=== PATIENT | female | born 1960 | race Caucasian/White ===

== ENCOUNTER 2021-01-26 10:44 | Outpatient (REF) | payer OTHER, SELFPAY ==
[2021-01-26 13:50] LABS: MANUAL DIFF FLAG NO
[2021-01-26 13:58] LABS: Basophils Percent Auto 0.3 % (0-2); Eosinophils Absolute Auto 0.1 X10*3/uL (0.0-0.4); Eosinophils Percent Auto 1.6 % (0-4); Hematocrit 24.1 % (37-47); Imm Gran Abs Auto 0.04 X10*3/uL (0.00-0.03); Imm Gran Pct Auto 0.5 % (0.0-0.4); Lymphocytes Absolute Auto 0.9 X10*3/uL (1.2-4.9); Lymphocytes Percent Auto 12.7 % (20-40); Mean Corpuscular HGB Conc 29.5 g/dl (31.0-35.0); Mean Corpuscular Hemoglobin 27.3 pg (27.0-33.0); Mean Corpuscular Volume 92.7 fL (80-98); Mean Platelet Volume 9.1 fL (9.4-12.3); Monocytes Absolute Auto 0.6 X10*3/uL (0.1-1.2); Monocytes Percent Auto 7.6 % (2-11); NRBC Pct Auto 0.3 /100WBC (0.0-0.2); Neutrophils Absolute Auto 5.7 X10*3/uL (2.0-8.3); Neutrophils Percent Auto 77.3 % (45-73); Platelet Count 383 X10*3/uL (160-400); Red Cell Distribution Width 14.9 % (11.0-16.0); White Blood Count 7.3 X10*3/uL (4.8-10.8)
[2021-01-26 13:59] LABS: Hemoglobin 7.1 g/dl (12.0-16.0)
[2021-01-26 14:19] LABS: Anion Gap 13 (12-20); Blood Urea Nitrogen 13 mg/dL (9-16); Calcium 9.2 mg/dL (8.4-10.2); Carbon Dioxide 28 mmol/L (22-29); Chloride 107 mmol/L (96-108); Estimated Glomerular Filt Rate > 60; Glucose Random 61 mg/dL (60-115); Potassium 4.8 mmol/L (3.3-5.1); Sodium 143 mmol/L (135-145)
== END 2021-01-26 10:45 | disposition home or self-care (01) ==
LOC: HO.HMGCLDS 10:44
PROVIDERS: PCP Internal Medicine; Visit Provider Physician Assistant
DX: K25.9 Gastric ulcer, unspecified as acute or chronic, without hemorrhage or perforation (principal)
CPT/HCPCS: 36415; 80048; 85025

== ENCOUNTER 2021-01-28 09:53 | Outpatient (REF) | payer OTHER, SELFPAY ==
[2021-01-28 11:29] LABS: MANUAL DIFF FLAG NO
[2021-01-28 11:43] LABS: Basophils Percent Auto 0.1 % (0-2); Eosinophils Absolute Auto 0.1 X10*3/uL (0.0-0.4); Eosinophils Percent Auto 1.8 % (0-4); Hematocrit 22.3 % (37-47); Imm Gran Abs Auto 0.04 X10*3/uL (0.00-0.03); Imm Gran Pct Auto 0.5 % (0.0-0.4); Lymphocytes Absolute Auto 0.9 X10*3/uL (1.2-4.9); Lymphocytes Percent Auto 10.8 % (20-40); Mean Corpuscular HGB Conc 29.6 g/dl (31.0-35.0); Mean Corpuscular Hemoglobin 26.8 pg (27.0-33.0); Mean Corpuscular Volume 90.7 fL (80-98); Mean Platelet Volume 9.2 fL (9.4-12.3); Monocytes Absolute Auto 0.6 X10*3/uL (0.1-1.2); Monocytes Percent Auto 7.4 % (2-11); Neutrophils Absolute Auto 6.3 X10*3/uL (2.0-8.3); Neutrophils Percent Auto 79.4 % (45-73); Platelet Count 349 X10*3/uL (160-400); Red Blood Count 2.46 X10*6/uL (4.20-5.50); White Blood Count 7.9 X10*3/uL (4.8-10.8)
[2021-01-28 12:09] LABS: Retic HGB Equivalent 19.2 pg (30.0-35.0); Reticulocyte Percent 5.9 % (0.5-1.8)
[2021-01-28 12:10] LABS: Reticulocytes Absolute 0.111 X10*6/uL (0.026-0.095)
[2021-01-28 12:15] LABS: Hemoglobin 6.6 g/dl (12.0-16.0)
[2021-01-28 12:21] LABS: Ferritin 20 ng/mL (10-250); Iron 14 mcg/dL (30-160); Percent Iron Saturation 5 % (15-50); Total Iron Binding Capacity 298 mcg/dL (228-428); Unsaturated Iron Binding 284 ug/dL
[2021-01-28 12:23] LABS: Folate 4.6 ng/mL (> or = 4.0); Vitamin B12 > 2000 pg/mL (200-900)
== END 2021-01-28 09:54 | disposition home or self-care (01) ==
LOC: HO.HMGCLDS 09:53
PROVIDERS: Physician Assistant; PCP Internal Medicine; Visit Provider Internal Medicine
DX: K92.2 Gastrointestinal hemorrhage, unspecified (principal)
CPT/HCPCS: 36415; 82607; 82728; 82746; 83540; 85025; 85045

== ENCOUNTER 2021-02-26 16:43 | Outpatient (REF) | payer OTHER, SELFPAY ==
--- NOTE | ~2021-02-26 | XR_ITS ---
EXAMINATION: XR CHEST CLINICAL INFORMATION: Shortness of breath COMPARISON: Previous chest x-rays most recent September 2019 TECHNIQUE: 2 views of the chest were obtained. FINDINGS: The cardiac silhouette is slightly enlarged but stable. Hilar and mediastinal contours are unremarkable. The lungs are clear. There is no pleural effusion or pneumothorax. There are degenerative changes of the spine and mild scoliosis. XR/XR chest 2V IMPRESSION: Slightly enlarged cardiac silhouette. Otherwise unremarkable exam.
[2021-02-26 17:07] LABS: Imm Gran Abs Auto 0.04 X10*3/uL (0.00-0.03); Imm Gran Pct Auto 0.5 % (0.0-0.4); MANUAL DIFF FLAG SCAN; Mean Corpuscular Volume 88.4 fL (80-98); SCAN SMEAR FLAG 1
[2021-02-26 17:10] LABS: Basophils Percent Auto 0.1 % (0-2); Eosinophils Absolute Auto 0.2 X10*3/uL (0.0-0.4); Eosinophils Percent Auto 2.5 % (0-4); Hematocrit 34.3 % (37-47); Hemoglobin 10.4 g/dl (12.0-16.0); Lymphocytes Absolute Auto 1.5 X10*3/uL (1.2-4.9); Lymphocytes Percent Auto 17.4 % (20-40); Mean Corpuscular HGB Conc 30.3 g/dl (31.0-35.0); Mean Corpuscular Hemoglobin 26.8 pg (27.0-33.0); Mean Platelet Volume 8.9 fL (9.4-12.3); Monocytes Absolute Auto 0.8 X10*3/uL (0.1-1.2); Monocytes Percent Auto 8.9 % (2-11); Neutrophils Percent Auto 70.6 % (45-73); Platelet Count 382 X10*3/uL (160-400); Red Blood Count 3.88 X10*6/uL (4.20-5.50); Red Cell Distribution Width 15.5 % (11.0-16.0); Retic HGB Equivalent 27.8 pg (30.0-35.0); Reticulocytes Absolute 0.117 X10*6/uL (0.026-0.095); White Blood Count 8.5 X10*3/uL (4.8-10.8)
[2021-02-26 17:36] LABS: Alanine Aminotransferase 25 U/L (0-31); Albumin Level 4.2 g/dL (3.5-5.0); Alkaline Phosphatase 135 U/L (39-117); Anion Gap 13 (12-20); Aspartate Amino Transferase 16 U/L (5-31); Bilirubin Total 0.2 mg/dL (0.0-1.0); Blood Urea Nitrogen 18 mg/dL (9-16); Calcium 10.4 mg/dL (8.4-10.2); Carbon Dioxide 32 mmol/L (22-29); Chloride 100 mmol/L (96-108); Estimated Glomerular Filt Rate > 60; Glucose Random 142 mg/dL (60-115); Iron 44 mcg/dL (30-160); Percent Iron Saturation 12 % (15-50); Potassium 5.2 mmol/L (3.3-5.1); Sodium 140 mmol/L (135-145); Total Iron Binding Capacity 370 mcg/dL (228-428); Total Protein 6.8 g/dL (6.5-8.0); Unsaturated Iron Binding 326 ug/dL
[2021-02-26 17:43] LABS: B Type Natriuretic Peptide 148 pg/mL (<100)
[2021-02-26 17:44] LABS: SLIDE REVIEW VERIFIED
[2021-02-26 17:58] LABS: Ferritin 34 ng/mL (10-250)
[2021-02-26 18:05] LABS: Folate 3.9 ng/mL (> or = 4.0); Vitamin B12 1644 pg/mL (200-900)
== END 2021-02-26 16:44 | disposition home or self-care (01) ==
LOC: HO.XRAY 16:43
PROVIDERS: PCP Internal Medicine; Visit Provider Internal Medicine
DX: R06.02 Shortness of breath (principal)
CPT/HCPCS: 36415; 71046; 80053; 82607; 82728; 82746; 83540; 83880; 85025; 85045

== ENCOUNTER → 2021-03-30 11:31 | Outpatient (BNVA) | payer OTHER, SELFPAY | PROVIDERS: PCP Internal Medicine; Visit Provider Internal Medicine Pulmonary Disease ==

== ENCOUNTER 2021-04-09 08:48 | Outpatient (REF) | payer OTHER, SELFPAY ==
--- NOTE | 2021-04-09 17:44 | PFT_ITS ---
INDICATION: COPD. SPIROMETRY: The FEV1 to FVC of 65% with an FEV1 of 1.1 L, which is 49% predicted and an FVC of 1.7 L which is 58% predicted. No significant response to bronchodilators noted. Maximum voluntary ventilation 56% predicted. LUNG VOLUMES: Total lung capacity 89% predicted with residual volume 120% predicted. The expiratory reserve volume is 27% predicted. DIFFUSION CAPACITY: DLCO 57% predicted. COMPARISONS: None available. INTERPRETATION: There is an obstructive ventilatory defect consistent with severe COPD. No significant response to bronchodilators noted. There is also moderate decrease in maximum voluntary ventilation secondary to deconditioning and also worsening dynamic inspiratory capacity. Lung volumes are low normal, although she does have some trend of air trapping due to the COPD. The patient also has significant decreased expiratory reserve volume secondary to an elevated BMI. There is a moderate diffusion impairment secondary to emphysema and other parenchymal lung conditions should also be considered. Clinical correlation warranted. MD FADY Bernard/MODL / [id number]
== END 2021-04-09 08:49 | disposition home or self-care (01) ==
LOC: HO.RESP 08:48
PROVIDERS: PCP Internal Medicine; Visit Provider Internal Medicine Pulmonary Disease
DX: J43.1 Panlobular emphysema (principal)
CPT/HCPCS: 94060; 94727; 94729

== ENCOUNTER 2021-04-12 15:02 | Outpatient (REF) | payer OTHER, SELFPAY ==
--- NOTE | ~2021-04-12 | CT_ITS ---
EXAMINATION: CT CHEST WITHOUT CONTRAST CLINICAL INFORMATION: Other nonspecific abnormal finding lung field COMPARISON: Previous chest x-rays most recent February 2021 TECHNIQUE: Multidetector volumetric CT imaging of the chest was done. Axial MIP volume rendering provided. Sagittal and coronal reformatted images were obtained. This CT examination was performed using dose optimization techniques as appropriate, variously including the following: *Automated exposure control *Adjustment of mA and/or kV according to patient size (this includes techniques or standardized protocols for targeted exams where dose is matched to indication/reason for exam; i.e. extremities or head) *Use of iterative reconstruction technique DLP: 328 mGy-cm FINDINGS: LUNGS: There is a 3 mm peripheral left lower lobe nodule axial image 386 series 7. There is a 3 mm peripheral or subpleural right lower lobe nodule near the major fissure axial image 357 series 7. There is a 3 mm calcified superior segment left lower lobe nodule axial image 220 series 7. There is a 2 mm peripheral noncalcified right upper lobe nodule axial image 157 series 7. MEDIASTINUM: The thyroid gland may have been removed. There are small mediastinal lymph nodes. No enlarged lymph nodes are seen. There is moderate to severe coronary artery calcification. The heart does not appear enlarged. There is a trace pericardial effusion or thickening. The thoracic aorta is normal in caliber. PLEURA: There is no pleural effusion. No pleural mass or thickening. AXILLA: No lymphadenopathy. UPPER ABDOMEN: The gallbladder is been removed. OSSEOUS STRUCTURES: There are degenerative changes of the spine. CT/CT chest wo con IMPRESSION: Small calcified and noncalcified pulmonary nodules. Coronary artery calcification.
== END 2021-04-12 15:03 | disposition home or self-care (01) ==
LOC: HO.CT 15:02
PROVIDERS: PCP Internal Medicine; Visit Provider Internal Medicine Pulmonary Disease
DX: R91.8 Other nonspecific abnormal finding of lung field (principal)
CPT/HCPCS: 71250

== ENCOUNTER → 2021-04-23 09:35 | Outpatient (BNVA) | payer OTHER, SELFPAY | PROVIDERS: PCP Internal Medicine; Visit Provider Internal Medicine Pulmonary Disease ==

== ENCOUNTER → 2021-06-13 19:53 | Outpatient (REF) | payer OTHER, SELFPAY | LOC: HO.SL 19:53 | PROVIDERS: Visit Provider Internal Medicine Pulmonary Disease | DX: G47.33 Obstructive sleep apnea (adult) (pediatric) (principal) | CPT/HCPCS: 95810 ==

== ENCOUNTER → 2021-07-20 09:17 | Outpatient (BNVA) | payer OTHER, SELFPAY | PROVIDERS: PCP Internal Medicine; Visit Provider Internal Medicine Pulmonary Disease ==

== ENCOUNTER 2021-08-09 07:28 | Outpatient (REF) | payer OTHER, SELFPAY ==
[2021-08-09 11:42] LABS: MANUAL DIFF FLAG NO
[2021-08-09 12:00] LABS: Basophils Percent Auto 0.1 % (0-2); Eosinophils Absolute Auto 0.2 X10*3/uL (0.0-0.4); Eosinophils Percent Auto 2.7 % (0-4); Hematocrit 36.8 % (37.0-47.0); Hemoglobin 11.5 g/dl (12.0-16.0); Imm Gran Abs Auto 0.04 X10*3/uL (0.00-0.03); Imm Gran Pct Auto 0.6 % (0.0-0.4); Immature Retic Fraction 22.8 % (3.0-15.9); Lymphocytes Absolute Auto 1.7 X10*3/uL (1.2-4.9); Lymphocytes Percent Auto 25.5 % (20-40); Mean Corpuscular HGB Conc 31.3 g/dl (31.0-35.0); Mean Corpuscular Hemoglobin 29.3 pg (27.0-33.0); Mean Corpuscular Volume 93.6 fL (80.0-98.0); Mean Platelet Volume 9.3 fL (9.4-12.3); Monocytes Absolute Auto 0.6 X10*3/uL (0.1-1.2); Monocytes Percent Auto 8.4 % (2-11); Neutrophils Absolute Auto 4.2 x10*3/uL (2.0-8.3); Neutrophils Percent Auto 62.7 % (45-73); Platelet Count 259 X10*3/uL (160-400); Red Blood Count 3.93 X10*6/uL (4.20-5.50); Red Cell Distribution Width 13.9 % (11.0-16.0); Reticulocyte Percent 2.5 % (0.5-1.8); Reticulocytes Absolute 0.098 X10*6/uL (0.026-0.095); White Blood Count 6.7 X10*3/uL (4.8-10.8)
[2021-08-09 12:05] LABS: Alanine Aminotransferase 30 U/L (0-31); Alkaline Phosphatase 93 U/L (39-117); Anion Gap 15 (12-20); Aspartate Amino Transferase 20 U/L (5-31); Bilirubin Total 0.3 mg/dL (0.0-1.0); Blood Urea Nitrogen 32 mg/dL (9-16); Calcium 9.7 mg/dL (8.4-10.2); Carbon Dioxide 33 mmol/L (22-29); Chloride 95 mmol/L (96-108); Cholesterol 219 mg/dL; Estimated Glomerular Filt Rate 48; Glucose Random 127 mg/dL (60-115); HDL Cholesterol 45 mg/dL; Iron 53 mcg/dL (30-160); LDL Cholesterol Calculated 95 mg/dl; Percent Iron Saturation 15 % (15-50); Potassium 4.4 mmol/L (3.3-5.1); Sodium 139 mmol/L (135-145); Total Iron Binding Capacity 363 mcg/dL (228-428); Total Protein 6.5 g/dL (6.5-8.0); Triglycerides 396 mg/dL; Unsaturated Iron Binding 310 ug/dL
[2021-08-09 12:27] LABS: Creatinine Urine 86.56 mg/dL; Ferritin 20 ng/mL (10-250); Free T4 (Free Thyroxine) 1.16 ng/dL (0.71-1.85); Thyroid Stimulating Hormone 0.55 uIU/mL (0.32-4.0); Vitamin D 25-OH Total 37.8 ng/mL (>30)
[2021-08-09 12:32] LABS: Creatinine Urine 88.46 mg/dL; Microalbum/Creatinine Ratio Ur 88.1 ug/mg cr
[2021-08-09 12:39] LABS: Folate 19.7 ng/mL (> or = 4.0); Vitamin B12 1815 pg/mL (200-900)
== END 2021-08-09 07:29 | disposition home or self-care (01) ==
LOC: HO.HMGCLDS 07:28
PROVIDERS: PCP Internal Medicine; Visit Provider Internal Medicine
DX: E11.65 Type 2 diabetes mellitus with hyperglycemia (principal); E78.00 Pure hypercholesterolemia, unspecified; Z79.4 Long term (current) use of insulin
CPT/HCPCS: 36415; 80053; 80061; 82043; 82306; 82607; 82728; 82746; 83540; 84439; 84443; 85025; 85045

== ENCOUNTER 2021-11-29 10:21 | Outpatient (REF) | payer OTHER, SELFPAY ==
[2021-11-29 12:09] LABS: Alanine Aminotransferase 33 U/L (0-31); Albumin Level 4.2 g/dL (3.5-5.0); Alkaline Phosphatase 92 U/L (39-117); Anion Gap 15 (12-20); Aspartate Amino Transferase 23 U/L (5-31); Bilirubin Total 0.5 mg/dL (0.0-1.0); Calcium 10.1 mg/dL (8.4-10.2); Carbon Dioxide 32 mmol/L (22-29); Chloride 93 mmol/L (96-108); Cholesterol 200 mg/dL; Estimated Glomerular Filt Rate 42; Potassium 5.1 mmol/L (3.3-5.1); Sodium 135 mmol/L (135-145)
[2021-11-29 12:10] LABS: Blood Urea Nitrogen 31 mg/dL (9-16); Glucose Random 368 mg/dL (60-115); HDL Cholesterol 56 mg/dL; LDL Cholesterol Calculated 87 mg/dl; Total Protein 6.7 g/dL (6.5-8.0); Triglycerides 286 mg/dL
== END 2021-11-29 10:22 | disposition home or self-care (01) ==
LOC: HO.HMGCLDS 10:21
PROVIDERS: PCP Internal Medicine; Visit Provider Internal Medicine
DX: I25.10 Atherosclerotic heart disease of native coronary artery without angina pectoris (principal); E78.00 Pure hypercholesterolemia, unspecified
CPT/HCPCS: 36415; 80053; 80061

== ENCOUNTER → 2021-12-14 09:14 | Outpatient (BNVA) | payer OTHER, SELFPAY | PROVIDERS: PCP Internal Medicine; Visit Provider Internal Medicine Pulmonary Disease | DX: Z13.89 Encounter for screening for other disorder (principal) ==

== ENCOUNTER 2022-03-18 08:41 | Outpatient (REF) | payer OTHER, SELFPAY ==
[2022-03-18 12:00] LABS: MANUAL DIFF FLAG NO
[2022-03-18 12:08] LABS: Basophils Percent Auto 0.3 % (0-2); Eosinophils Absolute Auto 0.1 X10*3/uL (0.0-0.4); Eosinophils Percent Auto 1.6 % (0-4); Hematocrit 31.4 % (37.0-47.0); Hemoglobin 9.6 g/dl (12.0-16.0); Imm Gran Abs Auto 0.06 X10*3/uL (0.00-0.03); Imm Gran Pct Auto 0.9 % (0.0-0.4); Immature Retic Fraction 27.4 % (3.0-15.9); Lymphocytes Absolute Auto 1.7 X10*3/uL (1.2-4.9); Lymphocytes Percent Auto 24.7 % (20-40); Mean Corpuscular HGB Conc 30.6 g/dl (31.0-35.0); Mean Corpuscular Hemoglobin 25.9 pg (27.0-33.0); Mean Corpuscular Volume 84.9 fL (80.0-98.0); Monocytes Absolute Auto 0.7 X10*3/uL (0.1-1.2); Monocytes Percent Auto 10.2 % (2-11); Neutrophils Absolute Auto 4.3 x10*3/uL (2.0-8.3); Neutrophils Percent Auto 62.3 % (45-73); Platelet Count 357 X10*3/uL (160-400); Red Cell Distribution Width 14.2 % (11.0-16.0); Retic HGB Equivalent 29.9 pg (30.0-35.0); Reticulocyte Percent 2.8 % (0.5-1.8); Reticulocytes Absolute 0.102 X10*6/uL (0.026-0.095); White Blood Count 6.8 X10*3/uL (4.8-10.8)
[2022-03-18 12:31] LABS: B Type Natriuretic Peptide 32 pg/mL (<100)
[2022-03-18 12:40] LABS: Ferritin 12 ng/mL (10-250)
[2022-03-18 12:44] LABS: Alanine Aminotransferase 33 U/L (0-31); Albumin Level 4.2 g/dL (3.5-5.0); Alkaline Phosphatase 83 U/L (39-117); Anion Gap 16 (12-20); Aspartate Amino Transferase 24 U/L (5-31); Bilirubin Total < 0.2 mg/dL (0.0-1.0); Blood Urea Nitrogen 28 mg/dL (9-16); Calcium 9.6 mg/dL (8.4-10.2); Carbon Dioxide 34 mmol/L (22-29); Chloride 89 mmol/L (96-108); Cholesterol 176 mg/dL; Estimated Glomerular Filt Rate 38; Glucose Random 178 mg/dL (60-115); HDL Cholesterol 51 mg/dL; Iron 34 mcg/dL (30-160); LDL Cholesterol Calculated 66 mg/dl; Percent Iron Saturation 9 % (15-50); Potassium 4.1 mmol/L (3.3-5.1); Sodium 135 mmol/L (135-145); Total Iron Binding Capacity 391 mcg/dL (228-428); Total Protein 6.6 g/dL (6.5-8.0); Triglycerides 295 mg/dL; Unsaturated Iron Binding 357 ug/dL
[2022-03-18 12:52] LABS: Vitamin B12 766 pg/mL (200-900)
[2022-03-18 14:44] LABS: Estimated Average Glucose 266 mg/dL; Hemoglobin A1c % 10.9 %
== END 2022-03-18 08:42 | disposition home or self-care (01) ==
LOC: HO.HMGCLDS 08:41
PROVIDERS: Visit Provider Internal Medicine
DX: E78.00 Pure hypercholesterolemia, unspecified (principal)
CPT/HCPCS: 36415; 80053; 80061; 82607; 82728; 82746; 83036; 83540; 83880; 85025; 85045

== ENCOUNTER 2022-06-30 07:57 | Outpatient (REF) | payer BC, SELFPAY ==
[2022-06-30 11:33] LABS: MANUAL DIFF FLAG NO
[2022-06-30 11:48] LABS: Basophils Percent Auto 0.2 % (0-2); Eosinophils Absolute Auto 0.1 X10*3/uL (0.0-0.4); Eosinophils Percent Auto 2.1 % (0-4); Hematocrit 32.7 % (37.0-47.0); Hemoglobin 10.6 g/dl (12.0-16.0); Imm Gran Abs Auto 0.03 X10*3/uL (0.00-0.03); Imm Gran Pct Auto 0.5 % (0.0-0.4); Lymphocytes Absolute Auto 1.3 X10*3/uL (1.2-4.9); Mean Corpuscular HGB Conc 32.4 g/dl (31.0-35.0); Mean Corpuscular Volume 89.6 fL (80.0-98.0); Mean Platelet Volume 8.9 fL (9.4-12.3); Monocytes Absolute Auto 0.6 X10*3/uL (0.1-1.2); Monocytes Percent Auto 10.2 % (2-11); Neutrophils Absolute Auto 3.6 x10*3/uL (2.0-8.3); Platelet Count 265 X10*3/uL (160-400); Red Blood Count 3.65 X10*6/uL (4.20-5.50); Red Cell Distribution Width 13.1 % (11.0-16.0); White Blood Count 5.6 X10*3/uL (4.8-10.8)
== END 2022-06-30 07:58 | disposition home or self-care (01) ==
LOC: HO.HMGCLDS 07:57
PROVIDERS: PCP Internal Medicine; Visit Provider Internal Medicine
DX: R06.02 Shortness of breath (principal)
CPT/HCPCS: 36415; 85025

== ENCOUNTER 2022-07-29 13:18 | Outpatient (REF) | payer BC, SELFPAY ==
--- NOTE | ~2022-07-29 | MM_ITS ---
EXAMINATION: BONE DENSITOMETRY CLINICAL INDICATION: Age-related osteoporosis without current pathological fracture. COMPARISON: Previous BD dated 07/07/2017 and baseline BD dated 02/08/2011. TECHNIQUE: Using a [employer] Mon[employer] DXA System (software version: 13.1) manufactured by [employer], dual-energy x-ray absorptiometry was performed of the lumbar spine and left hip. The images are of good technical quality. Summary results are attached. FINDINGS: AP SPINE L1-L4: Current: BMD 1.375 g/cm2, Z-score 1.8, T-score 1.6, normal, 1.9% decrease from previous, 4.6% increase from baseline (<5% change is not significant). Prior: BMD 1.402 g/cm2. Baseline: BMD 1.314 g/cm2. LEFT FEMUR, NECK: Current: BMD 0.940 g/cm2, Z-score -0.1, T-score -0.7, normal. Prior: BMD 1.030 g/cm2. Baseline: BMD 1.137 g/cm2. LEFT FEMUR, TOTAL: Current: BMD 0.937 g/cm2, Z-score -0.4, T-score -0.6, normal, 25.1% decrease from previous, 27.1% decrease from baseline (<5% change is not significant). Prior: BMD 1.251 g/cm2. Baseline: BMD 1.285 g/cm2. IDENTIFIED RISK FACTORS: Osteoporosis, height loss, history of fracture (adult). Early menopause, secondary osteoporosis, glucocorticoids (chronic). HISTORY OF FRACTURE: Other. MEDICATIONS: Vitamin D. MM/XR DEXA axial skeleton IMPRESSION: 1. DIAGNOSIS: Normal bone density based on the lowest T-score value of -0.7 in the femoral neck applying World Health Organization criteria. 2. 10-YEAR FRACTURE RISK PREDICTION, FRAX: According to the guidelines, FRAX calculation should only be performed on patients in the osteopenia bone density category. Therefore, FRAX was not performed on this patient. 3. Treatment Recommendations: NOF guidelines recommend consideration for treatment in postmenopausal women and men age 50 and older presenting with the following: -A hip or vertebral (clinical or morphometric) fracture. -T-score less than or equal to -2.5 at the femoral neck or spine after appropriate evaluation to exclude secondary causes. -Low bone mass at the hip or spine and a 10-year fracture probability by FRAX of greater than or equal to 3% for hip fracture or greater than or equal to 20% for major osteoporotic fracture based on the [place] adapted WHO algorithm. 4. Other Recommendations: All treatment decisions require clinical judgment and consideration of individual patient factors, including patient preferences, comorbidities, previous drug use, risk factors not captured in the FRAX model (e.g. frailty, falls, vitamin D deficiency, increased bone turnover, interval significant decline in bone density) and possible under or overestimation of fracture risk by FRAX. FUTURE SCAN RECOMMENDATION: People with diagnosed cases of osteoporosis or at high risk for fracture should have regular bone mineral density tests. For patients eligible for Medicare, routine testing is allowed once every 2 years. The testing frequency can be increased to one year for patients who have rapidly progressing disease, those who are receiving or discontinuing medical therapy to restore bone mass, or have additional risk factors.
--- NOTE | ~2022-07-29 | MM_ITS ---
EXAMINATION: MM SCREENING DIGITAL BREAST TOMOSYNTHESIS, BILATERAL CLINICAL INFORMATION: Screening. Asymptomatic. The lifetime risk of breast cancer based on the Tyrer-Cuzick Model is 7%. COMPARISON: Mammography: 05/16/2020, 07/28/2018 07/07/2017 TECHNIQUE: Digital breast tomosynthesis is performed in both the craniocaudal and mediolateral oblique views along with computer-aided detection (CAD). Synthesized 2D images are generated from the tomosynthesis. Additional left CC view is provided. FINDINGS: The breasts are almost entirely fatty (ACR BI-RADS breast composition Category a). There are no significant masses, abnormal calcifications, or other abnormalities. Background stromal markings are normal. No developing density. No architectural abnormality. The axilla are unremarkable. MM/MM tomosynthesis screening BI IMPRESSION: No mammographic evidence of malignancy. ASSESSMENT: BI-RADS 1: Negative RECOMMENDATION: Routine annual mammography screening. This patient's information was entered into a reminder system with a target due date for their next mammogram.
== END 2022-07-29 13:19 | disposition home or self-care (01) ==
LOC: HO.MAMMO 13:18
PROVIDERS: PCP Internal Medicine; Visit Provider Internal Medicine
DX: Z12.31 Encounter for screening mammogram for malignant neoplasm of breast (principal); Z13.820 Encounter for screening for osteoporosis; Z78.0 Asymptomatic menopausal state; M81.0 Age-related osteoporosis without current pathological fracture
CPT/HCPCS: 77063; 77067; 77080

== ENCOUNTER 2022-10-24 06:19 | Outpatient (REF) | payer BC, SELFPAY ==
[2022-10-24 08:20] LABS: B Type Natriuretic Peptide 80 pg/mL (<100)
[2022-10-24 11:36] LABS: MANUAL DIFF FLAG NO
[2022-10-24 11:43] LABS: Basophils Percent Auto 0.5 % (0-2); Eosinophils Absolute Auto 0.2 X10*3/uL (0.0-0.4); Eosinophils Percent Auto 2.4 % (0-4); Hematocrit 37.5 % (37.0-47.0); Hemoglobin 11.7 g/dl (12.0-16.0); Imm Gran Abs Auto 0.02 X10*3/uL (0.00-0.03); Imm Gran Pct Auto 0.3 % (0.0-0.4); Immature Retic Fraction 11.1 % (3.0-15.9); Lymphocytes Absolute Auto 1.4 X10*3/uL (1.2-4.9); Lymphocytes Percent Auto 22.1 % (20-40); Mean Corpuscular HGB Conc 31.2 g/dl (31.0-35.0); Mean Corpuscular Hemoglobin 29.3 pg (27.0-33.0); Mean Corpuscular Volume 93.8 fL (80.0-98.0); Mean Platelet Volume 9.1 fL (9.4-12.3); Monocytes Absolute Auto 0.6 X10*3/uL (0.1-1.2); Monocytes Percent Auto 10.4 % (2-11); Neutrophils Absolute Auto 3.9 x10*3/uL (2.0-8.3); Neutrophils Percent Auto 64.3 % (45-73); Platelet Count 271 X10*3/uL (160-400); Red Cell Distribution Width 12.6 % (11.0-16.0); Retic HGB Equivalent 34.2 pg (30.0-35.0); Reticulocyte Percent 2.7 % (0.5-1.8); Reticulocytes Absolute 0.107 X10*6/uL (0.026-0.095); White Blood Count 6.1 X10*3/uL (4.8-10.8)
[2022-10-24 12:29] LABS: Alanine Aminotransferase 38 U/L (0-31); Albumin Level 4.1 g/dL (3.5-5.0); Alkaline Phosphatase 62 U/L (39-117); Anion Gap 15 (12-20); Aspartate Amino Transferase 25 U/L (5-31); Bilirubin Total 0.4 mg/dL (0.0-1.0); Blood Urea Nitrogen 29 mg/dL (9-16); Calcium 10.5 mg/dL (8.4-10.2); Carbon Dioxide 35 mmol/L (22-29); Chloride 96 mmol/L (96-108); Cholesterol 141 mg/dL; Estimated Glomerular Filt Rate 46; Glucose Random 131 mg/dL (60-115); HDL Cholesterol 49 mg/dL; Iron 74 mcg/dL (30-160); LDL Cholesterol Calculated 48 mg/dl; Percent Iron Saturation 27 % (15-50); Potassium 4.2 mmol/L (3.3-5.1); Sodium 142 mmol/L (135-145); Total Iron Binding Capacity 276 mcg/dL (228-428); Triglycerides 222 mg/dL; Unsaturated Iron Binding 202 ug/dL
[2022-10-24 12:53] LABS: Ferritin 52 ng/mL (10-250); Folate 5.2 ng/mL (> or = 4.0); Free T4 (Free Thyroxine) 1.24 ng/dL (0.71-1.85); Thyroid Stimulating Hormone 0.05 uIU/mL (0.32-4.0); Vitamin B12 > 2000 pg/mL (200-900)
== END 2022-10-24 06:20 | disposition home or self-care (01) ==
LOC: HO.HMGCLDS 06:19
PROVIDERS: PCP Internal Medicine; Visit Provider Internal Medicine
DX: D64.9 Anemia, unspecified (principal); E78.00 Pure hypercholesterolemia, unspecified
CPT/HCPCS: 36415; 80053; 80061; 82607; 82728; 82746; 83540; 83880; 84439; 84443; 85025; 85045

== ENCOUNTER 2023-01-27 08:00 | Outpatient (REF) | payer BC, SELFPAY ==
[2023-01-27 12:39] LABS: Free T4 (Free Thyroxine) 1.23 ng/dL (0.71-1.85); Thyroid Stimulating Hormone 0.07 uIU/mL (0.32-4.0)
== END 2023-01-27 08:01 | disposition home or self-care (01) ==
LOC: HO.HMGCLDS 08:00
PROVIDERS: PCP Internal Medicine; Visit Provider Internal Medicine
DX: E03.9 Hypothyroidism, unspecified (principal)
CPT/HCPCS: 36415; 84439; 84443

== ENCOUNTER 2023-04-18 08:18 | Outpatient (REF) | payer BC, SELFPAY ==
[2023-04-18 13:25] LABS: Thyroid Stimulating Hormone 0.26 uIU/mL (0.32-4.0)
== END 2023-04-18 08:19 | disposition home or self-care (01) ==
LOC: HO.HMGCLDS 08:18
PROVIDERS: PCP Internal Medicine; Visit Provider Internal Medicine
DX: E03.9 Hypothyroidism, unspecified (principal)
CPT/HCPCS: 36415; 84439; 84443

== ENCOUNTER 2023-06-01 10:49 | Outpatient (AMB) | payer BC, SELFPAY ==
[2023-06-01 10:51] VITALS: BP 106/62; PULSE 67; O2SAT 97; BMI 46.5
--- NOTE | 2023-06-01 10:51 | A.OFFPC_ITS ---
Vital Signs 06/01/23 10:51 06/01/23 11:24 Height 5 ft 2 in Weight 254 lb BMI 46.5 BP 106/62 130/60 Blood Pressure Location Lt brachial Lt brachial Position Sitting Left Lateral Pulse 67 Pulse Source Pulse Oximeter Pulse Oximetry (%) 97 Oxygen Delivery Method Nasal Cannula Intake Visit Reasons: DM Allergies adalimumab [Humira] Allergy (Unknown, Verified 06/01/23 10:51) Unknown alprazolam Allergy (Unknown, Verified 06/01/23 10:51) swelling amlodipine Allergy (Unknown, Verified 06/01/23 10:51) swelling etanercept [Enbrel] Allergy (Unknown, Verified 06/01/23 10:51) Unknown fluticasone [From Wix[facility] Inhub] Allergy (Unknown, Verified 06/01/23 10:51) Unknown hydrochlorothiazide Allergy (Unknown, Verified 06/01/23 10:51) hives salmeterol [From Wixela Inhub] Allergy (Unknown, Verified 06/01/23 10:51) Unknown simvastatin Allergy (Unknown, Verified 06/01/23 10:51) Unknown codeine Adverse Reaction (Intermediate, Verified 06/01/23 10:51) Nausea and Vomiting roflumilast [From Daliresp] Adverse Reaction (Intermediate, Verified 06/01/23 10:51) Nausea Tobacco use date assessed: 10/25/22 Dental Screening Dental Screen Date: 06/01/23 Did you have a dental visit in the last 12 months?: Yes Did you have a dental problem in the last 6 months where you did not have access to dental care?: No Was dental information given to patient?: Patient has dentist HPI DM HPI Details 63-year-old morbidly obese female with d iabetes mellitus hypercholesterolemia COPD hypothyroid hypertension history of gastric ulcer coronary artery disease coming in for follow-up. Last seen in January 2023. Patient has mammogram is due in July, colonoscopy up-to-date. Review of the notes echocardiogram done May 2023 showing mild to moderate concentric left ventricular hypertrophy left ventricular systolic function is normal 55-60% mitral annular calcification increase in left atrial pressure aortic valve was not visualized severe mitral annual calcification trace mitral regurg ascending aorta 3.8 cm. Patient also had carotid ultrasound April 2023 with right ICA 16-49% left ICA patent status post endarterectomy. Patient did see cardiology February 2023 advised dobutamine stress test. Patient had cholesterol testing LDL is 31 triglyceride of 2 to HDL of 50 renal function is normal [facility] Medical History (Updated 06/01/23 @ 11:32 by Juan Escoto MD) SOB (shortness of breath) Upper GI hemorrhage Closed left ankle fracture Psoriatic arthritis History of paroxysmal supraventricular tachycardia Tobacco abuse Osteoarthritis Hypertension Diabetic nephropathy Psoriasis Diabetic neuropathy Hypothyroid Obesity COPD (chronic obstructive pulmonary disease) Hypercholesterolemia Type 2 diabetes mellitus with hyperglycemia Surgical History History of carotid angioplasty H/O cardiac radiofrequency ablation History of cataract surgery History of throat surgery History of parathyroidectomy History of thyroidectomy History of ankle surgery H/O left wrist surgery History of eye surgery History of appendectomy History of cholecystectomy History of section Family History Father Prostate cancer Mother Ovarian cancer Paternal Grandmother Breast cancer Social History Household Members: Spouse Household Members Other:: [facility] Housing: House Alcohol intake: current Alcohol intake frequency: does not drink Patient Tobacco Use Status: Former Tobacco user Tobacco use type: Cigarette Years Smoked: 48 e-Cigarette/Vaping Use: Never Used Second Hand Smoke Exposure: No service: No Current occupational status: disabled Cognitive needs: Yes (using portable oxygen) Hearing needs: No Vision needs: Yes (Glasses) Questionnaire PHQ-9 Over the last 2 weeks, how often have you been bothered by any of the following problems? 1. Little interest or pleasure in doing things: several days 2. Feeling down, depressed, or hopeless: several days 3. Trouble falling or staying asleep, or sleeping too much: several days 4. Feeling tired or having little energy: several days 5. Poor appetite or overeating: not at all 6. Feeling bad about yourself - or that you are a failure or have let yourself or your family down: not at all 7. Trouble concentrating on things, such as reading the newspaper or watching television: not at all 8. Moving or speaking so slowly that other people could have noticed. Or the opposite - being so fidgety or restless that you have been moving around a lot more than usual: not at all 9. Thoughts that you would be better off or of hurting yourself in some way: not at all Total score: 4 Depression Screening Interpretation: Positive Source: Developed by Drs. Guy Gibson, Rupali Carroll, Trey Hughes and colleagues, with an educational mil[place] from [employer]. Thrive Questionnaire Date Thrive assessed: 10/25/22 AUDIT C Alcohol Use Questionnaire (AUDIT-C) 1. How often do you have a drink containing alcohol?: Never 2. How many drinks containing alcohol do you have on a typical day when you are drinking?: 1 or 2 (0) 3. How often do you have six or more drinks on one occasion?: Never Total Score: 0 PATITO-7 AMB Questionnaire PATITO-7 Date PATITO - 7 assessed: 10/25/22 Source: Developed by Drs. Guy Gibson, Trey Johnson and colleagues, with an educational milton from [employer]. Physical exam (Primary Care) Vital Signs: Last Vital Signs Pulse 67 06/01/23 10:51 BP 106/62 06/01/23 10:51 Pulse Ox 97 06/01/23 10:51 Oxygen Delivery Method Nasal Cannula 06/01/23 10:51 BMI result Body Mass Index 46.5 Tobacco/Smoking Status: Tobacco use Status Tobacco use date assessed 10/25/22 06/01/23 10:53 Patient Tobacco Use Status Former Tobacco user 06/01/23 10:53 Tobacco use type Cigarette 06/01/23 10:53 e-Cigarette/Vaping Use Never Used 06/01/23 10:53 PHQ-9: PHQ-9 Score PHQ-9: Total score 4 06/01/23 11:08 Depression Screening Interpretation: Positive Thrive Assessment: Date of Thrive Assessment Date Thrive assessed 10/25/22 06/01/23 10:53 Const General: alert; No acute distress Eyes Conjunctivae: conjunctivae normal Resp Auscultation: clear to auscultation bilaterally Cardio Rate: regular rate Rhythm: regular rhythm GI Inspection: Yes normal to inspection Extrem General: Yes normal to inspection and No edema Results AMB Hemoglobin A1c AMB Hemoglobin A1c 6.9 % Last Edit by Rocio Valadez CMA on 06/01/23 11 :09 Results Reviewed Results Reviewed: Laboratory Last Values Hgb A1c (Clinic) 6.9 % (4.0-6.0) H 06/01/23 10:53 Assessment and Plan Assessment & Plan (1) Type 2 diabetes mellitus with hyperglycemia: Comment: [facility] 05/2023 Code(s): E11.65 - Type 2 diabetes mellitus with hyperglycemia Qualifiers: Diabetes mellitus jail insulin use: with long term care pharmacist use Qualified Code(s): E11.65 - Type 2 diabetes mellitus with hyperglycemia; Z79.4 - long term care pharmacist (current) use of insulin Plan: Decrease the amount of carbohydrate intake, pasta, bread, rice and potatoes are all sugar and that is aside from all the sweet stuff, remember that fruits are good but they are Sweet also. Hemoglobin A1c goal of less than 6.5 patient is on metformin a 1000 mg twice a day NovoLog and Basaglar (2) Hypercholesterolemia: Code(s): E78.00 - Pure hypercholesterolemia, unspecified Plan: Avoid fried foods, chicken skin, eggs, butter margarine, pastries and meat. Be it pork or beef they have a lot of cholesterol LDL goal of less than 70 blood work done March at goal with rosuvastatin 40 mg once a day (3) COPD (chronic obstructive pulmonary disease): Code(s): J44.9 - Chronic obstructive pulmonary disease, unspecified Qualifiers: COPD type: emphysema Emphysema type: panlobular Qualified Code(s): J43.1 - Panlobular emphysema Plan: Continue with inhalers (4) Obesity: Code(s): E66.9 - Obesity, unspecified Qualifiers: Obesity type: due to excess calories Obesity classification: adult class 3 (BMI >= 40) Serious obesity comorbidity presence: with serious comorbidity Body mass index: BMI 45.0-49.9 Qualified Code(s): E66.01 - Morbid (severe) obesity due to excess calories; Z68.42 - Body mass index [BMI] 45.0- 49.9, adult Plan: Diet and exercise (5) Hypothyroid: Code(s): E03.9 - Hypothyroidism, unspecified Qualifiers: Hypothyroidism type: acquired Qualified Code(s): E03.9 - Hypothyroidism, unspecified Plan: Continue with thyroid medication (6) Hypertension: Code(s): I10 - Essential (primary) hypertension Qualifiers: Hypertension type: essential hypertension Qualified Code(s): I10 - Essential (primary) hypertension Plan: Continue with blood pressure medication. Decrease salt intake and exercise patient is taking metoprolol 25 mg twice a day losartan 100 mg once a day hydralazine 25 mg twice a day (7) Gastric ulcer: Comment: January 2021, pre-pyloric gastric ulcer transferred to [facility] and embolization done Code(s): K25.9 - Gastric ulcer, unspecified as acute or chronic, without hemorrhage or perforation Qualifiers: Gastric ulcer chronicity: acute Gastric ulcer complication status: with hemorrhage Qualified Code(s): K25.0 - Acute gastric ulcer with hemorrhage Plan: Avoid the foods that causes that usually spicy foods, tomato products, juices, coffee, soda and foods that your sensitive to. After eating do not lie down, allow 3-4 hours before in lie down. And keep the head of bed above 30 degrees to avoid the acid from going up. Avoid NSAIDs on pantoprazole 40 mg twice a day (8) Carotid stenosis, left: Comment: 90% left internal carotid January 2021 status post carotid endarterectomy, 04/2023 L patent, R 49% Code(s): I65.22 - Occlusion and stenosis of left carotid artery Plan: Continued to be monitored April 2023 last ultrasound (9) CVA (cerebral vascular accident): Comment: Expressive aphasia January 2021 Code(s): I63.9 - Cerebral infarction, unspecified Qualifiers: CVA mechanism: occlusion Precerebral and cerebral artery: unspecified cerebral artery Qualified Code(s): I63.50 - Cerebral infarction due to unspecified occlusion or stenosis of unspecified cerebral artery Plan: Control the cholesterol, weight, blood pressure, diabetes continue with aspirin (10) Coronary artery disease: Code(s): I25.10 - Atherosclerotic heart disease of [place] coronary artery without angina pectoris Plan: Control the cholesterol, weight, blood pressure, diabetes Orders: Orders AMB Hemoglobin A1c Today Z13.9 - Encounter for screening, unspecified Coding Level of Care Code Est Pt Level 4 (43774) Diagnoses Type 2 diabetes mellitus with hyperglycemia, with long-term current use of insulin E11.65; Z79.4 Diabetes mellitus jail insulin use: with long term care pharmacist use Hypercholesterolemia E78.00 Panlobular emphysema J43.1 COPD type: emphysema Emphysema type: panlobular Class 3 severe obesity due to excess calories with serious comorbidity and body mass index (BMI) of 45.0 to 49.9 in adult E66.01; Z68.42 Obesity type: due to excess calories Obesity classification: adult class 3 (BMI >= 40) Serious obesity comorbidity presence: with serious comorbidity Body mass index: BMI 45.0-49.9 Acquired hypothyroidism E03.9 Hypothyroidism type: acquired Essential hypertension I10 Hypertension type: essential hypertension Acute gastric ulcer with hemorrhage K25.0 Gastric ulcer chronicity: acute Gastric ulcer complication status: with hemorrhage Carotid stenosis, left I65.22 Cerebrovascular accident (CVA) due to occlusion of cerebral artery I63.50 CVA mechanism: occlusion Precerebral and cerebral artery: unspecified cerebral artery Coronary artery disease I25.10
[2023-06-01 11:24] VITALS: BP 130/60
== END 2023-06-01 11:37 | disposition home or self-care (01) ==
PROVIDERS: PCP Internal Medicine; Visit Provider Internal Medicine
DX: E11.65 Type 2 diabetes mellitus with hyperglycemia (principal)
CPT/HCPCS: 83036; 99214

== ENCOUNTER 2023-07-03 10:12 | Outpatient (REF) | payer BC, SELFPAY ==
[2023-07-03 14:25] LABS: Free T4 (Free Thyroxine) 0.99 ng/dL (0.71-1.85); Thyroid Stimulating Hormone 0.48 uIU/mL (0.32-4.0)
== END 2023-07-03 10:13 | disposition home or self-care (01) ==
LOC: HO.HMGCLDS 10:12
PROVIDERS: PCP Internal Medicine; Visit Provider Internal Medicine
DX: E03.9 Hypothyroidism, unspecified (principal)
CPT/HCPCS: 36415; 84439; 84443

== ENCOUNTER 2023-07-25 11:00 | Outpatient (AMB) | payer BC, SELFPAY ==
--- NOTE | 2023-07-25 11:02 | A.OFFPC_ITS ---
Vital Signs 3 07/25/23 11:06 Height 5 ft 2 in Weight 251 lb 8 oz BMI 46.0 BP 150/60 H Blood Pressure Location Lt brachial Position Sitting Pulse 65 Pulse Source Pulse Oximeter Pulse Oximetry (%) 96 Oxygen Delivery Method Nasal Cannula Intake Visit Reasons: fall Intake Note: Patient is here to follow-up after a visit the emergency department at [facility] on 07/19/23 County Judge Required: No Event Designer: Present Accompanied by: Spouse Allergies adalimumab [Humira] Allergy (Unknown, Verified 07/25/23 11:05) Unknown alprazolam Allergy (Unknown, Verified 07/25/23 11:05) swelling amlodipine Allergy (Unknown, Verified 07/25/23 11:05) swelling etanercept [Enbrel] Allergy (Unknown, Verified 07/25/23 11:05) Unknown fluticasone [From Wixela Inhub] Allergy (Unknown, Verified 07/25/23 11:05) Unknown hydrochlorothiazide Allergy (Unknown, Verified 07/25/23 11:05) hives salmeterol [From Wixela Inhub] Allergy (Unknown, Verified 07/25/23 11:05) Unknown simvastatin Allergy (Unknown, Verified 07/25/23 11:05) Unknown codeine Adverse Reaction (Intermediate, Verified 07/25/23 11:05) Nausea and Vomiting roflumilast [From Daliresp] Adverse Reaction (Intermediate, Verified 07/25/23 11:05) Nausea Tobacco use date assessed: 07/25/23 Dental Screening Dental Screen Date: 07/25/23 Did you have a dental visit in the last 12 months?: Yes Did you have a dental problem in the last 6 months where you did not have access to dental care?: No Was dental information given to patient?: Patient has dentist HPI [facility] fall 2 HPI0 Details 63-year-old morbidly obese female with a history of diabetes mellitus hypercholesterolemia COPD hypothyroidism hypertension history of CVA and coronary artery disease coming in for follow-up. Last seen in May 2023. Patient's mammogram is due. Review of the notes July 18 ER visit for fall CT scan of the head and neck negative tibia fibula right x-ray no acute displaced fracture or dislocation intact sacroiliac joints and pubic symphysis minimal degenerative changes bilateral hips ossific density respirate a set of ileum mild degenerative changes bilateral sacroiliac joint and lower lumbar spine. Patient is here for follow-up. Patient sees endocrinology doctorNicasio hemoglobin A1c done May 2023 7.3 PFSH Medical History (Updated 07/25/23 @ 11:33 by Juan Escoto MD) SOB (shortness of breath) Upper GI hemorrhage Closed left ankle fracture Psoriatic arthritis History of paroxysmal supraventricular tachycardia Tobacco abuse Osteoarthritis Hypertension Diabetic nephropathy Psoriasis Diabetic neuropathy Hypothyroid Obesity COPD (chronic obstructive pulmonary disease) Hypercholesterolemia Type 2 diabetes mellitus with hyperglycemia Surgical History History of carotid angioplasty H/O cardiac radiofrequency ablation History of cataract surgery History of throat surgery History of parathyroidectomy History of thyroidectomy History of ankle surgery H/O left wrist surgery History of eye surgery History of appendectomy History of cholecystectomy History of section Family History Father Prostate cancer Mother Ovarian cancer Paternal Grandmother Breast cancer Social History Household Members: Spouse Household Members Other:: [facility] Housing: House Alcohol intake: current Alcohol intake frequency: does not drink Patient Tobacco Use Status: Former Tobacco user Tobacco use type: Cigarette Years Smoked: 48 e-Cigarette/Vaping Use: Never Used Second Hand Smoke Exposure: No service: No Current occupational status: disabled Cognitive needs: Yes (using portable oxygen) Hearing needs: No Vision needs: Yes (Glasses) Questionnaire Thrive Questionnaire Date Thrive assessed: 10/25/22 PATITO-7 AMB Questionnaire PATITO-7 Date PATITO - 7 assessed: 10/25/22 Source: Developed by Drs. Guy Gibson, Rupali Carroll, Trey Hughes and colleagues, with an educational milton from [employer]. Physical exam (Primary Care) Vital Signs: Last Vital Signs Pulse 65 07/25/23 11:06 BP 150/60 H 07/25/23 11:06 Pulse Ox 96 07/25/23 11:06 Oxygen Delivery Method Nasal Cannula 07/25/23 11:06 BMI result Body Mass Index 46.0 Tobacco/Smoking Status: Tobacco use Status Tobacco use date assessed 07/25/23 07/25/23 11:13 Patient Tobacco Use Status Former Tobacco user 07/25/23 11:13 Tobacco use type Cigarette 07/25/23 11:13 e-Cigarette/Vaping Use Never Used 07/25/23 11:13 Thrive Assessment: Date of Thrive Assessment Date Thrive assessed 10/25/22 07/25/23 11:13 Const General: alert; No acute distress Eyes Conjunctivae: conjunctivae normal Resp Auscultation: clear to auscultation bilaterally Cardio Rate: regular rate Rhythm: regular rhythm GI Inspection: Yes normal to inspection Extrem General: Yes normal to inspection and No edema Ankle/foot/toe images: 2 1. 5 inches by 5 iches swelling erythermatous mass an the Anterior R leg Assessment and Plan Assessment & Plan (1) Type 2 diabetes mellitus with hyperglycemia: Comment: [facility] 05/2023 Code(s): E11.65 - Type 2 diabetes mellitus with hyperglycemia Qualifiers: Diabetes mellitus residential insulin use: with residential use Qualified Code(s): E11.65 - Type 2 diabetes mellitus with hyperglycemia; Z79.4 - terminal carman (current) use of insulin Plan: Decrease the amount of carbohydrate intake, pasta, bread, rice and potatoes are all sugar and that is aside from all the sweet stuff, remember that fruits are good but they are Sweet also. Patient sees Endocrinology May 2023 hemoglobin A1c 7.3 (2) COPD (chronic obstructive pulmonary disease): Code(s): J44.9 - Chronic obstructive pulmonary disease, unspecified Qualifiers: COPD type: emphysema Emphysema type: panlobular Qualified Code(s): J 43.1 - Panlobular emphysema Plan: Continue with inhaler (3) Obesity: Code(s): E66.9 - Obesity, unspecified Qualifiers: Obesity type: due to excess calories Obesity classification: adult class 3 (BMI >= 40) Serious obesity comorbidity presence: with serious comorbidity Body mass index: BMI 45.0-49.9 Qualified Code(s): E66.01 - Morbid (severe) obesity due to excess calories; Z68.42 - Body mass index [BMI] 45.0- 49.9, adult Plan: Diet and exercise (4) Hypertension: Code(s): I10 - Essential (primary) hypertension Qualifiers: Hypertension type: essential hypertension Qualified Code(s): I10 - Essential (primary) hypertension Plan: Continue with blood pressure medication. Decrease salt intake and exercise (5) Fall: Code(s): W19.XXXA - Unspecified fall, initial encounter Plan: Patient was on a step ladder and fell (6) Cellulitis of right leg: Code(s): L03.115 - Cellulitis of right lower limb Plan: Antibiotic prescription sent in discussed about management and if no response may need IV antibiotics from the hospital Medications: New 2 amoxicillin-pot clavulanate 875-125 mg 1 tab PO BID 10 days 20 tabs 0RF L03.115 - Cellulitis of right lower limb Coding Level of Care Code Est Pt Level 4 (93572) Diagnoses Type 2 diabetes mellitus with hyperglycemia, with long-term current use of insulin E11.65; Z79.4 Diabetes mellitus long term care social worker insulin use: with long term care social worker use Panlobular emphysema J43.1 COPD type: emphysema Emphysema type: panlobular Class 3 severe obesity due to excess calories with serious comorbidity and body mass index (BMI) of 45.0 to 49.9 in adult E66.01; Z68.42 Obesity type: due to excess calories Obesity classification: adult class 3 (BMI >= 40) Serious obesity comorbidity presence: with serious comorbidity Body mass index: BMI 45.0-49.9 Essential hypertension I10 Hypertension type: essential hypertension Fall W19.XXXA Cellulitis of right leg L03.115
[2023-07-25 11:06] VITALS: BP 150/60; PULSE 65; O2SAT 96; BMI 46.0
== END 2023-07-25 11:49 | disposition home or self-care (01) ==
PROVIDERS: PCP Internal Medicine; Visit Provider Internal Medicine
DX: E11.65 Type 2 diabetes mellitus with hyperglycemia (principal); Z79.4 Long term (current) use of insulin; E66.01 Morbid (severe) obesity due to excess calories; Z68.42 Body mass index [BMI] 45.0-49.9, adult; J43.1 Panlobular emphysema; I10 Essential (primary) hypertension; W19.XXXA Unspecified fall, initial encounter; L03.115 Cellulitis of right lower limb
CPT/HCPCS: 99214

== ENCOUNTER 2023-07-28 11:48 | Outpatient (AMB) | payer BC, SELFPAY ==
--- NOTE | 2023-07-28 11:49 | MHC.PC.OV ---
Vital Signs 07/28/23 11:51 Height 5 ft 2 in Weight 252 lb BMI 46.1 BP 130/70 Blood Pressure Location Lt brachial Position Sitting Pulse 48 L Pulse Source Pulse Oximeter Pulse Oximetry (%) 85 L Oxygen Delivery Method Nasal Cannula Intake Visit Reasons: Celluitis Intake Note: Patient is here to follow up on celluitis. Water Project Engineer Required: No Bottling Machine Operator: Present Accompanied by: Daughter Allergies adalimumab [Humira] Allergy (Unknown, Verified 07/28/23 12:15) Unknown alprazolam Allergy (Unknown, Verified 07/28/23 12:15) swelling amlodipine Allergy (Unknown, Verified 07/28/23 12:15) swelling etanercept [Enbrel] Allergy (Unknown, Verified 07/28/23 12:15) Unknown fluticasone [From [facility]ela Inhub] Allergy (Unknown, Verified 07/28/23 12:15) Unknown hydrochlorothiazide Allergy (Unknown, Verified 07/28/23 12:15) hives salmeterol [From Wixela Inhub] Allergy (Unknown, Verified 07/28/23 12:15) Unknown simvastatin Allergy (Unknown, Verified 07/28/23 12:15) Unknown codeine Adverse Reaction (Intermediate, Verified 07/28/23 12:15) Nausea and Vomiting roflumilast [From Daliresp] Adverse Reaction (Intermediate, Verified 07/28/23 12:15) Nausea Tobacco use date assessed: 07/25/23 HPI HPI Comments History of Present Illness Details 63-year-old morbidly obese female with a history of diabetes mellitus hypercholesterolemia COPD hypothyroidism hypertension history of CVA and coronary artery disease. Patient of last seen 2 days ago patient was noted to have a 5 in x 5 in swelling erythematous mass to right ear anterior leg patient was prescribed Augmentin at that time for treatment of cellulitis. Patient made aware if no improvement antibiotic may require hospital admission for IV antibiotics. Review of the notes patient return to [facility] 07/26/23 and had and I&D of right leg hematoma, patient reports the the removed lrg amount of blood/clotts. Patient reported today for concerns for increase redness, daughter outlined area of redness surround mass for which it appears to be receeding/improving from early today. Denied fever, chills. States severe pain in leg, patient reports was given morphine in ER which she tolerated well. states codiene allergy was noted from childhood. Requesting something for pain. Dr. Escoto patients pcp in to re-evaluate leg mass with surrounding cellulitis, for which she reassured patient and daughter that redness is improving and to continue on Augmentin and doxycycline. [facility] Medical History (Updated 07/25/23 @ 11:33 by Juan Escoto MD) SOB (shortness of breath) Upper GI hemorrhage Closed left ankle fracture Psoriatic arthritis History of paroxysmal supraventricular tachycardia Tobacco abuse Osteoarthritis Hypertension Diabetic nephropathy Psoriasis Diabetic neuropathy Hypothyroid Obesity COPD (chronic obstructive pulmonary disease) Hypercholesterolemia Type 2 diabetes mellitus with hyperglycemia Surgical History History of carotid angioplasty H/O cardiac radiofrequency ablation History of cataract surgery History of throat surgery History of parathyroidectomy History of thyroidectomy History of ankle surgery H/O left wrist surgery History of eye surgery History of appendectomy History of cholecystectomy History of section Family History Father Prostate cancer Mother Ovarian cancer Paternal Grandmother Breast cancer Social History Household Members: Spouse Household Members Other:: [facility] Housing: House Alcohol intake: current Alcohol intake frequency: does not drink Patient Tobacco Use Status: Former Tobacco user Tobacco use type: Cigarette Years Smoked: 48 e-Cigarette/Vaping Use: Never Used Second Hand Smoke Exposure: No service: No Current occupational status: disabled Cognitive needs: Yes (using portable oxygen) Hearing needs: No Vision needs: Yes (Glasses) Questionnaire Thrive Questionnaire Date Thrive assessed: 10/25/22 PATITO-7 AMB Questionnaire PATITO-7 Date PATITO - 7 assessed: 10/25/22 Source: Developed by Drs. Guy Gibson, Rupali Carroll, Trey Hughes and colleagues, with an educational milton from [employer]. Review of Systems Const Denies chills, Denies fatigue, Denies fever(s) and Denies poor appetite Eyes Denies no additional complaints ENT Reports Normal hearing present Card Denies chest pain, Denies syncope, Denies rapid heart rate and Denies dyspnea Resp Denies cough and Denies dyspnea GI Denies change in stool character, Denies constipation, Denies diarrhea, Denies nausea and Denies vomiting Denies urinary frequency, Denies dysuria and Denies urinary urgency Skin/Breast Details: Right leg pain and cellulitis Neuro Reports Normal hearing present, Denies confusion and Denies syncope Psych Denies confusion Endo Denies fatigue Physical exam (Primary Care) Vital Signs: Last Vital Signs Pulse 48 L 07/28/23 11:51 BP 130/70 07/28/23 11:51 Pulse Ox 85 L 07/28/23 11:51 Oxygen Delivery Method Nasal Cannula 07/28/23 11:51 BMI result Body Mass Index 46.1 Tobacco/Smoking Status: Tobacco use Status Tobacco use date assessed 07/25/23 07/28/23 11:56 Patient Tobacco Use Status Former Tobacco user 07/28/23 11:56 Tobacco use type Cigarette 07/28/23 11:56 e-Cigarette/Vaping Use Never Used 07/28/23 11:56 Thrive Assessment: Date of Thrive Assessment Date Thrive assessed 10/25/22 07/28/23 11:56 Const General: No confusion Orientation/consciousness: No confusion HENID Head: Yes normocephalic and Yes atraumatic Eyes Conjunctivae: conjunctivae normal Chest Chest palpation & inspection: normal inspection of the chest Resp Effort & Inspection: normal respiratory effort Auscultation: clear to auscultation bilaterally, no crackles, no rhonchi and no wheezes Cardio Rate: regular rate Rhythm: regular rhythm Heart sounds: S1 normal heart sound present and S2 normal heart sound present Peripheral pulses: dorsalis pedis present GI Inspection: Yes normal to inspection General: Yes no CVA tenderness Back/Spine/Pelvis Back: no CVA tenderness Neuro General: No confusion Cranial nerves: Yes Normal hearing present Extrem General: No edema Upper/lower leg/hip images: 1. 5 [id number] erythematous leg hematoma, s/p I&D in ER,sml amount bloody drainage surrounding erythema receding. Assessment and Plan Assessment & Plan (1) Cellulitis of right leg: Code(s): L03.115 - Cellulitis of right lower limb Plan: Patient advised to continue on Augmentin and doxycycline and complete both antibiotic courses in its entirety. Patient advised to elevate legs while sitting. Patient advise if she develops any increase redness, swelling, pain, fever or chills to seek emergency medical attention for treatment with IV antibiotics. Continue with daily dressing changes as directed by emergency room. Oxycodone 5 mg q.8 hours as needed for pain quantity of 10 sent to patient's pharmacy for severe leg pain. Plan Keep scheduled follow-up with PCP or follow-up sooner if needed. Medications: New oxycodone Partial Fill upon patient request. 5 mg PO Q8H PRN 10 caps 0RF pain Coding Level of Care Code Est Pt Level 3 (62487) Diagnoses Cellulitis of right leg L03.115
[2023-07-28 11:51] VITALS: BP 130/70; PULSE 48; O2SAT 85; BMI 46.1
== END 2023-07-28 12:24 | disposition home or self-care (01) ==
PROVIDERS: PCP Internal Medicine; Visit Provider Nurse Practitioner Family
DX: L03.115 Cellulitis of right lower limb (principal)
CPT/HCPCS: 99213

== ENCOUNTER 2023-08-08 13:11 | Outpatient (AMB) | payer BC, SELFPAY ==
--- NOTE | 2023-08-08 13:51 | AM.OFFWIN_ITS ---
Intake Vital Signs 08/08/23 13:57 Height 5 ft 2 in Weight 252 lb BMI 46.1 BP 128/68 Blood Pressure Location Lt brachial Position Sitting Pulse 73 Pulse Source Pulse Oximeter Temp 98.1 F Pulse Oximetry (%) 98 Oxygen Delivery Method Room Air Intake Visit Reasons: EST/right leg open wound (lobby) Intake Note: pt is here today for rt leg open wound happened 07/19 Patient Tobacco Use Status: Former Tobacco user Allergies adalimumab [Humira] Allergy (Unknown, Verified 08/08/23 13:52) Unknown alprazolam Allergy (Unknown, Verified 08/08/23 13:52) swelling amlodipine Allergy (Unknown, Verified 08/08/23 13:52) swelling etanercept [Enbrel] Allergy (Unknown, Verified 08/08/23 13:52) Unknown fluticasone [From Wixela Inhub] Allergy (Unknown, Verified 08/08/23 13:52) Unknown hydrochlorothiazide Allergy (Unknown, Verified 08/08/23 13:52) hives salmeterol [From Wixela Inhub] Allergy (Unknown, Verified 08/08/23 13:52) Unknown simvastatin Allergy (Unknown, Verified 08/08/23 13:52) Unknown codeine Adverse Reaction (Intermediate, Verified 08/08/23 13:52) Nausea and Vomiting roflumilast [From Daliresp] Adverse Reaction (Intermediate, Verified 08/08/23 13:52) Nausea Do you need a note to return to daycare/school/sports/work: No HPI EST/right leg open wound (lobby) HPI Details 63-year-old female presents to the [facility] e for a sick visit. Patient has an open wound on the right leg. She had a fall on July. She has been on 2 rounds of antibiotics. She would like to have the wound examined. [facility] Medical History (Updated 07/25/23 @ 11:33 by Juna Escoto MD) SOB (shortness of breath) Upper GI hemorrhage Closed left ankle fracture Psoriatic arthritis History of paroxysmal supraventricular tachycardia Tobacco abuse Osteoarthritis Hypertension Diabetic nephropathy Psoriasis Diabetic neuropathy Hypothyroid Obesity COPD (chronic obstructive pulmonary disease) Hypercholesterolemia Type 2 diabetes mellitus with hyperglycemia Surgical History History of carotid angioplasty H/O cardiac radiofrequency ablation History of cataract surgery History of throat surgery History of parathyroidectomy History of thyroidectomy History of ankle surgery H/O left wrist surgery History of eye surgery History of appendectomy History of cholecystectomy History of section Family History Father Prostate cancer Mother Ovarian cancer Paternal Grandmother Breast cancer Social History Household Members: Spouse Household Members Other:: [facility] Housing: House Alcohol intake: current Alcohol intake frequency: does not drink Patient Tobacco Use Status: Former Tobacco user Tobacco use type: Cigarette Years Smoked: 48 e-Cigarette/Vaping Use: Never Used Second Hand Smoke Exposure: No service: No Current occupational status: disabled Cognitive needs: Yes (using portable oxygen) Hearing needs: No Vision needs: Yes (Glasses) Physical Exam Vital Signs: Last Vital Signs Temp 98.1 F 08/08/23 13:57 Pulse 73 08/08/23 13:57 BP 128/68 08/08/23 13:57 Pulse Ox 98 08/08/23 13:57 Oxygen Delivery Method Room Air 08/08/23 13:57 BMI result Body Mass Index 46.1 Skin Other: Right leg: Young: 3 cm open wound, area of the wound is slightly erythematous but not tender. Assessment & Plan Assessment & Plan (1) Cellulitis of right leg: Code(s): L03.115 - Cellulitis of right lower limb Plan: No further antibiotics needed. If symptoms do not improve to follow-up here. Reassurance, keep the area dry. Coding Level of Care Code Est Pt Level 3 (23753) Diagnoses Cellulitis of right leg L03.115
[2023-08-08 13:57] VITALS: BP 128/68; PULSE 73; TEMP 36.7; O2SAT 98; BMI 46.1
== END 2023-08-08 15:00 | disposition home or self-care (01) ==
PROVIDERS: PCP Internal Medicine; Visit Provider Internal Medicine
DX: L03.115 Cellulitis of right lower limb (principal)
CPT/HCPCS: 99213

== ENCOUNTER 2023-09-06 12:45 | Inpatient (IN) | payer BC, SELFPAY ==
--- NOTE | ~2023-09-06 | XR_ITS ---
EXAMINATION: XR TIBIA AND FIBULA, RIGHT CLINICAL INFORMATION: Open wound. Rule out osteomyelitis. COMPARISON: None available. TECHNIQUE: AP and lateral views of the right tibia and fibula were obtained. FINDINGS: There is anterior soft tissue wound at the level of the distal tibial diaphysis, with air in the anterior soft tissues. No erosive or destructive changes are identified in the underlying bone. No radiopaque foreign body is seen. No acute fracture or malalignment. There is anterior soft tissue swelling. XR/XR tibia fibula RT 2V IMPRESSION: Anterior soft tissue wound at the level of the distal tibial diaphysis. No radiographic evidence of acute osteomyelitis. MRI is more sensitive for osteomyelitis, can be obtained as clinically indicated.
[2023-09-06 12:51] VITALS: BP 146/64; PULSE 62; RESP 20; TEMP 36.8; O2SAT 98; BMI 47.8
--- NOTE | 2023-09-06 12:51 | ED.LOWEXIN ---
HPI - Extremity Injury (Lower) General Chief Complaint: Wound/Laceration Stated Complaint: R leg inj swelling/infected? Time Seen by Provider: 09/06/23 18:39 History of Present Illness HPI Narrative: The patient is a 63-year-old woman with multiple medical problems including type 2 diabetes, COPD, oxygen dependence, obesity, prior smoking history, psoriasis, and carotid vascular disease. The patient says that on July 18, almost 2 months ago, she was decorating her kitchen. She had gone up a step ladder and then stepped onto the kitchen counter. She fell from this site and struck the right gramajo on a piece of the ladder. She had a very large bruise across the mid gramajo at that time. Her was concerned that she had a severe injury and called an ambulance. She was taken to [facility] where she had trauma workup that was negative and she was apparently discharged on antibiotics. She thinks that she was initially on Augmentin prophylactically. She returned to [facility] 2 weeks later and had debridement of a large bruise over the right anterior gramajo. She was then discharged home on doxycycline and another antibiotic she subsequently followed up with her PCP. Apparently things were looking somewhat better and no further antibiotics were recommended. She has therefore not been on antibiotics for about a month. About 4 days ago the wound started to look worse and has started draining some. The material and has had spreading redness too much of the anterior gramajo. She has had some increasing pain and pain with walking. She has had no definite fever. Related Data Home Medications Medication Instructions Recorded Confirmed cholecalciferol (vitamin D3) 25 25 mcg PO DAILY 09/25/20 09/06/23 mcg (1,000 unit) tablet melatonin 10 mg capsule 10 mg PO BEDTIME 09/25/20 09/06/23 vitamin B complex 1 tab PO DAILY 09/25/20 09/06/23 sennosides 8.6 mg-docusate sodium 1 tab-cap PO BEDTIME 02/26/21 09/06/23 50 mg tablet (Senna-S) fluticasone fur. 200 mcg-umeclid 1 inh inhalation DAILY 01/27/23 09/06/23 62.5 mcg-vilant 25 mcg inhalat.powder (Trelegy Ellipta) insulin aspart U-100 100 unit/mL 17 unit subcut TID 07/25/23 09/06/23 (3 mL) subcutaneous pen (Novolog FlexPen U-100 Insulin aspart) acetaminophen 650 mg 1,300 mg PO TID 09/06/23 09/06/23 tablet,extended release (Tylenol Arthritis Pain) ascorbate calcium (vitamin C) 500 500 mg PO DAILY 09/06/23 09/06/23 mg tablet ferrous sulfate 325 mg (65 mg 325 mg PO DAILY 09/06/23 09/06/23 iron) tablet (FeroSul) furosemide 20 mg tablet 30 mg PO BID 09/06/23 09/06/23 levothyroxine 137 mcg capsule 137 mcg PO SUTUWETHFRSA@0600 09/06/23 09/06/23 prednisone 2.5 mg tablet 5 mg PO DAILY 09/06/23 09/06/23 Previous Rx's Medication Instructions Recorded pen needle, diabetic 31 gauge x #5 boxes 12/03/2101/24 (BD Ultra-Fine Short Pen Needle) blood-glucose meter,continuous #1 ea 04/22/22 (Dexcom G6 Showplace Manager) duloxetine 60 mg capsule,delayed 60 mg PO DAILY 30 days #90 caps 01/23/23 release miconazole nitrate 2 % topical 1 appl topical DAILY #85 grams 01/27/23 powder (Zeasorb AF) insulin glargine 100 unit/mL (3 40 unit (0.4 mL) subcut BID 90 03/07/23 mL) subcutaneous pen (agl days #72 mL KwikPen U-100 Insulin) metformin 1,000 mg tablet 1,000 mg PO BID #180 caps 03/21/23 albuterol sulfate 90 mcg/actuation 2 puff inhalation Q6H PRN 04/03/23 aerosol inhaler shortness of breath or wheezing #8.5 grams gabapentin 300 mg capsule 300 mg PO Q8H 90 days #270 caps 04/13/23 blood-glucose transmitter (Dexcom #1 ea 05/08/23 G6 Transmitter device) albuterol sulfate 2.5 mg/3 mL 2.5 mg (3 mL) inhalation Q4-6H PRN 05/25/23 (0.083 %) solution for nebulization shortness of breath or wheezing #75 mL metoprolol tartrate 25 mg tablet 25 mg PO BID 90 days #180 tabs 05/25/23 pantoprazole 40 mg tablet,delayed 40 mg PO BID 90 days #180 tabs 05/25/23 release duloxetine 30 mg capsule,delayed 30 mg PO DAILY #90 caps 06/27/23 release (Cymbalta) blood-glucose sensor (Dexcom G6 #3 ea 07/02/23 Sensor device) hydralazine 25 mg tablet 25 mg PO BID #180 caps 07/12/23 losartan 100 mg tablet 100 mg PO DAILY 90 days #90 tabs 07/23/23 rosuvastatin 40 mg tablet 40 mg PO DAILY 90 days #90 tabs 08/16/23 Allergies Allergy/AdvReac Type Severity Reaction Status Date / Time adalimumab [Humira] Allergy Unknown Unknown Verified 08/08/23 13:52 alprazolam Allergy Unknown swelling Verified 08/08/23 13:52 amlodipine Allergy Unknown swelling Verified 08/08/23 13:52 etanercept [Enbrel] Allergy Unknown Unknown Verified 08/08/23 13:52 fluticasone Allergy Unknown Unknown Verified 08/08/23 13:52 [From Wixela Inhub] hydrochlorothiazide Allergy Unknown hives Verified 08/08/23 13:52 salmeterol Allergy Unknown Unknown Verified 08/08/23 13:52 [From Wixela Inhub] simvastatin Allergy Unknown Unknown Verified 08/08/23 13:52 codeine AdvReac Intermediate Nausea and Verified 08/08/23 13:52 Vomiting roflumilast [From Daliresp] AdvReac Intermediate Nausea Verified 08/08/23 13:52 [facility] Past Medical History Medical History (Updated 09/06/23 @ 19:30 by Jean Gallego MD) SOB (shortness of breath) Upper GI hemorrhage Closed left ankle fracture Psoriatic arthritis History of paroxysmal supraventricular tachycardia Tobacco abuse Osteoarthritis Hypertension Diabetic nephropathy Psoriasis Diabetic neuropathy Hypothyroid Obesity COPD (chronic obstructive pulmonary disease) Hypercholesterolemia Type 2 diabetes mellitus with hyperglycemia Surgical History History of carotid angioplasty H/O cardiac radiofrequency ablation History of cataract surgery History of throat surgery History of parathyroidectomy History of thyroidectomy History of ankle surgery H/O left wrist surgery History of eye surgery History of appendectomy History of cholecystectomy History of section Family History Family History Father Prostate cancer Mother Ovarian cancer Paternal Grandmother Breast cancer Social History Social History Household Members: Spouse Household Members Other:: Elmer Housing: House Alcohol intake: never Patient Tobacco Use Status: Former Tobacco user Tobacco use type: Cigarette Years Smoked: 48 Smoked in Last 30 Days: No e-Cigarette/Vaping Use: Never Used Second Hand Smoke Exposure: No Use of substances other than those prescribed or required for medical reasons: No Advance Directives: No Advance Directives Information Provided: No service: No Current occupational status: disabled Cognitive needs: Yes (using portable oxygen) Hearing needs: No Vision needs: Yes (Glasses) Physical Exam Vital Signs: Vital Signs: Last Vital Signs Temp 98.3 F 09/06/23 12:51 Pulse 58 09/06/23 19:39 Resp 16 09/06/23 19:39 BP 127/47 L 09/06/23 19:39 Pulse Ox 99 09/06/23 19:39 O2 Del Method Room Air 09/06/23 19:39 O2 Flow Rate 2 09/06/23 18:45 BMI result Body Mass Index 47.8 Const: Other: The patient is an obese 63-year-old woman who is awake and alert. She is wearing oxygen via nasal cannula which is her baseline. She is awake and alert, pleasant cooperative. She has an obvious wound and cellulitis to the right gramajo. Orientation/consciousness: patient oriented x3 HEENT: Head: Yes normal to inspection Mouth: Normal oral and palatal mucosa present Eyes: General: appearance normal, both eyes and all related structures Alignment and Position: alignment normal Eyelids: Yes eyelids normal Conjunctivae: conjunctivae normal Resp: Effort & Inspection: normal respiratory effort Auscultation: clear to auscultation bilaterally Cardio: Other: No murmur Rate: regular rate Rhythm: regular rhythm GI: Other: Abdomen soft nontender Skin: Other: The patient has a large ulcerated wound in the mid gramajo area associated with cellulitis. Moves Neuro: General: patient oriented x3 Cranial nerves: Yes CN's II-XII intact bilaterally Cognition (Neuro): normal cognition Motor exam (neuro): 5/5 motor strength present throughout Extrem: Other: The right chin shows a large ulcer with associated cellulitis. Both feet have good dorsalis pedis pulses. Course Course Course Narrative: RME: 63yo F w/PMHx anemia, anxiety, CVA, STEMI, HTN, Hypothyroid, DM, on Home O2 2L (baseline) c/o right skin injury on 07/18/23 s/p climbing on counter hanging [employer] lights and slipping and falling. Reports wound has been worsening/growing since. Was seen at [facility] 2x since, initially was hematoma which was later I&D'd in their ED. Has finished 2 courses of Abx w/o relief. +Open wound to RLE with drainage and surrounding erythema. +swelling Labs, Lactic/Blood Cx & XR ordered Full HPI, ROS and PE to be performed by primary ED provider. Medical Decision Making Medical Decision Making MDM Narrative: The patient is a 63-year-old female with multiple medical problems including diabetes and vascular disease who has a wound on her right gramajo overlying the right tibia that is large and is associated with the reasonably sized cellulitis. Given her comorbidities and given the appearance of the wound I think hospitalization for IV antibiotics is reasonable. The wound itself was swabbed and sent for culture. I spoke with the hospitalist. We will start the patient on vancomycin. Lab Data 09/06/23 13:18 09/06/23 13:18 Labs: Lab Results 09/06/23 09/06/23 Range/Units 13:17 13:18 WBC 11.2 H (4.8-10.8) X10*3/uL RBC 3.90 L (4.20-5.50) X10*6/uL Hgb 11.5 L (12.0-16.0) g/dl Hct 36.3 L (37.0-47.0) % MCV 93.1 (80.0-98.0) fL MCH 29.5 (27.0-33.0) pg MCHC 31.7 (31.0-35.0) g/dl RDW 12.4 (11.0-16.0) % Plt Count 247 (160-400) X10*3/uL MPV 8.7 L (9.4-12.3) fL Immature Gran % (Auto) 0.4 (0.0-0.4) % Neut % (Auto) 86.1 H (45-73) % Lymph % (Auto) 6.4 L (20-40) % [place] % (Auto) 5.5 (2-11) % Eos % (Auto) 1.3 (0-4) % Baso % (Auto) 0.3 (0-2) % Lymph # (Auto) 0.7 L (1.2-4.9) X10*3/uL [place] # (Auto) 0.6 (0.1-1.2) X10*3/uL Eos # (Auto) 0.2 (0.0-0.4) X10*3/uL Baso # (Auto) 0.0 (0.0-0.2) X10*3/uL Abs Immat Gran (auto) 0.05 H (0.00-0.03) X10*3/uL Absolute Neuts (auto) 9.7 H (2.0-8.3) x10*3/uL Absolute Nucleated RBC 0.000 (0.0-0.012) X10*3/uL Nucleated RBC % (auto) 0.0 (0.0-0.2) /100WBC ESR 39 H (0-20) MM/HR Sodium 139 (135-145) mmol/L Potassium 4.4 (3.3-5.1) mmol/L Chloride 98 (96-108) mmol/L Carbon Dioxide 31 H (22-29) mmol/L Anion Gap 14 (12-20) BUN 31 H (9-16) mg/dL Creatinine 1.13 (0.5-1.4) mg/dL Estim Creat Clear Calc 60.0 Estimated GFR 49 Random Glucose 163 H (60-115) mg/dL Lactic Acid 1.9 (0.5-2.0) mmol/L Calcium 9.6 D (8.4-10.2) mg/dL Total Bilirubin 0.3 (0.0-1.0) mg/dL Direct Bilirubin 0.1 (0.0-0.5) mg/dL AST 29 (5-31) U/L ALT 31 (0-31) U/L Alkaline Phosphatase 83 (39-117) U/L C-Reactive Protein 1.29 H (< or = 0.50) mg/dL B-Natriuretic Peptide 70 (<100) pg/mL Total Protein 7.0 (6.5-8.0) g/dL Albumin 4.2 (3.5-5.0) g/dL Discharge Plan Discharge Clinical Impression: Cellulitis of right leg Patient Disposition: Admitted As Inpatient
[2023-09-06 13:26] LABS: MANUAL DIFF FLAG NO
[2023-09-06 13:44] LABS: C Reactive Protein 1.29 mg/dL (< or = 0.50)
[2023-09-06 13:46] LABS: Lactic Acid 1.9 mmol/L (0.5-2.0)
[2023-09-06 13:47] LABS: Alanine Aminotransferase 31 U/L (0-31); Albumin Level 4.2 g/dL (3.5-5.0); Alkaline Phosphatase 83 U/L (39-117); Anion Gap 14 (12-20); Aspartate Amino Transferase 29 U/L (5-31); Bilirubin Direct 0.1 mg/dL (0.0-0.5); Bilirubin Total 0.3 mg/dL (0.0-1.0); Blood Urea Nitrogen 31 mg/dL (9-16); Calcium 9.6 mg/dL (8.4-10.2); Carbon Dioxide 31 mmol/L (22-29); Chloride 98 mmol/L (96-108); Estimated Glomerular Filt Rate 49; Glucose Random 163 mg/dL (60-115); Potassium 4.4 mmol/L (3.3-5.1); Sodium 139 mmol/L (135-145)
[2023-09-06 13:52] LABS: B Type Natriuretic Peptide 70 pg/mL (<100)
[2023-09-06 13:56] LABS: Basophils Percent Auto 0.3 % (0-2); Eosinophils Absolute Auto 0.2 X10*3/uL (0.0-0.4); Eosinophils Percent Auto 1.3 % (0-4); Hematocrit 36.3 % (37.0-47.0); Hemoglobin 11.5 g/dl (12.0-16.0); Imm Gran Abs Auto 0.05 X10*3/uL (0.00-0.03); Imm Gran Pct Auto 0.4 % (0.0-0.4); Lymphocytes Absolute Auto 0.7 X10*3/uL (1.2-4.9); Lymphocytes Percent Auto 6.4 % (20-40); Mean Corpuscular HGB Conc 31.7 g/dl (31.0-35.0); Mean Corpuscular Hemoglobin 29.5 pg (27.0-33.0); Mean Corpuscular Volume 93.1 fL (80.0-98.0); Mean Platelet Volume 8.7 fL (9.4-12.3); Monocytes Absolute Auto 0.6 X10*3/uL (0.1-1.2); Monocytes Percent Auto 5.5 % (2-11); Neutrophils Absolute Auto 9.7 x10*3/uL (2.0-8.3); Neutrophils Percent Auto 86.1 % (45-73); Platelet Count 247 X10*3/uL (160-400); Red Cell Distribution Width 12.4 % (11.0-16.0); White Blood Count 11.2 X10*3/uL (4.8-10.8)
[2023-09-06 14:10] LABS: Erythrocyte Sedimentation Rate 39 MM/HR (0-20)
[2023-09-06 18:00] VITALS: RESP 20; O2SAT 97
--- NOTE | 2023-09-06 18:41 | PC.NURSE ---
Patient reports on jul 18 she fell of a step ladder and her leg got caught in the ladder. Had a blood blister area that has since turned into a wound at site where leg got caught in ladder. Right lower leg with circuloar wound with scant amount of drainage with redness and warmth
[2023-09-06 18:45] VITALS: BP 157/35; PULSE 58; O2SAT 98
[2023-09-06 19:39] VITALS: BP 127/47; PULSE 58; RESP 16; O2SAT 99
--- NOTE | 2023-09-06 20:11 | PHA.MEDREC ---
Pharmacy Consult ? Medication Reconciliation Pharmacy has completed the medication reconciliation. Patient confirm medications by report directions of medications. Patient report lasix is 30 mg BID. I asked if she takes Lasix 60 mg BID and she stated no 30 mg BID. Shyla Smith, PharmD
--- NOTE | 2023-09-06 20:43 | PM.IMHP ---
History of Present Illness Date of Service: 09/06/23 Attending physician on admission: Gualberto Fernandez Chief Complaint: Right leg ulcer/infection since Jul 18 but worse over the last 4 days Patient is a 63 year old obese white female with past medical history of T2DM, psoriatic arthritis, osteoporosis, CVA, CAD s/p MS, s/p right carotid endarterectomy, bleeding gastric ulcer, hypothyroidism, COPD and hyperlipidemia who comes to the emergency room for evaluation of a wound on the right gramajo that appears to be infected. She injured her right gramajo on July 18 when she fell off a ladder while decorating her kitchen and struck her right gramajo on the ladder suffering a large bruise across the mid gramajo. She was seen at [facility] ([facility]) on the day of the injury and discharged home on prophylactic Augmentin but the laceration developed into a wound and so 2 weeks later she returned to the emergency room at [facility] where the wound was debrided and she was started on different antibiotics including Doxycycline for MRSA coverage. She has been off antibiotics for about a month now and was doing well until 4 days ago when she noticed that the wound looked infected and she now had pain that was worse with walking and also redness surrounding the wound. She has not had any fevers or chills. She was started on IV Vancomycin and admission requested for continued care. Review of Systems Review of Systems: Yes all other systems are reviewed and are negative [facility] Medical History SOB (shortness of breath) Upper GI hemorrhage Closed left ankle fracture Psoriatic arthritis History of paroxysmal supraventricular tachycardia Tobacco abuse Osteoarthritis Hypertension Diabetic nephropathy Psoriasis Diabetic neuropathy Hypothyroid Obesity COPD (chronic obstructive pulmonary disease) Hypercholesterolemia Type 2 diabetes mellitus with hyperglycemia Functional capacity: independent ambulation Patient : No Family History Father Prostate cancer Mother Ovarian cancer Paternal Grandmother Breast cancer Surgical History History of carotid angioplasty H/O cardiac radiofrequency ablation History of cataract surgery History of throat surgery History of parathyroidectomy History of thyroidectomy History of ankle surgery H/O left wrist surgery History of eye surgery History of appendectomy History of cholecystectomy History of section Social History Household Members: Spouse Household Members Other:: Elmer Housing: House Alcohol intake: never Patient Tobacco Use Status: Former Tobacco user Tobacco use type: Cigarette Years Smoked: 48 Smoked in Last 30 Days: No e-Cigarette/Vaping Use: Never Used Second Hand Smoke Exposure: No Use of substances other than those prescribed or required for medical reasons: No Advance Directives: No Advance Directives Information Provided: No Patient : No service: No Current occupational status: disabled Cognitive needs: Yes (using portable oxygen) Hearing needs: No Vision needs: Yes (Glasses) Meds Allergies Allergy/AdvReac Type Severity Reaction Status Date / Time adalimumab [Humira] Allergy Unknown Unknown Verified 08/08/23 13:52 alprazolam Allergy Unknown swelling Verified 08/08/23 13:52 amlodipine Allergy Unknown swelling Verified 08/08/23 13:52 etanercept [Enbrel] Allergy Unknown Unknown Verified 08/08/23 13:52 fluticasone Allergy Unknown Unknown Verified 08/08/23 13:52 [From Wixela Inhub] hydrochlorothiazide Allergy Unknown hives Verified 08/08/23 13:52 salmeterol Allergy Unknown Unknown Verified 08/08/23 13:52 [From Wixela Inhub] simvastatin Allergy Unknown Unknown Verified 08/08/23 13:52 codeine AdvReac Intermediate Nausea and Verified 08/08/23 13:52 Vomiting roflumilast [From Daliresp] AdvReac Intermediate Nausea Verified 08/08/23 13:52 Home Medications Medication Instructions Recorded Confirmed Last Taken Type cholecalciferol (vitamin D3) 25 25 mcg PO DAILY 09/25/20 09/06/23 09/06/23 History mcg (1,000 unit) tablet melatonin 10 mg capsule 10 mg PO BEDTIME 09/25/20 09/06/23 09/05/23 History vitamin B complex 1 tab PO DAILY 09/25/20 09/06/23 09/06/23 History sennosides 8.6 mg-docusate sodium 1 tab-cap PO BEDTIME 02/26/21 09/06/23 09/05/23 History 50 mg tablet (Senna-S) fluticasone fur. 200 mcg-umeclid 1 inh inhalation DAILY 01/27/23 09/06/23 09/06/23 History 62.5 mcg-vilant 25 mcg inhalat.powder (Trelegy Ellipta) insulin aspart U-100 100 unit/mL 17 unit subcut TID 07/25/23 09/06/23 09/06/23 History (3 mL) subcutaneous pen (Novolog FlexPen U-100 Insulin aspart) acetaminophen 650 mg 1,300 mg PO TID 09/06/23 09/06/23 09/06/23 History tablet,extended release (Tylenol Arthritis Pain) ascorbate calcium (vitamin C) 500 500 mg PO DAILY 09/06/23 09/06/23 09/06/23 History mg tablet ferrous sulfate 325 mg (65 mg 325 mg PO DAILY 09/06/23 09/06/23 09/06/23 History iron) tablet (FeroSul) furosemide 20 mg tablet 30 mg PO BID 09/06/23 09/06/23 09/06/23 History levothyroxine 137 mcg capsule 137 mcg PO SUTUWETHFRSA@0600 09/06/23 09/06/23 09/06/23 History prednisone 2.5 mg tablet 5 mg PO DAILY 09/06/23 09/06/23 09/06/23 History Physical Exam Vital Signs and Narrative: Vital Signs: Last Vital Signs Temp 98.3 F 09/06/23 12:51 Pulse 58 09/06/23 19:39 Resp 16 09/06/23 19:39 BP 127/47 L 09/06/23 19:39 Pulse Ox 99 09/06/23 19:39 O2 Del Method Room Air 09/06/23 19:39 O2 Flow Rate 2 09/06/23 18:45 BMI result Body Mass Index 47.8 General: Well nourished. Awake, alert and oriented x 4. No apparent distress Eyes: No pallor or jaundice. PERRLA, EOMI HENT: Moist oral mucus membranes. No oropharyngeal lesions. Neck: Supple. No cervical adenopathy. No JVD Cardiovascular: Regular rate and rhythm. Normal heart sounds. No murmurs, rubs or gallops. No JVD. No peripheral edema. Respiratory: Normal respiratory effort with no accessory muscle use. CTAB. Gastrointestinal: Abdomen is soft, non-tender, non-distended. NABS. No hepatosplenomegaly Extremities: Right gramajo with an open wound measuring about 2 cm in diameter No edema. No calf tenderness. Good peripheral pulses Skin: Warm/Dry. No rashes. No mottling. Capillary refill is < 2 seconds Neurological: AAOx4. Intact speech & cognition. Normal gait & balance. CN II - XII grossly intact but not individually tested. No motor or sensory deficits Hematologic: No bleeding. No ecchymosis. No swollen or tender lymph nodes. Psychiatric: Cooperative. Appropriate mood and affect . Results Labs 09/06/23 13:18 09/06/23 13:18 Labs: Laboratory Results - last 24 hr 09/06/23 09/06/23 13:17 13:18 MCV 93.1 MCH 29.5 MCHC 31.7 RDW 12.4 Plt Count 247 MPV 8.7 L Immature Gran % (Auto) 0.4 Neut % (Auto) 86.1 H Lymph % (Auto) 6.4 L [place] % (Auto) 5.5 Eos % (Auto) 1.3 Baso % (Auto) 0.3 Lymph # (Auto) 0.7 L [place] # (Auto) 0.6 Eos # (Auto) 0.2 Baso # (Auto) 0.0 Abs Immat Gran (auto) 0.05 H Absolute Neuts (auto) 9.7 H Absolute Nucleated RBC 0.000 Nucleated RBC % (auto) 0.0 ESR 39 H Anion Gap 14 Estim Creat Clear Calc 60.0 Estimated GFR 49 Random Glucose 163 H Lactic Acid 1.9 Calcium 9.6 D Total Bilirubin 0.3 Direct Bilirubin 0.1 AST 29 ALT 31 Alkaline Phosphatase 83 C-Reactive Protein 1.29 H B-Natriuretic Peptide 70 Total Protein 7.0 Albumin 4.2 Imaging Radiologist's Impressions: Impressions Tibia/Fibula X-Ray 09/06/23 14:10 Anterior soft tissue wound at the level of the distal tibial diaphysis. No radiographic evidence of acute osteomyelitis. Assessment and Plan (1) Cellulitis of right leg: Status: Acute Plan 63 year old obese white female with past medical history of T2DM, psoriatic arthritis, osteoporosis, CVA, CAD s/p MS, s/p right carotid endarterectomy, bleeding gastric ulcer, hypothyroidism, COPD and hyperlipidemia here with 1. Cellulitis of the right leg/gramajo - admit for IV antibiotics - started on Vancomycin which I will continue - follow up on wound cultures 2. Type 2 diabetes mellitus - insulin requiring - resume Lantus but may have to decrease (she takes 40 units BID) - resume Metformin 3. Hypothyroidism - resume Levothyroxine 4. COPD - not in exacerbation - resume Trelegy 5. Psoriatic arthritis - resume daily Prednisone DVT: SC Lovenox CODE STATUS: Full code Admission for at least 2 midnights for management of Right leg cellulitis in a diabetic patient Total time managing care of this patient today: 70 minutes. Quality Stroke Does the patient have a stroke diagnosis?: Yes Reason for No Anti-thrombotic by Day Two: Not indicated VTE Prior VTE?: No VTE Risk Level:: Medical - moderate - high VTE Device Contraindication: Treatment Not Indicated VTE Drug Contraindication: N/A - Med Ordered
--- NOTE | 2023-09-06 21:29 | PC.NURSE ---
this rn assumed care of pt @ 1900. iv placed in R AC pt tolerated well. this rn and [facility] pharmacist secured medications pt had at bedside. awaiting vancomycin from pharmacy
[2023-09-06] MEDS: Enoxaparin Sodium 40 MG/0.4 ML SYRINGE SUBCUT (21:49)
[2023-09-06] MEDS: Docusate Sodium 100 MG CAPSULE PO (21:49)
[2023-09-06] MEDS: vancomycin/NS 2,000 MG/500 ML PLAST..BAG 250 MG IV (21:50)
--- NOTE | 2023-09-06 22:12 | MHC.EDTECH ---
Pt weight from rney scale: 115.3 kg
[2023-09-07 01:49] LABS: Glucose, Whole Blood 116 mg/dL (60-115)
[2023-09-07] MEDS: Insulin Glargine,Hum.rec.anlog 100 UNIT/ML 10 ML VIAL 10 UNIT SUBCUT (02:15)
[2023-09-07] MEDS: Gabapentin 300 MG CAPSULE PO ×4 (02:15→20:54)
[2023-09-07] MEDS: Morphine Sulfate 4 MG/ML CARTRIDGE 2 MG IVPUSH ×5 (02:22→21:01)
[2023-09-07 05:22] LABS: MANUAL DIFF FLAG NO
[2023-09-07 05:27] LABS: Basophils Percent Auto 0.1 % (0-2); Eosinophils Absolute Auto 0.2 X10*3/uL (0.0-0.4); Eosinophils Percent Auto 2.1 % (0-4); Hematocrit 33.3 % (37.0-47.0); Hemoglobin 10.7 g/dl (12.0-16.0); Imm Gran Abs Auto 0.04 X10*3/uL (0.00-0.03); Imm Gran Pct Auto 0.5 % (0.0-0.4); Lymphocytes Absolute Auto 1.1 X10*3/uL (1.2-4.9); Lymphocytes Percent Auto 13.1 % (20-40); Mean Corpuscular HGB Conc 32.1 g/dl (31.0-35.0); Mean Corpuscular Hemoglobin 29.3 pg (27.0-33.0); Mean Corpuscular Volume 91.2 fL (80.0-98.0); Mean Platelet Volume 8.5 fL (9.4-12.3); Monocytes Absolute Auto 0.5 X10*3/uL (0.1-1.2); Neutrophils Absolute Auto 6.4 x10*3/uL (2.0-8.3); Neutrophils Percent Auto 78.2 % (45-73); Platelet Count 196 X10*3/uL (160-400); Red Blood Count 3.65 X10*6/uL (4.20-5.50); Red Cell Distribution Width 12.4 % (11.0-16.0); White Blood Count 8.1 X10*3/uL (4.8-10.8)
[2023-09-07 05:40] LABS: Anion Gap 15 (12-20); Blood Urea Nitrogen 25 mg/dL (9-16); Calcium 9.6 mg/dL (8.4-10.2); Carbon Dioxide 33 mmol/L (22-29); Chloride 99 mmol/L (96-108); Creatinine Clr Calc Pharmacy 69.9; Estimated Glomerular Filt Rate 58; Glucose Random 61 mg/dL (60-115); Potassium 4.3 mmol/L (3.3-5.1); Sodium 143 mmol/L (135-145)
--- NOTE | 2023-09-07 06:45 | PC.NURSE ---
this rn contacted pharmacy regarding levothyroxine orders per pharmacy med will be consolidated to one orders and retimed oncoming nurse made aware. pharmacy states time for myao will also be retimed
--- NOTE | 2023-09-07 07:15 | PC.NURSE ---
assumed care of pt at 0700. pt sleeping on stretcher comfortably maliha. rr even/unlabored. call barajas within pt reach. plan of care ongoing. awaiting bed assignment.
[2023-09-07] MEDS: Fluticasone/Umeclidinium/Vilanterol 200/62.5/25 BLST.W.DEV 1 PUFF INHALE (07:31)
[2023-09-07 07:32] VITALS: PULSE 67; RESP 16; O2SAT 99
[2023-09-07 08:26] VITALS: BP 160/73; PULSE 70; RESP 18; TEMP 36.1; O2SAT 98
[2023-09-07 08:35] LABS: Glucose, Whole Blood 55 mg/dL (60-115)
[2023-09-07] MEDS: 0.9 % Sodium Chloride Flush 3 ML SYRINGE IVFLUSH ×3 (08:48→20:47)
[2023-09-07] MEDS: Ferrous Sulfate 324 MG TABLET.DR PO (08:52)
[2023-09-07] MEDS: Docusate Sodium 100 MG CAPSULE PO (08:53)
[2023-09-07] MEDS: Ascorbic Acid 500 MG TABLET PO (08:53)
[2023-09-07] MEDS: Levothyroxine Sodium 112 MCG TABLET PO (08:53)
[2023-09-07] MEDS: hydrALAZINE HCl 25 MG TABLET PO ×2 (08:53→20:54)
[2023-09-07] MEDS: predniSONE 5 MG TABLET PO (08:53)
[2023-09-07] MEDS: Atorvastatin Calcium 80 MG TABLET PO (08:53)
[2023-09-07] MEDS: Metoprolol Tartrate 25 MG TABLET PO ×2 (08:53→20:55)
[2023-09-07] MEDS: metFORMIN HCl 1,000 MG TABLET 1000 MG PO (08:54)
[2023-09-07] MEDS: Losartan Potassium 50 MG TABLET 100 MG PO (08:54)
[2023-09-07] MEDS: Cholecalciferol (Vitamin D3) 25 MCG TABLET PO (08:54)
[2023-09-07] MEDS: DULoxetine HCl 60 MG CAPSULE.DR PO (08:54)
[2023-09-07] MEDS: DULoxetine HCl 30 MG CAPSULE.DR PO (08:54)
[2023-09-07] MEDS: Omeprazole 20 MG CAPSULE.DR PO (08:55)
--- NOTE | 2023-09-07 09:08 | PC.NURSE ---
pt sent up to floor without t/w knowledge or report being completed. t/w was pulled into a code and when came out to do inpatient report and check in on pt, pt was not in ED8. t/w spoke with charge nurse who stated the pt was brought upstairs to her inpatient room. spoke with PORTIA Martel who is the admitting nurse and sts the pt is a&o x4, perfusing well, and is speaking in full complete sentences. will complete report now.
[2023-09-07 09:17] LABS: Glucose, Whole Blood 77 mg/dL (60-115)
--- NOTE | 2023-09-07 09:31 | MHC.CM.PN ---
Patient is from home with . Functionally independent. Home O2 2L via [employer]. PCP: Juan Escoto MD HCP: CM assisted patient in completing. Patient named agents: 1) Elmer [phone], 2) son Diego [phone] DP: Goal is home self care. to transport. CM will continue to follow.
[2023-09-07 11:00] VITALS: BMI 46.6
[2023-09-07] MEDS: Acetaminophen 325 MG TABLET 650 MG PO ×2 (11:25→20:55)
[2023-09-07 11:27] LABS: Glucose, Whole Blood 142 mg/dL (60-115)
--- NOTE | 2023-09-07 11:52 | HO.PM.IMPN ---
Subjective Subjective Date of Service: 09/07/23 Interval History: Being followed for right leg cellulitis and right leg wound Complaining of pain right lower extremity noted to have low blood sugars this morning has not eaten since last night, denies lightheadedness, dizziness ,no chest pain, no palpitations, no diaphoresis, no nausea, no vomiting, no diarrhea. No fevers, no chills. Review of Systems All other system reviewed and negative Physical Exam Vital Signs: Vital Signs: Last Vital Signs Temp 96.9 F 09/07/23 08:26 Pulse 70 09/07/23 08:26 Resp 18 09/07/23 08:26 BP 160/73 H 09/07/23 08:26 Pulse Ox 98 09/07/23 08:26 O2 Del Method Room Air 09/07/23 08:26 O2 Flow Rate 2 09/06/23 18:45 BMI result Body Mass Index 46.6 Const: Other: General awake alert x3, in no acute distress. Neck jonah JVD. CVS regular rate rhythm, Respiratory lungs clear to auscultation, no respiratory distress, no wheeze, no rhonchi. Gastrointestinal abdomen soft, non tender, bowel sounds audible, no guarding , no rigidity. Extremities no edema. Neuro nonfocal Skin no rash Psych appropriate affect Objective Data Active Medications Acetaminophen (Acetaminophen 325 Mg Tablet) 650 mg PO Q6H PRN PRN Reason: Pain, Mild (Pain Scale 1-3) Last Admin: 09/07/23 11:25 Dose: 650 mg Documented By: CLARITZA Al Hydroxide/Mg Hydroxide (Magnesium Hydrox/Alum Hydrox 30 Ml Oral.Susp) 30 ml PO Q4H PRN PRN Reason: Heartburn/Nausea Albuterol Sulfate (Albuterol Sulfate (0.083%) 2.5 Mg/3 Ml Vial.Neb) 2.5 mg INHALE Q4H PRN PRN Reason: shortness of breath or wheezing Ascorbic Acid (Ascorbic Acid 500 Mg Tablet) 500 mg PO DAILY [facility] Last Admin: 09/07/23 08:53 Dose: 500 mg Documented By: CLARITZA Atorvastatin Calcium (Atorvastatin Calcium 80 Mg Tablet) 80 mg PO DAILY [facility] Last Admin: 09/07/23 08:53 Dose: 80 mg Documented By: CLARITZA Dextrose (Dextrose 50 % 25 Gm/50 Ml Syringe) 25 gm IVPUSH Q15M PRN; Protocol PRN Reason: per Hypoglycemia Standing Ord. Docusate Sodium (Docusate Sodium 100 Mg Capsule) 100 mg PO BID [facility] Last Admin: 09/07/23 08:53 Dose: 100 mg Documented By: CLARITZA Duloxetine HCl (Duloxetine Hcl 60 Mg Capsule.) 60 mg PO DAILY [facility] Last Admin: 09/07/23 08:54 Dose: 60 mg Documented By: CLARITZA Duloxetine HCl (Duloxetine Hcl 30 Mg Capsule.) 30 mg PO DAILY [facility] Last Admin: 09/07/23 08:54 Dose: 30 mg Documented By: CLARITZA Enoxaparin Sodium (Enoxaparin Sodium 40 Mg/0.4 Ml Syringe) 40 mg SUBCUT Q24H [facility] Last Admin: 09/06/23 21:49 Dose: 40 mg Documented By: HE Ferrous Sulfate (Ferrous Sulfate 324 Mg Tablet.) 324 mg PO DAILY [facility] Last Admin: 09/07/23 08:52 Dose: 324 mg Documented By: CLARITZA Fluticasone/Umeclidinium/Vilanterol (Fluticasone/Umeclidinium/Vilanterol 200/62.5/25 Blst.W.Dev) 1 puff INHALE DAILY [facility] Last Admin: 09/07/23 07:31 Dose: 1 puff Documented By: DOLORES Gabapentin (Gabapentin 300 Mg Capsule) 300 mg PO TID [facility] Last Admin: 09/07/23 08:53 Dose: 300 mg Documented By: CLARITZA Glucose (Glucose Gel 15 Gm Gel..Gram.) 15 gm PO Q15M PRN; Protocol PRN Reason: per Hypoglycemia Standing Ord. Hydralazine HCl (Hydralazine Hcl 25 Mg Tablet) 25 mg PO BID [facility]; Protocol Last Admin: 09/07/23 08:53 Dose: 25 mg Documented By: CLARITZA Vancomycin HCl 1,250 mg/ (Sodium Chloride) 250 mls @ 166.667 mls/hr IV Q24H [facility] Insulin Glargine (Insulin Glargine,Hum.Rec.Anlog 100 Unit/Ml 10 Ml Vial) 40 unit SUBCUT BID [facility] Last Admin: 09/07/23 08:35 Dose: Not Given Documented By: CLARITZA Non-Admin Reason: No Insulin Coverage Comments: pt hypoglycemic at 55; pt given a snack and juice with plan to recheck Insulin Human Lispro (Insulin Lispro 100 Unit/Ml 3 Ml Vial) 0 unit SUBCUT QIDACHS [facility]; Protocol Last Admin: 09/07/23 08:37 Dose: Not Given Documented By: CLARITZA Non-Admin Reason: No Insulin Coverage Levothyroxine Sodium (Levothyroxine Sodium 112 Mcg Tablet) 112 mcg PO SUTUWETHFRSA@0600 [facility] Last Admin: 09/07/23 08:53 Dose: 112 mcg Documented By: CLARITZA Levothyroxine Sodium (Levothyroxine Sodium 25 Mcg Tablet) 25 mcg PO SuTuWeThFrSa [facility] Last Admin: 09/07/23 08:37 Dose: Not Given Documented By: CLARITZA Non-Admin Reason: Not In Room Losartan Potassium (Losartan Potassium 50 Mg Tablet) 100 mg PO DAILY [facility]; Protocol Last Admin: 09/07/23 08:54 Dose: 100 mg Documented By: CLARITZA Melatonin (Melatonin 3 Mg Tablet) 6 mg PO BEDTIME PRN PRN Reason: Insomnia Metformin HCl (Metformin Hcl 1,000 Mg Tablet) 1,000 mg PO BID [facility] Last Admin: 09/07/23 08:54 Dose: 1,000 mg Documented By: CLARITZA Metoprolol Tartrate (Metoprolol Tartrate 25 Mg Tablet) 25 mg PO BID [facility]; Protocol Last Admin: 09/07/23 08:53 Dose: 25 mg Documented By: CLARITZA Morphine Sulfate (Morphine Sulfate 4 Mg/Ml Cartridge) 2 mg IVPUSH Q4H PRN; Protocol PRN Reason: Pain, Severe (Pain Scale 7-10) Last Admin: 09/07/23 08:48 Dose: 2 mg Documented By: CLARITZA Omeprazole (Omeprazole 20 Mg Capsule.) 20 mg PO BID [facility] Last Admin: 09/07/23 08:55 Dose: 20 mg Documented By: CLARITZA Ondansetron HCl (Ondansetron Hcl 4 Mg/2 Ml Vial) 4 mg IVPUSH Q8H PRN PRN Reason: Nausea and Vomiting Pharmacy Consult (Consult Rx Vancomycin Dosing) 1 each MISCELLANE DAILY PRN PRN Reason: Consult order Prednisone (Prednisone 5 Mg Tablet) 5 mg PO DAILY [facility] Last Admin: 09/07/23 08:53 Dose: 5 mg Documented By: CLARITZA Senna/Docusate Sodium (Sennosides/Docusate Sodium Tablet) 1 tab PO BEDTIME [facility] Sodium Chloride (0.9 % Sodium Chloride Flush 3 Ml Syringe) 3 ml IVFLUSH QSHIFT [facility] Last Admin: 09/07/23 08:48 Dose: 3 ml Documented By: CLARITZA Vitamin D (Cholecalciferol (Vitamin D3) 25 Mcg Tablet) 25 mcg PO DAILY [facility] Last Admin: 09/07/23 08:54 Dose: 25 mcg Documented By: CLARITZA Labs 09/07/23 05:16 09/07/23 05:16 Labs: Laboratory Results - last 24 hr 09/06/23 09/06/23 09/07/23 13:17 13:18 01:45 MCV 93.1 MCH 29.5 MCHC 31.7 RDW 12.4 Plt Count 247 MPV 8.7 L Immature Gran % (Auto) 0.4 Neut % (Auto) 86.1 H Lymph % (Auto) 6.4 L De[place] % (Auto) 5.5 Eos % (Auto) 1.3 Baso % (Auto) 0.3 Lymph # (Auto) 0.7 L [place] # (Auto) 0.6 Eos # (Auto) 0.2 Baso # (Auto) 0.0 Abs Immat Gran (auto) 0.05 H Absolute Neuts (auto) 9.7 H Absolute Nucleated RBC 0.000 Nucleated RBC % (auto) 0.0 ESR 39 H Anion Gap 14 Estim Creat Clear Calc 60.0 Estimated GFR 49 POC Glucose 116 H Random Glucose 163 H Lactic Acid 1.9 Calcium 9.6 D Total Bilirubin 0.3 Direct Bilirubin 0.1 AST 29 ALT 31 Alkaline Phosphatase 83 C-Reactive Protein 1.29 H B-Natriuretic Peptide 70 Total Protein 7.0 Albumin 4.2 09/07/23 09/07/23 09/07/23 05:16 08:31 09:09 MCV 91.2 MCH 29.3 MCHC 32.1 RDW 12.4 Plt Count 196 MPV 8.5 L Immature Gran % (Auto) 0.5 H Neut % (Auto) 78.2 H Lymph % (Auto) 13.1 L De[place] % (Auto) 6.0 Eos % (Auto) 2.1 Baso % (Auto) 0.1 Lymph # (Auto) 1.1 L Deuel # (Auto) 0.5 Eos # (Auto) 0.2 Baso # (Auto) 0.0 Abs Immat Gran (auto) 0.04 H Absolute Neuts (auto) 6.4 Absolute Nucleated RBC 0.000 Nucleated RBC % (auto) 0.0 ESR Anion Gap 15 Estim Creat Clear Calc 69.9 Estimated GFR 58 POC Glucose 55 L* 77 Random Glucose 61 Lactic Acid Calcium 9.6 Total Bilirubin Direct Bilirubin AST ALT Alkaline Phosphatase C-Reactive Protein B-Natriuretic Peptide Total Protein Albumin 09/07/23 11:10 MCV MCH MCHC RDW Plt Count MPV Immature Gran % (Auto) Neut % (Auto) Lymph % (Auto) Deuel % (Auto) Eos % (Auto) Baso % (Auto) Lymph # (Auto) Deuel # (Auto) Eos # (Auto) Baso # (Auto) Abs Immat Gran (auto) Absolute Neuts (auto) Absolute Nucleated RBC Nucleated RBC % (auto) ESR Anion Gap Estim Creat Clear Calc Estimated GFR POC Glucose 142 H Random Glucose Lactic Acid Calcium Total Bilirubin Direct Bilirubin AST ALT Alkaline Phosphatase C-Reactive Protein B-Natriuretic Peptide Total Protein Albumin Microbiology Microbiology Results: Microbiology 09/06/23 19:29 Gram Stain - Final Leg Right Routine Culture - Preliminary Culture in progress. Assessment and Plan (1) Open wound, lower leg: Status: Acute (2) Cellulitis of right leg: Status: Acute (3) Psoriatic arthritis: Status: Acute Plan 63 year old obese white female with past medical history of T2DM, psoriatic arthritis, osteoporosis, CVA, CAD s/p SC, s/p right carotid endarterectomy, bleeding gastric ulcer, hypothyroidism, COPD and hyperlipidemia here with 1. Cellulitis of the right leg and nonhealing right leg wound likely due to diabetes - continue IV Vancomycin, afebrile normal WBC count follow blood cultures recently finished course of antibiotic - surgical consult for wound care 2. Type 2 diabetes mellitus - low blood sugar this morning, continue diabetic diet , on Lantus 40 units BID at home will hold morning dose of Lantus continue insulin sliding scale, and adjust dose of Lantus - hold Metformin 3. Hypothyroidism - continue Levothyroxine 4. COPD - not in exacerbation,on Trelegy 5. Psoriatic arthritis - continue daily Prednisone. 6. Hypertension continue losartan, metoprolol and hydralazine, follow blood pressure closely. 7. Mood disorder continue duloxetine DVT: SC Lovenox CODE STATUS: Full code Patient will need continued inpatient hospitalization for management of Right leg cellulitis in a diabetic patient Quality Stroke Does the patient have a stroke diagnosis?: Yes Reason for No Anti-thrombotic by Day Two: Not indicated VTE Prior VTE?: No VTE Risk Level:: Medical - moderate - high VTE Device Contraindication: Treatment Not Indicated VTE Drug Contraindication: N/A - Med Ordered
--- NOTE | 2023-09-07 12:11 | PM.CNGS ---
History of Present Illness Consult details Consult date: 09/07/23 Narrative: 63F here in the hospital for cellulitis of the right leg. She had suffered a right lower injury when she fell of a ladder last 2022. She says part of the skin was scraped at that time. She describes having scabbing on the area which appeared to have peeled off. She has noticed that there has been worsening redness and pain on the area along with the drainage. I have been asked to evaluate the wound. Review of Systems Constitutional: Constitutional: Denies chills and Denies fever(s) Cardiovascular: Cardiovascular: Denies chest pain, Reports dyspnea and Reports dyspnea on exertion Respiratory: Respiratory: Denies cough, Reports dyspnea and Reports dyspnea on exertion Gastrointestinal: Gastrointestinal: Denies hematochezia and Denies change in bowel habits Genitourinary: Genitourinary: Denies hematuria Musculoskeletal: Musculoskeletal: Denies back pain and Denies limited range of motion Neurologic: Denies focal weakness and Denies convulsions Psychiatric: Psychiatric: Denies depression and Denies mood swings PMFSH Past Medical History Medical History Open wound, lower leg SOB (shortness of breath) Upper GI hemorrhage Closed left ankle fracture Psoriatic arthritis History of paroxysmal supraventricular tachycardia Tobacco abuse Osteoarthritis Hypertension Diabetic nephropathy Psoriasis Diabetic neuropathy Hypothyroid Obesity COPD (chronic obstructive pulmonary disease) Hypercholesterolemia Type 2 diabetes mellitus with hyperglycemia Family History Family History Father Prostate cancer Mother Ovarian cancer Paternal Grandmother Breast cancer Surgical History Surgical History History of carotid angioplasty H/O cardiac radiofrequency ablation History of cataract surgery History of throat surgery History of parathyroidectomy History of thyroidectomy History of ankle surgery H/O left wrist surgery History of eye surgery History of appendectomy History of cholecystectomy History of section Social History Social History Household Members: Spouse Household Members Other:: Elmer Housing: House Do you presently have visiting nurse or other home services: No Alcohol intake: never Patient Tobacco Use Status: Former Tobacco user Tobacco use type: Cigarette Years Smoked: 48 e-Cigarette/Vaping Use: Never Used Second Hand Smoke Exposure: No Substance Use Type: Marijuana service: No Current occupational status: disabled Cognitive needs: Yes (using portable oxygen) Hearing needs: No Vision needs: Yes (Glasses) Meds Allergies Allergy/AdvReac Type Severity Reaction Status Date / Time adalimumab [Humira] Allergy Unknown Unknown Verified 09/08/23 09:41 alprazolam Allergy Unknown swelling Verified 09/08/23 09:41 amlodipine Allergy Unknown swelling Verified 09/08/23 09:41 etanercept [Enbrel] Allergy Unknown Unknown Verified 09/08/23 09:41 fluticasone Allergy Unknown Unknown Verified 09/08/23 09:41 [From [facility]] hydrochlorothiazide Allergy Unknown hives Verified 09/08/23 09:41 salmeterol Allergy Unknown Unknown Verified 09/08/23 09:41 [From [facility]] simvastatin Allergy Unknown Unknown Verified 09/08/23 09:41 codeine AdvReac Intermediate Nausea and Verified 09/08/23 09:41 Vomiting roflumilast [From Daliresp] AdvReac Intermediate Nausea Verified 09/08/23 09:41 Active Medications: Current Medications Acetaminophen (Acetaminophen 325 Mg Tablet) 650 mg PO Q6H PRN PRN Reason: Pain, Mild (Pain Scale 1-3) Last Admin: 09/07/23 11:25 Dose: 650 mg Al Hydroxide/Mg Hydroxide (Magnesium Hydrox/Alum Hydrox 30 Ml Oral.Susp) 30 ml PO Q4H PRN PRN Reason: Heartburn/Nausea Albuterol Sulfate (Albuterol Sulfate (0.083%) 2.5 Mg/3 Ml Vial.Neb) 2.5 mg INHALE Q4H PRN PRN Reason: shortness of breath or wheezing Ascorbic Acid (Ascorbic Acid 500 Mg Tablet) 500 mg PO DAILY [facility] Last Admin: 09/07/23 08:53 Dose: 500 mg Atorvastatin Calcium (Atorvastatin Calcium 80 Mg Tablet) 80 mg PO DAILY [facility] Last Admin: 09/07/23 08:53 Dose: 80 mg Dextrose (Dextrose 50 % 25 Gm/50 Ml Syringe) 25 gm IVPUSH Q15M PRN; Protocol PRN Reason: per Hypoglycemia Standing Ord. Docusate Sodium (Docusate Sodium 100 Mg Capsule) 100 mg PO BID [facility] Last Admin: 09/07/23 08:53 Dose: 100 mg Duloxetine HCl (Duloxetine Hcl 60 Mg Capsule.) 60 mg PO DAILY [facility] Last Admin: 09/07/23 08:54 Dose: 60 mg Duloxetine HCl (Duloxetine Hcl 30 Mg Capsule.) 30 mg PO DAILY [facility] Last Admin: 09/07/23 08:54 Dose: 30 mg Enoxaparin Sodium (Enoxaparin Sodium 40 Mg/0.4 Ml Syringe) 40 mg SUBCUT Q24H [facility] Last Admin: 09/06/23 21:49 Dose: 40 mg Ferrous Sulfate (Ferrous Sulfate 324 Mg Tablet.) 324 mg PO DAILY [facility] Last Admin: 09/07/23 08:52 Dose: 324 mg Fluticasone/Umeclidinium/Vilanterol (Fluticasone/Umeclidinium/Vilanterol 200/62.5/25 Blst.W.Dev) 1 puff INHALE DAILY [facility] Last Admin: 09/07/23 07:31 Dose: 1 puff Gabapentin (Gabapentin 300 Mg Capsule) 300 mg PO TID [facility] Last Admin: 09/07/23 08:53 Dose: 300 mg Glucose (Glucose Gel 15 Gm Gel..Gram.) 15 gm PO Q15M PRN; Protocol PRN Reason: per Hypoglycemia Standing Ord. Hydralazine HCl (Hydralazine Hcl 25 Mg Tablet) 25 mg PO BID [facility]; Protocol Last Admin: 09/07/23 08:53 Dose: 25 mg Vancomycin HCl 1,250 mg/ (Sodium Chloride) 250 mls @ 166.667 mls/hr IV Q24H [facility] Insulin Glargine (Insulin Glargine,Hum.Rec.Anlog 100 Unit/Ml 10 Ml Vial) 40 unit SUBCUT BID [facility] Last Admin: 09/07/23 08:35 Dose: Not Given Insulin Human Lispro (Insulin Lispro 100 Unit/Ml 3 Ml Vial) 0 unit SUBCUT QIDACHS [facility]; Protocol Last Admin: 09/07/23 08:37 Dose: Not Given Levothyroxine Sodium (Levothyroxine Sodium 112 Mcg Tablet) 112 mcg PO SUTUWETHFRSA@0600 [facility] Last Admin: 09/07/23 08:53 Dose: 112 mcg Levothyroxine Sodium (Levothyroxine Sodium 25 Mcg Tablet) 25 mcg PO SuTuWeThFrSa [facility] Last Admin: 09/07/23 08:37 Dose: Not Given Losartan Potassium (Losartan Potassium 50 Mg Tablet) 100 mg PO DAILY [facility]; Protocol Last Admin: 09/07/23 08:54 Dose: 100 mg Melatonin (Melatonin 3 Mg Tablet) 6 mg PO BEDTIME PRN PRN Reason: Insomnia Metformin HCl (Metformin Hcl 1,000 Mg Tablet) 1,000 mg PO BID [facility] Last Admin: 09/07/23 08:54 Dose: 1,000 mg Metoprolol Tartrate (Metoprolol Tartrate 25 Mg Tablet) 25 mg PO BID [facility]; Protocol Last Admin: 09/07/23 08:53 Dose: 25 mg Morphine Sulfate (Morphine Sulfate 4 Mg/Ml Cartridge) 2 mg IVPUSH Q4H PRN; Protocol PRN Reason: Pain, Severe (Pain Scale 7-10) Last Admin: 09/07/23 08:48 Dose: 2 mg Omeprazole (Omeprazole 20 Mg Capsule.Dr) 20 mg PO BID [facility] Last Admin: 09/07/23 08:55 Dose: 20 mg Ondansetron HCl (Ondansetron Hcl 4 Mg/2 Ml Vial) 4 mg IVPUSH Q8H PRN PRN Reason: Nausea and Vomiting Pharmacy Consult (Consult Rx Vancomycin Dosing) 1 each MISCELLANE DAILY PRN PRN Reason: Consult order Prednisone (Prednisone 5 Mg Tablet) 5 mg PO DAILY [facility] Last Admin: 09/07/23 08:53 Dose: 5 mg Senna/Docusate Sodium (Sennosides/Docusate Sodium Tablet) 1 tab PO BEDTIME [facility] Sodium Chloride (0.9 % Sodium Chloride Flush 3 Ml Syringe) 3 ml IVFLUSH QSHIFT [facility] Last Admin: 09/07/23 08:48 Dose: 3 ml Vitamin D (Cholecalciferol (Vitamin D3) 25 Mcg Tablet) 25 mcg PO DAILY [facility] Last Admin: 09/07/23 08:54 Dose: 25 mcg Home Medications Medication Instructions Recorded Confirmed Last Taken Type cholecalciferol (vitamin D3) 25 25 mcg PO DAILY 09/25/20 09/06/23 09/06/23 History mcg (1,000 unit) tablet melatonin 10 mg capsule 10 mg PO BEDTIME 09/25/20 09/06/23 09/05/23 History vitamin B complex 1 tab PO DAILY 09/25/20 09/06/23 09/06/23 History sennosides 8.6 mg-docusate sodium 1 tab-cap PO BEDTIME 02/26/21 09/06/23 09/05/23 History 50 mg tablet (Senna-S) fluticasone fur. 200 mcg-umeclid 1 inh inhalation DAILY 01/27/23 09/06/23 09/06/23 History 62.5 mcg-vilant 25 mcg inhalat.powder (Trelegy Ellipta) insulin aspart U-100 100 unit/mL 17 unit subcut TID 07/25/23 09/06/23 09/06/23 History (3 mL) subcutaneous pen (Novolog FlexPen U-100 Insulin aspart) acetaminophen 650 mg 1,300 mg PO TID 09/06/23 09/06/23 09/06/23 History tablet,extended release (Tylenol Arthritis Pain) ascorbate calcium (vitamin C) 500 500 mg PO DAILY 09/06/23 09/06/23 09/06/23 History mg tablet ferrous sulfate 325 mg (65 mg 325 mg PO DAILY 09/06/23 09/06/23 09/06/23 History iron) tablet (FeroSul) furosemide 20 mg tablet 30 mg PO BID 09/06/23 09/06/23 09/06/23 History levothyroxine 137 mcg capsule 137 mcg PO SUTUWETHFRSA@0600 09/06/23 09/06/23 09/06/23 History prednisone 2.5 mg tablet 5 mg PO DAILY 09/06/23 09/06/23 09/06/23 History Physical Exam Vital Signs: Vital Signs: Last Vital Signs Temp 96.9 F 09/07/23 08:26 Pulse 70 09/07/23 08:26 Resp 18 09/07/23 08:26 BP 160/73 H 09/07/23 08:26 Pulse Ox 98 09/07/23 08:26 O2 Del Method Room Air 09/07/23 08:26 O2 Flow Rate 2 09/06/23 18:45 BMI result Body Mass Index 46.6 Const: General: comfortable and no acute distress Resp: Effort & Inspection: normal respiratory effort Cardio: Rate: regular rate GI: Palpation (GI): Soft to palpation Extrem: Other: on the right lower leg anteriorly is an open wound, appearing ulcerated, with exposed subcutaneous tissue, surrounding erythema, some scanty drainage from the lateral border; widest diameter is about 2.7 cm, wound circular in shape; there is a coating of nonviable tissue on the wound; Results Labs 09/07/23 05:16 09/09/23 06:06 Labs: Abnormal lab results 09/06/23 09/06/23 09/07/23 Range/Units 13:17 13:18 01:45 WBC 11.2 H (4.8-10.8) X10*3/uL RBC 3.90 L (4.20-5.50) X10*6/uL Hgb 11.5 L (12.0-16.0) g/dl Hct 36.3 L (37.0-47.0) % MPV 8.7 L (9.4-12.3) fL Immature Gran % (Auto) (0.0-0.4) % Neut % (Auto) 86.1 H (45-73) % Lymph % (Auto) 6.4 L (20-40) % Lymph # (Auto) 0.7 L (1.2-4.9) X10*3/uL Abs Immat Gran (auto) 0.05 H (0.00-0.03) X10*3/uL Absolute Neuts (auto) 9.7 H (2.0-8.3) x10*3/uL ESR 39 H (0-20) MM/HR Carbon Dioxide 31 H (22-29) mmol/L BUN 31 H (9-16) mg/dL POC Glucose 116 H (60-115) mg/dL Random Glucose 163 H (60-115) mg/dL C-Reactive Protein 1.29 H (< or = 0.50) mg/dL 09/07/23 09/07/23 09/07/23 Range/Units 05:16 08:31 11:10 WBC (4.8-10.8) X10*3/uL RBC 3.65 L (4.20-5.50) X10*6/uL Hgb 10.7 L (12.0-16.0) g/dl Hct 33.3 L (37.0-47.0) % MPV 8.5 L (9.4-12.3) fL Immature Gran % (Auto) 0.5 H (0.0-0.4) % Neut % (Auto) 78.2 H (45-73) % Lymph % (Auto) 13.1 L (20-40) % Lymph # (Auto) 1.1 L (1.2-4.9) X10*3/uL Abs Immat Gran (auto) 0.04 H (0.00-0.03) X10*3/uL Absolute Neuts (auto) (2.0-8.3) x10*3/uL ESR (0-20) MM/HR Carbon Dioxide 33 H (22-29) mmol/L BUN 25 H (9-16) mg/dL POC Glucose 55 L* 142 H (60-115) mg/dL Random Glucose (60-115) mg/dL C-Reactive Protein (< or = 0.50) mg/dL Short CBC 09/06/23 09/07/23 Range/Units 13:18 05:16 WBC 11.2 H 8.1 (4.8-10.8) X10*3/uL Hgb 11.5 L 10.7 L (12.0-16.0) g/dl Hct 36.3 L 33.3 L (37.0-47.0) % Plt Count 247 196 (160-400) X10*3/uL BMP 09/06/23 09/07/23 13:18 05:16 Sodium 139 143 Potassium 4.4 4.3 Chloride 98 99 Carbon Dioxide 31 H 33 H BUN 31 H 25 H Creatinine 1.13 0.97 Calcium 9.6 D 9.6 Liver Function 09/06/23 Range/Units 13:18 Total Bilirubin 0.3 (0.0-1.0) mg/dL Direct Bilirubin 0.1 (0.0-0.5) mg/dL AST 29 (5-31) U/L ALT 31 (0-31) U/L Alkaline Phosphatase 83 (39-117) U/L Albumin 4.2 (3.5-5.0) g/dL All other labs normal. Assessment and Plan (1) Open wound, lower leg: Status: Acute She has an open wound on the right leg as described above. I explained to her that there appears to be a coating of nonviable tissue and it may be best to do debridement in the OR uner MAC. I explained to her the technique of this procedure. I explained the risks including but not limited to bleeding, infections, oain, persistent poor healing. She wants to proceed. We janina do the debridement in the OR tomorrow. Procedures Date of Service Date of Service: 09/14/23
--- NOTE | 2023-09-07 15:02 | HO.WOUND ---
Wound Consult: Initial 63yr old female admitted to [facility] on?09/06/23 20:33 - See progress notes and H&P for detailed history. Wound consult placed for Right Leg ulceration and cellultitis - pt and direct care team report pt is set for OR tomorrow for debridement with Dr. Zhou. Pt reported wound originated as a large hematoma sought treatment from [facility] and followup for I&D again at [facility]. Pt reports no topical recommendations were given and she was at time using a bandaid but often it would fall off quickly so she reports wound remained open to air. Discussed and Educated the patient on importance of moist wound healing and covering wound bed for multiple benefits including moist management, climate / temp control, pain and protects from microbial invasion. She reports understanding we additionally discussed the importance of blood sugar control and the impacts of poor control on wound healing -she reports understanding. Right Lower Leg / Young Etiology: ?Ulceration and Cellulitis Measurements: 2.5cm x 2cm x 0.4cm with undermining noted max depth at 11 o'clock of 3cm Wound Bed: Adherent moist yellow slough some red moist wound bed exposed Drainage / Odor: dried drainage - significant odor noted with cleansing Edges: ? epibole Celia wound: ?Red blanchable erythema, warmth noted mild swelling noted, No Induration, no Fluctuance noted Pain: Pt reports pain at times - reports nerve pain Goals of Treatment: ? Alginate for enhanced autolytic debridement and moisture management with antimicrobial properties Re-consult wound care Nurse for wound deterioration or wound changes. Recommendations: 1. Provide adequate and supplemental nutrition. 2. Maintain blood glucose levels per Providers orders. 3. Right Young - Cleanse and irrigate with NS, pat dry. Apply barrier wipe to wound edge allow to dry. Lightly pack alginate into wound bed cover with dry gauze, ABD pad and gauze wrap. Change Daily. At time of discharge patient will benefit from VNA services as given her body habitus it will be difficult to reach portion of leg with wound. Daily dressings of Alginnate can switch to every other day at time of discharge and follow up with outpt wound clinic. Wound Clinic Follow up Recommend follow up out patient Wound Clinic at [address] [place] [id number] and to call for an appointment at time of discharge. [phone].?
[2023-09-07 15:45] VITALS: BP 134/64; PULSE 65; RESP 18; TEMP 36.8; O2SAT 96
[2023-09-07 16:09] LABS: Glucose, Whole Blood 162 mg/dL (60-115)
[2023-09-07] MEDS: Insulin Lispro 100 UNIT/ML 3 ML VIAL SUBCUT ×2 (16:17→20:56)
[2023-09-07] MEDS: Morphine Sulfate Immed Release 15 MG TABLET PO (19:25)
[2023-09-07 19:26] VITALS: BP 150/67; PULSE 90; RESP 18; TEMP 19.7; O2SAT 97
[2023-09-07 20:02] LABS: Glucose, Whole Blood 186 mg/dL (60-115)
[2023-09-07] MEDS: vancomycin HCL 1,250 MG in 0.9 % Sodium Chloride 250 ML 166.67 MG IV (20:48)
[2023-09-07] MEDS: diphenhydrAMINE HCL 25 MG CAPSULE 50 MG PO (20:55)
[2023-09-07] MEDS: Melatonin 3 MG TABLET 6 MG PO (20:55)
[2023-09-08] VITALS (9 sets, daily range): BP systolic 125–168; BP diastolic 40–76; PULSE 62–80; RESP 18–20; TEMP 36–37.2; O2SAT 94–99
[2023-09-08] MEDS: Levothyroxine Sodium 112 MCG TABLET PO (05:48)
[2023-09-08] MEDS: Levothyroxine Sodium 25 MCG TABLET PO (05:48)
[2023-09-08] MEDS: Morphine Sulfate 4 MG/ML CARTRIDGE 2 MG IVPUSH ×3 (05:53→20:45)
[2023-09-08 06:56] LABS: Creatinine Clr Calc Pharmacy 68.1; Estimated Glomerular Filt Rate 57
[2023-09-08 07:28] LABS: Glucose, Whole Blood 174 mg/dL (60-115)
[2023-09-08] MEDS: 0.9 % Sodium Chloride Flush 3 ML SYRINGE IVFLUSH ×3 (08:25→20:20)
[2023-09-08] MEDS: Fluticasone/Umeclidinium/Vilanterol 200/62.5/25 BLST.W.DEV 1 PUFF INHALE (08:35)
--- NOTE | 2023-09-08 09:34 | P.CONAN_ITS ---
HPI - Anesthesia Eval Consult details Narrative: for debridement ulcer, pt has dentures in and says they aare tight PMFSH Active Problems Active Problems: All Active Problems (Updated 09/07/23 @ 12:19 by Rufino Zhou MD) Open wound, lower leg (Acute) Cellulitis of right leg (Acute) Cellulitis of right leg (Acute) Fall (Acute) Psoriatic arthritis (Acute) Tinea corporis (Acute) Upper respiratory tract infection (Acute) Age-related osteoporosis without current pathological fracture (Acute) Breast cancer screening by mammogram (Acute) Psoriasis (Acute) Cervical cancer screening (Acute) Anemia (Acute) COVID-19 virus infection (Acute) Sore throat (Acute) Coronary artery disease (Acute) Generalized anxiety disorder (Acute) Herpes zoster (Acute) Supplemental oxygen dependent (Acute) Pulmonary nodules (Acute) Dyspnea on exertion (Acute) Diabetic neuropathy (Acute) STEMI (ST elevation myocardial infarction) (Acute) CVA (cerebral vascular accident) (Acute) Carotid stenosis, left (Acute) Superficial venous thrombosis of right arm (Acute) Gastric ulcer (Acute) COPD exacerbation (Acute) Viral illness (Acute) Osteoarthritis (Acute) Hypertension (Acute) Hypothyroid (Acute) Obesity (Acute) COPD (chronic obstructive pulmonary disease) (Acute) Hypercholesterolemia (Acute) Type 2 diabetes mellitus with hyperglycemia (Acute) Past Medical History Medical History Open wound, lower leg SOB (shortness of breath) Upper GI hemorrhage Closed left ankle fracture Psoriatic arthritis History of paroxysmal supraventricular tachycardia Tobacco abuse Osteoarthritis Hypertension Diabetic nephropathy Psoriasis Diabetic neuropathy Hypothyroid Obesity COPD (chronic obstructive pulmonary disease) Hypercholesterolemia Type 2 diabetes mellitus with hyperglycemia Functional capacity: independent ambulation Family History Family History Father Prostate cancer Mother Ovarian cancer Paternal Grandmother Breast cancer Family history of problems with anesthesia: No Surgical History Surgical History History of carotid angioplasty H/O cardiac radiofrequency ablation History of cataract surgery History of throat surgery History of parathyroidectomy History of thyroidectomy History of ankle surgery H/O left wrist surgery History of eye surgery History of appendectomy History of cholecystectomy History of section History of Problems with Anesthesia: No Social History Social History Household Members: Spouse Household Members Other:: Elmer Housing: House Do you presently have visiting nurse or other home services: No Alcohol intake: never Patient Tobacco Use Status: Former Tobacco user Tobacco use type: Cigarette Years Smoked: 48 e-Cigarette/Vaping Use: Never Used Second Hand Smoke Exposure: No Substance Use Type: Marijuana service: No Current occupational status: disabled Cognitive needs: Yes (using portable oxygen) Hearing needs: No Vision needs: Yes (Glasses) Meds Allergies Allergy/AdvReac Type Severity Reaction Status Date / Time adalimumab [Humira] Allergy Unknown Unknown Verified 08/08/23 13:52 alprazolam Allergy Unknown swelling Verified 08/08/23 13:52 amlodipine Allergy Unknown swelling Verified 08/08/23 13:52 etanercept [Enbrel] Allergy Unknown Unknown Verified 08/08/23 13:52 fluticasone Allergy Unknown Unknown Verified 08/08/23 13:52 [From [facility]] hydrochlorothiazide Allergy Unknown hives Verified 08/08/23 13:52 salmeterol Allergy Unknown Unknown Verified 08/08/23 13:52 [From [facility]] simvastatin Allergy Unknown Unknown Verified 08/08/23 13:52 codeine AdvReac Intermediate Nausea and Verified 08/08/23 13:52 Vomiting roflumilast [From Daliresp] AdvReac Intermediate Nausea Verified 08/08/23 13:52 Active Medications: Current Medications Acetaminophen (Acetaminophen 325 Mg Tablet) 650 mg PO Q6H PRN PRN Reason: Pain, Mild (Pain Scale 1-3) Last Admin: 09/07/23 20:55 Dose: 650 mg Al Hydroxide/Mg Hydroxide (Magnesium Hydrox/Alum Hydrox 30 Ml Oral.Susp) 30 ml PO Q4H PRN PRN Reason: Heartburn/Nausea Albuterol Sulfate (Albuterol Sulfate (0.083%) 2.5 Mg/3 Ml Vial.Neb) 2.5 mg INHALE Q4H PRN PRN Reason: shortness of breath or wheezing Ascorbic Acid (Ascorbic Acid 500 Mg Tablet) 500 mg PO DAILY [facility] Last Admin: 09/08/23 07:58 Dose: Not Given Atorvastatin Calcium (Atorvastatin Calcium 80 Mg Tablet) 80 mg PO DAILY [facility] Last Admin: 12/29/23 07:59 Dose: Not Given Dextrose (Dextrose 50 % 25 Gm/50 Ml Syringe) 25 gm IVPUSH Q15M PRN; Protocol PRN Reason: per Hypoglycemia Standing Ord. Diphenhydramine HCl (Diphenhydramine Hcl 25 Mg Capsule) 50 mg PO BEDTIME PRN PRN Reason: Sleep Last Admin: 09/07/23 20:55 Dose: 50 mg Docusate Sodium (Docusate Sodium 100 Mg Capsule) 100 mg PO BID [facility] Last Admin: 09/08/23 07:59 Dose: Not Given Duloxetine HCl (Duloxetine Hcl 60 Mg Capsule.) 60 mg PO DAILY [facility] Last Admin: 09/08/23 07:59 Dose: Not Given Duloxetine HCl (Duloxetine Hcl 30 Mg Capsule.) 30 mg PO DAILY [facility] Last Admin: 09/08/23 07:59 Dose: Not Given Enoxaparin Sodium (Enoxaparin Sodium 40 Mg/0.4 Ml Syringe) 40 mg SUBCUT Q24H [facility] Last Admin: 09/07/23 20:32 Dose: Not Given Ferrous Sulfate (Ferrous Sulfate 324 Mg Tablet.) 324 mg PO DAILY [facility] Last Admin: 09/08/23 07:59 Dose: Not Given Fluticasone/Umeclidinium/Vilanterol (Fluticasone/Umeclidinium/Vilanterol 200/62.5/25 Blst.W.Dev) 1 puff INHALE DAILY [facility] Last Admin: 09/08/23 08:35 Dose: 1 puff Gabapentin (Gabapentin 300 Mg Capsule) 300 mg PO TID [facility] Last Admin: 09/08/23 07:59 Dose: Not Given Glucose (Glucose Gel 15 Gm Gel..Gram.) 15 gm PO Q15M PRN; Protocol PRN Reason: per Hypoglycemia Standing Ord. Hydralazine HCl (Hydralazine Hcl 25 Mg Tablet) 25 mg PO BID [facility]; Protocol Last Admin: 09/08/23 07:59 Dose: Not Given Vancomycin HCl 1,250 mg/ (Sodium Chloride) 250 mls @ 166.667 mls/hr IV Q24H [facility] Last Infusion: 09/07/23 22:20 Dose: Infused Insulin Glargine (Insulin Glargine,Hum.Rec.Anlog 100 Unit/Ml 10 Ml Vial) 25 unit SUBCUT BID [facility] Last Admin: 09/08/23 07:59 Dose: Not Given Insulin Human Lispro (Insulin Lispro 100 Unit/Ml 3 Ml Vial) 0 unit SUBCUT QIDACHS [facility]; Protocol Last Admin: 09/08/23 07:55 Dose: Not Given Levothyroxine Sodium (Levothyroxine Sodium 112 Mcg Tablet) 112 mcg PO SUTUWETHFRSA@0600 [facility] Last Admin: 09/08/23 05:48 Dose: 112 mcg Levothyroxine Sodium (Levothyroxine Sodium 25 Mcg Tablet) 25 mcg PO SuTuWeThFrSa [facility] Last Admin: 09/08/23 05:48 Dose: 25 mcg Losartan Potassium (Losartan Potassium 50 Mg Tablet) 100 mg PO DAILY [facility]; Protocol Last Admin: 09/08/23 08:00 Dose: Not Given Melatonin (Melatonin 3 Mg Tablet) 6 mg PO BEDTIME PRN PRN Reason: Insomnia Last Admin: 09/07/23 20:55 Dose: 6 mg Metoprolol Tartrate (Metoprolol Tartrate 25 Mg Tablet) 25 mg PO BID [facility]; Protocol Last Admin: 09/08/23 08:00 Dose: Not Given Morphine Sulfate (Morphine Sulfate 4 Mg/Ml Cartridge) 2 mg IVPUSH Q4H PRN; Protocol PRN Reason: Pain, Severe (Pain Scale 7-10) Last Admin: 09/08/23 05:53 Dose: 2 mg Morphine Sulfate (Morphine Sulfate Immed Release 15 Mg Tablet) 15 mg PO Q6H PRN PRN Reason: Pain, Moderate(Pain Scale 4-6) Last Admin: 09/07/23 19:25 Dose: 15 mg Omeprazole (Omeprazole 20 Mg Capsule.Dr) 20 mg PO BID [facility] Last Admin: 09/08/23 08:00 Dose: Not Given Ondansetron HCl (Ondansetron Hcl 4 Mg/2 Ml Vial) 4 mg IVPUSH Q8H PRN PRN Reason: Nausea and Vomiting Pharmacy Consult (Consult Rx Vancomycin Dosing) 1 each MISCELLANE DAILY PRN PRN Reason: Consult order Prednisone (Prednisone 5 Mg Tablet) 5 mg PO DAILY [facility] Last Admin: 09/08/23 08:00 Dose: Not Given Senna/Docusate Sodium (Sennosides/Docusate Sodium Tablet) 1 tab PO BEDTIME [facility] Last Admin: 09/07/23 20:32 Dose: Not Given Sodium Chloride (0.9 % Sodium Chloride Flush 3 Ml Syringe) 3 ml IVFLUSH QSHIFT [facility] Last Admin: 09/08/23 08:25 Dose: 3 ml Vitamin D (Cholecalciferol (Vitamin D3) 25 Mcg Tablet) 25 mcg PO DAILY [facility] Last Admin: 09/08/23 07:59 Dose: Not Given Home Medications Medication Instructions Recorded Confirmed Last Taken Type cholecalciferol (vitamin D3) 25 25 mcg PO DAILY 09/25/20 09/06/23 09/06/23 History mcg (1,000 unit) tablet melatonin 10 mg capsule 10 mg PO BEDTIME 09/25/20 09/06/23 09/05/23 History vitamin B complex 1 tab PO DAILY 09/25/20 09/06/23 09/06/23 History sennosides 8.6 mg-docusate sodium 1 tab-cap PO BEDTIME 02/26/21 09/06/23 09/05/23 History 50 mg tablet (Senna-S) fluticasone fur. 200 mcg-umeclid 1 inh inhalation DAILY 01/27/23 09/06/23 09/06/23 History 62.5 mcg-vilant 25 mcg inhalat.powder (Trelegy Ellipta) insulin aspart U-100 100 unit/mL 17 unit subcut TID 07/25/23 09/06/23 09/06/23 History (3 mL) subcutaneous pen (Novolog FlexPen U-100 Insulin aspart) acetaminophen 650 mg 1,300 mg PO TID 09/06/23 09/06/23 09/06/23 History tablet,extended release (Tylenol Arthritis Pain) ascorbate calcium (vitamin C) 500 500 mg PO DAILY 09/06/23 09/06/23 09/06/23 History mg tablet ferrous sulfate 325 mg (65 mg 325 mg PO DAILY 09/06/23 09/06/23 09/06/23 History iron) tablet (FeroSul) furosemide 20 mg tablet 30 mg PO BID 09/06/23 09/06/23 09/06/23 History levothyroxine 137 mcg capsule 137 mcg PO SUTUWETHFRSA@0600 09/06/23 09/06/23 09/06/23 History prednisone 2.5 mg tablet 5 mg PO DAILY 09/06/23 09/06/23 09/06/23 History Exam Height,Weight and Vital Signs: Height 5 ft 1 in Weight 111.9 kg Last Vital Signs Temp 97.7 F 09/08/23 07:22 Pulse 65 09/08/23 08:37 Resp 18 09/08/23 08:37 BP 125/59 L 09/08/23 07:22 Pulse Ox 98 09/08/23 07:22 O2 Del Method Nasal Cannula 09/08/23 07:22 O2 Flow Rate 2 09/08/23 07:22 Pertinent Lab Results Pertinent Lab Results: Laboratory Tests 09/06/23 09/06/23 09/07/23 13:17 13:18 01:45 WBC 11.2 H RBC 3.90 L Hgb 11.5 L Hct 36.3 L MCV 93.1 MCH 29.5 MCHC 31.7 RDW 12.4 Plt Count 247 MPV 8.7 L Immature Gran % (Auto) 0.4 Neut % (Auto) 86.1 H Lymph % (Auto) 6.4 L [place] % (Auto) 5.5 Eos % (Auto) 1.3 Baso % (Auto) 0.3 Lymph # (Auto) 0.7 L [place] # (Auto) 0.6 Eos # (Auto) 0.2 Baso # (Auto) 0.0 Abs Immat Gran (auto) 0.05 H Absolute Neuts (auto) 9.7 H Absolute Nucleated RBC 0.000 Nucleated RBC % (auto) 0.0 ESR 39 H Hold Purple Top Sodium 139 Potassium 4.4 Chloride 98 Carbon Dioxide 31 H Anion Gap 14 BUN 31 H Creatinine 1.13 Estim Creat Clear Calc 60.0 Estimated GFR 49 POC Glucose 116 H Random Glucose 163 H Lactic Acid 1.9 Calcium 9.6 D Total Bilirubin 0.3 Direct Bilirubin 0.1 AST 29 ALT 31 Alkaline Phosphatase 83 C-Reactive Protein 1.29 H B-Natriuretic Peptide 70 Total Protein 7.0 Albumin 4.2 09/07/23 09/07/23 09/07/23 05:16 08:31 09:09 WBC 8.1 RBC 3.65 L Hgb 10.7 L Hct 33.3 L MCV 91.2 MCH 29.3 MCHC 32.1 RDW 12.4 Plt Count 196 MPV 8.5 L Immature Gran % (Auto) 0.5 H Neut % (Auto) 78.2 H Lymph % (Auto) 13.1 L [place] % (Auto) 6.0 Eos % (Auto) 2.1 Baso % (Auto) 0.1 Lymph # (Auto) 1.1 L [place] # (Auto) 0.5 Eos # (Auto) 0.2 Baso # (Auto) 0.0 Abs Immat Gran (auto) 0.04 H Absolute Neuts (auto) 6.4 Absolute Nucleated RBC 0.000 Nucleated RBC % (auto) 0.0 ESR Hold Purple Top Sodium 143 Potassium 4.3 Chloride 99 Carbon Dioxide 33 H Anion Gap 15 BUN 25 H Creatinine 0.97 Estim Creat Clear Calc 69.9 Estimated GFR 58 POC Glucose 55 L* 77 Random Glucose 61 Lactic Acid Calcium 9.6 Total Bilirubin Direct Bilirubin AST ALT Alkaline Phosphatase C-Reactive Protein B-Natriuretic Peptide Total Protein Albumin 09/07/23 09/07/23 09/07/23 11:10 15:48 19:24 WBC RBC Hgb Hct MCV MCH MCHC RDW Plt Count MPV Immature Gran % (Auto) Neut % (Auto) Lymph % (Auto) [place] % (Auto) Eos % (Auto) Baso % (Auto) Lymph # (Auto) [place] # (Auto) Eos # (Auto) Baso # (Auto) Abs Immat Gran (auto) Absolute Neuts (auto) Absolute Nucleated RBC Nucleated RBC % (auto) ESR Hold Purple Top Sodium Potassium Chloride Carbon Dioxide Anion Gap BUN Creatinine Estim Creat Clear Calc Estimated GFR POC Glucose 142 H 162 H 186 H Random Glucose Lactic Acid Calcium Total Bilirubin Direct Bilirubin AST ALT Alkaline Phosphatase C-Reactive Protein B-Natriuretic Peptide Total Protein Albumin 09/08/23 09/08/23 05:39 07:24 WBC RBC Hgb Hct MCV MCH MCHC RDW Plt Count MPV Immature Gran % (Auto) Neut % (Auto) Lymph % (Auto) [place] % (Auto) Eos % (Auto) Baso % (Auto) Lymph # (Auto) [place] # (Auto) Eos # (Auto) Baso # (Auto) Abs Immat Gran (auto) Absolute Neuts (auto) Absolute Nucleated RBC Nucleated RBC % (auto) ESR Hold Purple Top SEE NOTE Sodium Potassium Chloride Carbon Dioxide Anion Gap BUN Creatinine 0.98 Estim Creat Clear Calc 68.1 Estimated GFR 57 POC Glucose 174 H Random Glucose Lactic Acid Calcium Total Bilirubin Direct Bilirubin AST ALT Alkaline Phosphatase C-Reactive Protein B-Natriuretic Peptide Total Protein Albumin Airway Mallampati Class: II TM Dist: <=3cm Neck ROM: Limited Denture: Upper (pt says tight) and Lower (pt says tight) Heart: rrr Lungs: cta Assessment and Plan Assessment Anesthesia Assessment: Anesthesia Plan Discussed and Chart Reviewed Final Anesthetic Review Family History of Problems with Anesthesia: No History of Problems with Anesthesia: No NPO: Yes ASA Class: III Final Preanesthetic Review: No Changes in Pt Med Stat, Meds/Allgs Chart Reviewed, Consent Obtained/Reviewed and Anes Risks/Benef Reviewed Patient Risk: Intermediate Procedure Risk: Low Anesthetic Plan Anesthetic Plan: GA and MAC: Disposition: Standard PACU
[2023-09-08 09:42] LABS: Glucose, Whole Blood 182 mg/dL (60-115)
--- NOTE | 2023-09-08 12:56 | P.OP_ITS ---
Operative Note Operative Note Date of Service: 09/08/23 Narrative: Preop diagnosis: Open wound, right lower leg, with nonviable tissue Postop diagnosis: The same Procedure: Excision of debridement, and wound right lower leg; fibrous debris along with the full-thickness of the skin is fat was excised Surgeon: Rufino Zhou MD Associate Professor Of Literature: LUIS A Ma The patient is a 63-year-old female with an open wound on the right lower leg after falling on last 07/18/2023. This had not healed and continues to have some drainage along with pain and she was admitted for cellulitis. I explained to her therefore that it would be best to proceed with excision debridement in view of the presence of nonviable tissue. I explained the technique of procedure as well as the risks, benefits, alternatives and she had given consent She was brought to the operating room. She was placed supine under monitored anesthesia care. A surgical time-out was done. The patient was receiving did IV antibiotics The right leg wound was prepped and draped in the usual sterile fashion. I infiltrated the area with skin 1% as a field block The open wound was about over 3 x 3 cm is, circular with note of a coating home nonviable tissue and thick fibrinous debris. Furthermore, there was note of significant undermining laterally. I therefore unroof this area laterally and excised this subcutaneous tissue and skin he using a blade 15. This created an open wound about 5 cm in widest diameter dimesion. I then used the sharp curette to a debridement of the entire surface of the open wound to remove nonviable tissue and thick coating of fibrinous debris. We debrided this through the full-thickness of the subcutaneous fat Once there was note of good viable tissue on the bed of the wound, I proceeded to apply wet to dry dressing. I applied a thick wrap around the leg. I infiltrated the area with Marcaine 0.5% for postop analgesia. The procedures went completed. The patient tolerated procedure well. There were no immediate complications i nitial final counts sponges and instruments were correct. Estimated blood loss was about 20 cc. The patient was transferred to the recovery room with stable vital signs.
--- NOTE | 2023-09-08 13:06 | P.PNIM_ITS ---
Subjective Subjective Date of Service: 09/08/23 Interval History: Complaining of right leg discomfort requesting for pain medications, is scheduled for right leg wound debridement today , had nausea not resolved denies fever, no chills, no headache, no dizziness, no other acute issues overnight. Review of Systems All other system reviewed and negative. Physical Exam 2 Vital Signs: Vital Signs: Last Vital Signs Temp 98.0 F 09/08/23 09:46 Pulse 67 09/08/23 09:46 Resp 18 09/08/23 09:46 BP 142/49 H 09/08/23 09:46 Pulse Ox 96 09/08/23 09:46 O2 Del Method Nasal Cannula 09/08/23 09:46 O2 Flow Rate 2 09/08/23 09:46 BMI result Body Mass Index 46.6 Const: Other: General awake alert x3, in no acute distress. Neck jonah JVD. CVS regular rate rhythm, Respiratory lungs clear to auscultation, no respiratory distress, no wheeze, no rhonchi. Gastrointestinal abdomen soft, non tender, bowel sounds audible, no guarding , no rigidity. Extremities no edema. Right lower extremity wound with mild surrounding erythema and drainage, redness extended above and below the wound. Neuro nonfocal Skin no rash Psych appropriate affect Objective Data Active Medications Acetaminophen (Acetaminophen 325 Mg Tablet) 650 mg PO Q6H PRN PRN Reason: Pain, Mild (Pain Scale 1-3) Last Admin: 09/07/23 20:55 Dose: 650 mg Documented By: LALA Al Hydroxide/Mg Hydroxide (Magnesium Hydrox/Alum Hydrox 30 Ml Oral.Susp) 30 ml PO Q4H PRN PRN Reason: Heartburn/Nausea Albuterol Sulfate (Albuterol Sulfate (0.083%) 2.5 Mg/3 Ml Vial.Neb) 2.5 mg INHALE Q4H PRN PRN Reason: shortness of breath or wheezing Ascorbic Acid (Ascorbic Acid 500 Mg Tablet) 500 mg PO DAILY [facility] Last Admin: 09/08/23 07:58 Dose: Not Given Documented By: CLARITZA Non-Admin Reason: NPO Atorvastatin Calcium (Atorvastatin Calcium 80 Mg Tablet) 80 mg PO DAILY [facility] Last Admin: 09/08/23 07:59 Dose: Not Given Documented By: CLARITZA Non-Admin Reason: NPO Dextrose (Dextrose 50 % 25 Gm/50 Ml Syringe) 25 gm IVPUSH Q15M PRN; Protocol PRN Reason: per Hypoglycemia Standing Ord. Diphenhydramine HCl (Diphenhydramine Hcl 25 Mg Capsule) 50 mg PO BEDTIME PRN PRN Reason: Sleep Last Admin: 09/07/23 20:55 Dose: 50 mg Documented By: LALA Docusate Sodium (Docusate Sodium 100 Mg Capsule) 100 mg PO BID [facility] Last Admin: 09/08/23 07:59 Dose: Not Given Documented By: CLARITZA Non-Admin Reason: NPO Duloxetine HCl (Duloxetine Hcl 60 Mg Capsule.) 60 mg PO DAILY [facility] Last Admin: 09/08/23 07:59 Dose: Not Given Documented By: CLARITZA Non-Admin Reason: NPO Duloxetine HCl (Duloxetine Hcl 30 Mg Capsule.) 30 mg PO DAILY [facility] Last Admin: 09/08/23 07:59 Dose: Not Given Documented By: CLARITZA Non-Admin Reason: NPO Enoxaparin Sodium (Enoxaparin Sodium 40 Mg/0.4 Ml Syringe) 40 mg SUBCUT Q24H [facility] Last Admin: 09/07/23 20:32 Dose: Not Given Documented By: LALA Non-Admin Reason: debridement tomorrow. Fentanyl (Fentanyl Citrate/Pf 100 Mcg/2 Ml Vial) 25 mcg IVPUSH Q5M PRN; Protocol PRN Reason: Pain, Moderate(Pain Scale 4-6) Ferrous Sulfate (Ferrous Sulfate 324 Mg Tablet.) 324 mg PO DAILY [facility] Last Admin: 09/08/23 07:59 Dose: Not Given Documented By: CLARITZA Non-Admin Reason: NPO Fluticasone/Umeclidinium/Vilanterol (Fluticasone/Umeclidinium/Vilanterol 200/62.5/25 Blst.W.Dev) 1 puff INHALE DAILY [facility] Last Admin: 09/08/23 08:35 Dose: 1 puff Documented By: DOLORES Gabapentin (Gabapentin 300 Mg Capsule) 300 mg PO TID [facility] Last Admin: 09/08/23 07:59 Dose: Not Given Documented By: CLARITZA Non-Admin Reason: NPO Glucose (Glucose Gel 15 Gm Gel..Gram.) 15 gm PO Q15M PRN; Protocol PRN Reason: per Hypoglycemia Standing Ord. Hydralazine HCl (Hydralazine Hcl 25 Mg Tablet) 25 mg PO BID [facility]; Protocol Last Admin: 09/08/23 07:59 Dose: Not Given Documented By: CLARITZA Non-Admin Reason: NPO Vancomycin HCl 1,250 mg/ (Sodium Chloride) 250 mls @ 166.667 mls/hr IV Q24H [facility] Last Infusion: 09/07/23 22:20 Dose: Infused Documented By: LALA Insulin Glargine (Insulin Glargine,Hum.Rec.Anlog 100 Unit/Ml 10 Ml Vial) 25 unit SUBCUT BID [facility] Last Admin: 09/08/23 07:59 Dose: Not Given Documented By: CLARITZA Non-Admin Reason: NPO Insulin Human Lispro (Insulin Lispro 100 Unit/Ml 3 Ml Vial) 0 unit SUBCUT QIDACHS [facility]; Protocol Last Admin: 09/08/23 12:31 Dose: Not Given Documented By: CLARITZA Non-Admin Reason: Off Unit: Surgery Levothyroxine Sodium (Levothyroxine Sodium 112 Mcg Tablet) 112 mcg PO SUTUWETHFRSA@0600 [facility] Last Admin: 09/08/23 05:48 Dose: 112 mcg Documented By: LALA Levothyroxine Sodium (Levothyroxine Sodium 25 Mcg Tablet) 25 mcg PO SuTuWeThFrSa [facility] Last Admin: 09/08/23 05:48 Dose: 25 mcg Documented By: LALA Losartan Potassium (Losartan Potassium 50 Mg Tablet) 100 mg PO DAILY [facility]; Protocol Last Admin: 09/08/23 08:00 Dose: Not Given Documented By: CLARITZA Non-Admin Reason: NPO Melatonin (Melatonin 3 Mg Tablet) 6 mg PO BEDTIME PRN PRN Reason: Insomnia Last Admin: 09/07/23 20:55 Dose: 6 mg Documented By: LALA Metoprolol Tartrate (Metoprolol Tartrate 25 Mg Tablet) 25 mg PO BID [facility]; Protocol Last Admin: 09/08/23 08:00 Dose: Not Given Documented By: CLARITZA Non-Admin Reason: NPO Morphine Sulfate (Morphine Sulfate 4 Mg/Ml Cartridge) 2 mg IVPUSH Q4H PRN; Protocol PRN Reason: Pain, Severe (Pain Scale 7-10) Last Admin: 09/08/23 05:53 Dose: 2 mg Documented By: LALA Morphine Sulfate (Morphine Sulfate Immed Release 15 Mg Tablet) 15 mg PO Q6H PRN PRN Reason: Pain, Moderate(Pain Scale 4-6) Last Admin: 09/07/23 19:25 Dose: 15 mg Documented By: LALA Omeprazole (Omeprazole 20 Mg Capsule.Dr) 20 mg PO BID [facility] Last Admin: 09/08/23 08:00 Dose: Not Given Documented By: CLARITZA Non-Admin Reason: NPO Ondansetron HCl (Ondansetron Hcl 4 Mg/2 Ml Vial) 4 mg IVPUSH Q8H PRN PRN Reason: Nausea and Vomiting Ondansetron HCl (Ondansetron Hcl 4 Mg/2 Ml Vial) 4 mg IVPUSH ONCE PRN PRN Reason: Nausea and Vomiting Oxycodone HCl (Oxycodone Hcl Immed Release 5 Mg Tablet) 5 mg PO ONCE PRN PRN Reason: Pain, Severe (Pain Scale 7-10) Pharmacy Consult (Consult Rx Vancomycin Dosing) 1 each MISCELLANE DAILY PRN PRN Reason: Consult order Prednisone (Prednisone 5 Mg Tablet) 5 mg PO DAILY [facility] Last Admin: 09/08/23 08:00 Dose: Not Given Documented By: CLARITZA Non-Admin Reason: NPO Senna/Docusate Sodium (Sennosides/Docusate Sodium Tablet) 1 tab PO BEDTIME [facility] Last Admin: 09/07/23 20:32 Dose: Not Given Documented By: LALA Non-Admin Reason: Patient Refused Sodium Chloride (0.9 % Sodium Chloride Flush 3 Ml Syringe) 3 ml IVFLUSH QSHIFT [facility] Last Admin: 09/08/23 08:25 Dose: 3 ml Documented By: CLARITZA Vitamin D (Cholecalciferol (Vitamin D3) 25 Mcg Tablet) 25 mcg PO DAILY [facility] Last Admin: 09/08/23 07:59 Dose: Not Given Documented By: CLARITZA Non-Admin Reason: NPO Labs 09/07/23 05:16 09/08/23 05:39 Labs: Laboratory Results - last 24 hr 09/07/23 09/07/23 09/08/23 15:48 19:24 05:39 Hold Purple Top SEE NOTE Estim Creat Clear Calc 68.1 Estimated GFR 57 POC Glucose 162 H 186 H 09/08/23 09/08/23 07:24 09:35 Hold Purple Top Estim Creat Clear Calc Estimated GFR POC Glucose 174 H 182 H Microbiology Microbiology Results: Microbiology 09/06/23 19:29 Gram Stain - Final Leg Right Routine Culture - Preliminary Staphylococcus species 09/06/23 19:58 Blood Culture - Preliminary Blood - Venous No growth after 24 hours. 09/06/23 13:18 Blood Culture - Preliminary Blood - Venous No growth after 24 hours. Assessment and Plan (1) Open wound, lower leg: Status: Acute (2) Cellulitis of right leg: Status: Acute (3) Psoriatic arthritis: Status: Acute Plan 63 year old obese white female with past medical history of T2DM, psoriatic arthritis, osteoporosis, CVA, CAD s/p [place], s/p right carotid endarterectomy, bleeding gastric ulcer, hypothyroidism, COPD and hyperlipidemia here with 1. Cellulitis of the right leg and nonhealing right leg wound likely due to diabetes - continue IV Vancomycin, afebrile normal WBC count , blood cultures x2 negative wound culture growing Staphylococcus species - scheduled for for right wound debridement in OR by General surgery Added morphine and Celebrex for pain control 2. Type 2 diabetes mellitus - blood sugars less than 200, continue diabetic diet , on Lantus 40 units BID at home , will increase dose of Lantus to 30 b.i.d.,continue insulin sliding scale, and adjust dose of Lantus - hold Metformin 3. Hypothyroidism - continue Levothyroxine 4. COPD - not in exacerbation,on Trelegy 5. Psoriatic arthritis - continue daily Prednisone. 6. Hypertension continue losartan, metoprolol and hydralazine, follow blood pressure closely. 7. Mood disorder continue duloxetine DVT: SC Lovenox CODE STATUS: Full code Patient will need continued inpatient hospitalization for management of Right leg cellulitis in a diabetic patient Quality Stroke Does the patient have a stroke diagnosis?: Yes Reason for No Anti-thrombotic by Day Two: Not indicated VTE Prior VTE?: No VTE Risk Level:: Medical - moderate - high VTE Device Contraindication: Treatment Not Indicated VTE Drug Contraindication: N/A - Med Ordered
--- NOTE | 2023-09-08 13:29 | MHC.CM.PN ---
per rounds pt in or today for debridement no ready for dc
[2023-09-08 14:06] LABS: Glucose, Whole Blood 199 mg/dL (60-115)
--- NOTE | 2023-09-08 14:53 | PM.EVENT ---
Event Note Date of Service: 09/08/23 Event Note: Underwent debridement of right lower leg wound earlier Appears comfortable seems to have good pain control Dressings dry Daily wound care with wet-to-dry dressings Will need a visiting nurse on discharge Okay to follow up with me in the office Time Spent With Patient Time: Total time managing care of this patient today ____ minutes.
[2023-09-08] MEDS: Gabapentin 300 MG CAPSULE PO ×2 (15:01→20:22)
[2023-09-08] MEDS: Celecoxib 200 MG CAPSULE PO (15:01)
[2023-09-08 16:13] LABS: Glucose, Whole Blood 255 mg/dL (60-115)
[2023-09-08] MEDS: Insulin Lispro 100 UNIT/ML 3 ML VIAL SUBCUT ×2 (17:26→20:21)
[2023-09-08] MEDS: guaiFENesin DM 200/20/10 ML 10 ML SYRUP PO (18:05)
[2023-09-08] MEDS: oxyCODONE HCl Immed Release 5 MG TABLET PO (18:07)
[2023-09-08 19:47] LABS: Glucose, Whole Blood 239 mg/dL (60-115)
[2023-09-08] MEDS: Enoxaparin Sodium 40 MG/0.4 ML SYRINGE SUBCUT (20:20)
[2023-09-08] MEDS: Insulin Glargine,Hum.rec.anlog 100 UNIT/ML 10 ML VIAL 30 UNIT SUBCUT (20:20)
[2023-09-08] MEDS: vancomycin HCL 1,250 MG in 0.9 % Sodium Chloride 250 ML 166.67 MG IV (20:20)
[2023-09-08] MEDS: hydrALAZINE HCl 25 MG TABLET PO (20:22)
[2023-09-08] MEDS: Sennosides/Docusate Sodium TABLET 1 TAB PO (20:22)
[2023-09-08] MEDS: Docusate Sodium 100 MG CAPSULE PO (20:22)
[2023-09-08] MEDS: Omeprazole 20 MG CAPSULE.DR PO (20:22)
[2023-09-08] MEDS: Metoprolol Tartrate 25 MG TABLET PO (20:22)
[2023-09-09 03:12] VITALS: BP 151/67; PULSE 55; RESP 18; TEMP 36.6; O2SAT 99
[2023-09-09] MEDS: Levothyroxine Sodium 112 MCG TABLET PO (06:31)
[2023-09-09] MEDS: guaiFENesin DM 200/20/10 ML 10 ML SYRUP PO (06:34)
[2023-09-09] MEDS: Levothyroxine Sodium 25 MCG TABLET PO (06:41)
[2023-09-09 07:09] VITALS: BP 178/74; PULSE 70; RESP 19; TEMP 36.1; O2SAT 92
[2023-09-09 07:27] LABS: Glucose, Whole Blood 216 mg/dL (60-115)
[2023-09-09 07:50] LABS: Creatinine Clr Calc Pharmacy 76.7; Estimated Glomerular Filt Rate > 60
[2023-09-09] MEDS: hydrALAZINE HCl 25 MG TABLET PO (08:14)
[2023-09-09] MEDS: Atorvastatin Calcium 80 MG TABLET PO (08:14)
[2023-09-09] MEDS: Cholecalciferol (Vitamin D3) 25 MCG TABLET PO (08:14)
[2023-09-09] MEDS: DULoxetine HCl 60 MG CAPSULE.DR PO (08:14)
[2023-09-09] MEDS: DULoxetine HCl 30 MG CAPSULE.DR PO (08:14)
[2023-09-09] MEDS: Celecoxib 200 MG CAPSULE PO (08:14)
[2023-09-09] MEDS: Omeprazole 20 MG CAPSULE.DR PO (08:14)
[2023-09-09] MEDS: Metoprolol Tartrate 25 MG TABLET PO (08:14)
[2023-09-09] MEDS: predniSONE 5 MG TABLET PO (08:14)
[2023-09-09] MEDS: Docusate Sodium 100 MG CAPSULE PO (08:14)
[2023-09-09] MEDS: Gabapentin 300 MG CAPSULE PO (08:14)
[2023-09-09] MEDS: Ferrous Sulfate 324 MG TABLET.DR PO (08:14)
[2023-09-09] MEDS: Ascorbic Acid 500 MG TABLET PO (08:14)
[2023-09-09] MEDS: Losartan Potassium 50 MG TABLET 100 MG PO (08:14)
[2023-09-09] MEDS: Insulin Glargine,Hum.rec.anlog 100 UNIT/ML 10 ML VIAL 30 UNIT SUBCUT (08:15)
[2023-09-09] MEDS: Insulin Lispro 100 UNIT/ML 3 ML VIAL SUBCUT ×2 (08:16→11:20)
[2023-09-09] MEDS: 0.9 % Sodium Chloride Flush 3 ML SYRINGE IVFLUSH (08:20)
[2023-09-09] MEDS: Morphine Sulfate 4 MG/ML CARTRIDGE 2 MG IVPUSH (08:33)
[2023-09-09] MEDS: Fluticasone/Umeclidinium/Vilanterol 200/62.5/25 BLST.W.DEV 1 PUFF INHALE (08:49)
[2023-09-09 08:51] VITALS: PULSE 67; RESP 18; O2SAT 94
[2023-09-09 09:12] LABS: MRSA Nasal PCR NEGATIVE (Negative); SA Nasal PCR POSITIVE (Negative)
[2023-09-09 09:36] VITALS: O2SAT 93
[2023-09-09 11:07] LABS: Glucose, Whole Blood 250 mg/dL (60-115)
--- NOTE | 2023-09-09 11:24 | PM.DS ---
DS: Providers Provider Date of Service: 09/09/23 Date of admission: 09/06/23 20:33 Primary care physician: Juan Escoto MD Consults: 09/07/23 08:31 Consult to General Surgery Routine Consulting Provider: Rufino Zhou Reason for consultation: rt leg wound Has provider been notified: No 09/07/23 11:22 Consult to Wound Care Routine Reason for consultation: CELLULITIS DS: Diagnosis Discharge Diagnosis (1) Open wound, lower leg: Status: Acute (2) Cellulitis of right leg: Status: Acute (3) Psoriatic arthritis: Status: Acute DS: Summary Hospital Course Hospital Course: History of presenting illness: Date of Service: 09/06/23 Attending physician on admission: Gualberto Fernandez Chief Complaint: Right leg ulcer/infection since Jul 18 but worse over the last 4 days Patient is a 63 year old obese white female with past medical history of T2DM, psoriatic arthritis, osteoporosis, CVA, CAD s/p [place], s/p right carotid endarterectomy, bleeding gastric ulcer, hypothyroidism, COPD and hyperlipidemia who comes to the emergency room for evaluation of a wound on the right young that appears to be infected. She injured her right young on July 18 when she fell off a ladder while decorating her kitchen and struck her right young on the ladder suffering a large bruise across the mid young. She was seen at [facility] ([facility]) on the day of the injury and discharged home on prophylactic Augmentin but the laceration developed into a wound and so 2 weeks later she returned to the emergency room at [facility] where the wound was debrided and she was started on different antibiotics including Doxycycline for MRSA coverage. She has been off antibiotics for about a month now and was doing well until 4 days ago when she noticed that the wound looked infected and she now had pain that was worse with walking and also redness surrounding the wound. She has not had any fevers or chills. She was started on IV Vancomycin and admission requested for continued care. Hospital course: 63 year old obese white female with past medical history of T2DM, psoriatic arthritis, osteoporosis, CVA, CAD s/p [place], s/p right carotid endarterectomy, bleeding gastric ulcer, hypothyroidism, COPD and hyperlipidemia here with 1. Admitted to medical floor with a diagnosis of Cellulitis of the right leg and nonhealing right leg wound likely due to diabetes, treated with IV vancomycin, blood cultures x2 negative, wound culture grew Staph and Enterococcus, seen by General surgery who underwent debridement of right young wound in OR surgery recommends wet to dry dressing daily since patient is afebrile with a normal WBC count she is being discharged home on doxycycline and VNA services for dressing change she is recommended to follow up with General surgery and Wound Clinic. 2. Type 2 diabetes mellitus recommend to continue diabetic diet Lantus 40 units b.i.d. 3. Hypothyroidism- continue Levothyroxine 4. COPD had no acute exacerbation continue Trelegy 5. Psoriatic arthritis- continue daily Prednisone. 6. Hypertension resume all home medications 7. Mood disorder continue duloxetine Time Attestation Discharge coordination time: Greater than 30 minutes Quality: Safe Use of Opioids Does Pt have an Active Cancer Diagnosis on the Problem List?: No Quality: Stroke Does the patient have a stroke diagnosis?: No Physical Exam Vital Signs: Vital Signs: Last Vital Signs Temp 96.9 F 09/09/23 07:09 Pulse 67 09/09/23 08:51 Resp 18 09/09/23 08:51 BP 178/74 H 09/09/23 07:09 Pulse Ox 93 09/09/23 09:36 O2 Del Method Nasal Cannula 09/09/23 09:36 O2 Flow Rate 1 09/09/23 07:09 Oxygen Flow Rate 1 09/09/23 09:36 BMI result Body Mass Index 46.6 Const: Other: General awake alert x3, in no acute distress. Neck jonah JVD. CVS regular rate rhythm, Respiratory lungs clear to auscultation, no respiratory distress, no wheeze, no rhonchi. Gastrointestinal abdomen soft, non tender, bowel sounds audible, no guarding , no rigidity. Extremities no edema,Right lower extremity wound with no drainge mild surrounding erythema. Neuro non focal Skin no rash Psych appropriate affect DS: Data Data Completed and Pending Pending studies at discharge: Pending at discharge 09/08/23 13:00 Surgical [PTH] Routine Labs on day of discharge: Laboratory Results - last 24 hr 09/08/23 09/08/23 09/08/23 13:56 16:04 19:38 Hold Purple Top Creatinine Estim Creat Clear Calc Estimated GFR POC Glucose 199 H 255 H 239 H Hold Yellow Top Nasal Screen MRSA (PCR) Nasal S. aureus Screen Nasal MRSA/S.aureus Interp 09/09/23 09/09/23 09/09/23 06:06 07:12 07:50 Hold Purple Top SEE NOTE Creatinine 0.87 Estim Creat Clear Calc 76.7 Estimated GFR > 60 POC Glucose 216 H Hold Yellow Top See Note Nasal Screen MRSA (PCR) NEGATIVE Nasal S. aureus Screen POSITIVE A Nasal MRSA/S.aureus Interp SEE NOTE 09/09/23 10:59 Hold Purple Top Creatinine Estim Creat Clear Calc Estimated GFR POC Glucose 250 H Hold Yellow Top Nasal Screen MRSA (PCR) Nasal S. aureus Screen Nasal MRSA/S.aureus Interp Preliminary micro results at discharge 09/06/23 19:29 Routine Culture - Preliminary Leg Right Staphylococcus chromogenes Enterococcus/Streptococcus sp 09/06/23 19:58 Blood Culture - Preliminary Blood - Venous No growth after 48 hours. 09/06/23 13:18 Blood Culture - Preliminary Blood - Venous No growth after 48 hours. 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 See Rx Instructions .Route Qty: 1 0RF Rx Instructions: As directed duloxetine 60 mg capsule,delayed release(DR/EC) 60 mg PO DAILY 30 Days Qty: 90 3RF insulin glargine [Basaglar KwikPen U-100 Insulin] 100 unit/mL (3 mL) insulin pen 40 unit subcut BID 90 Days Qty: 72 3RF metformin 1,000 mg tablet 1,000 mg PO BID Qty: 180 1RF albuterol sulfate 90 mcg/actuation HFA aerosol inhaler 2 puff inhalation Q6H PRN (Reason: shortness of breath or wheezing) Qty: 8.5 1RF gabapentin 300 mg capsule 300 mg PO Q8H 90 Days Qty: 270 3RF (DME) Dexcom G6 Transmitter Device See Rx Instructions .ROUTE .COMPLEX Qty: 1 3RF Dose Instruction: USE DIRECTED Rx Instructions: USE DIRECTED pantoprazole 40 mg tablet,delayed release (DR/EC) 40 mg PO BID 90 Days Qty: 180 3RF metoprolol tartrate 25 mg tablet 25 mg PO BID 90 Days Qty: 180 1RF albuterol sulfate 2.5 mg /3 mL (0.083 %) solution for nebulization 2.5 mg inhalation Q4-6H PRN (Reason: shortness of breath or wheezing) Qty: 75 3RF duloxetine [Cymbalta] 30 mg capsule,delayed release(DR/EC) 30 mg PO DAILY Qty: 90 3RF Rx Instructions: 30 mg with 60 mg =90 mg (DME) Dexcom G6 Sensor Device See Rx Instructions .ROUTE .COMPLEX Qty: 3 3RF Dose Instruction: USE DIRECTED. Rx Instructions: USE DIRECTED. hydralazine 25 mg tablet 25 mg PO BID Qty: 180 2RF losartan 100 mg tablet 100 mg PO DAILY 90 Days Qty: 90 2RF rosuvastatin 40 mg tablet 40 mg PO DAILY 90 Days Qty: 90 2RF prednisone 2.5 mg tablet 5 mg PO DAILY furosemide 20 mg tablet 30 mg PO BID ferrous sulfate [FeroSul] 325 mg (65 mg iron) tablet 325 mg PO DAILY ascorbate calcium (vitamin C) 500 mg tablet 500 mg PO DAILY levothyroxine 137 mcg capsule 137 mcg PO SUTUWETHFRSA@0600 Rx Instructions: Take 137 mcg 6 days a week orally; acetaminophen [Tylenol Arthritis Pain] 650 mg Tablet Extended Release 1,300 mg PO TID vitamin B complex Tablet 1 tab PO DAILY cholecalciferol (vitamin D3) 25 mcg (1,000 unit) tablet 25 mcg PO DAILY melatonin 10 mg capsule 10 mg PO BEDTIME sennosides-docusate sodium [Senna-S] 8.6-50 mg tablet 1 tab-cap PO BEDTIME insulin aspart U-100 [Novolog FlexPen U-100 Insulin] 100 unit/mL (3 mL) insulin pen 17 unit subcut TID Rx Instructions: or as directed (DME) pen needle, diabetic [BD Ultra-Fine Short Pen Needle] 31 gauge x 5/16 needle See Rx Instructions .Route Qty: 5 3RF Rx Instructions: As directed inject using insulin 5 x a day Trelegy Ellipta 200-62.5-25 mcg blister with device 1 inh inhalation DAILY miconazole nitrate [Zeasorb AF] 2 % powder 1 appl topical DAILY Qty: 85 3RF Discharge Orders: Discharge Order (Routine); Ordered 09/09/23 Ordered By: Boogie Peguero Diet: Diabetic diet Activity on Discharge: As tolerated Stand Alone Forms: Patient Portal Discharge page Activity Restrictions/Additional Instructions: Topical Wound Care Recommendations: 1. Provide adequate and supplemental nutrition. 2. Maintain blood glucose levels per Providers orders. 3. Right Young wound - with to dry dressing daily Wound Clinic Follow up Recommend follow up out patient Wound Clinic at [address] [place] [id number] and to call for an appointment at time of discharge. [phone].? Care Plan Goals: Continue dressing change as above continue antibiotics as ordered Health Concerns: Continue all home medications, close blood sugar monitoring. Plan of Treatment: Follow-up General surgery call for appointment in 1 week Assessment: As above
--- NOTE | 2023-09-09 11:54 | P.CDIM_ITS ---
PROVIDER RESPONSE TEXT: To clarify, the appropriate diagnosis supported by the clinical indicators: Chronic respiratory failure QUERY TEXT: PHYSICIAN'S DOCUMENTATION REQUEST Date of Query: 09/08/2023 07:20 AM EST Patient Name: Kari Galvan Admit Date: 09/07/2023 Dear Boogie Peguero, A review of the medical record indicates additional documentation may be needed. Please review below and update the documentation accordingly. Clinical Indicators: ED: Patient is O2 2L at home Usage of portable oxygen If possible, please further clarify if any respiratory issues: Chronic respiratory failure O2 dependent Other Other (explain) Clinically unable to determine (explain) Thank you, Carlotta Mcqueen, CCS, CDIS Use of terms such as suspected, likely, concern for, or probable (associated with a specific diagnosi s that is being evaluated, monitored, or treated as if it exists) are acceptable and can be coded in the inpatient se tting, when documented at the time of discharge. Please use your independent medical judgment in providing your response. THIS QUERY IS PART OF THE PERMANENT MEDICAL RECORD
--- NOTE | 2023-09-09 11:54 | P.CDIM_ITS ---
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 Please review below and update the documentation accordingly. Clinical Indicators: BMI 46.6 5ft 1in 111.9kg If possible, please provide an associated diagnosis related to the abnormal BMI, such as: Obesity Due to other cause Specify the other cause Severe or Morbid Obesity With alveolar hypoventilation Severe or Morbid Obesity Without alveolar hypoventilation Other (explain) Clinically unable to determine (explain) Thank you, Carlotta Mcqueen, CCS, CDIS Use of terms such as suspected, likely, concern for, or probable (associated with a specific diagnosi s that is being evaluated, monitored, or treated as if it exists) are acceptable and can be coded in the inpatient se tting, when documented at the time of discharge. Please use your independent medical judgment in providing your response. THIS QUERY IS PART OF THE PERMANENT MEDICAL RECORD
--- NOTE | 2023-09-09 13:31 | MHC.CM.PN ---
Addendum entered by Tess Gaston 09/11/23 11:45: CM RECEIVED A MESSAGE TODAY THAT [facility] WILL BE ABLE TO SEE PT TOMORROW CM CALLED PT VIA TELEPHONE [phone] AND INFORMED HER THE [facility]NA WOULD CALL HER PRIOR TO THE NURSES ARRIVAL Addendum entered by Tess Gaston 09/09/23 14:36: CM MET WITH PT AND TO DISCUSS DC. THEY ARE AWARE THERE HAVE BEEN NO ACCEPTING VNAS THEY BOTH REPORT THEY HAVE NURSES AND A RETIRED PA AVAILABLE AND FEEL PT WILL BE FINE WITHOUT IMMEDIATE VNA SERVICES THEY DECLINE TO WAIT WHILE CM CONTINUES TO LOOK FOR AN AGENCY PT IS AWARE THAT CM WILL CALL THEM IN THE REFERRAL IS ACCEPTED HOWEVER IF THERE ARE NO OFFERS, SHE WILL NEED TO GO THROUGH HER PCP ON MONDAY TO HAVE VNA ARRANGED. THEY ARE ALSO AWARE SHE WILL NEED TO F/U WITH THE [facility] REFERRAL HAS BEEN EXPANDED TO ALL AREA AGENCIES RN PROVIDED A BEDSIDE TEACH FOR THE WOUND CARE AND SUPPLIES WERE SENT HOME WITH HER Original Note: PT CLEARED TO DC HOME TODAY WITH HOME HEALTH SERVICES FOR WOUND CARE CM MET WITH PT WHO UNDERSTANDS THE VNA WILL NOT COME DAILY HER WILL COME IN FOR WOUND CARE TEACH SHE WILL ALSO BE SENT HOME WITH SUPPLIES REFERRALS HAVE BEEN SENT TO ALL CONTRACTED AGENCIES IN PTS AREA SO FAR NO ONE HAS ACCEPTED
--- NOTE | 2023-09-09 13:53 | PC.NURSE ---
Pt for discharge to home. At this time CM unable to find a VNA service for dressing changes . I educated the pt and the pt's on once a day wet to dry dressing changes . They both report they are comfortable doing this at home and report they have lots of family support with family that are in health care and capable to help if needed. CM has put in a referral to the wound clinic and will contact pt if she hears back from a VNA service before 09.12.2023. pt and pts accepting of discharge to home .
--- NOTE | 2023-09-09 14:06 | PC.NURSE ---
Pt sent with supplies for at home dressing changes
--- NOTE | 2023-09-09 14:37 | P.F2F_ITS ---
Service Date Service Date: 09/09/23 Encounter Date of encounter: 09/09/23 Reasons for Services Signs and symptoms assessed: Right lower extremity nonhealing wound Homebound: Leaving the home is medically contraindicated at this time without the asist of a device and/or another person due th the listed conditions above and below. Reason homebound: pain with transfers Certification: Based on the above findings, I certify that this patient is confined to the home and needs intermittent group home care, physical therapy and/or speech therapy, or continues to need occupational therapy. The patient is under my care, and I have initiated the establishment of the plan of care. The patient will be followed by a physician who will periodically review the plan of care. Time Spent With Patient Time: Total time managing care of this patient today ____ minutes.
--- NOTE | 2023-09-09 15:21 | P.CONAN_ITS ---
[facility] Active Problems Active Problems: All Active Problems (Updated 09/07/23 @ 12:19 by Rufino Zhou MD) Open wound, lower leg (Acute) Cellulitis of right leg (Acute) Cellulitis of right leg (Acute) Fall (Acute) Psoriatic arthritis (Acute) Tinea corporis (Acute) Upper respiratory tract infection (Acute) Age-related osteoporosis without current pathological fracture (Acute) Breast cancer screening by mammogram (Acute) Psoriasis (Acute) Cervical cancer screening (Acute) Anemia (Acute) COVID-19 virus infection (Acute) Sore throat (Acute) Coronary artery disease (Acute) Generalized anxiety disorder (Acute) Herpes zoster (Acute) Supplemental oxygen dependent (Acute) Pulmonary nodules (Acute) Dyspnea on exertion (Acute) Diabetic neuropathy (Acute) STEMI (ST elevation myocardial infarction) (Acute) CVA (cerebral vascular accident) (Acute) Carotid stenosis, left (Acute) Superficial venous thrombosis of right arm (Acute) Gastric ulcer (Acute) COPD exacerbation (Acute) Viral illness (Acute) Osteoarthritis (Acute) Hypertension (Acute) Hypothyroid (Acute) Obesity (Acute) COPD (chronic obstructive pulmonary disease) (Acute) Hypercholesterolemia (Acute) Type 2 diabetes mellitus with hyperglycemia (Acute) Past Medical History Medical History Open wound, lower leg SOB (shortness of breath) Upper GI hemorrhage Closed left ankle fracture Psoriatic arthritis History of paroxysmal supraventricular tachycardia Tobacco abuse Osteoarthritis Hypertension Diabetic nephropathy Psoriasis Diabetic neuropathy Hypothyroid Obesity COPD (chronic obstructive pulmonary disease) Hypercholesterolemia Type 2 diabetes mellitus with hyperglycemia Functional capacity: independent ambulation Family History Family History Father Prostate cancer Mother Ovarian cancer Paternal Grandmother Breast cancer Family history of problems with anesthesia: No Surgical History Surgical History History of carotid angioplasty H/O cardiac radiofrequency ablation History of cataract surgery History of throat surgery History of parathyroidectomy History of thyroidectomy History of ankle surgery H/O left wrist surgery History of eye surgery History of appendectomy History of cholecystectomy History of section History of Problems with Anesthesia: No Social History Social History Household Members: Spouse Household Members Other:: Elmer Housing: House Do you presently have visiting nurse or other home services: No Alcohol intake: never Patient Tobacco Use Status: Former Tobacco user Tobacco use type: Cigarette Years Smoked: 48 e-Cigarette/Vaping Use: Never Used Second Hand Smoke Exposure: No Substance Use Type: Marijuana service: No Current occupational status: disabled Cognitive needs: Yes (using portable oxygen) Hearing needs: No Vision needs: Yes (Glasses) Meds Allergies Allergy/AdvReac Type Severity Reaction Status Date / Time adalimumab [Humira] Allergy Unknown Unknown Verified 09/08/23 09:41 alprazolam Allergy Unknown swelling Verified 09/08/23 09:41 amlodipine Allergy Unknown swelling Verified 09/08/23 09:41 etanercept [Enbrel] Allergy Unknown Unknown Verified 09/08/23 09:41 fluticasone Allergy Unknown Unknown Verified 09/08/23 09:41 [From Wixela Inhub] hydrochlorothiazide Allergy Unknown hives Verified 09/08/23 09:41 salmeterol Allergy Unknown Unknown Verified 09/08/23 09:41 [From Edventoryxela Inhub] simvastatin Allergy Unknown Unknown Verified 09/08/23 09:41 codeine AdvReac Intermediate Nausea and Verified 09/08/23 09:41 Vomiting roflumilast [From Daliresp] AdvReac Intermediate Nausea Verified 09/08/23 09:41 Home Medications Medication Instructions Recorded Confirmed Last Taken Type cholecalciferol (vitamin D3) 25 25 mcg PO DAILY 09/25/20 09/06/23 09/06/23 History mcg (1,000 unit) tablet melatonin 10 mg capsule 10 mg PO BEDTIME 09/25/20 09/06/23 09/05/23 History vitamin B complex 1 tab PO DAILY 09/25/20 09/06/23 09/06/23 History sennosides 8.6 mg-docusate sodium 1 tab-cap PO BEDTIME 02/26/21 09/06/23 09/05/23 History 50 mg tablet (Senna-S) fluticasone fur. 200 mcg-umeclid 1 inh inhalation DAILY 01/27/23 09/06/23 09/06/23 History 62.5 mcg-vilant 25 mcg inhalat.powder (Trelegy Ellipta) insulin aspart U-100 100 unit/mL 17 unit subcut TID 07/25/23 09/06/23 09/06/23 History (3 mL) subcutaneous pen (Novolog FlexPen U-100 Insulin aspart) acetaminophen 650 mg 1,300 mg PO TID 09/06/23 09/06/23 09/06/23 History tablet,extended release (Tylenol Arthritis Pain) ascorbate calcium (vitamin C) 500 500 mg PO DAILY 09/06/23 09/06/23 09/06/23 History mg tablet ferrous sulfate 325 mg (65 mg 325 mg PO DAILY 09/06/23 09/06/23 09/06/23 History iron) tablet (FeroSul) furosemide 20 mg tablet 30 mg PO BID 09/06/23 09/06/23 09/06/23 History levothyroxine 137 mcg capsule 137 mcg PO SUTUWETHFRSA@0600 09/06/23 09/06/23 09/06/23 History prednisone 2.5 mg tablet 5 mg PO DAILY 09/06/23 09/06/23 09/06/23 History Exam Height,Weight and Vital Signs: Height 5 ft 1 in Weight 111.9 kg Last Vital Signs Temp 96.9 F 09/09/23 07:09 Pulse 67 09/09/23 08:51 Resp 18 09/09/23 08:51 BP 178/74 H 09/09/23 07:09 Pulse Ox 93 09/09/23 09:36 O2 Del Method Nasal Cannula 09/09/23 09:36 O2 Flow Rate 1 09/09/23 07:09 Oxygen Flow Rate 1 09/09/23 09:36 Pertinent Lab Results Pertinent Lab Results: Laboratory Tests 09/06/23 09/06/23 09/07/23 13:17 13:18 01:45 WBC 11.2 H RBC 3.90 L Hgb 11.5 L Hct 36.3 L MCV 93.1 MCH 29.5 MCHC 31.7 RDW 12.4 Plt Count 247 MPV 8.7 L Immature Gran % (Auto) 0.4 Neut % (Auto) 86.1 H Lymph % (Auto) 6.4 L [place] % (Auto) 5.5 Eos % (Auto) 1.3 Baso % (Auto) 0.3 Lymph # (Auto) 0.7 L [place] # (Auto) 0.6 Eos # (Auto) 0.2 Baso # (Auto) 0.0 Abs Immat Gran (auto) 0.05 H Absolute Neuts (auto) 9.7 H Absolute Nucleated RBC 0.000 Nucleated RBC % (auto) 0.0 ESR 39 H Hold Purple Top Sodium 139 Potassium 4.4 Chloride 98 Carbon Dioxide 31 H Anion Gap 14 BUN 31 H Creatinine 1.13 Estim Creat Clear Calc 60.0 Estimated GFR 49 POC Glucose 116 H Random Glucose 163 H Lactic Acid 1.9 Calcium 9.6 D Total Bilirubin 0.3 Direct Bilirubin 0.1 AST 29 ALT 31 Alkaline Phosphatase 83 C-Reactive Protein 1.29 H B-Natriuretic Peptide 70 Total Protein 7.0 Albumin 4.2 Hold Yellow Top Nasal Screen MRSA (PCR) Nasal S. aureus Screen Nasal MRSA/S.aureus Interp 09/07/23 09/07/23 09/07/23 05:16 08:31 09:09 WBC 8.1 RBC 3.65 L Hgb 10.7 L Hct 33.3 L MCV 91.2 MCH 29.3 MCHC 32.1 RDW 12.4 Plt Count 196 MPV 8.5 L Immature Gran % (Auto) 0.5 H Neut % (Auto) 78.2 H Lymph % (Auto) 13.1 L [place] % (Auto) 6.0 Eos % (Auto) 2.1 Baso % (Auto) 0.1 Lymph # (Auto) 1.1 L [place] # (Auto) 0.5 Eos # (Auto) 0.2 Baso # (Auto) 0.0 Abs Immat Gran (auto) 0.04 H Absolute Neuts (auto) 6.4 Absolute Nucleated RBC 0.000 Nucleated RBC % (auto) 0.0 ESR Hold Purple Top Sodium 143 Potassium 4.3 Chloride 99 Carbon Dioxide 33 H Anion Gap 15 BUN 25 H Creatinine 0.97 Estim Creat Clear Calc 69.9 Estimated GFR 58 POC Glucose 55 L* 77 Random Glucose 61 Lactic Acid Calcium 9.6 Total Bilirubin Direct Bilirubin AST ALT Alkaline Phosphatase C-Reactive Protein B-Natriuretic Peptide Total Protein Albumin Hold Yellow Top Nasal Screen MRSA (PCR) Nasal S. aureus Screen Nasal MRSA/S.aureus Interp 09/07/23 09/07/23 09/07/23 11:10 15:48 19:24 WBC RBC Hgb Hct MCV MCH MCHC RDW Plt Count MPV Immature Gran % (Auto) Neut % (Auto) Lymph % (Auto) [place] % (Auto) Eos % (Auto) Baso % (Auto) Lymph # (Auto) [place] # (Auto) Eos # (Auto) Baso # (Auto) Abs Immat Gran (auto) Absolute Neuts (auto) Absolute Nucleated RBC Nucleated RBC % (auto) ESR Hold Purple Top Sodium Potassium Chloride Carbon Dioxide Anion Gap BUN Creatinine Estim Creat Clear Calc Estimated GFR POC Glucose 142 H 162 H 186 H Random Glucose Lactic Acid Calcium Total Bilirubin Direct Bilirubin AST ALT Alkaline Phosphatase C-Reactive Protein B-Natriuretic Peptide Total Protein Albumin Hold Yellow Top Nasal Screen MRSA (PCR) Nasal S. aureus Screen Nasal MRSA/S.aureus Interp 09/08/23 09/08/23 09/08/23 05:39 07:24 09:35 WBC RBC Hgb Hct MCV MCH MCHC RDW Plt Count MPV Immature Gran % (Auto) Neut % (Auto) Lymph % (Auto) [place] % (Auto) Eos % (Auto) Baso % (Auto) Lymph # (Auto) [place] # (Auto) Eos # (Auto) Baso # (Auto) Abs Immat Gran (auto) Absolute Neuts (auto) Absolute Nucleated RBC Nucleated RBC % (auto) ESR Hold Purple Top SEE NOTE Sodium Potassium Chloride Carbon Dioxide Anion Gap BUN Creatinine 0.98 Estim Creat Clear Calc 68.1 Estimated GFR 57 POC Glucose 174 H 182 H Random Glucose Lactic Acid Calcium Total Bilirubin Direct Bilirubin AST ALT Alkaline Phosphatase C-Reactive Protein B-Natriuretic Peptide Total Protein Albumin Hold Yellow Top Nasal Screen MRSA (PCR) Nasal S. aureus Screen Nasal MRSA/S.aureus Interp 09/08/23 09/08/23 09/08/23 13:56 16:04 19:38 WBC RBC Hgb Hct MCV MCH MCHC RDW Plt Count MPV Immature Gran % (Auto) Neut % (Auto) Lymph % (Auto) [place] % (Auto) Eos % (Auto) Baso % (Auto) Lymph # (Auto) [place] # (Auto) Eos # (Auto) Baso # (Auto) Abs Immat Gran (auto) Absolute Neuts (auto) Absolute Nucleated RBC Nucleated RBC % (auto) ESR Hold Purple Top Sodium Potassium Chloride Carbon Dioxide Anion Gap BUN Creatinine Estim Creat Clear Calc Estimated GFR POC Glucose 199 H 255 H 239 H Random Glucose Lactic Acid Calcium Total Bilirubin Direct Bilirubin AST ALT Alkaline Phosphatase C-Reactive Protein B-Natriuretic Peptide Total Protein Albumin Hold Yellow Top Nasal Screen MRSA (PCR) Nasal S. aureus Screen Nasal MRSA/S.aureus Interp 09/09/23 09/09/23 09/09/23 06:06 07:12 07:50 WBC RBC Hgb Hct MCV MCH MCHC RDW Plt Count MPV Immature Gran % (Auto) Neut % (Auto) Lymph % (Auto) [place] % (Auto) Eos % (Auto) Baso % (Auto) Lymph # (Auto) [place] # (Auto) Eos # (Auto) Baso # (Auto) Abs Immat Gran (auto) Absolute Neuts (auto) Absolute Nucleated RBC Nucleated RBC % (auto) ESR Hold Purple Top SEE NOTE Sodium Potassium Chloride Carbon Dioxide Anion Gap BUN Creatinine 0.87 Estim Creat Clear Calc 76.7 Estimated GFR > 60 POC Glucose 216 H Random Glucose Lactic Acid Calcium Total Bilirubin Direct Bilirubin AST ALT Alkaline Phosphatase C-Reactive Protein B-Natriuretic Peptide Total Protein Albumin Hold Yellow Top See Note Nasal Screen MRSA (PCR) NEGATIVE Nasal S. aureus Screen POSITIVE A Nasal MRSA/S.aureus Interp SEE NOTE 09/09/23 10:59 WBC RBC Hgb Hct MCV MCH MCHC RDW Plt Count MPV Immature Gran % (Auto) Neut % (Auto) Lymph % (Auto) [place] % (Auto) Eos % (Auto) Baso % (Auto) Lymph # (Auto) [place] # (Auto) Eos # (Auto) Baso # (Auto) Abs Immat Gran (auto) Absolute Neuts (auto) Absolute Nucleated RBC Nucleated RBC % (auto) ESR Hold Purple Top Sodium Potassium Chloride Carbon Dioxide Anion Gap BUN Creatinine Estim Creat Clear Calc Estimated GFR POC Glucose 250 H Random Glucose Lactic Acid Calcium Total Bilirubin Direct Bilirubin AST ALT Alkaline Phosphatase C-Reactive Protein B-Natriuretic Peptide Total Protein Albumin Hold Yellow Top Nasal Screen MRSA (PCR) Nasal S. aureus Screen Nasal MRSA/S.aureus Interp Assessment and Plan Final Anesthetic Review Family History of Problems with Anesthesia: No History of Problems with Anesthesia: No
--- NOTE | 2023-09-09 15:24 | HO.POSTANES ---
Post Anesthesia Evaluation Post Anesthesia Evaluation Date of Service: 08/09/23 Vital Signs: Vital Signs Temp Pulse Resp BP Pulse Ox O2 Del Method O2 Flow Rate 09/09/23 09:36 93 Nasal Cannula 09/09/23 08:51 67 18 09/09/23 07:09 96.9 F 70 19 178/74 H 92 Nasal Cannula 1 Anesthesia: Monitored Mental Status: Awake Pain Control: Satisfactory Nausea/Vomiting: None Hydration: Adequate Anesthesia-Related Issues: No Anes. Related Issues
--- NOTE | 2023-09-10 12:18 | PC.NURSE ---
Pt returned to hospital on 09/10/23 to scrap picker her pill box with meds in it from home that she left yesterday without
== END 2023-09-09 14:36 | disposition home health service (06) | DRG 380 ==
LOC: HO.ED 19:30 → HO.EDOVER 20:42 → HO.S3 09-07 07:38
PROVIDERS: Physician Assistant; Surgery; Admitting Provider Internal Medicine; Emergency Provider Emergency Medicine; PCP Internal Medicine; Visit Provider Hospitalist
PROC: 0JBN0ZZ Excision of Right Lower Leg Subcutaneous Tissue and Fascia, Open Approach (ICD-10-PCS; principal; 2023-09-08 10:40)
DX: E11.622 Type 2 diabetes mellitus with other skin ulcer (principal); L97.819 Non-pressure chronic ulcer of other part of right lower leg with unspecified severity; J96.10 Chronic respiratory failure, unspecified whether with hypoxia or hypercapnia; Z99.81 Dependence on supplemental oxygen; Z68.42 Body mass index [BMI] 45.0-49.9, adult; L03.115 Cellulitis of right lower limb; L40.50 Arthropathic psoriasis, unspecified; E66.01 Morbid (severe) obesity due to excess calories; J44.9 Chronic obstructive pulmonary disease, unspecified; E03.9 Hypothyroidism, unspecified; Z87.891 Personal history of nicotine dependence; Z79.4 Long term (current) use of insulin; Z79.84 Long term (current) use of oral hypoglycemic drugs; Z79.52 Long term (current) use of systemic steroids; Z79.899 Other long term (current) drug therapy
CPT/HCPCS: 36415; 73590; 80048; 80076; 82565; 82947; 83605; 83880; 85025; 85652; 86140; 87040; 87070; 87077; 87186; 87205; 87640; 87641; 88304; 94640; 99285; J1650; J2250; J2270; J2704; J2795; J3010; J3370; J3371

== ENCOUNTER → 2023-09-06 20:33 | Outpatient (BNV) | payer BC, SELFPAY | PROVIDERS: Admitting Provider Internal Medicine; Emergency Provider Emergency Medicine; PCP Internal Medicine; Visit Provider Surgery | DX: S81.809A Unspecified open wound, unspecified lower leg, initial encounter (principal) | CPT/HCPCS: 11042; 99222; 99499 ==

== ENCOUNTER → 2023-09-06 20:33 | Outpatient (BNV) | payer BC, SELFPAY | PROVIDERS: Admitting Provider Internal Medicine; Emergency Provider Emergency Medicine; PCP Internal Medicine; Visit Provider Internal Medicine | DX: L03.115 Cellulitis of right lower limb (principal); E11.622 Type 2 diabetes mellitus with other skin ulcer; L97.819 Non-pressure chronic ulcer of other part of right lower leg with unspecified severity; L40.50 Arthropathic psoriasis, unspecified | CPT/HCPCS: 99223; 99233; 99239; G0180 ==

== ENCOUNTER 2023-09-15 10:53 | Outpatient (AMB) | payer BC, SELFPAY ==
--- NOTE | 2023-09-15 10:54 | MHC.PC.OV ---
Intake Visit Reasons: DM/covid positive, [phone] Allergies adalimumab [Humira] Allergy (Unknown, Verified 09/08/23 09:41) Unknown alprazolam Allergy (Unknown, Verified 09/08/23 09:41) swelling amlodipine Allergy (Unknown, Verified 09/08/23 09:41) swelling etanercept [Enbrel] Allergy (Unknown, Verified 09/08/23 09:41) Unknown fluticasone [From Wixela Inhub] Allergy (Unknown, Verified 09/08/23 09:41) Unknown hydrochlorothiazide Allergy (Unknown, Verified 09/08/23 09:41) hives salmeterol [From Wixela Inhub] Allergy (Unknown, Verified 09/08/23 09:41) Unknown simvastatin Allergy (Unknown, Verified 09/08/23 09:41) Unknown codeine Adverse Reaction (Intermediate, Verified 09/08/23 09:41) Nausea and Vomiting roflumilast [From Daliresp] Adverse Reaction (Intermediate, Verified 09/08/23 09:41) Nausea Tobacco use date assessed: 09/15/23 HPI DM/covid positive, [phone] HPI Details 63-year-old obese female with diabetes mellitus COPD hypercholesterolemia hypothyroid hypertension history of CVA CAD coming in for follow-up through Telehealth for an acute problem. Patient was last seen in July 2023. Recently 09/08/2023 in the hospital had excisional of debridement and wound right lower leg along with full-thickness of the skin size this is the right lower leg cellulitis. leg is better, still on doxycycline 2x a day . civid positiveJAnuary 2023- does not feel bad, no fevers, mild sob tested due to family has - advised since doing [facility] Medical History (Updated 09/15/23 @ 11:40 by Juan Escoto MD) Cellulitis of right leg Open wound, lower leg SOB (shortness of breath) Upper GI hemorrhage Closed left ankle fracture Psoriatic arthritis History of paroxysmal supraventricular tachycardia Tobacco abuse Osteoarthritis Hypertension Diabetic nephropathy Psoriasis Diabetic neuropathy Hypothyroid Obesity COPD (chronic obstructive pulmonary disease) Hypercholesterolemia Type 2 diabetes mellitus with hyperglycemia Surgical History History of carotid angioplasty H/O cardiac radiofrequency ablation History of cataract surgery History of throat surgery History of parathyroidectomy History of thyroidectomy History of ankle surgery H/O left wrist surgery History of eye surgery History of appendectomy History of cholecystectomy History of section Family History Father Prostate cancer Mother Ovarian cancer Paternal Grandmother Breast cancer Social History Household Members: Spouse Household Members Other:: Elmer Housing: House Do you presently have visiting nurse or other home services: No Alcohol intake: never Patient Tobacco Use Status: Former Tobacco user Tobacco use type: Cigarette Years Smoked: 48 e-Cigarette/Vaping Use: Never Used Second Hand Smoke Exposure: No Substance Use Type: Marijuana service: No Current occupational status: disabled Cognitive needs: Yes (using portable oxygen) Hearing needs: No Vision needs: Yes (Glasses) Questionnaire Thrive Questionnaire Date Thrive assessed: 09/07/23 AUDIT C Alcohol Use Questionnaire (AUDIT-C) 1. How often do you have a drink containing alcohol?: Never 2. How many drinks containing alcohol do you have on a typical day when you are drinking?: 1 or 2 3. How often do you have six or more drinks on one occasion?: Never Total Score: 0 PATITO-7 AMB Questionnaire PATITO-7 Date PATITO - 7 assessed: 10/25/22 Source: Developed by Drs. Guy Gibson, Rupali Carroll, Trey Hughes and colleagues, with an educational milton from [employer]. Physical exam (Primary Care) Tobacco/Smoking Status: Tobacco use Status Tobacco use date assessed 09/15/23 09/15/23 10:57 Patient Tobacco Use Status Former Tobacco user 09/15/23 10:57 Tobacco use type Cigarette 09/15/23 10:57 e-Cigarette/Vaping Use Never Used 09/15/23 10:57 Thrive Assessment: Date of Thrive Assessment Date Thrive assessed 09/07/23 09/15/23 10:57 Telehealth Telehealth Location of provider rendering services: practice address Location of patient: address on file Patient Identification confirmed using: Name, : Yes Telehealth method: voice only ([phone] // house phone ) Patient verbally consented to treatment: Yes Patient verbally consented to billing insurance company: Yes Patient informed of any privacy concerns related to visit: Yes Minutes spent on Phone/Video with Pt.: 25 Assessment and Plan Assessment & Plan (1) COVID-19 virus infection: Comment: 03/03/2022 09/12/2023 Code(s): U07.1 - COVID-19 Plan: Keep well hydrated (2) Cellulitis of right leg: Code(s): L03.115 - Cellulitis of right lower limb Plan: Status post debridement August 2023 (3) Coronary artery disease: Code(s): I25.10 - Atherosclerotic heart disease of [place] coronary artery without angina pectoris Plan: Control the cholesterol, weight, blood pressure, diabetes Orders: Orders Comprehensive Met. Panel 3 Months E11.65 - Type 2 diabetes mellitus with hyperglycemia, Z79.4 - extermination inspector (current) use of insulin Free T4 (Free Thyroxine) 3 Months E11.65 - Type 2 diabetes mellitus with hyperglycemia, Z79.4 - [facility]PC (current) use of insulin Thyroid Stimulating Hormone 3 Months E11.65 - Type 2 diabetes mellitus with hyperglycemia, Z79.4 - [facility] (current) use of insulin Reticulocyte Count 3 Months E11.65 - Type 2 diabetes mellitus with hyperglycemia, Z79.4 - extermination inspector (current) use of insulin Lipid Panel 3 Months E11.65 - Type 2 diabetes mellitus with hyperglycemia, E78.00 - Pure hypercholesterolemia, unspecified, Z79.4 - [facility]PC (current) use of insulin Complete Blood Count Auto Diff 3 Months E11.65 - Type 2 diabetes mellitus with hyperglycemia, Z79.4 - [facility]PC (current) use of insulin Ferritin 3 Months E11.65 - Type 2 diabetes mellitus with hyperglycemia, Z79.4 - extermination inspector (current) use of insulin Vitamin B12 and Folate 3 Months E11.65 - Type 2 diabetes mellitus with hyperglycemia, Z79.4 - extermination inspector (current) use of insulin Microalbumin, Random (w Creat) 3 Months E11.65 - Type 2 diabetes mellitus with hyperglycemia, Z79.4 - [facility]PC (current) use of insulin Creatinine Urine 3 Months E11.65 - Type 2 diabetes mellitus with hyperglycemia, Z79.4 - extermination inspector (current) use of insulin IRON PROFILE 3 Months E11.65 - Type 2 diabetes mellitus with hyperglycemia, Z79.4 - FPC (current) use of insulin Coding Level of Care Code Tele Est Pt Level 4 (33011) Diagnoses COVID-19 virus infection U07.1 Cellulitis of right leg L03.115 Coronary artery disease I25.10
== END 2023-09-15 11:46 | disposition home or self-care (01) ==
PROVIDERS: PCP Internal Medicine; Visit Provider Internal Medicine
DX: U07.1 COVID-19 (principal); L03.115 Cellulitis of right lower limb; I25.10 Atherosclerotic heart disease of native coronary artery without angina pectoris; E11.9 Type 2 diabetes mellitus without complications
CPT/HCPCS: 99443

== ENCOUNTER 2023-09-26 12:45 | Outpatient (RCR) | payer BC, SELFPAY | END 2023-12-18 12:15 | disposition home or self-care (01) | LOC: HO.WCC 12:45 | PROVIDERS: PCP Internal Medicine; Visit Provider Physician Assistant | DX: E11.622 Type 2 diabetes mellitus with other skin ulcer (principal); I87.331 Chronic venous hypertension (idiopathic) with ulcer and inflammation of right lower extremity; L97.812 Non-pressure chronic ulcer of other part of right lower leg with fat layer exposed; E11.40 Type 2 diabetes mellitus with diabetic neuropathy, unspecified; I89.0 Lymphedema, not elsewhere classified; I25.2 Old myocardial infarction; J44.9 Chronic obstructive pulmonary disease, unspecified; Z99.81 Dependence on supplemental oxygen; Z87.891 Personal history of nicotine dependence | CPT/HCPCS: 11042; 15271; 15275; 99212; Q4187 ==

== ENCOUNTER 2023-10-25 13:49 | Outpatient (AMB) | payer BC, SELFPAY ==
--- NOTE | 2023-10-25 13:53 | MHC.PC.OV ---
Vital Signs 10/25/23 13:55 Height 5 ft 1 in Weight 251 lb 0.4 oz BMI 47.4 BP 136/68 Blood Pressure Location Lt brachial Position Sitting Pulse 65 Pulse Source Pulse Oximeter Pulse Oximetry (%) 99 Oxygen Delivery Method Nasal Cannula Intake Visit Reasons: 4 week f/u left leg cellulitis Electronic Equipment Repairer Required: No Allergies adalimumab [Humira] Allergy (Unknown, Verified 10/25/23 13:57) Unknown alprazolam Allergy (Unknown, Verified 10/25/23 13:57) swelling amlodipine Allergy (Unknown, Verified 10/25/23 13:57) swelling etanercept [Enbrel] Allergy (Unknown, Verified 10/25/23 13:57) Unknown fluticasone [From [employer]ela Inhub] Allergy (Unknown, Verified 10/25/23 13:57) Unknown hydrochlorothiazide Allergy (Unknown, Verified 10/25/23 13:57) hives salmeterol [From [employer] Inhub] Allergy (Unknown, Verified 10/25/23 13:57) Unknown simvastatin Allergy (Unknown, Verified 10/25/23 13:57) Unknown codeine Adverse Reaction (Intermediate, Verified 10/25/23 13:57) Nausea and Vomiting roflumilast [From Daliresp] Adverse Reaction (Intermediate, Verified 10/25/23 13:57) Nausea Medication List - Last Reconciled 10/25/23 by Juan Escoto MD acetaminophen ER (Tylenol Arthritis Pain) 1,300 mg PO TID albuterol sulfate 2.5 mg (3 mL) inhalation Q4-6H PRN albuterol sulfate 90 mcg/actuation 2 puffs inhalation Q6H PRN ascorbate calcium (vitamin C) 500 mg PO DAILY blood-glucose meter,continuous ([employer] G6 Estimator Project Manager) As directed blood-glucose sensor (Waygo G6 Sensor device) USE DIRECTED. blood-glucose transmitter (Waygo G6 Transmitter device) USE DIRECTED celecoxib 200 mg PO DAILY cholecalciferol (vitamin D3) 25 mcg PO DAILY duloxetine 120 mg (2 x 60 mg) PO DAILY 30 days ferrous sulfate (FeroSul) 325 mg PO DAILY ndcaysometu-dbujnqugb-jkdyjxyw 200-62.5-25 mcg (Trelegy Ellipta) 1 inh inhalation DAILY furosemide 30 mg PO BID gabapentin 300 mg PO Q8H 90 days hydralazine 25 mg PO BID insulin aspart U-100 (Novolog FlexPen U-100 Insulin aspart) 17 units subcut TID insulin glargine (Basaglar KwikPen U-100 Insulin) 40 units (0.4 mL) subcut BID 90 days levothyroxine 137 mcg PO SUTUWETHFRSA@0600 losartan 100 mg PO DAILY 90 days melatonin 10 mg PO BEDTIME metformin 1,000 mg PO BID metoprolol tartrate 25 mg PO BID 90 days miconazole nitrate 2% (Zeasorb AF) 1 appl topical DAILY pantoprazole 40 mg PO BID 90 days pen needle, diabetic (BD Ultra-Fine Short Pen Needle) As directed inject using insulin 5 x a day pen needle, diabetic (1st Tier Unifine Pentips) As directed inject 4 x a day prednisone 5 mg PO DAILY rosuvastatin 40 mg PO DAILY 90 days sennosides-docusate sodium 8.6-50 mg (Senna-S) 1 tab-cap PO BEDTIME tramadol 50 mg PO DAILY vitamin B complex 1 tab PO DAILY Tobacco use date assessed: 10/25/23 HPI 4 week f/u left leg cellulitis HPI Details 63-year-old obese female with diabetes mellitus COPD hypertension hypercholesterolemia hypothyroidism history of CVA, CAD generalized anxiety disorder coming in for follow-up. Last seen in September having right leg swelling treated as infection. Patient is here for follow-up patient's mammogram is due, colonoscopy is due. Patient fell off a ladder in July 18 sustaining a right gramajo ulcer. [facility] September 2023 hemoglobin A1c 6.7. [facility] Medical History (Updated 10/25/23 @ 14:06 by Juan Escoto MD) Cellulitis of right leg Open wound, lower leg SOB (shortness of breath) Upper GI hemorrhage Closed left ankle fracture Psoriatic arthritis History of paroxysmal supraventricular tachycardia Tobacco abuse Osteoarthritis Hypertension Diabetic nephropathy Psoriasis Diabetic neuropathy Hypothyroid Obesity COPD (chronic obstructive pulmonary disease) Hypercholesterolemia Type 2 diabetes mellitus with hyperglycemia Surgical History History of carotid angioplasty H/O cardiac radiofrequency ablation History of cataract surgery History of throat surgery History of parathyroidectomy History of thyroidectomy History of ankle surgery H/O left wrist surgery History of eye surgery History of appendectomy History of cholecystectomy History of section Family History Father Prostate cancer Mother Ovarian cancer Paternal Grandmother Breast cancer Social History Household Members: Spouse Household Members Other:: Elmer Housing: House Do you presently have visiting nurse or other home services: No Alcohol intake: never Patient Tobacco Use Status: Former Tobacco user Tobacco use type: Cigarette Years Smoked: 48 e-Cigarette/Vaping Use: Never Used Second Hand Smoke Exposure: No Substance Use Type: Marijuana service: No Current occupational status: disabled Cognitive needs: Yes (using portable oxygen) Hearing needs: No Vision needs: Yes (Glasses) Questionnaire Thrive Questionnaire Date Thrive assessed: 09/07/23 AUDIT C Alcohol Use Questionnaire (AUDIT-C) 1. How often do you have a drink containing alcohol?: Never 2. How many drinks containing alcohol do you have on a typical day when you are drinking?: 1 or 2 3. How often do you have six or more drinks on one occasion?: Never Total Score: 0 PATITO-7 AMB Questionnaire PATITO-7 Date PATITO - 7 assessed: 10/25/22 Source: Developed by Drs. Guy Gibson, Rupali Carroll, Trey Hughes and colleagues, with an educational milton from [employer]. Physical exam (Primary Care) Vital Signs: Last Vital Signs Pulse 65 10/25/23 13:55 BP 136/68 10/25/23 13:55 Pulse Ox 99 10/25/23 13:55 Oxygen Delivery Method Nasal Cannula 10/25/23 13:55 BMI result Body Mass Index 47.4 Tobacco/Smoking Status: Tobacco use Status Tobacco use date assessed 10/25/23 10/25/23 14:02 Patient Tobacco Use Status Former Tobacco user 10/25/23 14:00 Tobacco use type Cigarette 10/25/23 14:00 e-Cigarette/Vaping Use Never Used 10/25/23 14:00 Thrive Assessment: Date of Thrive Assessment Date Thrive assessed 09/07/23 10/25/23 14:00 Const General: alert; No acute distress Eyes Conjunctivae: conjunctivae normal Resp Auscultation: clear to auscultation bilaterally Cardio Rate: regular rate Rhythm: regular rhythm GI Inspection: Yes normal to inspection Extrem Other: R leg on a bandage General: Yes edema Results AMB Hemoglobin A1c AMB Hemoglobin A1c 6.8 % Last Edit by JEFF Martin on 10/25/23 14:11 Assessment and Plan Assessment & Plan (1) Type 2 diabetes mellitus with hyperglycemia: Comment: General acute hospital 05/2023 Code(s): E11.65 - Type 2 diabetes mellitus with hyperglycemia Qualifiers: Diabetes mellitus intermediate designer insulin use: with intermediate designer use Qualified Code(s): E11.65 - Type 2 diabetes mellitus with hyperglycemia; Z79.4 - intermediate card tender (current) use of insulin Plan: Decrease the amount of carbohydrate intake, pasta, bread, rice and potatoes are all sugar and that is aside from all the sweet stuff, remember that fruits are good but they are Sweet also. Hemoglobin A1c goal of less than 6.5. Patient has NovoLog and Basaglar metformin a 1000 mg twice a day (2) Hypercholesterolemia: Comment: January 2023 Code(s): E78.00 - Pure hypercholesterolemia, unspecified Plan: Avoid fried foods, chicken skin, eggs, butter margarine, pastries and meat. Be it pork or beef they have a lot of cholesterol LDL goal of less than 70 and triglyceride of less than 150. On rosuvastatin 40 mg once a day with blood work last done January 2023 (3) COPD (chronic obstructive pulmonary disease): Code(s): J44.9 - Chronic obstructive pulmonary disease, unspecified Qualifiers: COPD type: emphysema Emphysema type: panlobular Qualified Code(s): J43.1 - Panlobular emphysema Plan: Continue with the inhalers albuterol on controller Trelegy (4) Obesity: Code(s): E66.9 - Obesity, unspecified Qualifiers: Body mass index: BMI 45.0-49.9 Obesity classification: adult class 3 (BMI >= 40) Obesity type: due to excess calories Serious obesity comorbidity presence: with serious comorbidity Qualified Code(s): E66.01 - Morbid (severe) obesity due to excess calories; Z68.42 - Body mass index [BMI] 45.0-49.9, adult Plan: Diet and exercise (5) Hypothyroid: Code(s): E03.9 - Hypothyroidism, unspecified Qualifiers: Hypothyroidism type: acquired Qualified Code(s): E03.9 - Hypothyroidism, unspecified Plan: Continue with thyroid medication (6) Hypertension: Code(s): I10 - Essential (primary) hypertension Qualifiers: Hypertension type: essential hypertension Qualified Code(s): I10 - Essential (primary) hypertension Plan: Continue with blood pressure medication. Decrease salt intake and exercise on metoprolol 25 mg twice a day losartan 100 mg once a day hydralazine 25 mg twice a day (7) CVA (cerebral vascular accident): Comment: Expressive aphasia January 2021 Code(s): I63.9 - Cerebral infarction, unspecified Qualifiers: CVA mechanism: occlusion Precerebral and cerebral artery: unspecified cerebral artery Qualified Code(s): I63.50 - Cerebral infarction due to unspecified occlusion or stenosis of unspecified cerebral artery Plan: Control the cholesterol, weight, blood pressure, diabetes (8) Open wound, lower leg: Comment: Right leg from ladder fall 07/18/2023 Code(s): S81.809A - Unspecified open wound, unspecified lower leg, initial encounter Plan: Patient is being taking care of by wound care (9) Coronary artery disease: Comment: January 2021 Code(s): I25.10 - Atherosclerotic heart disease of [place] coronary artery without angina pectoris Plan: Control the cholesterol, weight, blood pressure, diabetes Orders: Orders AMB Hemoglobin A1c Today E11.65 - Type 2 diabetes mellitus with hyperglycemia Complete Blood Count Auto Diff 3 Months E11.65 - Type 2 diabetes mellitus with hyperglycemia, Z79.4 - alf (current) use of insulin Free T4 (Free Thyroxine) 3 Months E11.65 - Type 2 diabetes mellitus with hyperglycemia, Z79.4 - intermediate card tender (current) use of insulin Lipid Panel 3 Months E11.65 - Type 2 diabetes mellitus with hyperglycemia, E78.00 - Pure hypercholesterolemia, unspecified, Z79.4 - intermediate card tender (current) use of insulin Vitamin B12 and Folate 3 Months E11.65 - Type 2 diabetes mellitus with hyperglycemia, Z79.4 - alf (current) use of insulin Vitamin D 25-OH Total 3 Months E11.65 - Type 2 diabetes mellitus with hyperglycemia, Z79.4 - intermediate card tender (current) use of insulin Microalbumin, Random (w Creat) 3 Months E11.65 - Type 2 diabetes mellitus with hyperglycemia, Z79.4 - alf (current) use of insulin Creatinine Urine 3 Months E11.65 - Type 2 diabetes mellitus with hyperglycemia, Z79.4 - alf (current) use of insulin Comprehensive Met. Panel 3 Months E11.65 - Type 2 diabetes mellitus with hyperglycemia, Z79.4 - intermediate card tender (current) use of insulin Hemoglobin A1c 3 Months E11.65 - Type 2 diabetes mellitus with hyperglycemia, Z79.4 - intermediate card tender (current) use of insulin Thyroid Stimulating Hormone 3 Months E11.65 - Type 2 diabetes mellitus with hyperglycemia, Z79.4 - intermediate card tender (current) use of insulin Medications: New tramadol 50 mg PO DAILY 30 tabs 0RF M19.90 - Unspecified osteoarthritis, unspecified site pen needle, diabetic (1st Tier Unifine Pentips) As directed inject 4 x a day 360 ea 3RF E11.65 - Type 2 diabetes mellitus with hyperglycemia, Z79.4 - alf (current) use of insulin Changed From duloxetine 60 mg PO DAILY 30 days 90 caps 3RF F41.1 - Generalized anxiety disorder To duloxetine 120 mg (2 x 60 mg) PO DAILY 60 caps 3RF 30 days F41.1 - Generalized anxiety disorder Refilled albuterol sulfate 90 mcg/actuation 2 puffs inhalation Q6H PRN 8.5 grams 1RF shortness of breath or wheezing J43.1 - Panlobular emphysema miconazole nitrate 2% (Zeasorb AF) 1 appl topical DAILY 85 grams 3RF B35.4 - Tinea corporis Discontinued celecoxib Discontinued Reason: Duplicate 200 mg PO DAILY 6 caps 0RF duloxetine (Cymbalta) 30 mg with 60 mg =90 mg Discontinued Reason: Doctor's Order 30 mg PO DAILY 90 caps 3RF Coding Level of Care Code Est Pt Level 4 (52823) Diagnoses Type 2 diabetes mellitus with hyperglycemia, with long-term current use of insulin E11.65; Z79.4 Diabetes mellitus intermediate designer insulin use: with intermediate use Hypercholesterolemia E78.00 Panlobular emphysema J43.1 COPD type: emphysema Emphysema type: panlobular Class 3 severe obesity due to excess calories with serious comorbidity and body mass index (BMI) of 45.0 to 49.9 in adult E66.01; Z68.42 Body mass index: BMI 45.0-49.9 Obesity classification: adult class 3 (BMI >= 40) Obesity type: due to excess calories Serious obesity comorbidity presence: with serious comorbidity Acquired hypothyroidism E03.9 Hypothyroidism type: acquired Essential hypertension I10 Hypertension type: essential hypertension Cerebrovascular accident (CVA) due to occlusion of cerebral artery I63.50 CVA mechanism: occlusion Precerebral and cerebral artery: unspecified cerebral artery Open wound, lower leg S81.809A Coronary artery disease I25.10
[2023-10-25 13:55] VITALS: BP 136/68; PULSE 65; O2SAT 99; BMI 47.4
== END 2023-10-25 14:25 | disposition home or self-care (01) ==
PROVIDERS: PCP Internal Medicine; Visit Provider Internal Medicine
DX: E11.65 Type 2 diabetes mellitus with hyperglycemia (principal); E66.01 Morbid (severe) obesity due to excess calories; Z68.42 Body mass index [BMI] 45.0-49.9, adult; Z79.4 Long term (current) use of insulin; J43.1 Panlobular emphysema; E78.00 Pure hypercholesterolemia, unspecified; E03.9 Hypothyroidism, unspecified; I10 Essential (primary) hypertension; I63.50 Cerebral infarction due to unspecified occlusion or stenosis of unspecified cerebral artery; S81.809A Unspecified open wound, unspecified lower leg, initial encounter; I25.10 Atherosclerotic heart disease of native coronary artery without angina pectoris
CPT/HCPCS: 83036; 99214

== ENCOUNTER 2023-12-14 11:44 | Outpatient (AMB) | payer BC, SELFPAY ==
[2023-12-14 11:44] VITALS: BP 146/62; PULSE 66; O2SAT 99; BMI 47.0
--- NOTE | 2023-12-14 11:44 | A.OFFPC_ITS ---
Vital Signs 12/14/23 11:44 Height 5 ft 1 in Weight 249 lb 0.2 oz BMI 47.0 BP 146/62 H Blood Pressure Location Lt brachial Position Sitting Pulse 66 Pulse Source Pulse Oximeter Pulse Oximetry (%) 99 Oxygen Delivery Method Nasal Cannula Intake Visit Reasons: dm Rigger Helper Required: No Allergies adalimumab [Humira] Allergy (Unknown, Verified 12/14/23 11:45) Unknown alprazolam Allergy (Unknown, Verified 12/14/23 11:45) swelling amlodipine Allergy (Unknown, Verified 12/14/23 11:45) swelling etanercept [Enbrel] Allergy (Unknown, Verified 12/14/23 11:45) Unknown fluticasone [From Wixela Inhub] Allergy (Unknown, Verified 12/14/23 11:45) Unknown hydrochlorothiazide Allergy (Unknown, Verified 12/14/23 11:45) hives salmeterol [From Wixela Inhub] Allergy (Unknown, Verified 12/14/23 11:45) Unknown simvastatin Allergy (Unknown, Verified 12/14/23 11:45) Unknown codeine Adverse Reaction (Intermediate, Verified 12/14/23 11:45) Nausea and Vomiting roflumilast [From Daliresp] Adverse Reaction (Intermediate, Verified 12/14/23 11:45) Nausea Tobacco use date assessed: 12/14/23 Dental Screening Dental Screen Date: 07/25/23 HPI dm HPI Details 63-year-old morbidly obese female with d iabetes mellitus hypercholesterolemia COPD hypothyroid hypertension history of CVA and coronary artery disease last seen in October 2023. Patient is here for follow-up mammogram is due bone density is up-to-date colonoscopy is. Patient has been follow-up with wound care having right gramajo ulcer has Unna boot [facility] Medical History (Updated 12/14/23 @ 12:04 by Juan Escoto MD) Cellulitis of right leg Open wound, lower leg SOB (shortness of breath) Upper GI hemorrhage Closed left ankle fracture Psoriatic arthritis History of paroxysmal supraventricular tachycardia Tobacco abuse Osteoarthritis Hypertension Diabetic nephropathy Psoriasis Diabetic neuropathy Hypothyroid Obesity COPD (chronic obstructive pulmonary disease) Hypercholesterolemia Type 2 diabetes mellitus with hyperglycemia Surgical History History of carotid angioplasty H/O cardiac radiofrequency ablation History of cataract surgery History of throat surgery History of parathyroidectomy History of thyroidectomy History of ankle surgery H/O left wrist surgery History of eye surgery History of appendectomy History of cholecystectomy History of section Family History Father Prostate cancer Mother Ovarian cancer Paternal Grandmother Breast cancer Social History Household Members: Spouse Household Members Other:: Elmer Housing: House Do you presently have visiting nurse or other home services: No Alcohol intake: never Patient Tobacco Use Status: Former Tobacco user Tobacco use type: Cigarette Years Smoked: 48 e-Cigarette/Vaping Use: Never Used Second Hand Smoke Exposure: No Substance Use Type: Marijuana service: No Current occupational status: disabled Cognitive needs: Yes (using portable oxygen) Hearing needs: No Vision needs: Yes (Glasses) Questionnaire PHQ-9 Over the last 2 weeks, how often have you been bothered by any of the following problems? 1. Little interest or pleasure in doing things: several days 2. Feeling down, depressed, or hopeless: several days 3. Trouble falling or staying asleep, or sleeping too much: several days 4. Feeling tired or having little energy: several days 5. Poor appetite or overeating: not at all 6. Feeling bad about yourself - or that you are a failure or have let yourself or your family down: not at all 7. Trouble concentrating on things, such as reading the newspaper or watching t elevision: not at all 8. Moving or speaking so slowly that other people could have noticed. Or the opposite - being so fidgety or restless that you have been moving around a lot more than usual: not at all 9. Thoughts that you would be better off or of hurting yourself in some way: not at all Total score: 4 Depression Screening Interpretation: Positive Depression Screening Follow-up: Existing condition and In treatment Depression Screening Done: Yes 25424 - PHQ-9 Billing: Yes Source: Developed by Drs. Guy Gibson, Rupali Carroll, Trey Hughes and colleagues, with an educational milton from [employer]. Thrive Questionnaire Date Thrive assessed: 09/07/23 AUDIT C Alcohol Use Questionnaire (AUDIT-C) 1. How often do you have a drink containing alcohol?: Never 2. How many drinks containing alcohol do you have on a typical day when you are drinking?: 1 or 2 3. How often do you have six or more drinks on one occasion?: Never Total Score: 0 PATITO-7 AMB Questionnaire PATITO-7 Date PATITO - 7 assessed: 12/14/23 Feeling nervous, anxious, or on edge: 0 = Not at all Not being able to stop or control worryin = Not at all Worrying too much about different things: 0 = Not at all Trouble relaxin = Not at all Being so restless that it is hard to sit still: 0 = Not at all Becoming easily annoyed or irritable: 0 = Not at all Feeling afraid as if something awful might happen: 0 = Not at all Total PATITO-7 score (0-4 normal; 5-9 mild; 10-14 moderate; 15-21 severe): 0 Source: Developed by Drs. Guy Gibson, Rupali Carroll, Trey Hughes and colleagues, with an educational milton from [employer]. PATITO-7 Assessment Billing PATITO-7 Assessment Tool: PATITO-7 Assessment 67507 Physical exam (Primary Care) Vital Signs: Last Vital Signs Pulse 66 12/14/23 11:44 BP 146/62 H 12/14/23 11:44 Pulse Ox 99 12/14/23 11:44 Oxygen Delivery Method Nasal Cannula 12/14/23 11:44 BMI result Body Mass Index 47.0 Tobacco/Smoking Status: Tobacco use Status Tobacco use date assessed 12/14/23 12/14/23 11:53 Patient Tobacco Use Status Former Tobacco user 12/14/23 11:53 Tobacco use type Cigarette 12/14/23 11:53 e-Cigarette/Vaping Use Never Used 12/14/23 11:53 PHQ-9: PHQ-9 Score PHQ-9: Total score 4 12/14/23 11:53 Depression Screening Interpretation: Positive Depression Screening Follow-up: Existing condition and In treatment Thrive Assessment: Date of Thrive Assessment Date Thrive assessed 09/07/23 12/14/23 11:53 Assessment and Plan Assessment & Plan (1) Type 2 diabetes mellitus with hyperglycemia: Comment: [facility] 05/2023 Code(s): E11.65 - Type 2 diabetes mellitus with hyperglycemia Qualifiers: Diabetes mellitus penitentiary insulin use: with keno terminal operator use Qualified Code(s): E11.65 - Type 2 diabetes mellitus with hyperglycemia; Z79.4 - [facility] (current) use of insulin Plan: Decrease the amount of carbohydrate intake, pasta, bread, rice and potatoes are all sugar and that is aside from all the sweet stuff, remember that fruits are good but they are Sweet also. October 2023 hemoglobin A1c of 6.8 on NovoLog and Basaglar metformin (2) Hypercholesterolemia: Comment: January 2023 Code(s): E78.00 - Pure hypercholesterolemia, unspecified Plan: Avoid fried foods, chicken skin, eggs, butter margarine, pastries and meat. Be it pork or beef they have a lot of cholesterol LDL goal of less than 70 and triglyceride of less than 150. Last blood work was October 2022 presently on rosuvastatin 40 mg once a day reminded about blood work (3) COPD (chronic obstructive pulmonary disease): Code(s): J44.9 - Chronic obstructive pulmonary disease, unspecified Qualifiers: COPD type: emphysema Emphysema type: panlobular Qualified Code(s): J43.1 - Panlobular emphysema Plan: Continue with the inhaler albuterol and Trelegy (4) Obesity: Code(s): E66.9 - Obesity, unspecified Qualifiers: Body mass index: BMI 45.0-49.9 Obesity classification: adult class 3 (BMI >= 40) Obesity type: due to excess calories Serious obesity comorbidity presence: with serious comorbidity Qualified Code(s): E66.01 - Morbid (severe) obesity due to excess calories; Z68.42 - Body mass index [BMI] 45.0-49.9, adult Plan: Diet and exercise (5) Hypothyroid: Code(s): E03.9 - Hypothyroidism, unspecified Qualifiers: Hypothyroidism type: acquired Qualified Code(s): E03.9 - Hypothyroidism, unspecified Plan: Continue with thyroid medication Continue with blood pressure medication. Decrease salt intake and exercise patient takes hydralazine 25 mg twice a day losartan 100 mg once a day metoprolol 25 mg twice a day (6) Hypertension: Code(s): I10 - Essential (primary) hypertension Qualifiers: Hypertension type: essential hypertension Qualified Code(s): I10 - Essential (primary) hypertension (7) Gastric ulcer: Comment: January 2021, pre-pyloric gastric ulcer transferred to [place] and embolization done Code(s): K25.9 - Gastric ulcer, unspecified as acute or chronic, without hemorrhage or perforation Qualifiers: Gastric ulcer chronicity: acute Gastric ulcer complication status: with hemorrhage Qualified Code(s): K25.0 - Acute gastric ulcer with hemorrhage Plan: On pantoprazole 40 mg twice a day (8) CVA (cerebral vascular accident): Comment: Expressive aphasia January 2021 Code(s): I63.9 - Cerebral infarction, unspecified Qualifiers: CVA mechanism: occlusion Precerebral and cerebral artery: unspecified c erebral artery Qualified Code(s): I63.50 - Cerebral infarction due to unspecified occlusion or stenosis of unspecified cerebral artery Plan: Control the cholesterol, weight, blood pressure, diabetes (9) Coronary artery disease: Comment: January 2021 Code(s): I25.10 - Atherosclerotic heart disease of [place] coronary artery without angina pectoris Plan: Control the cholesterol, weight, blood pressure, diabetes (10) Generalized anxiety disorder: Code(s): F41.1 - Generalized anxiety disorder Plan: Continue with present medication (11) Open wound, lower leg: Comment: Right leg from ladder fall 07/18/2023 Code(s): S81.809A - Unspecified open wound, unspecified lower leg, initial encounter Plan: Continue to follow-up with wound care (12) Vaginal candidiasis: Code(s): B37.31 - Acute candidiasis of vulva and vagina Medications: New aspirin (Adult Low Dose Aspirin) 81 mg PO DAILY 30 tabs 0RF fluconazole 2 tabs first day then 1 tab QD orally; 7 days 8 tabs 0RF B37.31 - Acute candidiasis of vulva and vagina Refilled pen needle, diabetic (BD Ultra-Fine Short Pen Needle) As directed inject using insulin 5 x a day 450 ea 3RF E11.65 - Type 2 diabetes mellitus with hyperglycemia, Z79.4 - [facility] (current) use of insulin Discontinued pen needle, diabetic (1st Tier Unifine Pentips) Discontinued Reason: Duplicate As directed inject 4 x a day 360 ea 3RF E11.65 - Type 2 diabetes mellitus with hyperglycemia, Z79.4 - [facility]FP (current) use of insulin Coding Level of Care Code Est Pt Level 4 (96720) Diagnoses Type 2 diabetes mellitus with hyperglycemia, with long-term current use of insulin E11.65; Z79.4 Diabetes mellitus keno terminal operator insulin use: with penitentiary use Hypercholesterolemia E78.00 Panlobular emphysema J43.1 COPD type: emphysema Emphysema type: panlobular Class 3 severe obesity due to excess calories with serious comorbidity and body mass index (BMI) of 45.0 to 49.9 in adult E66.01; Z68.42 Body mass index: BMI 45.0-49.9 Obesity classification: adult class 3 (BMI >= 40) Obesity type: due to excess calories Serious obesity comorbidity presence: with serious comorbidity Acquired hypothyroidism E03.9 Hypothyroidism type: acquired Essential hypertension I10 Hypertension type: essential hypertension Acute gastric ulcer with hemorrhage K25.0 Gastric ulcer chronicity: acute Gastric ulcer complication status: with hemorrhage Cerebrovascular accident (CVA) due to occlusion of cerebral artery I63.50 CVA mechanism: occlusion Precerebral and cerebral artery: unspecified cerebral artery Coronary artery disease I25.10 Generalized anxiety disorder F41.1 Open wound, lower leg S81.809A Vaginal candidiasis B37.31 Additional Codes PATITO-7 Assessment Billing - PATITO-7 Assessment Tool: PATITO-7 Assessment 29493 ([id number])
== END 2023-12-14 12:16 | disposition home or self-care (01) ==
PROVIDERS: PCP Internal Medicine; Visit Provider Internal Medicine
DX: E11.65 Type 2 diabetes mellitus with hyperglycemia (principal); Z79.4 Long term (current) use of insulin; E78.00 Pure hypercholesterolemia, unspecified; J43.1 Panlobular emphysema; E03.9 Hypothyroidism, unspecified; I25.10 Atherosclerotic heart disease of native coronary artery without angina pectoris; F41.1 Generalized anxiety disorder; S81.809A Unspecified open wound, unspecified lower leg, initial encounter; B37.31 Acute candidiasis of vulva and vagina
CPT/HCPCS: 99214

== ENCOUNTER 2024-03-11 13:34 | Outpatient (AMB) | payer BC, SELFPAY ==
[2024-03-11 13:38] VITALS: BP 150/60; PULSE 70; TEMP 36.7; O2SAT 96
--- NOTE | 2024-03-11 13:38 | MHC.OFFWIV ---
Intake Vital Signs 03/11/24 13:38 Height 5 ft 1 in BP 150/60 H Blood Pressure Location Rt brachial Position Sitting Pulse 70 Pulse Source Pulse Oximeter Temp 98.0 F Temp Source Oral Pulse Oximetry (%) 96 Oxygen Delivery Method Room Air Intake Visit Reasons: EP RT FT pinky toe swelling/red Intake Note: pt is here for right pinky toe, swollen and red. unaware of what caused the pain Patient Tobacco Use Status: Former Tobacco user Allergies adalimumab [Humira] Allergy (Unknown, Verified 03/11/24 13:38) Unknown alprazolam Allergy (Unknown, Verified 03/11/24 13:38) swelling amlodipine Allergy (Unknown, Verified 03/11/24 13:38) swelling etanercept [Enbrel] Allergy (Unknown, Verified 03/11/24 13:38) Unknown fluticasone [From Wixela Inhub] Allergy (Unknown, Verified 03/11/24 13:38) Unknown hydrochlorothiazide Allergy (Unknown, Verified 03/11/24 13:38) hives salmeterol [From Wixela Inhub] Allergy (Unknown, Verified 03/11/24 13:38) Unknown simvastatin Allergy (Unknown, Verified 03/11/24 13:38) Unknown codeine Adverse Reaction (Intermediate, Verified 03/11/24 13:38) Nausea and Vomiting roflumilast [From Daliresp] Adverse Reaction (Intermediate, Verified 03/11/24 13:38) Nausea Do you need a note to return to daycare/school/sports/work: No HPI EP RT FT pinky toe swelling/red HPI Details Patient presents with pain and swelling right 5th toe x2 days. She denies trauma, has not noted any open wound. She does note increased swelling of the lower extremity. She does have some swelling at baseline due to a previous wound that required surgical debridement. Denies history of gout. [facility] Medical History (Updated 12/14/23 @ 12:04 by Juan Escoto MD) Cellulitis of right leg Open wound, lower leg SOB (shortness of breath) Upper GI hemorrhage Closed left ankle fracture Psoriatic arthritis History of paroxysmal supraventricular tachycardia Tobacco abuse Osteoarthritis Hypertension Diabetic nephropathy Psoriasis Diabetic neuropathy Hypothyroid Obesity COPD (chronic obstructive pulmonary disease) Hypercholesterolemia Type 2 diabetes mellitus with hyperglycemia Surgical History History of carotid angioplasty H/O cardiac radiofrequency ablation History of cataract surgery History of throat surgery History of parathyroidectomy History of thyroidectomy History of ankle surgery H/O left wrist surgery History of eye surgery History of appendectomy History of cholecystectomy History of section Family History Father Prostate cancer Mother Ovarian cancer Paternal Grandmother Breast cancer Social History Household Members: Spouse Household Members Other:: Elmer Housing: House Do you presently have visiting nurse or other home services: No Alcohol intake: never Patient Tobacco Use Status: Former Tobacco user Tobacco use type: Cigarette Years Smoked: 48 e-Cigarette/Vaping Use: Never Used Second Hand Smoke Exposure: No Substance Use Type: Marijuana service: No Current occupational status: disabled Cognitive needs: Yes (using portable oxygen) Hearing needs: No Vision needs: Yes (Glasses) Review of Systems Const Reports as per HPI and Reports no additional complaints Card Reports as per HPI and Reports no additional complaints Resp Reports as per HPI and Reports no additional complaints Musc Reports no additional complaints and Reports as per HPI Skin/Breast Denies lesions Neuro Reports no additional complaints and Reports as per HPI Physical Exam Vital Signs: Last Vital Signs Temp 98.0 F 03/11/24 13:38 Pulse 70 03/11/24 13:38 BP 150/60 H 03/11/24 13:38 Pulse Ox 96 03/11/24 13:38 Oxygen Delivery Method Room Air 03/11/24 13:38 Const General: cooperative, comfortable and no acute distress Orientation/consciousness: patient oriented x3 Resp Effort & Inspection: normal respiratory effort Auscultation: clear to auscultation bilaterally Cardio Rate: regular rate Rhythm: regular rhythm Heart sounds: S1 normal heart sound present and S2 normal heart sound present Neuro General: patient oriented x3 Extrem Right lower extremity: full ROM, normal capillary refill, edema and foot Details: normal capillary refill and warmth (Rubor of 5th digit no wound or skin opening noted, ttp) Left lower extremity: normal to inspection and normal capillary refill Assessment & Plan Assessment & Plan (1) Cellulitis of toe, right: Code(s): L03.031 - Cellulitis of right toe Plan: Patient will start on course of doxycycline. Bactrim is not advised due to losartan interaction and patient states she gets severe diarrhea from Keflex. She is instructed to elevate and monitor toe closely if symptoms worsen in any way she should consider trip to ER given history of poor wound healing. Medications: New doxycycline hyclate 100 mg PO BID 10 days 20 caps 0RF Coding Level of Care Code Est Pt Level 4 (59185) Diagnoses Cellulitis of toe, right L03.031
== END 2024-03-11 14:37 | disposition home or self-care (01) ==
PROVIDERS: PCP Internal Medicine; Visit Provider Physician Assistant
DX: L03.031 Cellulitis of right toe (principal)
CPT/HCPCS: 99214

== ENCOUNTER 2024-04-08 13:56 | Outpatient (AMB) | payer BC, SELFPAY ==
--- NOTE | 2024-04-08 14:23 | MHC.PC.OV ---
Vital Signs 04/08/24 14:28 Height 5 ft 1 in Weight 250 lb 8 oz BMI 47.3 BP 118/50 L Blood Pressure Location Lt brachial Position Sitting Pulse 65 Pulse Source Pulse Oximeter Pulse Oximetry (%) 96 Oxygen Delivery Method Nasal Cannula Oxygen Flow Rate 2 Intake Visit Reasons: SwellingrightFoot Intake Note: Dr. Escoto's pt here for right foot swelling. Editing Internship Required: No Accompanied by: Self / Same As Patient Allergies adalimumab [Humira] Allergy (Unknown, Verified 04/08/24 14:30) Unknown alprazolam Allergy (Unknown, Verified 04/08/24 14:30) swelling amlodipine Allergy (Unknown, Verified 04/08/24 14:30) swelling etanercept [Enbrel] Allergy (Unknown, Verified 04/08/24 14:30) Unknown fluticasone [From Wixela Inhub] Allergy (Unknown, Verified 04/08/24 14:30) Unknown hydrochlorothiazide Allergy (Unknown, Verified 04/08/24 14:30) hives salmeterol [From Wixela Inhub] Allergy (Unknown, Verified 04/08/24 14:30) Unknown simvastatin Allergy (Unknown, Verified 04/08/24 14:30) Unknown codeine Adverse Reaction (Intermediate, Verified 04/08/24 14:30) Nausea and Vomiting roflumilast [From Daliresp] Adverse Reaction (Intermediate, Verified 04/08/24 14:30) Nausea Medication List - Last Reconciled 04/08/24 by Aniceto Arshad PA-C acetaminophen ER (Tylenol Arthritis Pain) 1,300 mg PO TID albuterol sulfate 2.5 mg (3 mL) inhalation Q4-6H PRN albuterol sulfate 90 mcg/actuation 2 puffs inhalation Q6H PRN ascorbate calcium (vitamin C) 500 mg PO DAILY aspirin (Adult Low Dose Aspirin) 81 mg PO DAILY blood-glucose meter,continuous (Solfo G6 3D Specialist) As directed blood-glucose sensor (Solfo G6 Sensor device) USE DIRECTED. blood-glucose transmitter (Solfo G6 Transmitter device) USE DIRECTED cholecalciferol (vitamin D3) 25 mcg PO DAILY doxycycline hyclate 100 mg PO BID 10 days duloxetine 120 mg (2 x 60 mg) PO DAILY 30 days ferrous sulfate (FeroSul) 325 mg PO DAILY omsbsfpafuc-byckctjbp-vksiwciv 200-62.5-25 mcg (Trelegy Ellipta) 1 inh inhalation DAILY furosemide 30 mg PO BID gabapentin 300 mg PO Q8H 90 days hydralazine 25 mg PO BID insulin aspart U-100 (Novolog FlexPen U-100 Insulin aspart) 17 units subcut TID insulin glargine (Basaglar KwikPen U-100 Insulin) 40 units (0.4 mL) subcut BID 90 days levothyroxine 137 mcg PO SUTUWETHFRSA@0600 losartan 100 mg PO DAILY 90 days melatonin 10 mg PO BEDTIME metformin 1,000 mg PO BID metoprolol tartrate 25 mg PO BID 90 days miconazole nitrate 2% (Zeasorb AF) 1 appl topical DAILY pantoprazole 40 mg PO BID 90 days pen needle, diabetic (BD Ultra-Fine Short Pen Needle) As directed inject using insulin 5 x a day rosuvastatin 40 mg PO DAILY 90 days sennosides-docusate sodium 8.6-50 mg (Senna-S) 1 tab-cap PO BEDTIME tramadol 50 mg PO DAILY vitamin B complex 1 tab PO DAILY Tobacco use date assessed: 12/14/23 Fall risk assessment: No Falls in past year Last assessed Fall Risk: 04/08/24 Dental Screening Dental Screen Date: 04/08/24 Did you have a dental visit in the last 12 months?: Yes Was dental information given to patient?: Patient has dentist HPI SwellingrightFoot HPI Details Patient is 64-year-old female here today for a problem visit. Patient is a 64-year-old female with a past medical history significant for type 2 diabetes, CVA, GERD, COPD, hypothyroidism obesity and hyperlipidemia. She reports having right foot swelling over the last 2 3 weeks. She reports being seen by urgent care noted some erythema on her right pinky toe was started on doxycycline which Reduced her pain and some swelling. She c to have notable right foot swelling though no pain in her foot calf or thigh. . She does report having higher blood sugars as of recent and followed up with her tack maker about this though no recommendations. She feels that she may still have a infection due to still having swelling in her right foot and elevations in her blood sugars FOR[facility]LY [facility] Medical History (Updated 04/08/24 @ 14:37 by Aniceto Arshad PA-C) Cellulitis of right leg Open wound, lower leg SOB (shortness of breath) Upper GI hemorrhage Closed left ankle fracture Psoriatic arthritis History of paroxysmal supraventricular tachycardia Tobacco abuse Osteoarthritis Hypertension Diabetic nephropathy Psoriasis Diabetic neuropathy Hypothyroid Obesity COPD (chronic obstructive pulmonary disease) Hypercholesterolemia Type 2 diabetes mellitus with hyperglycemia Surgical History History of carotid angioplasty H/O cardiac radiofrequency ablation History of cataract surgery History of throat surgery History of parathyroidectomy History of thyroidectomy History of ankle surgery H/O left wrist surgery History of eye surgery History of appendectomy History of cholecystectomy History of section Family History Father Prostate cancer Mother Ovarian cancer Paternal Grandmother Breast cancer Social History Household Members: Spouse Household Members Other:: [place] Housing: House Do you presently have visiting nurse or other home services: No Alcohol intake: never Patient Tobacco Use Status: Former Tobacco user Tobacco use type: Cigarette Years Smoked: 48 e-Cigarette/Vaping Use: Never Used Second Hand Smoke Exposure: No Substance Use Type: Marijuana service: No Current occupational status: disabled Cognitive needs: Yes (using portable oxygen) Hearing needs: No Vision needs: Yes (Glasses) Questionnaire Thrive Questionnaire Date Thrive assessed: 09/07/23 PATITO-7 AMB Questionnaire PATITO-7 Date PATITO - 7 assessed: 12/14/23 Source: Developed by Drs. Guy Gibson, Rupali Carroll, Trey Hughes and colleagues, with an educational milton from [employer]. Review of Systems Const Denies headache(s) Eyes Denies loss of vision ENT Denies vertigo, Denies dizziness, Denies headache(s) and Denies sore throat Card Denies chest pain, Denies leg edema and Denies lightheadedness Resp Denies cough, Denies hemoptysis and Denies wheezing GI Denies abdominal pain, Denies melena, Denies constipation, Denies diarrhea and Denies vomiting Denies urinary frequency, Denies dysuria and Denies urinary urgency Musc Denies arthralgias, Denies joint swelling, Denies numbness and Denies tingling Neuro Denies Abnormal speech present, Denies behavioral changes, Denies vertigo, Denies dizziness, Denies headache(s), Denies loss of vision, Denies memory loss, Denies numbness and Denies tingling Psych Denies anxiety, Denies behavioral changes, Denies depression, Denies memory loss and Denies panic attacks Joseluis/Lymph Denies easy bleeding and Denies easy bruising Aller/Immun Denies wheezing Physical exam (Primary Care) Vital Signs: Last Vital Signs Pulse 65 04/08/24 14:28 BP 118/50 L 04/08/24 14:28 Pulse Ox 96 04/08/24 14:28 Oxygen Delivery Method Nasal Cannula 04/08/24 14:28 Oxygen Flow Rate 2 04/08/24 14:28 BMI result Body Mass Index 47.3 Tobacco/Smoking Status: Tobacco use Status Tobacco use date assessed 12/14/23 04/08/24 14:23 Patient Tobacco Use Status Former Tobacco user 04/08/24 14:23 Tobacco use type Cigarette 04/08/24 14:23 e-Cigarette/Vaping Use Never Used 04/08/24 14:23 Thrive Assessment: Date of Thrive Assessment Date Thrive assessed 09/07/23 04/08/24 14:23 Const General: healthy appearing, no acute distress, alert and awake Nutritional Appearance: well nourished Orientation/consciousness: oriented to person, oriented to place and oriented to time HENMT Ears: TM's normal bilaterally General nose exam: Normal nasal mucous membranes and turbinates present Eyes Conjunctivae: conjunctivae normal Sclerae: sclerae normal Pupils: Equal, round and reactive pupils present Neck Neck: Yes no lymphadenopathy and Yes no JVD Thyroid: Thyroid normal Carotids: no bruits Resp Effort & Inspection: normal respiratory effort and not tachypneic Auscultation: no crackles, no rales, no rhonchi and no wheezes Cardio Rate: regular rate Rhythm: regular rhythm Heart sounds: no murmurs and normal S1 and S2 GI Palpation (GI): Soft to palpation, nontender, no hepatomegaly and no splenomegaly Auscultation: normal bowel sounds Skin General skin exam: no rashes or lesions noted and dry skin Neuro General: oriented to person, oriented to place and oriented to time Cranial nerves: Yes Equal, round and reactive pupils present Speech: No Abnormal speech present Gait exam (Neuro): Normal gait present Motor exam (neuro): no tremor noted Extrem Other: NOTABLE PEDAL EDEMA OVER RIGHT FOOT. Right upper extremity: full ROM Left upper extremity: full ROM Right lower extremity: full ROM and edema Left lower extremity: full ROM; no edema Psych Mental Status: mental status grossly normal Speech and movement: Normal speech and movement present Affect: normal affect Attitude: cooperative Thought process: Normal thought process present Assessment and Plan Assessment & Plan (1) Swelling of right foot: Code(s): M79.89 - Other specified soft tissue disorders Plan: Has swollen right foot. Did take doxycycline for possible cellulitis and did notice some benefit in reduction in her pain. Red foot does still seem swollen. Still does report having higher blood sugars. Concerned about infection at this time. Will supply patient with Augmentin for the next week. Will send for basic labs Orders: Orders Complete Blood Count no Diff 04/08/24 M - Other specified soft tissue disorders Basic Metabolic Panel 04/08/24 M79. - Other specified soft tissue disorders XR foot RT 2V 04/08/24 M. - Other specified soft tissue disorders Medications: New amoxicillin-pot clavulanate 875-125 mg 1 tab PO BID 14 tabs 0RF 7 days M79. - Other specified soft tissue disorders Coding Level of Care Code Est Pt Level 3 (90947) Diagnoses Swelling of right foot M
[2024-04-08 14:28] VITALS: BP 118/50; PULSE 65; O2SAT 96; BMI 47.3
== END 2024-04-08 14:48 | disposition home or self-care (01) ==
PROVIDERS: PCP Internal Medicine; Visit Provider Physician Assistant
DX: M79.89 Other specified soft tissue disorders (principal)
CPT/HCPCS: 99213

== ENCOUNTER 2024-04-09 08:06 | Outpatient (REF) | payer BC, SELFPAY ==
--- NOTE | ~2024-04-09 | XR_ITS ---
EXAMINATION: XR FOOT, RIGHT CLINICAL INFORMATION: M79.89 - Other specified soft tissue disorders COMPARISON: 02/10/2020 TECHNIQUE: AP, lateral, and oblique views of the right foot. FINDINGS: There is a transverse fracture through the fifth toe proximal phalanx at the junction of the base and shaft. No significant displacement. Soft tissues are swollen. No additional fractures are identified. No evidence of osteomyelitis. Minimal osteoarthritis in the midfoot and forefoot. Moderate osteoarthritis is present in the talocrural joint. XR/XR foot RT min 3V IMPRESSION: Nondisplaced transverse fracture of the fifth toe proximal phalanx.
[2024-04-09 10:16] LABS: MANUAL DIFF FLAG NO
[2024-04-09 10:25] LABS: Basophils Percent Auto 0.2 % (0-2); Eosinophils Absolute Auto 0.1 X10*3/uL (0.0-0.4); Eosinophils Percent Auto 2.2 % (0-4); Hematocrit 36.2 % (37.0-47.0); Hemoglobin 11.5 g/dl (12.0-16.0); Imm Gran Abs Auto 0.02 X10*3/uL (0.00-0.03); Imm Gran Pct Auto 0.4 % (0.0-0.4); Lymphocytes Percent Auto 22.1 % (20-40); Mean Corpuscular HGB Conc 31.8 g/dl (31.0-35.0); Mean Corpuscular Hemoglobin 29.3 pg (27.0-33.0); Mean Corpuscular Volume 92.1 fL (80.0-98.0); Mean Platelet Volume 9.1 fL (9.4-12.3); Monocytes Absolute Auto 0.5 X10*3/uL (0.1-1.2); Monocytes Percent Auto 11.7 % (2-11); Neutrophils Absolute Auto 2.9 x10*3/uL (2.0-8.3); Neutrophils Percent Auto 63.4 % (45-73); Platelet Count 200 X10*3/uL (160-400); Red Blood Count 3.93 X10*6/uL (4.20-5.50); Red Cell Distribution Width 13.2 % (11.0-16.0); White Blood Count 4.5 X10*3/uL (4.8-10.8)
[2024-04-09 10:37] LABS: Estimated Average Glucose 166 mg/dL; Hemoglobin A1c % 7.4 % (<6.0)
[2024-04-09 10:42] LABS: Alanine Aminotransferase 31 U/L (0-31); Alkaline Phosphatase 67 U/L (39-117); Anion Gap 14 (12-20); Aspartate Amino Transferase 26 U/L (5-31); Bilirubin Total 0.2 mg/dL (0.0-1.0); Blood Urea Nitrogen 27 mg/dL (9-16); Calcium 10.2 mg/dL (8.4-10.2); Carbon Dioxide 33 mmol/L (22-29); Chloride 99 mmol/L (96-108); Cholesterol 120 mg/dL (<200); Estimated Glomerular Filt Rate 34; Glucose Random 114 mg/dL (60-115); HDL Cholesterol 52 mg/dL (>40); LDL Cholesterol Calculated 36 mg/dL (<100); Potassium 3.8 mmol/L (3.3-5.1); Sodium 142 mmol/L (135-145); Total Protein 6.6 g/dL (6.5-8.0); Triglycerides 164 mg/dL (<150)
[2024-04-09 10:55] LABS: Free T4 (Free Thyroxine) 0.93 ng/dL (0.71-1.85); Vitamin D 25-OH Total 61.4 ng/mL (>30)
[2024-04-09 11:01] LABS: Thyroid Stimulating Hormone 0.59 uIU/mL (0.32-4.0)
[2024-04-09 11:02] LABS: Microalbum/Creatinine Ratio Ur 168.5 ug/mg cr (<30)
[2024-04-09 11:14] LABS: Folate 13.3 ng/mL (> or = 4.0); Vitamin B12 > 2000 pg/mL (200-900)
== END 2024-04-09 08:07 | disposition home or self-care (01) ==
LOC: HO.HMGCX 08:06
PROVIDERS: PCP Internal Medicine; Referring Provider Physician Assistant; Visit Provider Internal Medicine
DX: R60.0 Localized edema (principal); E78.00 Pure hypercholesterolemia, unspecified; E11.65 Type 2 diabetes mellitus with hyperglycemia; Z79.4 Long term (current) use of insulin
CPT/HCPCS: 36415; 73630; 80053; 80061; 82043; 82306; 82570; 82607; 82746; 83036; 84439; 84443; 85025; 85027

== ENCOUNTER 2024-04-26 15:44 | Outpatient (AMB) | payer BC, SELFPAY ==
[2024-04-26 15:51] VITALS: BP 124/70; PULSE 70; O2SAT 97; BMI 47.2
--- NOTE | 2024-04-26 15:51 | MHC.PC.OV ---
Vital Signs 04/26/24 15:51 Height 5 ft 1 in Weight 250 lb BMI 47.2 BP 124/70 Blood Pressure Location Lt brachial Position Sitting Pulse 70 Pulse Source Pulse Oximeter Pulse Oximetry (%) 97 Oxygen Delivery Method Nasal Cannula Oxygen Flow Rate 2 Intake Visit Reasons: DM [employer] Aff[employer]er Required: No Allergies adalimumab [Humira] Allergy (Unknown, Verified 04/26/24 15:53) Unknown alprazolam Allergy (Unknown, Verified 04/26/24 15:53) swelling amlodipine Allergy (Unknown, Verified 04/26/24 15:53) swelling etanercept [Enbrel] Allergy (Unknown, Verified 04/26/24 15:53) Unknown fluticasone [From Wixela Inhub] Allergy (Unknown, Verified 04/26/24 15:53) Unknown hydrochlorothiazide Allergy (Unknown, Verified 04/26/24 15:53) hives salmeterol [From Wixela Inhub] Allergy (Unknown, Verified 04/26/24 15:53) Unknown simvastatin Allergy (Unknown, Verified 04/26/24 15:53) Unknown codeine Adverse Reaction (Intermediate, Verified 04/26/24 15:53) Nausea and Vomiting roflumilast [From Daliresp] Adverse Reaction (Intermediate, Verified 04/26/24 15:53) Nausea Tobacco use date assessed: 12/14/23 Fall risk assessment: No Falls in past year Last assessed Fall Risk: 04/26/24 Dental Screening Dental Screen Date: 04/08/24 HPI DM HPI Details 64-year-old morbidly obese female with diabetes mellitus hypercholesterolemia COPD hypothyroid hypertension history of CVA coronary artery disease generalized anxiety disorder coming in for follow-up. Last seen in December patient is due for mammogram up-to-date with bone density due for colonoscopy.. Review of the notes had a right foot x-ray showing nondisplaced transverse fracture of the 5th toe of the phalanx proximal. Patient also has met with Gastroenterology 01/29/2024 diagnosis of the gastric ulcer has been advised to get a CT scan of the abdomen pelvis. Patient also has followed up with Cardiology Holter done. No problem sinus rhythm atrial fibrillation with an echocardiogram showing normal ejection fraction no aortic stenosis ascending aortic root 37 mm minimally dilated trace mitral and tricuspid insufficiency January 2024 [facility] Medical History (Updated 04/26/24 @ 16:53 by Juan Escoto MD) Cellulitis of right leg Open wound, lower leg SOB (shortness of breath) Upper GI hemorrhage Closed left ankle fracture Psoriatic arthritis History of paroxysmal supraventricular tachycardia Tobacco abuse Osteoarthritis Hypertension Diabetic nephropathy Psoriasis Diabetic neuropathy Hypothyroid Obesity COPD (chronic obstructive pulmonary disease) Hypercholesterolemia Type 2 diabetes mellitus with hyperglycemia Surgical History History of carotid angioplasty H/O cardiac radiofrequency ablation History of cataract surgery History of throat surgery History of parathyroidectomy History of thyroidectomy History of ankle surgery H/O left wrist surgery History of eye surgery History of appendectomy History of cholecystectomy History of section Family History Father Prostate cancer Mother Ovarian cancer Paternal Grandmother Breast cancer Social History Household Members: Spouse Household Members Other:: [facility] Housing: House Do you presently have visiting nurse or other home services: No Alcohol intake: never Patient Tobacco Use Status: Former Tobacco user Tobacco use type: Cigarette Years Smoked: 48 e-Cigarette/Vaping Use: Never Used Second Hand Smoke Exposure: No Substance Use Type: Marijuana service: No Current occupational status: disabled Cognitive needs: Yes (using portable oxygen) Hearing needs: No Vision needs: Yes (Glasses) Questionnaire Thrive Questionnaire Date Thrive assessed: 09/07/23 AUDIT C Alcohol Use Questionnaire (AUDIT-C) 1. How often do you have a drink containing alcohol?: Never 2. How many drinks containing alcohol do you have on a typical day when you are drinking?: 1 or 2 3. How often do you have six or more drinks on one occasion?: Never Total Score: 0 PATITO-7 AMB Questionnaire PATITO-7 Date PATITO - 7 assessed: 12/14/23 Source: Developed by Drs. Guy Gibson, Rupali Carroll, Trey Hughes and colleagues, with an educational milton from [employer]. Physical exam (Primary Care) Vital Signs: Last Vital Signs Pulse 70 04/26/24 15:51 BP 124/70 04/26/24 15:51 Pulse Ox 97 04/26/24 15:51 Oxygen Delivery Method Nasal Cannula 04/26/24 15:51 Oxygen Flow Rate 2 04/26/24 15:51 BMI result Body Mass Index 47.2 Tobacco/Smoking Status: Tobacco use Status Tobacco use date assessed 12/14/23 04/26/24 15:52 Patient Tobacco Use Status Former Tobacco user 04/26/24 15:52 Tobacco use type Cigarette 04/26/24 15:52 e-Cigarette/Vaping Use Never Used 04/26/24 15:52 Thrive Assessment: Date of Thrive Assessment Date Thrive assessed 09/07/23 04/26/24 15:52 Const General: alert; No acute distress Eyes Conjunctivae: conjunctivae normal Resp Auscultation: clear to auscultation bilaterally Cardio Rate: regular rate Rhythm: regular rhythm GI Inspection: Yes normal to inspection Extrem General: Yes normal to inspection and No edema Assessment and Plan Assessment & Plan (1) Toe fracture: Comment: r foot fracture 03/2024Nondisplaced transverse fracture of the fifth toe proximal phalanx. Code(s): S92.919A - Unspecified fracture of unspecified toe(s), initial encounter for closed fracture Plan: elizabeth tape. (2) Type 2 diabetes mellitus with hyperglycemia: Comment: [facility] 05/2023 Code(s): E11.65 - Type 2 diabetes mellitus with hyperglycemia Qualifiers: Diabetes mellitus machine long goods helper insulin use: with machine long goods helper use Qualified Code(s): E11.65 - Type 2 diabetes mellitus with hyperglycemia; Z79.4 - emt intermediate (current) use of insulin Plan: Decrease the amount of carbohydrate intake, pasta, bread, rice and potatoes are all sugar and that is aside from all the sweet stuff, remember that fruits are good but they are Sweet also. Hemoglobin A1c goal of less than 7.0 patient is taking NovoLog and Basaglar and metformin (3) Hypercholesterolemia: Comment: January 2023 Code(s): E78.00 - Pure hypercholesterolemia, unspecified Plan: Avoid fried foods, chicken skin, eggs, butter margarine, pastries and meat. Be it pork or beef they have a lot of cholesterol LDL goal of less than 70 and triglyceride of less than 150. Patient is on rosuvastatin 40 mg once a day (4) COPD (chronic obstructive pulmonary disease): Code(s): J44.9 - Chronic obstructive pulmonary disease, unspecified Qualifiers: COPD type: emphysema Emphysema type: panlobular Qualified Code(s): J43.1 - Panlobular emphysema Plan: Continue with the inhalers (5) Hypothyroid: Code(s): E03.9 - Hypothyroidism, unspecified Qualifiers: Hypothyroidism type: acquired Qualified Code(s): E03.9 - Hypothyroidism, unspecified Plan: Continue with thyroid medication (6) Hypertension: Code(s): I10 - Essential (primary) hypertension Qualifiers: Hypertension type: essential hypertension Qualified Code(s): I10 - Essential (primary) hypertension Plan: Continue with blood pressure medication. Decrease salt intake and exercise metoprolol 25 mg twice a day losartan 100 mg once a day hydralazine 25 mg twice a day (7) Gastric ulcer: Comment: January 2021, pre-pyloric gastric ulcer transferred to [facility] and embolization done Code(s): K25.9 - Gastric ulcer, unspecified as acute or chronic, without hemorrhage or perforation Qualifiers: Gastric ulcer chronicity: acute Gastric ulcer complication status: with hemorrhage Qualified Code(s): K25.0 - Acute gastric ulcer with hemorrhage Plan: Avoid the foods that causes that usually spicy foods, tomato products, juices, coffee, soda and foods that your sensitive to. After eating do not lie down, allow 3-4 hours before in lie down. And keep the head of bed above 30 degrees to avoid the acid from going up. (8) Coronary artery disease: Comment: January 2021 Code(s): I25.10 - Atherosclerotic heart disease of [place] coronary artery without angina pectoris Plan: Control the cholesterol, weight, blood pressure, diabetes continue with aspirin 81 mg once a day (9) Atrial fibrillation: Code(s): I48.91 - Unspecified atrial fibrillation Plan: not on any anticoagulation due to hx of Gastric ulcer. but patient declined anticoagulation. advised watchmans device but was late. (10) CKD (chronic kidney disease): Code(s): N18.9 - Chronic kidney disease, unspecified Plan: keep well hydrated Medications: New semaglutide (Ozempic) Dr. [place] 0.5 mg (0.736 mL) subcut QWEEK 3 mL 0RF E11.65 - Type 2 diabetes mellitus with hyperglycemia, Z79.4 - emt intermediate (current) use of insulin Coding Level of Care Code Est Pt Level 4 (41328) Diagnoses Toe fracture S92.919A Type 2 diabetes mellitus with hyperglycemia, with long-term current use of insulin E11.65; Z79.4 Diabetes mellitus half-way insulin use: with half-way use Hypercholesterolemia E78.00 Panlobular emphysema J43.1 COPD type: emphysema Emphysema type: panlobular Acquired hypothyroidism E03.9 Hypothyroidism type: acquired Essential hypertension I10 Hypertension type: essential hypertension Acute gastric ulcer with hemorrhage K25.0 Gastric ulcer chronicity: acute Gastric ulcer complication status: with hemorrhage Coronary artery disease I25.10 Atrial fibrillation I48.91 CKD (chronic kidney disease) N18.9
== END 2024-04-26 17:02 | disposition home or self-care (01) ==
PROVIDERS: PCP Internal Medicine; Visit Provider Internal Medicine
DX: I12.9 Hypertensive chronic kidney disease with stage 1 through stage 4 chronic kidney disease, or unspecified chronic kidney disease (principal); N18.9 Chronic kidney disease, unspecified; E11.65 Type 2 diabetes mellitus with hyperglycemia; Z79.4 Long term (current) use of insulin; J43.1 Panlobular emphysema; I48.91 Unspecified atrial fibrillation; S92.919A Unspecified fracture of unspecified toe(s), initial encounter for closed fracture; E78.00 Pure hypercholesterolemia, unspecified; E03.9 Hypothyroidism, unspecified; K25.0 Acute gastric ulcer with hemorrhage; I25.10 Atherosclerotic heart disease of native coronary artery without angina pectoris
CPT/HCPCS: 99214

== ENCOUNTER 2024-07-30 07:55 | Outpatient (AMB) | payer BC, SELFPAY ==
[2024-07-30 07:58] VITALS: BP 120/54; BMI 45.3
--- NOTE | 2024-07-30 07:58 | MHC.PC.OV ---
Vital Signs 07/30/24 07:58 07/30/24 08:23 Height 5 ft 1 in Weight 240 lb BMI 45.3 BP 120/54 L Blood Pressure Location Lt brachial Position Sitting Pulse 61 Pulse Source Pulse Oximeter Pulse Oximeter Pulse Oximetry (%) 98 Oxygen Delivery Method Room Air Room Air Intake Visit Reasons: DM Allergies adalimumab [Humira] Allergy (Unknown, Verified 04/26/24 15:53) Unknown alprazolam Allergy (Unknown, Verified 04/26/24 15:53) swelling amlodipine Allergy (Unknown, Verified 04/26/24 15:53) swelling etanercept [Enbrel] Allergy (Unknown, Verified 04/26/24 15:53) Unknown fluticasone [From [employer] Inhub] Allergy (Unknown, Verified 04/26/24 15:53) Unknown hydrochlorothiazide Allergy (Unknown, Verified 04/26/24 15:53) hives salmeterol [From [employer] Inhub] Allergy (Unknown, Verified 04/26/24 15:53) Unknown simvastatin Allergy (Unknown, Verified 04/26/24 15:53) Unknown codeine Adverse Reaction (Intermediate, Verified 04/26/24 15:53) Nausea and Vomiting roflumilast [From Daliresp] Adverse Reaction (Intermediate, Verified 04/26/24 15:53) Nausea Medication List - Last Reconciled 07/30/24 by Tess Chang PA-C acetaminophen ER (Tylenol Arthritis Pain) 1,300 mg PO TID albuterol sulfate 2.5 mg (3 mL) inhalation Q4-6H PRN albuterol sulfate 90 mcg/actuation 2 puffs inhalation Q6H PRN ascorbate calcium (vitamin C) 500 mg PO DAILY aspirin (Adult Low Dose Aspirin) 81 mg PO DAILY blood-glucose meter,continuous ([employer] G6 Electronic Sensing Equipment Assembler) As directed blood-glucose sensor ([employer] G6 Sensor device) USE DIRECTED. blood-glucose transmitter ([employer] G6 Transmitter device) USE DIRECTED cholecalciferol (vitamin D3) 25 mcg PO DAILY duloxetine 120 mg (2 x 60 mg) PO DAILY 30 days ferrous sulfate (FeroSul) 325 mg PO DAILY dyicjshvkbi-vbsfoesbd-mjahzlne 200-62.5-25 mcg (Trelegy Ellipta) 1 inh inhalation DAILY furosemide 30 mg PO BID gabapentin 300 mg PO Q8H 90 days hydralazine 25 mg PO BID insulin aspart U-100 (Novolog FlexPen U-100 Insulin aspart) 17 units subcut TID insulin glargine (Basaglar KwikPen U-100 Insulin) 40 units (0.4 mL) subcut BID 90 days levothyroxine 137 mcg PO SUTUWETHFRSA@0600 losartan 100 mg PO DAILY 90 days magnesium aspart,citrate,oxide 400 mg PO .QD melatonin 10 mg PO BEDTIME metformin 1,000 mg PO BID metoprolol tartrate 25 mg PO BID 90 days miconazole nitrate 2% (Zeasorb AF) 1 appl topical DAILY pantoprazole 40 mg PO BID 90 days pen needle, diabetic (BD Ultra-Fine Short Pen Needle) As directed inject using insulin 5 x a day rosuvastatin 40 mg PO DAILY 90 days semaglutide (Ozempic) 0.5 mg (0.736 mL) subcut QWEEK sennosides-docusate sodium 8.6-50 mg (Senna-S) 1 tab-cap PO BEDTIME tramadol 50 mg PO DAILY vitamin B complex 1 tab PO DAILY Tobacco use date assessed: 12/14/23 Fall risk assessment: No Falls in past year Last assessed Fall Risk: 07/30/24 Dental Screening Dental Screen Date: 04/08/24 HPI DM HPI Details 64-year-old morbidly obese female with diabetes mellitus hypercholesterolemia COPD hypothyroid hypertension history of CVA coronary artery disease generalized anxiety disorder coming in for follow-up last seen by Dr. Escoto April 2024. Patient has been following with [facility] endocrinology decrease long-acting insulin and increase short-acting insulin at last visit and has follow up today. She often has lows primarily overnight that improve with a snack. No longer using supplemental oxygen and has been off of oxygen for the last 2 months and doing well. She does not routinely follow with pulmonology and was previously seen by [facility]. She was seen by horticulture instructor who advised a 1 month monitor for atrial fibrillation. She also mentioned she has been having right-sided ear pain that has been bothersome for the last couple of months and improves with Benadryl. [facility] Medical History (Updated 07/30/24 @ 08:38 by Tess Chang PA-C) Cellulitis of right leg Open wound, lower leg SOB (shortness of breath) Upper GI hemorrhage Closed left ankle fracture Psoriatic arthritis History of paroxysmal supraventricular tachycardia Tobacco abuse Osteoarthritis Hypertension Diabetic nephropathy Psoriasis Diabetic neuropathy Hypothyroid Obesity COPD (chronic obstructive pulmonary disease) Hypercholesterolemia Type 2 diabetes mellitus with hyperglycemia Surgical History History of carotid angioplasty H/O cardiac radiofrequency ablation History of cataract surgery History of throat surgery History of parathyroidectomy History of thyroidectomy History of ankle surgery H/O left wrist surgery History of eye surgery History of appendectomy History of cholecystectomy History of section Family History Father Prostate cancer Mother Ovarian cancer Paternal Grandmother Breast cancer Social History Household Members: Spouse Household Members Other:: Elmer Housing: House Do you presently have visiting nurse or other home services: No Alcohol intake: never Patient Tobacco Use Status: Former Tobacco user Tobacco use type: Cigarette Years Smoked: 48 e-Cigarette/Vaping Use: Never Used Second Hand Smoke Exposure: No Substance Use Type: Marijuana service: No Current occupational status: disabled Cognitive needs: Yes (using portable oxygen) Hearing needs: No Vision needs: Yes (Glasses) Questionnaire Thrive Questionnaire Date Thrive assessed: 07/30/24 I am a: Patient What is your living situation today?: I have a steady place to live Within the past 12 months, did the food you bought not last and you didn't have the money to get more?: Never true Within the past 12 months, did you worry whether your food would run out before you got money to buy more?: Never true Do you have trouble paying for medicines?: No Do you have trouble getting transportation to medical appointments?: No Do you have trouble paying your heating and electricity bill?: No Do you have trouble taking care of your child, family member or friend?: No Do you have trouble with day-to-day activities such as bathing, preparing meals, shopping, managing finances, etc.?: No Are you currently unemployed and looking for a job?: No Are you interested in more education?: No Please select the resources that you would like help with: None Currently or been in a relationship where the following occur: No concerns reported THRIVE Score: 0 AUDIT C Alcohol Use Questionnaire (AUDIT-C) 1. How often do you have a drink containing alcohol?: Never 2. How many drinks containing alcohol do you have on a typical day when you are drinking?: 1 or 2 3. How often do you have six or more drinks on one occasion?: Never Total Score: 0 PATITO-7 AMB Questionnaire PATITO-7 Date PATITO - 7 assessed: 12/14/23 Source: Developed by Drs. Guy Gibson, Rupali Carroll, Trey Hughes and colleagues, with an educational milton from [employer]. Review of Systems Const Denies body aches, Denies chills, Denies fever(s), Denies headache(s) and Denies poor appetite Eyes Reports no additional complaints ENT Denies dysphagia, Denies dizziness, Denies headache(s) and Denies odynophagia Card Denies chest pain, Denies syncope, Denies edema, Denies irregular heart rhythm, Denies lightheadedness and Denies dyspnea Resp Denies cough and Denies dyspnea GI Denies abdominal pain, Denies constipation, Denies dysphagia, Denies diarrhea, Denies nausea, Denies odynophagia and Denies vomiting Reports no additional complaints Musc Reports no additional complaints and Denies abnormal gait Skin/Breast Reports system reviewed and no additional complaints, except as documented Neuro Denies abnormal gait, Denies dizziness, Denies syncope and Denies headache(s) Psych Reports no additional complaints Physical exam (Primary Care) Vital Signs: Last Vital Signs BP 120/54 L 07/30/24 07:58 Oxygen Delivery Method Room Air 07/30/24 07:58 BMI result Body Mass Index 45.3 Tobacco/Smoking Status: Tobacco use Status Tobacco use date assessed 12/14/23 07/30/24 07:58 Patient Tobacco Use Status Former Tobacco user 07/30/24 07:58 Tobacco use type Cigarette 07/30/24 07:58 e-Cigarette/Vaping Use Never Used 07/30/24 07:58 Thrive Assessment: Date of Thrive Assessment Date Thrive assessed 07/30/24 07/30/24 08:09 Currently or been in a relationship where the following occur: No concerns reported Const General: cooperative, healthy appearing, comfortable and no acute distress Orientation/consciousness: patient oriented x3 HENMT Head: Yes normocephalic Ears: hearing grossly normal bilaterally, TM's normal bilaterally and EAC's normal General nose exam: Normal external nose present Eyes General: appearance normal, both eyes and all related structures Conjunctivae: conjunctivae normal Neck Neck: Yes full ROM and Yes no lymphadenopathy Resp Effort & Inspection: normal respiratory effort Auscultation: clear to auscultation bilaterally, no crackles, no rales, no rhonchi and no wheezes Cardio Rate: regular rate Rhythm: regular rhythm Skin General skin exam: no rashes or lesions noted Neuro General: patient oriented x3 Gait exam (Neuro): Normal gait present Extrem General: Yes normal to inspection, Yes full ROM and No edema Psych Affect: normal affect Attitude: cooperative Insight: Good insight present (Psych) Judgement: Good judgement present (Psych) Results AMB Hemoglobin A1c AMB Hemoglobin A1c 5.7 % Last Edit by JEFF Martin on 07/30/24 08:13 Coding Level of Care Code Est Pt Level 4 (35387) Diagnoses CKD (chronic kidney disease) N18.9 Atrial fibrillation I48.91 Panlobular emphysema J43.1 COPD type: emphysema Emphysema type: panlobular Hypercholesterolemia E78.00 Type 2 diabetes mellitus with hyperglycemia, with long-term current use of insulin E11.65; Z79.4 Diabetes mellitus long distance operator insulin use: with residential use Essential hypertension I10 Hypertension type: essential hypertension Coronary artery disease I25.10 Right ear pain H92.01 Assessment & Plan Assessment & Plan (1) CKD (chronic kidney disease): Code(s): N18.9 - Chronic kidney disease, unspecified Category: Medical Plan: Continue to avoid kidney irritants and stay well hydrated. Continue to monitor BMP. (2) Atrial fibrillation: Code(s): I48.91 - Unspecified atrial fibrillation Category: Medical Plan: Patient has been seeing [facility] and is scheduled to have month long manager monitoring for possible AFib. Heart rate normal and not currently on medication or anticoagulation. (3) COPD (chronic obstructive pulmonary disease): Code(s): J44.9 - Chronic obstructive pulmonary disease, unspecified Category: Medical Qualifiers: COPD type: emphysema Emphysema type: panlobular Qualified Code(s): J43.1 - Panlobular emphysema Plan: Not currently on oxygen therapy and has been doing well satting at 98% today. Continue on inhalers. (4) Hypercholesterolemia: Comment: January 2023 Code(s): E78.00 - Pure hypercholesterolemia, unspecified Category: Medical Plan: Avoid foods that are high in cholesterol such as red meat, fried foods, eggs and baked goods. Triglyceride goal of less than 150 and LDL goal of less than 70. Continue on rosuvastatin 40 (5) Type 2 diabetes mellitus with hyperglycemia: Comment: [facility] 05/2023 Code(s): E11.65 - Type 2 diabetes mellitus with hyperglycemia Category: Medical Qualifiers: Diabetes mellitus long distance operator insulin use: with long distance operator use Qualified Code(s): E11.65 - Type 2 diabetes mellitus with hyperglycemia; Z79.4 - terminal manager (current) use of insulin Plan: Decrease the amount of carbohydrates such as pasta, bread, rice, and potatoes and limit the amount of sweets. Although fruits are generally healthy they should be eaten in moderation as they are still high in sugar. Hemoglobin A1c goal of less than 7%. A1c 5.7% on exam today patient states she does have frequent lows typically overnight. Advised to follow up with endocrinology and inform them of the low values. (6) Hypertension: Code(s): I10 - Essential (primary) hypertension Category: Medical Qualifiers: Hypertension type: essential hypertension Qualified Code(s): I10 - Essential (primary) hypertension Plan: Continue on current blood pressure medication. Avoid salt intake and encourage healthy diet and regular exercise. (7) Coronary artery disease: Comment: January 2021 Code(s): I25.10 - Atherosclerotic heart disease of [place] coronary artery without angina pectoris Category: Medical Plan: Advised good control of blood sugar, cholesterol and blood pressure. Healthy diet and regular exercise is encouraged. (8) Right ear pain: Code(s): H92.01 - Otalgia, right ear Category: Medical Plan: On exam bilateral ears are normal and TMs are intact with well aerated middle ear spaces. Advised patient to use [id number] Rosi or Zyrtec and Flonase. Plan This note was constructed using voice recognition software. While every effort has been made to ensure accuracy and wrapper caser, still areas may have been included sometimes these areas may affect the content or meeting of the given symptoms. Total time spent caring for the patient today was 30 minutes. This includes time spent before the visit reviewing the chart, time spent during the visit, and time spent after the visit and documentation. Orders: Orders Comprehensive Met. Panel 3 Months E11.65 - Type 2 diabetes mellitus with hyperglycemia, Z79.4 - snf (current) use of insulin Lipid Panel 3 Months E11.65 - Type 2 diabetes mellitus with hyperglycemia, E78.00 - Pure hypercholesterolemia, unspecified, Z79.4 - terminal manager (current) use of insulin AMB Hemoglobin A1c Today E11.65 - Type 2 diabetes mellitus with hyperglycemia, Z79.4 - terminal manager (current) use of insulin
[2024-07-30 08:23] VITALS: PULSE 61; O2SAT 98
== END 2024-07-30 08:35 | disposition home or self-care (01) ==
PROVIDERS: PCP Internal Medicine
DX: I12.9 Hypertensive chronic kidney disease with stage 1 through stage 4 chronic kidney disease, or unspecified chronic kidney disease (principal); N18.9 Chronic kidney disease, unspecified; I48.91 Unspecified atrial fibrillation; J43.1 Panlobular emphysema; E11.65 Type 2 diabetes mellitus with hyperglycemia; Z79.4 Long term (current) use of insulin; E78.00 Pure hypercholesterolemia, unspecified; I25.10 Atherosclerotic heart disease of native coronary artery without angina pectoris; H92.01 Otalgia, right ear

== ENCOUNTER → 2024-07-30 07:55 | Outpatient (BNVA) | payer BC, SELFPAY | PROVIDERS: PCP Internal Medicine | DX: I12.9 Hypertensive chronic kidney disease with stage 1 through stage 4 chronic kidney disease, or unspecified chronic kidney disease (principal); N18.9 Chronic kidney disease, unspecified; I48.91 Unspecified atrial fibrillation; J43.1 Panlobular emphysema; E78.00 Pure hypercholesterolemia, unspecified; E11.65 Type 2 diabetes mellitus with hyperglycemia; I25.10 Atherosclerotic heart disease of native coronary artery without angina pectoris; H92.01 Otalgia, right ear; Z79.4 Long term (current) use of insulin | CPT/HCPCS: 83036 ==

== ENCOUNTER 2024-11-14 08:46 | Outpatient (AMB) | payer BC, SELFPAY ==
--- NOTE | 2024-11-14 09:03 | A.OFFPC_ITS ---
Vital Signs 11/14/24 09:05 Height 5 ft 1 in Weight 104.099 kg BMI 43.4 BP 128/60 Blood Pressure Location Lt brachial Position Sitting Pulse 66 Pulse Source Pulse Oximeter Temp 97.1 F Temp Source Temporal Artery Scan Pulse Oximetry (%) 94 Oxygen Delivery Method Room Air Intake Visit Reasons: f/u DM Intake Note: Patient is here to follow up on DM. Filters Assembler Required: No Package Winder: Not Required per policy Accompanied by: Self / Same As Patient Allergies adalimumab [Humira] Allergy (Unknown, Verified 11/14/24 09:05) Unknown alprazolam Allergy (Unknown, Verified 11/14/24 09:05) swelling amlodipine Allergy (Unknown, Verified 11/14/24 09:05) swelling etanercept [Enbrel] Allergy (Unknown, Verified 11/14/24 09:05) Unknown fluticasone [From [facility] Inhub] Allergy (Unknown, Verified 11/14/24 09:05) Unknown hydrochlorothiazide Allergy (Unknown, Verified 11/14/24 09:05) hives salmeterol [From [facility]ela Inhub] Allergy (Unknown, Verified 11/14/24 09:05) Unknown simvastatin Allergy (Unknown, Verified 11/14/24 09:05) Unknown codeine Adverse Reaction (Intermediate, Verified 11/14/24 09:05) Nausea and Vomiting roflumilast [From Daliresp] Adverse Reaction (Intermediate, Verified 11/14/24 09:05) Nausea Tobacco use date assessed: 11/14/24 Fall risk assessment: No Falls in past year Last assessed Fall Risk: 11/14/24 Dental Screening Dental Screen Date: 11/14/24 Did you have a dental visit in the last 12 months?: Yes Did you have a dental problem in the last 6 months where you did not have access to dental care?: No Was dental information given to patient?: Patient has dentist HPI f/u DM HPI Details Patient states does not have atrial fibrillation but states had test [facility] Medical History (Updated 11/14/24 @ 09:26 by Juan Escoto MD) Cellulitis of right leg Open wound, lower leg SOB (shortness of breath) Upper GI hemorrhage Closed left ankle fracture Psoriatic arthritis History of paroxysmal supraventricular tachycardia Tobacco abuse Osteoarthritis Hypertension Diabetic nephropathy Psoriasis Diabetic neuropathy Hypothyroid Obesity COPD (chronic obstructive pulmonary disease) Hypercholesterolemia Type 2 diabetes mellitus with hyperglycemia Surgical History History of carotid angioplasty H/O cardiac radiofrequency ablation History of cataract surgery History of throat surgery History of parathyroidectomy History of thyroidectomy History of ankle surgery H/O left wrist surgery History of eye surgery History of appendectomy History of cholecystectomy History of section Family History Father Prostate cancer Mother Ovarian cancer Paternal Grandmother Breast cancer Social History Household Members: Spouse Household Members Other:: Elmer Housing: House Do you presently have visiting nurse or other home services: No Alcohol intake: never Patient Tobacco Use Status: Former Tobacco user Tobacco use type: Cigarette Years Smoked: 48 e-Cigarette/Vaping Use: Never Used Second Hand Smoke Exposure: Yes Substance Use Type: Marijuana service: No Current occupational status: disabled Cognitive needs: Yes (using portable oxygen) Hearing needs: No Vision needs: Yes (Glasses) Questionnaire PHQ-9 Over the last 2 weeks, how often have you been bothered by any of the following problems? 1. Little interest or pleasure in doing things: not at all 2. Feeling down, depressed, or hopeless: not at all 3. Trouble falling or staying asleep, or sleeping too much: not at all 4. Feeling tired or having little energy: not at all 5. Poor appetite or overeating: not at all 6. Feeling bad about yourself - or that you are a failure or have let yourself or your family down: not at all 7. Trouble concentrating on things, such as reading the newspaper or watching television: not at all 8. Moving or speaking so slowly that other people could have noticed. Or the opposite - being so fidgety or restless that you have been moving around a lot more than usual: not at all 9. Thoughts that you would be better off or of hurting yourself in some way: not at all Total score: 0 Depression Screening Interpretation: Negative Depression Screening Done: Yes Source: Developed by Drs. Guy Gibson, Rupali Carroll, Trey Hughes and colleagues, with an educational milton from [employer] Thrive Questionnaire Date Thrive assessed: 11/14/24 I am a: Patient What is your living situation today?: I have a steady place to live Within the past 12 months, did the food you bought not last and you didn't have the money to get more?: Never true Within the past 12 months, did you worry whether your food would run out before you got money to buy more?: Never true Do you have trouble paying for medicines?: No Do you have trouble getting transportation to medical appointments?: No Do you have trouble paying your heating and electricity bill?: No Do you have trouble taking care of your child, family member or friend?: No Do you have trouble with day-to-day activities such as bathing, preparing meals, shopping, managing finances, etc.?: No Are you currently unemployed and looking for a job?: No Are you interested in more education?: No Please select the resources that you would like help with: None Currently or been in a relationship where the following occur: No concerns reported THRIVE Score: 0 AUDIT C Alcohol Use Questionnaire (AUDIT-C) 1. How often do you have a drink containing alcohol?: Never 3. How often do you have six or more drinks on one occasion?: Never Total Score: 0 PATITO-7 AMB Questionnaire PATITO-7 Date PATITO - 7 assessed: 11/14/24 Feeling nervous, anxious, or on edge: 0 = Not at all Not being able to stop or control worryin = Not at all Worrying too much about different things: 0 = Not at all Trouble relaxin = Not at all Being so restless that it is hard to sit still: 0 = Not at all Becoming easily annoyed or irritable: 0 = Not at all Feeling afraid as if something awful might happen: 0 = Not at all Total PATITO-7 score (0-4 normal; 5-9 mild; 10-14 moderate; 15-21 severe): 0 Source: Developed by Drs. Guy Gibson, Rupali Carroll, Trey Hughes and colleagues, with an educational milton from [employer] Physical exam (Primary Care) Vital Signs: Last Vital Signs Temp 97.1 F 11/14/24 09:05 Pulse 66 11/14/24 09:05 BP 128/60 11/14/24 09:05 Pulse Ox 94 11/14/24 09:05 Oxygen Delivery Method Room Air 11/14/24 09:05 BMI result Body Mass Index 43.4 Tobacco/Smoking Status: Tobacco use Status Tobacco use date assessed 11/14/24 11/14/24 09:10 Patient Tobacco Use Status Former Tobacco user 11/14/24 09:10 Tobacco use type Cigarette 11/14/24 09:10 e-Cigarette/Vaping Use Never Used 11/14/24 09:10 PHQ-9: PHQ-9 Score PHQ-9: Total score 0 11/14/24 09:10 Depression Screening Interpretation: Negative Thrive Assessment: Date of Thrive Assessment Date Thrive assessed 11/14/24 11/14/24 09:10 Currently or been in a relationship where the following occur: No concerns reported Const General: alert; No acute distress Eyes Conjunctivae: conjunctivae normal Resp Auscultation: clear to auscultation bilaterally Cardio Rate: regular rate Rhythm: regular rhythm GI Inspection: Yes normal to inspection Extrem General: Yes normal to inspection and No edema Office Procedures Flu Questionnaire Does the patient have a severe egg allergy?: No Does the patient have severe life threatening allergies?: No Does the patient have a fever or illness today?: No Has the patient ever had Guillain-[place] Syndrome?: No Has the patient ever had any past reaction to a flu shot?: No Results AMB Hemoglobin A1c AMB Hemoglobin A1c 5.9 % Last Edit by JEFF Love on 11/14/24 09:18 Immunizations Fluarix Triv 6220-5607 (PF) 45 mcg (15 mcg x 3)/0.5 mL IM syringe Performing Provider: Juan Escoto MD [facility] Administered by: Rocio Valadez CMA on 11/14/24 09:42 Dose Route Admin Location Dispensed Lot Number Expiration Date [facility] It Director 0.5 mL IM Left Deltoid 0.5 mL [id number] 03/10/25 [id number] [employer] VIS Given Date VIS Provided VIS Publication Date 11/14/24 Single Vaccine 21 Eligibility Eligibility Date Funding Source Not [facility] Eligible 11/14/24 Private Results Reviewed Results Reviewed: Laboratory Last Values Hgb A1c (Clinic) 5.9 % (4.0-6.0) 11/14/24 09:03 Coding Level of Care Code Est Pt Level 4 (81866) Complex EM visit Add On G2211 Diagnoses Type 2 diabetes mellitus with hyperglycemia, with long-term current use of insulin E11.65; Z79.4 Diabetes mellitus adjunct faculty for medical terminology insulin use: with adjunct faculty for medical terminology use Hypercholesterolemia E78.00 Panlobular emphysema J43.1 COPD type: emphysema Emphysema type: panlobular Acquired hypothyroidism E03.9 Hypothyroidism type: acquired Essential hypertension I10 Hypertension type: essential hypertension Coronary artery disease I25.10 Breast cancer screening by mammogram Z12.31 Atrial fibrillation I48.91 CKD (chronic kidney disease) N18.9 Generalized anxiety disorder F41.1 Colon cancer screening Z12.11 Assessment & Plan Assessment & Plan (1) Type 2 diabetes mellitus with hyperglycemia: Comment: [facility] 05/2023 Code(s): E11.65 - Type 2 diabetes mellitus with hyperglycemia Category: Medical Qualifiers: Diabetes mellitus [facility] insulin use: with [facility] use Qualified Code(s): E11.65 - Type 2 diabetes mellitus with hyperglycemia; Z79.4 - intermediate (current) use of insulin Plan: Decrease the amount of carbohydrate intake, pasta, bread, rice and potatoes are all sugar and that is aside from all the sweet stuff, remember that fruits are good but they are Sweet also. Hemoglobin A1c goal of less than 6.5. Patient on insulin NovoLog as well as on Basaglar metformin a 1000 mg twice a day Ozempic 0.5 mg once a week (2) Hypercholesterolemia: Comment: January 2023 Code(s): E78.00 - Pure hypercholesterolemia, unspecified Category: Medical Plan: Avoid fried foods, chicken skin, eggs, butter margarine, pastries and meat. Be it pork or beef they have a lot of cholesterol LDL goal of less than 70 on rosuvastatin 40 mg once a day (3) COPD (chronic obstructive pulmonary disease): Code(s): J44.9 - Chronic obstructive pulmonary disease, unspecified Category: Medical Qualifiers: COPD type: emphysema Emphysema type: panlobular Qualified Code(s): J43.1 - Panlobular emphysema Plan: Continue with the inhaler on albuterol as well as Trelegy reminded about rinsing mouth after using. (4) Hypothyroid: Code(s): E03.9 - Hypothyroidism, unspecified Category: Medical Qualifiers: Hypothyroidism type: acquired Qualified Code(s): E03.9 - Hypothyroidism, unspecified Plan: Continue with thyroid medication September 2024 last blood work (5) Hypertension: Code(s): I10 - Essential (primary) hypertension Category: Medical Qualifiers: Hypertension type: essential hypertension Qualified Code(s): I10 - Essential (primary) hypertension Plan: Continue with blood pressure medication. Decrease salt intake and exercise patient takes metoprolol tartrate 25 mg twice a day losartan 100 mg once a day hydralazine 25 mg twice a day (6) Coronary artery disease: Comment: January 2021 Code(s): I25.10 - Atherosclerotic heart disease of [place] coronary artery without angina pectoris Category: Medical Plan: Control the cholesterol, weight, blood pressure, diabetes on aspirin 81 mg once a day (7) Breast cancer screening by mammogram: Code(s): Z12.31 - Encounter for screening mammogram for malignant neoplasm of breast Category: Medical Plan: Patient is reminded about mammogram (8) Atrial fibrillation: Code(s): I48.91 - Unspecified atrial fibrillation Category: Medical Plan: Had a long discussion with the patient regarding atrial fibrillation. Discussed that patient had a test and there were episodes of atrial fibrillation and discussed that with a history of stroke technically the patient has to be on an anticoagulant but with a history of GI bleeding concerns on anticoagulation. Patient was advised by Cardiology regarding watchman's device. Discussed about need for anticoagulation and not to breast this off. Patient will be talking with Cardiology. (9) CKD (chronic kidney disease): Code(s): N18.9 - Chronic kidney disease, unspecified Category: Medical Plan: Keep well hydrated avoid NSAIDs control blood pressure and diabetes. (10) Generalized anxiety disorder: Code(s): F41.1 - Generalized anxiety disorder Category: Medical Plan: Continue with present medication (11) Colon cancer screening: Code(s): Z12.11 - Encounter for screening for malignant neoplasm of colon Category: Medical Plan: Cologuard testing requested Plan History of Present Illness The patient is a 64-year-old female presenting with a follow-up appointment for chronic conditions management including diabetes mellitus, atrial fibrillation, and chronic obstructive pulmonary disease. She has complex cardiovascular comor bidities, including a history of cerebrovascular accident managed with a carotid endarterectomy and ST-elevation myocardial infarction. Her atrial fibrillation has been intermittently detected, posing risk considerations for anticoagulation therapy. Chronic obstructive pulmonary disease is maintained on a regimented inhaler treatment, effectively stabilizing her respiratory condition. Her lipid profile is managed aimed at optimal cardiovascular protection, and her diabetes is maintained with a satisfactory recent A1c value, though she notes occasional hypoglycemic events potentially due to insulin therapy. Her hypothyroidism is stable with current treatment. Despite adherence to her medication regimen, the patient acknowledges certain challenges with health maintenance due to personal factors, notably delaying routine screenings. Her morbid obesity complicates physical activity, further hampered by wrist pain. The discussion revolves around navigating these obstacles to prioritize her overall health management effectively. Health Maintenance Social History - Reports difficulty with physical activity due to wrist pain affecting daily exercise routine. - Mentions hesitation about routine screening follow-ups due to a prior difficult experience. - Engages in walking as a form of exercise, indicative of efforts to manage morbid obesity. - Self-reported adherence to prescribed medication regimen. 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 - Dermatologic: Reports presence of psoriasis. - Respiratory: No new symptoms other than noted COPD management. Physical Exam Results - Labs: Recent blood work on September 16, 2024, showed normal electrolytes, Creatinine of 1.6, BUN of 29, Blood sugar of 113, Glomerular filtration rate (GFR) of 36, Liver function within normal limits, ProBNP was 337, Cholesterol LDL of 36, Triglyceride of 197, HDL of 45. - Past Hepatitis screenings in [facility] were both negative for Hepatitis C and B. - Hemoglobin A1c was 5.9 from recent testing. Plan Management of chronic conditions such as diabetes, hyperlipidemia, COPD, and atrial fibrillation continues under current therapeutic regimens while addressing health maintenance gaps. Discussed the implications and necessity of returning to routine screenings, specifically mammogram and colonoscopy. Her atherosclerotic risk due to undulating atrial fibrillation episodes merits revisiting anticoagulation therapy strategy pending further transcription consultation. Hypertension will be treated with a consistent combination regimen. Addressing patient hesitations about procedures with empathy, the utility of compliance is underscored in confirming health status and managing risks effectively. Patient was informed and verbally consented to the use of an ambient scribe for clinic note documentation during this visit. Discussion Notes I reviewed with the patient the importance of maintaining chronic conditions under control to reduce complication risks. We discussed the significance of regular hemoglobin A1c testing and lipid monitoring to maintain cardiovascular risk parameters optimally. The atrial fibrillation was addressed, advising on the significance of consistent monitoring and potential anticoagulation therapy, with consideration of the Watchman device if risks outweigh traditional therapy. Reinforced previous recommendations for overdue screening tests and the preventative nature of early detection while empathizing with previous unpleasant experiences. Explained all medication management decisions, including the risk-benefit profile of current medications and inhaler techniques for COPD. A flu vaccination was initiated as discussed. Follow-up with cardiology was recommended for atrial fibrillation management, in light of intermittent episodes. Patient Instructions - Continue current medication regimen as prescribed. - Ensure regular follow-up appointments for routine diabetes and cholesterol monitoring. - Adhere to recommended inhaler technique and rinse mouth afterward. - Schedule overdue mammogram, bone density, and colonoscopy screening tests. - Seek cardiology consultation regarding atrial fibrillation management and possible anticoagulation. - Engage in non-strenuous exercise like walking; manage wrist pain conservatively. - Receive flu vaccination and consider COVID-19 vaccination discussed but not administered today. - Return for any new or worsening symptoms, particularly related to heart or lung health. Orders: Orders AMB Hemoglobin A1c Today E11.65 - Type 2 diabetes mellitus with hyperglycemia, Z79.4 - long term care pharmacist (current) use of insulin MM tomosynthesis screening BI Today Z12.31 - Encounter for screening mammogram for malignant neoplasm of breast Influenza [id number] Immunization Today Z23 - Encounter for immunization Referrals Cologuard Test Z12.11 - Encounter for screening for malignant neoplasm of colon Medications: New Fluarix Triv [id number] (PF) (flu vacc [id number] 6mos up(PF)) 0.5 mL IM ONCE 0.5 mL 0RF NS Z23 - Encounter for immunization
[2024-11-14 09:05] VITALS: BP 128/60; PULSE 66; TEMP 36.2; O2SAT 94; BMI 43.4
--- OUTSIDE RECORDS SUMMARY | 2024-11-14 09:25 | XMS_ITS | Clinical Summary ---
Author Organization [facility] Address [address] [place] [address] Care Team Providers Care Economics Lecturer Name Role Phone Unavailable Primary Care Provider Unavailabl e Allergies Active Allergy Reactions Criticality Noted Date Comments Codeine 01/09/2021 Medications Medication Sig Dispensed Refills Start Date End Date Status metFORMIN (GLUCOPHAGE) tablet 500 mg Take 1,000 mg by mouth 2 (two) times a day with meals. 0 Active atorvastatin (LIPITOR) tablet 40 mg Take 40 mg by mouth daily. 0 Active losartan (COZAAR) tablet 50 mg Take 100 mg by mouth daily. 0 Active budesonide-formoter ol (SYMBICORT) 160-4.5 MCG/ACT inhaler Inhale 2 inhalations into the lungs 2 (two) times a day. 0 Active levothyroxine (SYNTHROID) tablet 150 mcg Take 175 mcg by mouth every morning on an empty stomach. 0 Active hydrALAZINE (APRESOLINE) 25 MG tablet Take 25 mg by mouth 2 (two) times a day. 0 Active gabapentin (NEURONTIN) 300 MG capsule Take 300 mg by mouth 3 (three) times a day. 0 Active albuterol (PROVENTIL) (2.5 MG/3ML) 0.083% nebulizer solution Take 2.5 mg by nebulization every 6 (six) hours as needed for wheezing. 0 Active insulin glargine (LANTUS) injection 100 units/mL Inject 25 Units under the skin 2 (two) times a day. 10 mL 0 01/18/2021 Active Insulin Pen Needle (Pen Oxbow) 33G X 4 MM MISC 1 each by Does not apply route 2 (two) times a day. 100 each 0 01/18/2021 Active Active Problems Problem Noted Date Diagnosed Date Acute blood loss anemia 01/28/2021 Melena 01/11/2021 Gastric ulcer with hemorrhage 01/11/2021 GI bleed 01/09/2021 Social History Tobacco Use Types Packs/Day Years Used Date Smoking Tobacco: Never Assessed Sex and Gender Information Value Date Recorded Sex Assigned at Female 01/10/2021 12:32 AM EDT Gender Identity Not on file Sexual Orientation Not on file Job Start Date Occupation Industry Not on file Not on file Not on file Last Filed Vital Signs Vital Sign Reading Time Taken Comments Blood Pressure 115/62 01/18/2021 11:45 AM EDT Pulse 86 01/18/2021 11:45 AM EDT Temperature 37.1 ??C (98.7 ??F) 01/18/2021 11:45 AM E DT Respiratory Rate 16 01/18/2021 11:45 AM EDT Oxygen Saturation 99% 01/18/2021 11:45 AM EDT Inhaled Oxygen Concentration - - Weight 122.3 kg (269 lb 10 oz) 01/14/2021 12:00 AM EDT Height 162.6 cm (5' 4 ) 01/09/2021 10:00 PM EDT Body Mass Index 46.28 01/09/2021 10:00 PM EDT Plan of Treatment Health Maintenance Due Date Last Done Comments Hepatitis C Screening 1960 COVID-19 Vaccine (#1) 1960 Depression Screening 1972 BMI Counseling 1978 Preventative Health Evaluation 1978 DTap / Tdap / Td (1 - Tdap) 1979 Cervical Cancer Screening (P ap Smear) 1981 Colon Cancer Screening (Colonoscopy) 2005 Breast Cancer Screening (Mammogram) 2010 Shingrix-Zoster Vaccine (1 of 2) 2010 Influenza Vaccine (#1) 2024 Pneumococcal Vaccine (1 of 1 - PCV) 2025 RSV Adult > 60+ Yrs or Pregn ant (1 - 1-dose 75+ series) 2035 Hepatitis B Vaccines Aged Out No long er eligible based on patient's age to complete this topic Pneumococcal Vaccine Aged Out No long er eligible based on patient's age to complete this topic RSV Ped < 20 months Aged Out No longe r eligible based on patient's age to complete this topic Medical Devices Explanted Type Area Financial Reporting Manager Device Identifier Shelf Expiration Date Model / Serial / Lot Catheter Gold Probe 3.7mm 210cm 10fr 25ga Bipol Standard - [id number] - [id number] Explanted:Qty: 1 on 01/14/2021 at [facility] [employer]SE [id number] 01/30/2021 [id number] / / [id number] Description:Not an implant Advance Directives For more information, please contact: [phone] Latest Code Status on File Code Status Date Activated Date Inactivated Comments Full Code 01/09/2021 9:56 PM 01/18/2021 8:21 PM This c ode status was ascertained in the following way: per documentation from prior hospital .
--- OUTSIDE RECORDS SUMMARY | 2024-11-14 09:25 | XMS_ITS | Clinical Summary ---
Author Organization [facility] ity Address [address] [place] [address] Care Team Providers Care Lighting Specialist Name Role Phone Juan Escoto MD Primary Care Provider [phone] Allergies Active Allergy Reactions Criticality Noted Date Comments Adalimumab 2021 Codeine 01/09/2021 Makes Patient loopy Etanercept 2021 Medications pantoprazole (PROTONIX) 40 mg EC tablet Take 1 tablet (40 mg total) by mouth 2 (two) times a day. 2 Active insulin lispro (HumaLOG) 100 unit/mL injection Inject 10 Units under the skin. Active levothyroxine (TIROSINT) 175 mcg capsule Take 1 capsule (175 mcg total) by mouth 1 (one) time each day. Active furosemide (LASIX) 40 mg tablet Take 1 tablet (40 mg total) by mouth. Active Lactobac no.41/Bifidobac t no.7 (PROBIOTIC-10 ORAL) Take by mouth. Activ e losartan (COZAAR) 50 mg tablet Take 0.5 mg by mouth. Active rosuvastatin (CRESTOR) 40 mg tablet Take 1 mg by mouth. Active DULoxetine (CYMBALTA) [address] capsule Take 1 capsule (60 mg total) by mouth. Active predniSONE (DELTASONE) 10 mg tablet Take 1 tablet (10 mg total) by mouth 1 (one) time each day in the morning. Active tiotropium (Spiriva Respimat) 2.5 mcg/actuation inhalation spray Inhale. Active aspirin 81 mg EC tablet Take 1 tablet (81 mg total) by mouth 1 (one) time each day. Active metoprolol tartrate (LOPRESSOR) 25 mg tablet Take 1 tablet (25 mg total) by mouth. Active SENNOSIDES ORAL Take 1 tablet by mouth 1 (one) time each day. Active albuterol sulfate (ProAir RespiClick) 90 mcg/actuation aerosol powdr breath activated Inhale 2 puffs. Acti ve acetaminophen (TYLENOL 8 HOUR) 650 mg 8 hr tablet Take 2 tablets (1,300 mg total) by mouth 1 (one) time each day. Active cholecalciferol (VITAMIN D-3) 25 mcg (1,000 unit) tablet Take 1 tablet (1,000 Units total) by mouth 1 (one) time each day. Active gabapentin (NEURONTIN) 300 mg capsule Take 1 capsule (300 mg total) by mouth. Active melatonin 10 mg tablet Take 1 tablet (10 mg total) by mouth at bedtime as needed. Active VITAMIN A ORAL Take 1 tablet by mouth 1 (one) time each day. Active vitamin B complex (B COMPLEX ORAL) Take 1 tablet by mouth 1 (one) time each day. Active hydrALAZINE (APRESOLINE) 25 mg tablet Take 1 tablet (25 mg total) by mouth 2 (two) times a day. Active albuterol 2.5 mg /3 mL (0.083 %) nebulizer solution 3 mL (2.5 mg total). Active budesonide-form oteroL (SYMBICORT) 160-4.5 mcg/actuation inhaler Inhale. Active insulin glargine (LANTUS) 100 unit/mL injection Inject 40 Units under the skin. 1 Active pen needle, diabetic (MICRODOT INSULIN PEN NEEDLE MISC) 1 each by Not Applicable route. 1 Active Active Problems Problem Noted Date Diagnosed Date Shortness of breath 11/17/2023 Obesity 11/17/2023 Mixed hyperlipidemia 09/01/2021 Overview (11/17/2023): Last Assessment & Plan: Patient's PCP has recently switched her from atorvastatin to rosuvastatin. Goal LDL ideally <70 given her diabetes and underlying vascular disease. NSTEMI (non-ST elevated myocardial infarction) 0 06/02/2021 Overview (11/17/2023): Demand mediated in the setting of anemia and critical illness with a large perforated gastric ulcer Last Assessment & Plan: The patient has had shortness of breath and dizziness corresponding with hypoxemia that improves with nebulizer use. She does have significant underlying lung disease and this may be pulmonary in etiology, but for completeness, will obtain a BMP and a BNP. If her BNP is elevated, can trial increased dose of her furosemide to see if that improves her shortness of breath and episodes of hypoxemia. If her BNP is not elevated, she has plans to follow-up with her pulmonary provider in the next week or 2. We do not adjust her diuretic, we can consider increasing her hydralazine to see if better blood pressure control improves her breathlessness. She did have 1 episode of chest discomfort that did not sound typical for angina and her EKG is unremarkable. For now, continue ongoing medical therapy with aspirin, beta- herlinda, statin, ARB. Her PCP is attempting to get SGLT2 inhibitor approved for her with which we agree. Further recommendations based on clinical course. Elevated troponin 02/25/2021 Symptomatic carotid artery stenosis 02/25/2021 Left carotid stenosis 02/25/2021 COPD (chronic obstructive pulmonary disease) 11/2020 DM type 2 with diabetic peripheral neuropathy Psoriatic arthritis 02/11/2021 Osteoarthritis 02/11/2021 Hypothyroidism 02/11/2021 HTN (hypertension) 02/11/2021 Overview (11/17/2023): Last Assessment & Plan: Patient's blood pressure somewhat robust in office. For now, continue her diuretic, beta-herlinda, ARB and hydralazine at current doses. Further recommendations based on clinical course. Acute blood loss anemia 01/28/2021 Melena 01/11/2021 Gastric ulcer with hemorrhage 01/09/2021 Thrombosis of arm, left 01/09/2021 GI bleed 01/09/2021 History of non-ST elevation myocardial infarctio n (NSTEMI) 01/09/2021 Overview (11/17/2023): due to hemorrhagic shock Surgical History Surgery Date Site/Laterality Comments SECTION PROCEDURE: HISTORICAL DELIVERY; COMMENT: x 2 CAROTID ENDARTERECTOMY 01/2021 Left PROCEDURE: HISTORICAL CAROTID ENDART OTHER SURGICAL HISTORY PROCEDURE: HISTORICAL SUBTOTAL THYROIDECTOMY ESOPHAGOGASTRODUODENOSCOPY PROCEDURE: RI EGD TRANSORAL BIOPSY SINGLE/MULTIPLE; COMMENT: X2 at [facility] ESOPHAGOGASTRODUODENOSCOPY 04/02/2021 PROCEDURE: RI ESOPHAGOGASTRODUODENOSCOPY TRANSORAL DIAGNOSTIC; COMMENT: complete resolution of previous gastric ulcer Medical History Medical History Date Comments H/O carotid stenosis DX:H/O yepez tid stenosis Thrombosis of arm, left 01/2021 DX:Throm bosis of arm, left COPD (chronic obstructive pu lmonary disease) ([facility]) DX:COPD (chronic obstructive pulmonary disease) ([facility]) HTN (hypertension) DX:HTN (hyper tension) Hypothyroidism DX:Hypothyroidis m Gastric ulcer with hemorrhage 01/09/2021 DX :Gastric ulcer with hemorrhage Psoriatic arthritis ([facility]) DX :Psoriatic arthritis ([facility]) History of non-ST elevation myocardial infarction (NSTEMI) 01/2021 DX:History of non-ST el evation myocardial infarction (NSTEMI); COMMENT: due to hemorrhagic shock 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 ([facility]) DX:DM type 2 with diabetic p eripheral neuropathy ([facility]) Redness and swelling of upper arm DX:Redness and swelling of upper arm Expressive aphasia DX:Expressive aphasia Acute blood loss anemia DX:Acute blood loss anemia NSTEMI (non-ST elevated myoc ardial infarction) ([facility]) DX:NSTEMI (non-ST elevated m yocardial infarction) ([facility]) Esophageal reflux DX:Esophageal reflux Cervical spondylosis without myelopathy DX:Cervical spondylosis with out myelopathy Shortness of breath DX:Shortness of breath Obesity DX:Obesity Mixed hyperlipidemia 09/01/2021 DX:Mixed hy perlipidemia Abdominal pain DX:Abdominal sanaz n History of gastric ulcer DX:Hist ory of gastric ulcer Family History Medical History Relation Name Comments Heart attack Other uncle Relation Name Status Comments Other uncle Social History Tobacco Use Types Packs/Day Years Used Date Smoking Tobacco: Former Cigarettes Q uit: 01/09/2021 Smokeless Tobacco: Never Alcohol Use Standard Drinks/Week Comments Not Currently 0 (1 standard drink = 0.6 oz pur e alcohol) Comments Unknown Sex and Gender Information Value Date Recorded Sex Assigned at Not on file Legal Sex Female 4:15 PM EST Gender Identity Not on file Sexual Orientation Not on file Obstetrics History Last Filed Vital Signs Vital Sign Reading Time Taken Comments Blood Pressure 102/40 01/30/2024 9:51 AM EDT Pulse 63 01/30/2024 9:51 AM EDT Temperature - - Respiratory Rate - - Oxygen Saturation 98% 12/06/2021 1:55 PM EDT 2 L of 02 Inhaled Oxygen Concentration - - Weight 114 kg (251 lb 1.6 oz) 01/30/2024 9:51 AM EDT Height 157.5 cm (5' 2 ) 01/30/2024 9:51 AM EDT Body Mass Index 45.93 01/30/2024 9:51 AM EDT Plan of Treatment Health Maintenance Due Date Last Done Comments Breast Cancer Screening 1960 Diabetes: Annual Foot Exam 1970 Diabetes: Annual Retina Eye Exam 1970 DTaP,Tdap,and Td Vaccines (1 - Tdap) 1979 Pneumococcal Vaccine: 50+ Years (1 of 2 - PCV) 1979 Pneumococcal Vaccine: Pediatrics (0 to 5 Years) and At-Risk Patients (6 to 64 Years) (1 of 2 - PCV) 1979 Cervical Cancer Screening: Pap Smear 1981 Zoster Vaccines (1 of 2) 2010 RSV Immunization Patients 60+ Years Old (1 - Risk 60-74 years 1-dose series) 2020 Cholesterol Screening (Lipid Panel) 08/20/2022 Colorectal Cancer Screening: Colonoscopy 08/20/2022 Depression Screening 08/20/2022 HIV Screening 08/20/2022 Hepatitis C Screening 08/20/2022 Social Influencers of Health Screening 08/20/2022 Diabetes: Annual Urine Albumin-Creatinine Ratio (uACR) 08/27/2022 Diabetes: Blood Sugar Control Test (HGBA1C) 08/27/2022 01/09/2021 COVID-19 Vaccine ( season) 2024 Influenza Vaccine (#1) 2024 Diabetes: Annual GFR (Glomerular Filtration Rate) 01/29/2025 01/30/2024, 01/18/2021, 01/17/2021, Additional history exists Hypertension/CHF/CAD Annual BMP Blood Test 01/29/2025 01/30/2024, 01/18/2021, 01/17/2021, Additional history exists HIB Vaccines Aged Out No longer eligi ble based on patient's age to complete this topic HPV Vaccines Aged Out No longer eligi ble based on patient's age to complete this topic Hepatitis A Vaccines Aged Out No long er eligible based on patient's age to complete this topic Hepatitis B Vaccines Aged Out No long er eligible based on patient's age to complete this topic IPV Vaccines Aged Out No longer eligi ble based on patient's age to complete this topic MMR Vaccines Aged Out No longer eligi ble based on patient's age to complete this topic Meningococcal ACWY Vaccine Aged Out N o longer eligible based on patient's age to complete this topic Meningococcal B Vacine Aged Out No lo nger eligible based on patient's age to complete this topic RSV Immunization Patients Under 20 months Aged Out No longer eligible based on patient's age to complete this topic Varicella Vaccines Aged Out No longer eligible based on patient's age to complete this topic Advance Directives Documents on File Type Date Recorded Patient Assembler Bonding Expl anation Health Care Decision (hx) 02/08/2021 AD ANDRES DIRECTIVE Health Care Decision (hx) 02/08/2021 AD ANDRES DIRECTIVE Health Care Decision (hx) 02/08/2021 AD ANDRES DIRECTIVE Health Care Decision (hx) 02/08/2021 AD ANDRES DIRECTIVE Health Care Decision (hx) 02/08/2021 AD ANDRES DIRECTIVE Health Care Decision (hx) 02/08/2021 AD ANDRES DIRECTIVE Health Care Decision (hx) 02/08/2021 AD ANDRES DIRECTIVE Health Care Decision (hx) 02/08/2021 AD ANDRES DIRECTIVE Health Care Decision (hx) 02/08/2021 AD ANDRES DIRECTIVE Health Care Decision (hx) 01/30/2021 AD ANDRES DIRECTIVE Health Care Decision (hx) 01/30/2021 AD ANDRES DIRECTIVE Health Care Decision (hx) 01/30/2021 AD ANDRES DIRECTIVE Health Care Decision (hx) 01/30/2021 AD ANDRES DIRECTIVE Health Care Decision (hx) 01/30/2021 AD ANDRES DIRECTIVE Health Care Decision (hx) 01/30/2021 AD ANDRES DIRECTIVE Health Care Decision (hx) 01/30/2021 AD ANDRES DIRECTIVE Health Care Decision (hx) 01/30/2021 AD ANDRES DIRECTIVE Health Care Decision (hx) 01/30/2021 AD ANDRES DIRECTIVE Health Care Decision (hx) 09/29/2016 AD ANDRES DIRECTIVE Health Care Decision (hx) 09/29/2016 AD ANDRES DIRECTIVE Health Care Decision (hx) 09/29/2016 AD ANDRES DIRECTIVE Health Care Decision (hx) 09/29/2016 AD ANDRES DIRECTIVE Health Care Decision (hx) 09/29/2016 AD ANDRES DIRECTIVE Health Care Decision (hx) 09/29/2016 AD ANDRES DIRECTIVE Health Care Decision (hx) 09/29/2016 AD ANDRES DIRECTIVE Health Care Decision (hx) 09/29/2016 AD ANDRES DIRECTIVE Health Care Decision (hx) 09/29/2016 AD ANDRES DIRECTIVE Health Care Decision (hx) 09/29/2016 AD ANDRES DIRECTIVE Care Teams Lighting Specialist Relationship Specialty Start Date End Date Juan Escoto MD [address] [place] [address] [address] [facility] [place] [address] PCP - General Internal Medicine 01/12/21
--- OUTSIDE RECORDS SUMMARY | 2024-11-14 09:25 | XMS_ITS | Encounter Summary ---
Author Organization [facility] Address [address] [place] [address] Care Team Providers Care Rrts Name Role Phone Unavailable Primary Care Provider Unavailabl e Encounter Details Date Type Department Care Team Description 01/09/2021 Hospital Encounter Ander Curry MD Social History Tobacco Use Types Packs/Day Years Used Date Smoking Tobacco: Never Assessed Sex and Gender Information Value Date Recorded Sex Assigned at Female 01/10/2021 12:32 AM EDT Gender Identity Not on file Sexual Orientation Not on file Job Start Date Occupation Industry Not on file Not on file Not on file COVID-19 Exposure Response Date Recorded In the last month, have you been in contact with someone who was confirmed or suspected to have Coronavirus / COVID-19? No / Unsure 01/13/2021 11:35 AM EDT documented as of this encounter Plan of Treatment Not on file documented as of this encounter Visit Diagnoses Not on filedocumented in this encounter
--- OUTSIDE RECORDS SUMMARY | 2024-11-14 09:25 | XMS_ITS | Clinical Summary ---
Author Organization [facility] Address [address] [facility] [address] [facility] [address] [place] [address] Phone Care Team Providers Care Fermenting Cellars Receiver Name Role Phone Juan Escoto MD Primary Care Provider [phone] Allergies Active Allergy Reactions Criticality Noted Date Comments Codeine 01/09/2021 Other Rash Low 01/08/2014 Tegaderm. Biologics medications Medications losartan (COZAAR) 100 MG tablet Take 100 mg by mouth 1 (one) time each day Active levothyroxine (SYNTHROID, LEVOTHROID) 175 MCG tablet Take 175 mcg by mouth 1 (one) time each day Active albuterol HFA (PROVENTIL HFA;VENTOLIN HFA) 108 (90 Base) MCG/ACT inhaler Inhale 2 puffs every 6 (six) hours if needed for wheezing Active cholecalciferol (VITAMIN D-3) 25 MCG (1000 UT) capsule Take 1,000 Units by mouth 1 (one) time each day Active DULoxetine (CYMBALTA) [address] capsule Take 90 mg by mouth 1 (one) time each day Do not crush or chew. Active furosemide (LASIX) 40 MG tablet Take 40 mg by mouth in the morning and 40 mg in the evening. Active gabapentin (NEURONTIN) 300 MG capsule Take 300 mg by mouth in the morning and 300 mg in the evening and 300 mg before bedtime. Active hydrALAZINE 25 MG tablet Take 25 mg by mouth in the morning and 25 mg in the evening. Active insulin glargine (LANTUS) 100 UNIT/ML injection Inject under the skin every night Active insulin lispro (HumaLOG) 100 UNIT/ML injection Inject under the skin 3 (three) times a day before meals Active Melatonin 10 MG tablet Take 10 mg by mouth every night Active metoprolol tartrate 25 MG tablet Take 25 mg by mouth in the morning and 25 mg in the evening. Active pantoprazole (PROTONIX) 40 MG EC tablet Take 40 mg by mouth in the morning and 40 mg in the evening. Do not crush, chew, or split. . Active predniSONE (DELTASONE) 10 MG tablet Take 10 mg by mouth 1 (one) time each day Active rosuvastatin (CRESTOR) 40 MG tablet Take 40 mg by mouth 1 (one) time each day Active Tiotropium Galt Monohydrate 2.5 MCG/ACT aerosol solution Inhale 5 mcg at bed time Active metFORMIN (GLUMETZA) 1000 MG 24 hr tablet Take 1,000 mg by mouth 1 (one) time each day with dinner Do not crush, chew, or split. Active Ascorbic Acid (vitamin C) 500 MG tablet Take 500 mg by mouth 1 (one) time each day Active ferrous sulfate 325 (65 Fe) MG tablet Take 325 mg by mouth in the morning and 325 mg in the evening. Active Active Problems Problem Noted Date Diagnosed Date Acute nontraumatic kidney injury 03/28/2022 Hypertensive chronic kidney disease 03/28/2022 Stage 3b chronic kidney disease 03/28/2022 Type 2 diabetes mellitus wit h diabetic chronic kidney disease 03/28/2022 Acute posthemorrhagic anemia 01/28/2021 Resolved Problems Problem Noted Date Diagnosed Date Resolved Date Gastric ulcer with hemorrhage 01/11/2021 03/28/2022 Melena 01/11/2021 03/28/2022 Gastrointestinal hemorrhage 01/09/2021 03/28/2022 Abnormal voice 01/08/2014 03/28/2022 Overview (03/28/2022): Voice Disturbance Chronic obstructive pulmonary disease 01/08/2014 03/28/2022 Overview (03/28/2022): Chronic Obstructive Pulmonary Disease Diabetes mellitus 01/08/2014 03/28/2022 Overview (03/28/2022): Diabetes Mellitus Disease type AND/OR category unknown 01/08/2014 03/28/2022 Overview (03/28/2022): 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 01/08/201403/28 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 Female stress incontinence 01/08/2014 0 03/28/2022 Overview (03/28/2022): Female Stress Incontinence Osteoarthritis 01/08/2014 03/28/2022 Overview (03/28/2022): Osteoarthritis Postoperative hypothyroidism 01/08/2014 03/28/2022 Overview (03/28/2022): Postsurgical Hypothyroidism Psoriasis 01/08/2014 03/28/2022 Overview (03/28/2022): Psoriasis Social History Tobacco Use Types Packs/Day Years Used Date Smoking Tobacco: Former Smokeless Tobacco: Never Alcohol Use Standard Drinks/Week Comments Never 0 (1 standard drink = 0.6 oz pur e alcohol) Comments Unknown Sex and Gender Information Value Date Recorded Sex Assigned at Not on file Legal Sex Female 8:50 AM EDT Gender Identity Not on file Sexual Orientation Not on file Last Filed Vital Signs Vital Sign Reading Time Taken Comments Blood Pressure 140/60 03/28/2022 3:13 PM EDT Pulse 65 03/28/2022 3:13 PM EDT Temperature - - Respiratory Rate - - Oxygen Saturation - - Inhaled Oxygen Concentration - - Weight 126 kg (278 lb 9.6 oz) 03/28/2022 3:13 PM EDT Height - - Body Mass Index - - Plan of Treatment Health Maintenance Due Date Last Done Comments Breast Cancer Screening 1960 Pneumococcal Vaccine: Pediat rics (0 to 5 Years) and At-Risk Patients (6 to 64 Years) (1 of 2 - PCV) 1966 Colorectal Cancer Screening: Annual FOBT 2009 Colorectal Cancer Screening: Colonoscopy 2009 Colorectal Cancer Screening: Sigmoidoscopy 2009 Diabetes: Hemoglobin A1C 03/28/2022 01/09/2021 Diabetes: Ophthalmology Exam 03/28/2022 Diabetes: Pedal Pulse Checked 03/28/2022 Diabetes: Sensory Foot Exam 03/28/2022 Diabetes: Visual Foot Exam 03/28/2022 Influenza Vaccine (#1) 2024 Hepatitis B Vaccine Aged Out No longe r eligible based on patient's age to complete this topic Care Teams Fermenting Cellars Receiver Relationship Specialty Start Date End Date Juan Escoto MD [facility] [place] [address] [place], [place] PCP - General Internal Medicine 01/26/22
== END 2024-11-14 09:54 | disposition home or self-care (01) ==
PROVIDERS: PCP Internal Medicine; Visit Provider Internal Medicine
DX: I12.9 Hypertensive chronic kidney disease with stage 1 through stage 4 chronic kidney disease, or unspecified chronic kidney disease (principal); E11.65 Type 2 diabetes mellitus with hyperglycemia; Z79.4 Long term (current) use of insulin; J43.1 Panlobular emphysema; I48.91 Unspecified atrial fibrillation; E78.00 Pure hypercholesterolemia, unspecified; E03.9 Hypothyroidism, unspecified; I25.10 Atherosclerotic heart disease of native coronary artery without angina pectoris; Z12.31 Encounter for screening mammogram for malignant neoplasm of breast; N18.9 Chronic kidney disease, unspecified; F41.1 Generalized anxiety disorder; Z23 Encounter for immunization

== ENCOUNTER → 2024-11-14 08:46 | Outpatient (BNVA) | payer BC, SELFPAY | PROVIDERS: PCP Internal Medicine; Visit Provider Internal Medicine | DX: E11.65 Type 2 diabetes mellitus with hyperglycemia (principal); Z23 Encounter for immunization; E78.00 Pure hypercholesterolemia, unspecified; J43.1 Panlobular emphysema; E03.9 Hypothyroidism, unspecified; I25.10 Atherosclerotic heart disease of native coronary artery without angina pectoris; I12.9 Hypertensive chronic kidney disease with stage 1 through stage 4 chronic kidney disease, or unspecified chronic kidney disease; N18.9 Chronic kidney disease, unspecified; I48.91 Unspecified atrial fibrillation; F41.1 Generalized anxiety disorder; Z86.73 Personal history of transient ischemic attack (TIA), and cerebral infarction without residual deficits; Z79.4 Long term (current) use of insulin; Z79.899 Other long term (current) drug therapy | CPT/HCPCS: 83036; 90471; 90656; 96127 ==

== ENCOUNTER 2024-12-19 11:48 | Outpatient (AMB) | payer BC, SELFPAY ==
--- NOTE | 2024-12-19 11:49 | MHC.PC.OV ---
Intake Visit Reasons: Cold Symptoms Customer Support Agent Required: No Geophysics Professor: Not Required per policy Accompanied by: Self / Same As Patient Allergies adalimumab [Humira] Allergy (Unknown, Verified 12/19/24 11:50) Unknown alprazolam Allergy (Unknown, Verified 12/19/24 11:50) swelling amlodipine Allergy (Unknown, Verified 12/19/24 11:50) swelling etanercept [Enbrel] Allergy (Unknown, Verified 12/19/24 11:50) Unknown fluticasone [From Wixela Inhub] Allergy (Unknown, Verified 12/19/24 11:50) Unknown hydrochlorothiazide Allergy (Unknown, Verified 12/19/24 11:50) hives salmeterol [From Wixela Inhub] Allergy (Unknown, Verified 12/19/24 11:50) Unknown simvastatin Allergy (Unknown, Verified 12/19/24 11:50) Unknown codeine Adverse Reaction (Intermediate, Verified 12/19/24 11:50) Nausea and Vomiting roflumilast [From Daliresp] Adverse Reaction (Intermediate, Verified 12/19/24 11:50) Nausea Tobacco use date assessed: 11/14/24 Dental Screening Dental Screen Date: 11/14/24 HPI Cold Symptoms HPI Details coughing productive phlegm for 1 for 1 month, no fevers, feeling sob and tight, , on albuterol and has nebulaizer. [facility] Medical History (Updated 11/14/24 @ 09:26 by Juan Escoto MD) Cellulitis of right leg Open wound, lower leg SOB (shortness of breath) Upper GI hemorrhage Closed left ankle fracture Psoriatic arthritis History of paroxysmal supraventricular tachycardia Tobacco abuse Osteoarthritis Hypertension Diabetic nephropathy Psoriasis Diabetic neuropathy Hypothyroid Obesity COPD (chronic obstructive pulmonary disease) Hypercholesterolemia Type 2 diabetes mellitus with hyperglycemia Surgical History History of carotid angioplasty H/O cardiac radiofrequency ablation History of cataract surgery History of throat surgery History of parathyroidectomy History of thyroidectomy History of ankle surgery H/O left wrist surgery History of eye surgery History of appendectomy History of cholecystectomy History of section Family History Father Prostate cancer Mother Ovarian cancer Paternal Grandmother Breast cancer Social History Household Members: Spouse Household Members Other:: Elmer Housing: House Do you presently have visiting nurse or other home services: No Alcohol intake: never Patient Tobacco Use Status: Former Tobacco user Tobacco use type: Cigarette Years Smoked: 48 e-Cigarette/Vaping Use: Never Used Second Hand Smoke Exposure: Yes Substance Use Type: Marijuana service: No Current occupational status: disabled Cognitive needs: Yes (using portable oxygen) Hearing needs: No Vision needs: Yes (Glasses) Questionnaire Thrive Questionnaire Date Thrive assessed: 11/14/24 PATITO-7 AMB Questionnaire PATITO-7 Date PATITO - 7 assessed: 11/14/24 Source: Developed by Drs. Guy Gibson, Rupali Carroll, Trey Hughes and colleagues, with an educational milton from [employer]. Physical exam (Primary Care) Tobacco/Smoking Status: Tobacco use Status Tobacco use date assessed 11/14/24 12/19/24 11:52 Patient Tobacco Use Status Former Tobacco user 12/19/24 11:52 Tobacco use type Cigarette 12/19/24 11:52 e-Cigarette/Vaping Use Never Used 12/19/24 11:52 Thrive Assessment: Date of Thrive Assessment Date Thrive assessed 11/14/24 12/19/24 11:52 Telehealth Telehealth Telehealth Platform: Telephone Location of provider rendering services: practice address Location of patient: address on file Patient Identification confirmed using: Name, : Yes Telehealth method: voice only Patient verbally consented to treatment: Yes Patient verbally consented to billing insurance company: Yes Patient informed of any privacy concerns related to visit: Yes Minutes spent on Phone/Video with Pt.: 15 Coding Level of Care Code Tele Est Pt Level 3 (79560) Diagnoses COPD exacerbation J44.1 Panlobular emphysema J43.1 COPD type: emphysema Emphysema type: panlobular Assessment & Plan Assessment & Plan (1) COPD exacerbation: Code(s): J44.1 - Chronic obstructive pulmonary disease with (acute) exacerbation Category: Medical Plan: continue with the inhaler and (2) COPD (chronic obstructive pulmonary disease): Code(s): J44.9 - Chronic obstructive pulmonary disease, unspecified Category: Medical Qualifiers: COPD type: emphysema Emphysema type: panlobular Qualified Code(s): J43.1 - Panlobular emphysema Plan: For the sore throat can take Cepacol lozenges, discussed about Delsym to help with dry cough so she can rest and advised to increase oral fluids. Patient also can take Tylenol for chills and fever. Plan History of Present Illness The patient is a 64-year-old female presenting with exacerbation of respiratory symptoms. She describes a recurrence of shortness of breath, necessitating the reintroduction of albuterol nebulizer treatment after a prolonged interval without use. Over the past month, the patient has reverted to nighttime oxygen usage, which she had discontinued after several months. While the patient's household has exhibited symptoms consistent with an upper respiratory infection, including runny noses and coughing, the patient herself denies any fever. Historically, her condition has not responded to amoxicillin treatments; instead, azithromycin (Zithromax) has been effective. It has been suggested that the patient undergo a chest X-ray to further investigate her symptoms. Additionally, she reports that Mucinex helps with mucus expectoration, and Delsym has been recommended for nighttime cough relief. The patient, who has been largely asymptomatic for a period, has voiced concerns due to the reemergence of her symptoms and is amenable to the proposed management plan. Review of Systems - General: Reports morbid obesity. - Endocrine: Reports uncontrolled diabetes mellitus. Reports hypothyroidism. - Respiratory: Reports chronic obstructive pulmonary disease (COPD). - Cardiovascular: Reports hypertension. Reports coronary artery disease. - Gastrointestinal: Reports history of gastric ulcer. - Neurological: Reports history of cerebrovascular accident (CVA). - Metabolic: Reports hypercholesterolemia. Plan During the telehealth visit, I focused on optimizing the management of the patient's chronic conditions. Emphasis was placed on the critical nature of maintaining consistent blood glucose levels for diabetes management, supported by appropriate medication adherence. The management of COPD involves a combination of prescribed medication and lifestyle adjustments to minimize respiratory symptoms. Monitoring her lipid profile and hypertension is crucial, given her history of hypercholesterolemia and CVA, to mitigate cardiovascular risks. Additionally, her currently stable hypothyroidism requires routine monitoring to ensure continued stability. Management of her gastric ulcer focuses on preventing exacerbations through potential lifestyle and dietary modifications. Continued follow-up visits via telehealth or in-person will be vital to adjust her treatment plans based on ongoing assessments. Patient was informed and verbally consented to the use of an ambient scribe for clinic note documentation during this visit. Discussion Notes During the telehealth conversation, I reviewed the importance of achieving consistent control over her diabetes mellitus through diligent monitoring and adherence to her treatment regimen. I discussed the role of both pharmacologic and lifestyle interventions in managing her COPD and highlighted the necessity of regular lipid profile checks to manage her hypercholesterolemia. I emphasized the importance of medication adherence for her hypothyroidism and hypertension, considering her history of cardiovascular risk factors, including a previous CVA and coronary artery disease. The potential for complications related to her gastric ulcer was flagged, and I advised on dietary modifications to prevent exacerbations. Follow-up discussions will focus on ongoing monitoring and adjustments to her treatment plan as needed, emphasizing the importance of routine assessments and flexible adjustment based on new health data. Patient Instructions - Continue monitoring blood glucose levels daily and adhere to diabetes medications as prescribed. - Follow COPD management plan closely, incorporating both lifestyle changes and prescribed medications. - Monitor blood pressure regularly and take antihypertensive medications as instructed. - Maintain a heart-healthy diet and engage in physical activity as able, considering weight and respiratory limits. - Take cholesterol-lowering medication consistently and attend regular follow-up appointments. - Implement dietary changes to manage gastric ulcer symptoms effectively. - Schedule and attend regular follow-up appointments for ongoing management of all conditions. - Contact the healthcare provider if experiencing any significant change in health status or if clarification of management plans is needed. Orders: Orders XR chest 2V Today J44.1 - Chronic obstructive pulmonary disease with (acute) exacerbation Medications: New prednisone 4 tabs QD x 2 days then 3 tabs QD x 2 days then 2 tabs Qd x 2 days then 1 tab QD x 2 days PO daily; 20 tabs 0RF J44.1 - Chronic obstructive pulmonary disease with (acute) exacerbation, J45.909 - Unspecified asthma, uncomplicated azithromycin (Zithromax) For 250 mg dose pack: take 500 mg today (day 1), then 250 mg for 4 days (days 2-5) PO 6 tabs 0RF J44.1 - Chronic obstructive pulmonary disease with (acute) exacerbation
--- OUTSIDE RECORDS SUMMARY | 2024-12-19 14:24 | XMS_ITS | Clinical Summary ---
Author Organization [facility] Address [address] [facility] [address] [facility] [address] [place] [address] Phone Care Team Providers Care Bender Machine Name Role Phone Juan Escoto MD Primary Care Provider [phone] Allergies Active Allergy Reactions Criticality Noted Date [...] 1 (one) time each day Active Tiotropium [place] Monohydrate 2.5 MCG/ACT aerosol solution Inhale 5 [...] Comments Breast Cancer Screening 1960 Pneumococcal Vaccine: Peds ( 0 to 5 Years) and At-Risk Patients (6 to 49 Years) (1 of 2 - PCV) 1966 Colorectal Cancer Screening: Annual FOBT 2009 Colorectal Cancer Screening: Colonoscopy 2009 Colorectal Cancer Screening: Sigmoidoscopy 2009 Diabetes: Hemoglobin A1C 03/28/2022 01/09/2021 Diabetes: Ophthalmology Exam 03/28/2022 Diabetes: Pedal Pulse Checked 03/28/2022 Diabetes: Sensory Foot Exam 03/28/2022 Diabetes: Visual Foot Exam 03/28/2022 Influenza Vaccine (Season Ended) 2025 Hepatitis B Vaccine Aged Out No longe r eligible based on patient's age to complete this topic Care Teams Bender Machine Relationship Specialty Start Date End Date Juan Escoto MD [facility] [place] [address] [place], [place] PCP - General Internal Medicine 01/26/22
--- OUTSIDE RECORDS SUMMARY | 2024-12-19 14:24 | XMS_ITS | Clinical Summary ---
Author Organization [facility] ity Address [address] [place] [address] Care Team Providers Care Population Geneticist Name Role Phone Juan Escoto MD Primary Care Provider [phone] Allergies Active Allergy Reactions Criticality Noted Date Comments Adalimumab 2021 Codeine 01/09/2021 Makes Patient loopy Etanercept 2021 Medications pantoprazole (PROTONIX) 40 mg EC tablet Take 1 tablet (40 mg total) by mouth 2 (two) times a day. Active insulin lispro (HumaLOG) 100 unit/mL injection [...] and underlying vascular disease. NSTEMI (non-ST elevated myoc ardial infarction) ([facility] V24, [facility] V28) 06/02/2021 Overview (11/17/2023): Demand mediated in the [...] Left carotid stenosis 02/25/2021 COPD (chronic obstructive pu lmonary disease) ([facility] V24, [facility] V28) 02/11/2021 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 ([facility] V24, [facility] V28) 02/11/2021 Psoriatic arthritis ([facility] V24, [facility] V28) 0 02/11/2021 Osteoarthritis 02/11/2021 Hypothyroidism 02/11/2021 HTN (hypertension) [...] HISTORY PROCEDURE: HISTORICAL SUBTOTAL THYROIDECTOMY ESOPHAGOGASTRODUODENOSCOPY PROCEDURE: DC EGD TRANSORAL BIOPSY SINGLE/MULTIPLE; COMMENT: X2 at [facility] ESOPHAGOGASTRODUODENOSCOPY 04/02/2021 PROCEDURE: DC ESOPHAGOGASTRODUODENOSCOPY TRANSORAL DIAGNOSTIC; COMMENT: complete resolution of previous gastric ulcer Medical History Medical History Date Comments H/O carotid stenosis DX:H/O yepez tid stenosis Thrombosis of arm, left 01/2021 DX:Throm bosis of arm, left COPD (chronic obstructive pu lmonary disease) ([facility] V24, [facility] V28) DX:COPD (chronic o bstructive pulmonary disease) ([facility]) HTN (hypertension) DX:HTN (hyper tension) Hypothyroidism DX:Hypothyroidis m Gastric ulcer with hemorrhage 01/09/2021 DX :Gastric ulcer with hemorrhage Psoriatic arthritis ([facility] V24, [facility] V28) DX:Psoriatic arthritis ([facility]) History of non-ST elevation myocardial infarction (NSTEMI) 01/2021 DX:History of non-ST el evation myocardial infarction (NSTEMI); COMMENT: due to hemorrhagic shock 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 ([facility] V24, [facility] V28) DX:DM type 2 wit h diabetic peripheral neuropathy ([facility]) Redness and swelling of upper arm DX:Redness and swelling of upper arm Expressive aphasia DX:Expressive aphasia Acute blood loss anemia DX:Acute blood loss anemia NSTEMI (non-ST elevated myoc ardial infarction) ([facility] V24, [facility] V28) DX:NSTEMI (non-ST elevated m yocardial infarction) ([facility]) Esophageal reflux DX:Esophageal reflux Cervical spondylosis without [...] Vaccines (1 of 2) 2010 RSV Immunization Adult Patients (1 - Risk 60-74 years 1-dose series) 2020 Cholesterol Screening (Lipid Panel) 08/20/2022 Colorectal Cancer Screening: Colonoscopy 08/20/2022 Depression Screening 08/20/2022 HIV Screening 08/20/2022 Hepatitis C Screening 08/20/2022 Social Influencers of Health Screening 08/20/2022 Diabetes: Annual Urine Albumin-Creatinine Ratio (uACR) 08/27/2022 Diabetes: Blood Sugar Control Test (HGBA1C) 08/27/2022 01/09/2021 COVID-19 Vaccine ( season) 2024 Diabetes: Annual GFR (Glomerular Filtration Rate) 01/29/2025 01/30/2024, 01/18/2021, 01/17/2021, Additional history exists Hypertension/CHF/CAD Annual BMP Blood Test 01/29/2025 01/30/2024, 01/18/2021, 01/17/2021, Additional history exists Influenza Vaccine (Season Ended) 2025 HIB Vaccines Aged Out No longer eligi [...] age to complete this topic Meningococcal B Vaccine Aged Out No l onger eligible based on patient's age to complete this topic RSV Immunization Patients Under 20 months Aged Out No longer eligible based on patient's age to complete this topic Varicella Vaccines Aged Out No longer eligible based on patient's age to complete this topic Advance Directives Documents on File Type Date Recorded Patient Director Of Corporate Responsibility Expl anation Health Care Decision (hx) 02/08/2021 [...] (hx) 09/29/2016 AD ANDRES DIRECTIVE Care Teams Population Geneticist Relationship Specialty Start Date End Date Juan Escoto MD [address] [place] [address] [address] [facility] [place] [address] PCP - General Internal Medicine 01/12/21
--- OUTSIDE RECORDS SUMMARY | 2024-12-19 14:24 | XMS_ITS | Clinical Summary ---
Author Organization [facility] Address [address] [place] [address] Care Team Providers Care Stonecutter Name Role Phone Unavailable Primary Care Provider [...] 0 01/18/2021 Active Insulin Pen Needle (Pen [place]) 33G X 4 MM MISC 1 each [...] this topic Medical Devices Explanted Type Area Mobile Phlebotomist Device Identifier Shelf Expiration Date Model / Serial / Lot Catheter Gold Probe 3.7mm 210cm 10fr 25ga Bipol Standard - [id number] - [id number] Explanted:Qty: 1 on 01/14/2021 at [facility] and [facility] [email or web address] JOSE [id number] 01/30/2021 [id number] / / [id number] Description:Not an implant Advance Directives For more information, please contact: [phone] Latest Code Status on File Code Status Date Activated Date Inactivated Comments Full Code 01/09/2021 9:56 PM 01/18/2021 8:21 PM This c ode status was ascertained in the following way: per documentation from prior hospital .
--- OUTSIDE RECORDS SUMMARY | 2024-12-19 14:24 | XMS_ITS | Encounter Summary ---
Author Organization [facility] Address [address] [place] [address] Care Team Providers Care Class A Regional Truck Driver Name Role Phone Unavailable Primary Care Provider [...]
== END 2024-12-19 17:42 | disposition home or self-care (01) ==
LOC: HO.HMCH 11:48
PROVIDERS: PCP Internal Medicine; Visit Provider Internal Medicine
DX: J44.1 Chronic obstructive pulmonary disease with (acute) exacerbation (principal); J43.1 Panlobular emphysema

== ENCOUNTER → 2024-12-19 11:48 | Outpatient (BNVA) | payer BC, SELFPAY | PROVIDERS: PCP Internal Medicine; Visit Provider Internal Medicine ==

== ENCOUNTER 2024-12-23 10:55 | Outpatient (REF) | payer BC, SELFPAY ==
--- NOTE | ~2024-12-23 | XR_ITS ---
EXAMINATION: XR CHEST 2 VIEWS HISTORY: J44.1 - Chronic obstructive pulmonary disease with (acute) exacerbation COMPARISON: Comparison is made with the prior examination dated 02/26/2021. FINDINGS: PA and lateral views of the chest are submitted. The lungs are expanded and clear. There is no pleural effusion, pneumothorax, or pulmonary vascular congestion. The heart remains mildly enlarged. There is degenerative disc disease of the spine. XR/XR chest 2V IMPRESSION: Mild cardiomegaly. No acute cardiopulmonary abnormality. Electronically signed by: Guy Ramirez MD 12/23/2024 03:27 PM EDT
--- OUTSIDE RECORDS SUMMARY | 2024-12-23 12:50 | XMS_ITS | Clinical Summary ---
Author Organization [facility] Address [address] [facility] [address] [facility] [address] [place] [address] Phone Care Team Providers Care Supervisor Metal Furniture Fabrication Name Role Phone Juan Escoto MD Primary Care Provider [phone] Allergies Active Allergy Reactions Criticality Noted Date [...] 1 (one) time each day Active Tiotropium [place] Monohydrate 2.5 MCG/ACT aerosol solution Inhale 5 [...] Comments Breast Cancer Screening 1960 Pneumococcal Vaccine: 50+ Ye ars (1 of 2 - PCV) 1979 Colorectal Cancer Screening: Annual FOBT 2009 Colorectal [...] age to complete this topic Care Teams Supervisor Metal Furniture Fabrication Relationship Specialty Start Date End Date Juan Escoto MD [facility] [place] [address] [place], [place] PCP - General Internal Medicine 01/26/22
--- OUTSIDE RECORDS SUMMARY | 2024-12-23 12:50 | XMS_ITS | Clinical Summary ---
Author Organization [facility] Address [address] [place] [address] Care Team Providers Care Paint Striping Machine Operator Name Role Phone Unavailable Primary Care Provider [...] 0 01/18/2021 Active Insulin Pen Needle (Pen [place]) 33G X 4 MM MISC 1 each [...] this topic Medical Devices Explanted Type Area Wardrobe Image Consultant Device Identifier Shelf Expiration Date Model / Serial / Lot Catheter Gold Probe 3.7mm 210cm 10fr 25ga Bipol Standard - [id number] - [id number] Explanted:Qty: 1 on 01/14/2021 at [facility] [employer] [facility] [employer] JOSE [id number] 01/30/2021 [id number] / / [id number] Description:Not an implant Advance Directives For more information, please contact: [phone] Latest Code Status on File Code Status Date Activated Date Inactivated Comments Full Code 01/09/2021 9:56 PM 01/18/2021 8:21 PM This c ode status was ascertained in the following way: per documentation from prior hospital .
--- OUTSIDE RECORDS SUMMARY | 2024-12-23 12:50 | XMS_ITS | Encounter Summary ---
Author Organization [facility] Address [address] [place] [address] Care Team Providers Care Tape Rules Printing Machine Operator Name Role Phone Unavailable Primary [...]
--- OUTSIDE RECORDS SUMMARY | 2024-12-23 12:50 | XMS_ITS | Clinical Summary ---
Author Organization [facility] ity Address [address] [place] [address] Care Team Providers Care Bulk Mail Technician Name Role Phone Juan Escoto MD Primary Care Provider [phone] Allergies Active Allergy Reactions Criticality Noted Date [...] disease. NSTEMI (non-ST elevated myoc ardial infarction) ([facility] V24, [facility] V28) 06/02/2021 Overview (11/17/2023): Demand mediated in [...] 02/25/2021 COPD (chronic obstructive pu lmonary disease) ([facility] V24, [facility] V28) 02/11/2021 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 ([facility] V24, [facility] V28) 02/11/2021 Psoriatic arthritis ([facility] V24, [facility] V28) 0 02/11/2021 Osteoarthritis 02/11/2021 Hypothyroidism 02/11/2021 [...] HISTORY PROCEDURE: HISTORICAL SUBTOTAL THYROIDECTOMY ESOPHAGOGASTRODUODENOSCOPY PROCEDURE: [place] EGD TRANSORAL BIOPSY SINGLE/MULTIPLE; COMMENT: X2 at [facility] ESOPHAGOGASTRODUODENOSCOPY 04/02/2021 PROCEDURE: [place] ESOPHAGOGASTRODUODENOSCOPY TRANSORAL DIAGNOSTIC; COMMENT: complete resolution of previous gastric ulcer Medical History Medical History Date Comments H/O carotid stenosis DX:H/O yepez tid stenosis Thrombosis of arm, left 01/2021 DX:Throm bosis of arm, left COPD (chronic obstructive pu lmonary disease) ([facility] V24, [facility] V28) DX:COPD (chronic o bstructive pulmonary disease) ([facility]) HTN (hypertension) DX:HTN (hyper tension) Hypothyroidism DX:Hypothyroidis m Gastric ulcer with hemorrhage 01/09/2021 DX :Gastric ulcer with hemorrhage Psoriatic arthritis ([facility] V24, [facility] V28) DX:Psoriatic arthritis ([facility]) History of non-ST elevation myocardial infarction (NSTEMI) 01/2021 DX:History of non-ST el evation myocardial infarction (NSTEMI); COMMENT: due to hemorrhagic shock 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 ([facility] V24, [facility] V28) DX:DM type 2 wit h diabetic peripheral neuropathy ([facility]) Redness and swelling of upper arm DX:Redness and swelling of upper arm Expressive aphasia DX:Expressive aphasia Acute blood loss anemia DX:Acute blood loss anemia NSTEMI (non-ST elevated myoc ardial infarction) ([facility] V24, [facility] V28) DX:NSTEMI (non-ST elevated m yocardial infarction) ([facility]) Esophageal reflux DX:Esophageal reflux Cervical spondylosis without [...] Documents on File Type Date Recorded Patient Hourly Manager Expl anation Health Care Decision (hx) 02/08/2021 [...] (hx) 09/29/2016 AD ANDRES DIRECTIVE Care Teams Bulk Mail Technician Relationship Specialty Start Date End Date Juan Escoto MD [address] [place] [address] [address] [facility] [place] [address] PCP - General Internal Medicine 01/12/21
== END 2024-12-23 10:56 | disposition home or self-care (01) ==
LOC: HO.HMGCX 10:55
PROVIDERS: PCP Internal Medicine; Visit Provider Internal Medicine
DX: J44.1 Chronic obstructive pulmonary disease with (acute) exacerbation (principal)
CPT/HCPCS: 71046

== ENCOUNTER → 2024-12-23 10:58 | Outpatient (BNV) | payer BC, SELFPAY | PROVIDERS: PCP Internal Medicine; Visit Provider Radiology Diagnostic Radiology | DX: J44.1 Chronic obstructive pulmonary disease with (acute) exacerbation (principal); I51.7 Cardiomegaly | CPT/HCPCS: 71046 ==

== ENCOUNTER → 2025-01-16 10:45 | Outpatient (BNV) | payer BC, SELFPAY | PROVIDERS: PCP Internal Medicine; Visit Provider Internal Medicine | DX: Z12.31 Encounter for screening mammogram for malignant neoplasm of breast (principal) | CPT/HCPCS: 77063; 77067 ==

== ENCOUNTER 2025-01-16 10:51 | Outpatient (REF) | payer BC, SELFPAY ==
--- OUTSIDE RECORDS SUMMARY | 2025-01-16 12:21 | XMS_ITS | Clinical Summary ---
Author Organization [facility] Address [address] [place] [address] Care Team Providers Care Cash Applications Associate Name Role Phone Unavailable Primary Care Provider [...] 0 01/18/2021 Active Insulin Pen Needle (Pen [place]) 33G X 4 MM MISC 1 each [...] this topic Medical Devices Explanted Type Area Pipe Fitter Supervisor Maintenance Device Identifier Shelf Expiration Date Model / Serial / Lot Catheter Gold Probe 3.7mm 210cm 10fr 25ga Bipol Standard - [id number] - [id number] Explanted:Qty: 1 on 01/14/2021 at [facility] JOSE [id number] 01/30/2021 [id number] / / [id number] Description:Not an implant Advance Directives For more information, please contact: [phone] Latest Code Status on File Code Status Date Activated Date Inactivated Comments Full Code 01/09/2021 9:56 PM 01/18/2021 8:21 PM This c ode status was ascertained in the following way: per documentation from prior hospital .
--- OUTSIDE RECORDS SUMMARY | 2025-01-16 12:21 | XMS_ITS | Clinical Summary ---
Author Organization [facility] Address [address] [facility] [address] [place] [address] Phone Care Team Providers Care Department Clinician Name Role Phone Juan Escoto MD Primary Care Provider [phone] Allergies Active Allergy Reactions Criticality Noted Date [...] 1 (one) time each day Active Tiotropium [place] Monohydrate 2.5 MCG/ACT aerosol solution Inhale 5 [...] age to complete this topic Care Teams Department Clinician Relationship Specialty Start Date End Date Juan Escoto MD [facility] [address] [place], [place] PCP - General Internal Medicine 01/26/22
--- OUTSIDE RECORDS SUMMARY | 2025-01-16 12:21 | XMS_ITS | Encounter Summary ---
Author Organization [facility] Address [address] [place] [address] Care Team Providers Care Radiosonde Operator Name Role Phone Unavailable Primary Care [...]
--- OUTSIDE RECORDS SUMMARY | 2025-01-16 12:21 | XMS_ITS | Clinical Summary ---
Author Organization [facility] Address [address] [place] [address] Care Team Providers Care Blocking Machine Operator Name Role Phone Juan Escoto MD Primary Care Provider [phone] Allergies Active Allergy Reactions Criticality Noted Date [...] disease. 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 ([facility] V24, [facility] V28) 02/11/2021 Psoriatic arthritis ([facility] V24, [facility] V28) 0 02/11/2021 Osteoarthritis 02/11/2021 [...] HISTORY PROCEDURE: HISTORICAL SUBTOTAL THYROIDECTOMY ESOPHAGOGASTRODUODENOSCOPY PROCEDURE: NM EGD TRANSORAL BIOPSY SINGLE/MULTIPLE; COMMENT: X2 at [facility] ESOPHAGOGASTRODUODENOSCOPY 04/02/2021 PROCEDURE: NM ESOPHAGOGASTRODUODENOSCOPY TRANSORAL DIAGNOSTIC; COMMENT: complete resolution of previous gastric ulcer Medical History Medical History Date Comments H/O carotid stenosis DX:H/O yepez tid stenosis Thrombosis of arm, left 01/2021 DX:Throm bosis of arm, left COPD (chronic obstructive pu lmonary disease) ([facility] V24, [facility] V28) DX:COPD (chronic o bstructive pulmonary disease) ([facility]) HTN (hypertension) DX:HTN (hyper tension) Hypothyroidism DX:Hypothyroidis m Gastric ulcer with hemorrhage 01/09/2021 DX :Gastric ulcer with hemorrhage Psoriatic arthritis ([facility] V24, [facility] V28) DX:Psoriatic arthritis ([facility]) History of non-ST elevation myocardial infarction (NSTEMI) 01/2021 DX:History of non-ST el evation myocardial infarction (NSTEMI); COMMENT: due to hemorrhagic shock 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 ([facility] V24, [facility] V28) DX:DM type 2 wit h diabetic peripheral neuropathy ([facility]) Redness and swelling of upper arm DX:Redness and swelling of upper arm Expressive aphasia DX:Expressive aphasia Acute blood loss anemia DX:Acute blood loss anemia NSTEMI (non-ST elevated myoc ardial infarction) ([facility] V24, [facility] V28) DX:NSTEMI (non-ST elevated m yocardial infarction) ([facility]) Esophageal reflux DX:Esophageal reflux Cervical [...] Documents on File Type Date Recorded Patient Duty Manager Expl anation Health Care Decision (hx) [...] (hx) 09/29/2016 AD ANDRES DIRECTIVE Care Teams Blocking Machine Operator Relationship Specialty Start Date End Date Juan Escoto MD [address] [place] [address] [address] [employer] [place] [address] PCP - General Internal Medicine 01/12/21
== END 2025-01-16 10:52 | disposition home or self-care (01) ==
LOC: HO.MAMMO 10:51
PROVIDERS: PCP Internal Medicine; Visit Provider Internal Medicine
DX: Z12.31 Encounter for screening mammogram for malignant neoplasm of breast (principal)
CPT/HCPCS: 77063; 77067

== ENCOUNTER 2025-05-09 11:26 | Outpatient (AMB) | payer BC, SELFPAY ==
--- OUTSIDE RECORDS SUMMARY | 2025-04-29 14:00 | XMS_ITS | Encounter Summary ---
Author Organization [facility] Address [address] [place] [address] Phone Care Team Providers Care Media Marketing Director Name Role Phone Juan Escoto MD Primary Care Provider [phone] Reason for Visit * Reason Comments Type 2 Diabetes Encounter Details Date Type Department Care Team (Late st Contact Info) Description 04/29/2025 2:00 PM EDT Nutrition [facility] [address] [place] [address] Sunitha Almazan, ZHNANA [address] [facility] 1st [place] [address] [email or web address] Type 2 diabetes mellitus with diabetic polyneuropathy, with long-term current use of insulin (Primary Dx) Social History Tobacco Use Types Packs/Day Years Used Date Smoking Tobacco: Former Cigarettes Q uit: 01/10/2020 Passive Smoke Exposure: Never Smokeless Tobacco: Never Alcohol Use Standard Drinks/Week Comments Not Currently 0 (1 standard drink = 0.6 oz pur e alcohol) Education Answer Date Recorded Are you interested in more education? Not on vivian e 01/06/2023 Are you concerned about learning? Not on file 01/06/2023 No 01/06/2023 No 01/06/2023 Digital Access Answer Date Recorded No 02/01/2023 No 02/01/2023 Reliable internet access at home? Not on file 02/01/2023 Device with a working camera? Not on file Intimate Partner Violence Answer Date R ecorded Are you denied basic needs s uch as food, clothing, or medical care? No 07/18/2023 In the past 12 months have y ou been in a relationship with a person who hurts, threatens, or tries to control you? No 07/18/2023 Are you denied basic needs s uch as food, clothing, or medical care? No 07/18/2023 In the past 12 months have y ou been in a relationship with a person who hurts, threatens, or tries to control you? No 07/18/2023 Comments No Sex and Gender Information Value Date Recorded Sex Assigned at Female 02/12/2023 1:52 PM EDT Legal Sex Female 9:49 PM EDT Gender Identity Female 02/12/2023 1:52 PM EDT Sexual Orientation Straight 02/12/2023 1: 52 PM EDT documented as of this encounter Patient Instructions * Patient Instructions* Sunitha Almazan LDN - 04/29/2025 2:00 PM EDT Recommendations/Plan: Diabetes Medications: Reduce your Toujeo Max to 68 units Monitoring blood sugar: Continue to use Dexcom Nutrition: Try to eat at least three meals a day to ensure you are eating enough You could do the egg and toast in the morning In the middle of the day you could do leftovers, or sandwich on whole wheat bread with the carrot sticks you like Try drinking water during the day Healthy sleep, coping, and stress management habits: Continue to work on sleep Recommend Appointment with: Lease Out Worker/ANIMAL SHELTER CLERK Please bring your blood sugar meter and any written food or blood sugar logs to every appointment. Follow up: With Sunitha in 6 months [Diabetes Education: EXT-C visit] Calling sooner as needed documented in this encounter Progress Notes * Sunitha Almazan LDN - 04/29/2025 2:00 PM EDT Images from the original note were not included. Diabetes Education Program Status: In-progress of completing, started on 1/10/23 Referring provider: Dr. [place] Has previously met with a software educator: yes New patient form completed and scanned into EMR: yes Kari seen in office today for review of diabetes self-management and glucose control. Last seen by this blurb writer 10/22/24. Today Kari is having more low blood sugars. Discussed with Bre who recommended a decrease in insulin. Kari reports a poor appetite with Ozempic. Sometimes only eating once per day. Reviewed ways to eat more consistently throughout the day. Social Hx: Lives with , daughter and grandchildren live upstairs from them Health History/Diabetes Pathophysiology Problem list/health history reviewed: yes Type of diabetes: Diabetes mellitus Type 2 Patient aware of diagnosis and able to state type of diabetes: yes Diagnosed approximately: age 34 Identifies type of diabetes, basic pathophysiology of their diabetes, and components of treatment plan.[Diabetes Pathophysiology and Treatment] Comprehends brady points, Reinforcement given Instruction/education/reinforcement topics today included: components of treatment plan Taking Medications Safely and Effectively Diabetes Medications: Reviewed with Kari today Diabetes medications managed by: Dr. [place] Missing medication doses: Yes. But less often, keeps written log Medication type, amount, frequency/timing: Toujeo Max 76 units Ozempic 1 mg on Monday Humsabas fisher ever only takes for higher carb meals 10 - 15 units Metformin 1000 mg twice a day Insulin Assessment: using insulin pens, using abdomen, not using new needle each time Able to state diabetes related medication(s) and dose(s). Able to report method of action and potential common side effects. Able to evaluate effectiveness of their medication(s). Using safely without missing doses. [Taking Medications] Needs reinforcement, Reinforcement given Able to report correct procedures for: dosing and injecting insulin (or taking via patch or pump), care/storage of insulin, injection sites/rotation, insulin timing, disposal of sharps. [Taking Medications] Needs reinforcement, Reinforcement given Instruction/education/reinforcement topics today included: medication timing, medication method(s) of action, strategies to remember doses or keep track of medications Prevent, Detect, and Treat; Acute and Chronic Complications Complications related to patient's diabetes: Yes Neuropathy Patient reports recent illness or injury: No Hypoglycemia Is patient considered at risk for hypoglycemia: yes Does patient... feel they are having issues with hypoglycemia lately: yes know the symptoms of low blood sugar reactions: yes confirm glucose with BG meter or CGM when feels low: yes have episodes when hypoglycemic unaware/asymptomatic: no carry something to treat low blood sugar: yes have glucagon if at risk for severe low blood sugar: no Hyperglycemia Does patient... feel they are having issue with frequent hyperglycemia: no know what to do if blood sugar is running high: partially, reviewed today Preventative Care (Patient Reported) At least yearly visit with primary care: yes At least yearly eye exam: yes. Date of last: reports it was recently Getting routine dental care: yes Getting recommended vaccines in conjunction with PCP or local pharmacy: yes Foot care Patient having any issues with self-foot care and nail clipping: Yes. Arthritis, neuropathy Doing daily foot checks: yes Seeing a machinist set up: no Patient able to report sick day plan and/or aware of potential impact of illness on blood sugars: partially, reviewed today Identifies acute and chronic risks of diabetes. Identifies ways to prevent, detect, and treat acuteand chronic complications. Able to list potential symptoms of hyper/hypoglycemia (as relevant). Able to describe actions for lowering high blood sugar levels and how to treat low blood sugar (as relevant). Able to identify sick day and/or back up plan. Understands importance of pre- planning (as relevant) [Acute Complications, Chronic Complications] Comprehends brady points, Reinforcement given Instruction/education/reinforcement topics today included: relationship between blood sugar levels and long-term complications, risks of hyperglycemia, risks of hypoglycemia Incorporating Healthy Eating Food Recall: Food allergies/intolerance/restrictions for health reasons: no Some days only eats one meal a day Not a big eater Likes egg on toast Does not like whole grains Likes green and yellow beans Does not like nuts, yogurt, cottage cheese B: coffee early in the morning L: today had orzo in chicken broth with granddaughter D: last night had two slices of leftover pizza, other times hamburger with corn, usually makes a protien and a non starchy vegetable with a starch Sn: watermelon Beverages: cran grape, gingerale at supper time, not drinking water often but has been told to increase Alcohol: no Who does most of the cooking?: shared How many times per week does the patient have take-out/go to a restaurant?: Able to describe impact of amount, type, and timing of food on glucose levels. Able to identify personal influences, obstacles, and solutions to incorporating balanced meal plan into lifestyle. [Healthy Eating] Needs reinforcement, Reinforcement given Instruction/education/reinforcement topics today included: meal planning Incorporating Being Active Has COPD, is no longer on oxygen Limitations: Yes. COPD Experiencing hypoglycemia with exercise: no Able to state impact of physical activity on blood glucose levels. Verbalizes need for exercise andprecautions to take. Able to incorporate being active into lifestyle. [Being Active] Not applicable Instruction/education/reinforcement topics today included: none needed Monitoring Glucose Interpreting Health Data for Self-Management Decision Making and Problem Solving LABS: A1c at initial/[facility] visit: 7 A1c at final/[facility] visit: to be determined, program in progress; A1c improvement during program: N/A Lab Results Component Value Date CMUL9RTJI 7.6 (*) 04/02/2024 CQFI7KXRV 7.0 (*) 09/02/2022 GHBA1C 6.8 (H) 01/02/2024 GHBA1C 6.7 (H) 10/02/2023 GHBA1C 7.3 (H) 06/06/2023 Lab Results Component Value Date GLU 113 (H) 09/16/2024 GLU 130 (H) 06/04/2024 GLU 144 (H) 03/05/2024 Lab Results Component Value Date CHOL 120 09/16/2024 HDL 45 09/16/2024 LDL 36 (L) 09/16/2024 TRIG 197 (H) 09/16/2024 CHOLHDL 2.7 (L) 09/16/2024 EGFR Date Value Ref Range Status 09/16/2024 36 (L) >59 mL/min/1.73m2 Final Comment: Estimated glomerular filtration rate calculated using the CKD-EPI refit equation. Lab Results Component Value Date MALBCRE 78.1 (H) 01/19/2023 GRMALB 2.5 (H) 01/19/2023 BP Readings from Last 3 Encounters: 03/12/25 120/70 11/11/24 106/56 11/08/24 (P) 122/70 Weights 03/12/25 1140 100.7 kg (222 lb) Office Visit on 03/12/2025 11/11/24 1446 107 kg (236 lb) Office Visit on 11/11/2024 11/08/24 1435 107 kg (236 lb) Office Visit on 11/08/2024 09/16/24 0955 106.6 kg (235 lb) Office Visit on 09/16/2024 07/30/24 1120 110.4 kg (243 lb 6.4 oz) Office Visit on 07/30/2024 06/04/24 1111 111.1 kg (245 lb) Nutrition on 06/04/2024 06/04/24 1015 110.7 kg (244 lb) Office Visit on 06/04/2024 04/02/24 1311 114.3 kg (252 lb) Office Visit on 04/02/2024 02/14/24 1101 114.3 kg (252 lb) Office Visit on 02/14/2024 01/30/24 1327 112.5 kg (248 lb) Office Visit on 01/30/2024 Estimated body mass index is 40.34 kg/m?? as calculated from the following: Height as of 03/12/25: 158 cm (5' 2.21 ). Weight as of 03/12/25: 100.7 kg (222 lb). CGM: Dexcom G6 CGM site reviewed: no CGM site change done: no Alarms: reviewed, low alert is on if at risk for hypoglycemia: yes Using fastener sewing machine operator/reader: no Using clarisse(s) on phone: yes Blood Glucose Meter/CGM Download: see scanned documents Downloads reviewed with patient and scanned into EMR Downloads show she is having a lot of low blood sugars overnight for a prolonged period of time. Has been treating with coffee. Reviewed how to treat low blood sugars with a quick carb. Discussed with Bre who suggested reducing insulin to 68 units. Demonstrates ability to monitor blood glucose and knows how to use results (via glucometer, CGM, and/or labs as relevant). Identifies recommended blood glucose/A1c targets and personal targets. [Monitoring Glucose] Comprehends brady points, Reinforcement given Instruction/education/reinforcement topics today included: glucose targets, A1c target Lifestyle for Healthy Coping, Recognizing Diabetes Distress and Support Options Reports feeling stressed: yes Reports stress surrounding diabetes diagnosis or management: Yes. Trying to remember to take insulin Patient able to identify support network and/or stress management techniques they find helpful: yes Sleep: does not sleep well, is now taking tramadol and is helping with sleep DSMES Support Plan (accessible community or personal resource utilized between visits): using CGM consistently and making adjustments based on patterns Able to recognize diabetes related distress and support options. Able to identify coping and stressmanagement skills and adapt to lifestyle. [Lifestyle and Healthy Coping, Diabetes Distress, SupportOptions] Comprehends brady points, Reinforcement given Instruction/education/reinforcement topics today included: impact of stress on blood sugar and diabetes self care, impact of sleep on blood sugars Functional Health Literacy and Numeracy Able to demonstrate functional health literacy and numeracy regarding diabetes [e.g., able to understand and interpret glucose targets, A1C target, carb awareness, carb counting, carb choices etc. asrelevant. [Health Literacy and Numeracy] Comprehends brady points, Reinforcement given Problem Solving and Behavioral Changes Patient Selected Behavioral Goal(s) and SMART action plan(s) Can state diabetes self-management treatment goals and strategies to reach goals. At least 1 patient-selected behavior goal with SMART action plan created/evaluated in flowsheets. Comprehends brady points, Reinforcement given yes Patient selected Behavioral Objectives/Goals are identified separately in the Documentation Flowsheets Activity using the flowsheet Diabetes Education Behavioral Objectives in order to be easily accessible in one aggregated location and comparable across time. Education plan based on patient's individual concerns and needs. Education plan reviewed with patient and patient agreeable to plan. Will continue to monitor/reassess together at each visit. Potential barriers: None known Instruction method: Individual Education Plan: Individual Follow-Up Written Materials Provided: N/A Patient Demonstrated: good understanding through teach back Recommendations/Plan: Diabetes Medications: Reduce your Toujeo Max to 68 units Monitoring blood sugar: Continue to use Dexcom Nutrition: Try to eat at least three meals a day to ensure you are eating enough You could do the egg and toast in the morning In the middle of the day you could do leftovers, or sandwich on whole wheat bread with the carrot sticks you like Try drinking water during the day Healthy sleep, coping, and stress management habits: Continue to work on sleep Recommend Appointment with: Lease Out Worker/ANIMAL SHELTER CLERK Please bring your blood sugar meter and any written food or blood sugar logs to every appointment. Follow up: With Sunitha in 6 months [Diabetes Education: EXT-C visit] Calling sooner as needed Time spent with Patient: 60 minutes. See scanned document. Visit Type: EXT-IP * Jory Valderrama MD - 04/29/2025 2:00 PM EDT Subject Line: Provider Attestation I have reviewed the notes, assessments, and/or procedures performed by Sunitha Norah, I concur with her/his documentation of Kari Galavn. documented in this encounter Plan of Treatment Upcoming Encounters Date Type Department Care Team (Late st Contact Info) Description 05/20/2025 9:30 AM EDT Office Visit [facility] [address] [place] [address] [address] Floor, [address] [place] [address] Hermila Kaufman DNP [address] [place] [id number] 06/13/2025 9:20 AM EDT Office Visit [facility] [address] [place] [address] [place] [address] Yashira Cordova PA-C [address] [place] [phone] 07/02/2025 9:40 AM EDT Office Visit [facility] [address] [place] [address] [place] [address] Renetta Monique MD, MPH [address] [place] [address], [address] [place] [address] 09/17/2025 10:40 AM EST Office Visit [facility] [address] [place] [address] [place] [address] Yashira Cordova PA-C [address] [place] [phone] 11/05/2025 11:00 AM EST Nutrition [facility] [address] [place] [address] Sunitha Almazan LDN [address] [place] [phone] 12/17/2025 10:20 AM EDT Office Visit [facility] [address] [place] [address] Marifer Garay MD [address] [place] [phone] documented as of this encounter Visit Diagnoses Diagnosis Type 2 diabetes mellitus with diabetic polyneuropathy, with long-term current use of insulin- Primary documented in this encounter Care Teams Media Marketing Director Relationship Specialty Start Date End Date Juan Escoto MD [address] [place] [address] [address] [place] [phone] PCP - General Internal Medicine 06/16/22 documented as of this encounter Additional Source Comments The information contained in this document represents components of the legal health record. It is not the complete legal health record.[facility]
[2025-05-09 11:31] VITALS: BP 116/42; PULSE 63; O2SAT 95; BMI 41.0
--- NOTE | 2025-05-09 11:31 | A.OFFPC_ITS ---
Vital Signs 05/09/25 11:31 Height 5 ft 1 in Weight 217 lb 4 oz BMI 41.0 BP 116/42 L Blood Pressure Location Lt brachial Position Sitting Pulse 63 Pulse Oximetry (%) 95 Oxygen Delivery Method Room Air Intake Visit Reasons: Atrial fibrillation Log Chipper Required: No Accompanied by: Self / Same As Patient Allergies adalimumab (Humira) Allergy (Unknown, Verified 05/09/25 12:00) Unknown alprazolam Allergy (Unknown, Verified 05/09/25 12:00) swelling amlodipine Allergy (Unknown, Verified 05/09/25 12:00) swelling etanercept (Enbrel) Allergy (Unknown, Verified 05/09/25 12:00) Unknown fluticasone (From Wixela Inhub) Allergy (Unknown, Verified 05/09/25 12:00) Unknown hydrochlorothiazide Allergy (Unknown, Verified 05/09/25 12:00) hives salmeterol (From Wixela Inhub) Allergy (Unknown, Verified 05/09/25 12:00) Unknown simvastatin Allergy (Unknown, Verified 05/09/25 12:00) Unknown codeine Adverse Reaction (Intermediate, Verified 05/09/25 12:00) Nausea and Vomiting roflumilast (From Daliresp) Adverse Reaction (Intermediate, Verified 05/09/25 12:00) Nausea Medication List - Last Reconciled 05/09/25 by Tess Chang PA-C acetaminophen ER (Tylenol Arthritis Pain) 1,300 mg PO TID albuterol sulfate 2.5 mg (3 mL) inhalation Q4-6H PRN albuterol sulfate 90 mcg/actuation 2 puffs inhalation Q6H PRN ascorbate calcium (vitamin C) 500 mg PO DAILY aspirin (Adult Low Dose Aspirin) 81 mg PO DAILY blood-glucose,boiler welder,cont (Ovonyx G6 Rerecording Mixer) As directed blood-glucose sensor (Ovonyx G6 Sensor device) USE DIRECTED. blood-glucose transmitter (Ovonyx G6 Transmitter device) USE DIRECTED cephalexin 500 mg PO QID 5 days cholecalciferol (vitamin D3) 25 mcg PO DAILY duloxetine 120 mg (2 x 60 mg) PO DAILY 30 days lbmdvlrcmqy-blersqhlf-pniirufw 200-62.5-25 mcg (Trelegy Ellipta) 1 inh inhalation DAILY furosemide 60 mg PO BID gabapentin 300 mg PO Q8H 90 days hydralazine 25 mg PO BID insulin aspart U-100 (Novolog FlexPen U-100 Insulin aspart) 17 units subcut TID levothyroxine 125 mcg PO DAILY losartan 100 mg PO DAILY 90 days magnesium aspart,citrate,oxide 400 mg PO .QD melatonin 10 mg PO BEDTIME metformin 500 mg PO BID metformin 500 mg PO BID 90 days metoprolol tartrate 25 mg PO BID 90 days miconazole nitrate 2% (Zeasorb AF) 1 appl topical DAILY pantoprazole 40 mg PO BID 90 days pen needle, diabetic (BD Ultra-Fine Short Pen Needle) As directed inject using insulin 5 x a day rosuvastatin 40 mg PO DAILY 90 days semaglutide (Ozempic) 1 mg subcut QWEEK sennosides-docusate sodium 8.6-50 mg (Senna-S) 1 tab-cap PO BEDTIME tramadol 50 mg PO DAILY triamcinolone acetonide 0.5% 1 appl topical BID vitamin B complex 1 tab PO Q OTHER DAY Tobacco use date assessed: 05/09/25 Fall risk assessment: No Falls in past year Last assessed Fall Risk: 05/09/25 Dental Screening Dental Screen Date: 05/09/25 Did you have a dental visit in the last 12 months?: Yes Did you have a dental problem in the last 6 months where you did not have access to dental care?: No Was dental information given to patient?: Patient has dentist HPI Atrial fibrillation HPI Details 65 year old morbidly obese female with d iabetes mellitus hypercholesterolemia COPD hypothyroid hypertension history of CVA coronary artery disease generalized anxiety disorder coming in for follow-up last seen by Dr. Escoto 12/2024 coming in for follow up. Presenting with the management of multiple chronic conditions, including a rthritis, type 2 diabetes mellitus, and atrial fibrillation. The patient is under the care of Dr. Gilma Monique, an arthritis specialist, and has been prescribed Cosentyx, which she feels is not effective. Her follow-up appointment was delayed from March to June, causing dissatisfaction. The patient was previously on metformin 1000 mg twice daily, but due to low blood sugar levels, the dosage was reduced to 500 mg twice daily. Her recent A1c was in the 5s, indicating good glycemic control. The patient had a small occurrence of atrial fibrillation detected during a month-long heart monitoring. She is currently not on blood thinners, only taking aspirin, and has declined the Watchman procedure despite recommendations. And is also declining blood thinners. Psoriasis and Eczema: The patient reports a history of psoriasis with pustules and eczema, for which she has used topical steroids in the past. She experiences cracking and throbbing in her hands, which she associates with stress. [facility] Medical History Cellulitis of right leg Open wound, lower leg SOB (shortness of breath) Upper GI hemorrhage Closed left ankle fracture Psoriatic arthritis History of paroxysmal supraventricular tachycardia Tobacco abuse Osteoarthritis Hypertension Diabetic nephropathy Psoriasis Diabetic neuropathy Hypothyroid Obesity COPD (chronic obstructive pulmonary disease) Hypercholesterolemia Type 2 diabetes mellitus with hyperglycemia Surgical History History of carotid angioplasty H/O cardiac radiofrequency ablation History of cataract surgery History of throat surgery History of parathyroidectomy History of thyroidectomy History of ankle surgery H/O left wrist surgery History of eye surgery History of appendectomy History of cholecystectomy History of section Family History Father Prostate cancer Mother Ovarian cancer Paternal Grandmother Breast cancer Social History Household Members: Spouse Household Members Other:: El[place] Housing: House Do you presently have visiting nurse or other home services: No Alcohol intake: never Patient Tobacco Use Status: Former Tobacco user Tobacco use type: Cigarette Years Smoked: 48 e-Cigarette/Vaping Use: Never Used Second Hand Smoke Exposure: Yes Substance Use Type: Marijuana service: No Current occupational status: disabled Cognitive needs: Yes (using portable oxygen) Hearing needs: No Vision needs: Yes (Glasses) Questionnaire PHQ-9 Over the last 2 weeks, how often have you been bothered by any of the following problems? 1. Little interest or pleasure in doing things: not at all 2. Feeling down, depressed, or hopeless: not at all 3. Trouble falling or staying asleep, or sleeping too much: not at all 4. Feeling tired or having little energy: not at all 5. Poor appetite or overeating: not at all 6. Feeling bad about yourself - or that you are a failure or have let yourself or your family down: not at all 7. Trouble concentrating on things, such as reading the newspaper or watching television: not at all 8. Moving or speaking so slowly that other people could have noticed. Or the opposite - being so fidgety or restless that you have been moving around a lot more than usual: not at all 9. Thoughts that you would be better off or of hurting yourself in some way: not at all Total score: 0 Depression Screening Interpretation: Negative Depression Screening Done: Yes Source: Developed by Drs. Guy Gibson, Rupali Carroll, Trey Hughes and colleagues, with an educational milton from [employer]. Thrive Questionnaire Date Thrive assessed: 02/14/25 I am a: Patient What is your living situation today?: I have a steady place to live Within the past 12 months, did the food you bought not last and you didn't have the money to get more?: Never true Within the past 12 months, did you worry whether your food would run out before you got money to buy more?: Never true Do you have trouble paying for medicines?: No Do you have trouble getting transportation to medical appointments?: No Do you have trouble paying your heating and electricity bill?: No Do you have trouble taking care of your child, family member or friend?: No Do you have trouble with day-to-day activities such as bathing, preparing meals, shopping, managing finances, etc.?: I choose not to answer this question Are you currently unemployed and looking for a job?: No Are you interested in more education?: No Please select the resources that you would like help with: None Currently or been in a relationship where the following occur: No concerns reported THRIVE Score: 0 AUDIT C Alcohol Use Questionnaire (AUDIT-C) 1. How often do you have a drink containing alcohol?: Never 3. How often do you have six or more drinks on one occasion?: Never Total Score: 0 PATITO-7 AMB Questionnaire PATITO-7 Date PATITO - 7 assessed: 05/09/25 Feeling nervous, anxious, or on edge: 2 = More than half the days Not being able to stop or control worryin = Not at all Worrying too much about different things: 0 = Not at all Trouble relaxin = Several days Being so restless that it is hard to sit still: 0 = Not at all Becoming easily annoyed or irritable: 1 = Several days Feeling afraid as if something awful might happen: 3 = Nearly every day Total PATITO-7 score (0-4 normal; 5-9 mild; 10-14 moderate; 15-21 severe): 7 Source: Developed by Drs. Guy Gibson, Rupali Carroll, Trey Hughes and colleagues, with an educational milton from [employer]. PATITO-7 Assessment Billing PATITO-7 Assessment Tool: PATITO-7 Assessment 81227 Review of Systems Const Denies body aches, Denies chills, Denies fever(s), Denies headache(s) and Denies poor appetite Eyes Reports no additional complaints ENT Denies dizziness and Denies headache(s) Card Denies chest pain, Denies syncope, Denies edema, Denies irregular heart rhythm, Denies lightheadedness and Denies dyspnea Resp Denies cough and Denies dyspnea GI Denies abdominal pain, Denies constipation, Denies diarrhea, Denies nausea and Denies vomiting Reports no additional complaints Musc Reports no additional complaints and Denies abnormal gait Skin/Breast Reports system reviewed and no additional complaints, except as documented Neuro Denies abnormal gait, Denies dizziness, Denies syncope and Denies headache(s) Psych Reports no additional complaints Physical exam (Primary Care) Vital Signs: Last Vital Signs Pulse 63 05/09/25 11:31 BP 116/42 L 05/09/25 11:31 Pulse Ox 95 05/09/25 11:31 Oxygen Delivery Method Room Air 05/09/25 11:31 BMI result Body Mass Index 41.0 Tobacco/Smoking Status: Tobacco use Status Tobacco use date assessed 05/09/25 05/09/25 11:56 Patient Tobacco Use Status Former Tobacco user 05/09/25 11:32 Tobacco use type Cigarette 05/09/25 11:32 e-Cigarette/Vaping Use Never Used 05/09/25 11:32 PHQ-9: PHQ-9 Score PHQ-9: Total score 0 05/09/25 11:56 Depression Screening Interpretation: Negative Thrive Assessment: Date of Thrive Assessment Date Thrive assessed 02/14/25 05/09/25 11:32 Currently or been in a relationship where the following occur: No concerns reported Const General: cooperative, healthy appearing, comfortable and no acute distress Orientation/consciousness: patient oriented x3 HENMT Head: Yes normocephalic Ears: hearing grossly normal bilaterally General nose exam: Normal external nose present Eyes General: appearance normal, both eyes and all related structures Conjunctivae: conjunctivae normal Neck Neck: Yes full ROM and Yes no lymphadenopathy Resp Effort & Inspection: normal respiratory effort Auscultation: clear to auscultation bilaterally, no crackles, no rales, no rhonchi and no wheezes Cardio Rate: regular rate Rhythm: regular rhythm Skin Other: Dry skin dermatitis of bilateral palms of the hands with areas of open skin and cracking Neuro General: patient oriented x3 Gait exam (Neuro): Normal gait present Extrem General: Yes normal to inspection, Yes full ROM and No edema Psych Affect: normal affect Attitude: cooperative Insight: Good insight present (Psych) Judgement: Good judgement present (Psych) Results AMB Hemoglobin A1c AMB Hemoglobin A1c 5.9 % Last Edit by Libby Posadas CMA on 05/09/25 11:44 Results Reviewed Results Reviewed: Laboratory Last Values Hgb A1c (Clinic) 5.9 % (4.0-6.0) 05/09/25 11:42 Coding Level of Care Code Est Pt Level 4 (90991) Diagnoses Essential hypertension I10 Hypertension type: essential hypertension Coronary artery disease I25.10 Atrial fibrillation I48.91 Hypercholesterolemia E78.00 Type 2 diabetes mellitus with hyperglycemia, with long-term current use of insulin E11.65; Z79.4 Diabetes mellitus custodial insulin use: with terminal press operator use Panlobular emphysema J43.1 COPD type: emphysema Emphysema type: panlobular Dermatitis L30.9 Additional Codes PATITO-7 Assessment Billing - PATITO-7 Assessment Tool: PATITO-7 Assessment 55219 ([id number]) Assessment & Plan Assessment & Plan (1) Hypertension: Code(s): I10 - Essential (primary) hypertension Category: Medical Qualifiers: Hypertension type: essential hypertension Qualified Code(s): I10 - Essential (primary) hypertension Plan: Continue on current blood pressure medication. Avoid salt intake and encourage healthy diet and regular exercise. (2) Coronary artery disease: Comment: January 2021 Code(s): I25.10 - Atherosclerotic heart disease of [place] coronary artery without angina pectoris Category: Medical Plan: Continue with management of cholesterol, blood pressure and blood sugars. Continue on ASA daily and continue to follow with cardiology. (3) Atrial fibrillation: Code(s): I48.91 - Unspecified atrial fibrillation Category: Medical Plan: Continue to follow with cardiology and not currently on anticoagulation. On rate control with metoprolol and continue to follow with cardiology. (4) Hypercholesterolemia: Comment: January 2023 Code(s): E78.00 - Pure hypercholesterolemia, unspecified Category: Medical Plan: Avoid foods that are high in cholesterol such as red meat, fried foods, eggs and baked goods. Triglyceride goal of less than 150 and LDL goal of less than 70. Continue on Rosuvastatin 40 (5) Type 2 diabetes mellitus with hyperglycemia: Comment: [facility] 05/2023 Code(s): E11.65 - Type 2 diabetes mellitus with hyperglycemia Category: Medical Qualifiers: Diabetes mellitus custodial insulin use: with custodial use Qualified Code(s): E11.65 - Type 2 diabetes mellitus with hyperglycemia; Z79.4 - terminal press operator (current) use of insulin Plan: Decrease the amount of carbohydrates such as pasta, bread, rice, and potatoes and limit the amount of sweets. Although fruits are generally healthy they should be eaten in moderation as they are still high in sugar. Hemoglobin A1c goal of less than 7% and A1c at goal today. Continue on current medication and continue to follow with endocrinology. (6) COPD (chronic obstructive pulmonary disease): Code(s): J44.9 - Chronic obstructive pulmonary disease, unspecified Category: Medical Qualifiers: COPD type: emphysema Emphysema type: panlobular Qualified Code(s): J43.1 - Panlobular emphysema Plan: She is no longer on supplemental oxygen and does not feel shortness of breath and continues to use the Trelegy. She is declining pulmonology referral and feels good at this time. Rarely uses rescue inhaler. (7) Dermatitis: Code(s): L30.9 - Dermatitis, unspecified Category: Medical Plan: Patient having dry skin dermatitis of bilateral hands with cracking in the areas of open skin. There is likely some degree of psoriasis is also affecting her hands. Plan to use steroid cream in the morning and Aquaphor/Eucerin at bedtime to work as a barrier cream. Patient is concerned because there are areas of open skin and she is having a throbbing pain. I did discuss I do not think the area looks infected however with the weekend coming patient is concerned she may not be able to have antibiotics if it becomes red or painful. I reviewed with the patient what cellulitis looks like and I plan to send prescription to pharmacy to be used only if needed if patient should develop skin infection. Patient agrees and she will follow up if she has to start the medication. Plan During the visit, we discussed the management of the patient's arthritis, diabetes, and atrial fibrillation. The patient expressed dissatisfaction with the current arthritis treatment and the delay in her follow-up appointment. We reviewed her diabetes management, noting her well-controlled A1c levels, and adjusted her metformin dosage accordingly. We also discussed her atrial fibrillation, the decision to decline the Watchman procedure, and the plan to consult a new cutting machine operator helper. Additionally, we addressed her skin conditions, prescribing topical steroids and emollients for her psoriasis and eczema. Finally, we adjusted her levothyroxine dosage based on recent thyroid function tests. This note was constructed using voice recognition software. While every effort has been made to ensure accuracy and plant utilities engineer, still areas may have been included sometimes these areas may affect the content or meeting of the given symptoms. Total time spent caring for the patient today was 20 minutes. This includes time spent before the visit reviewing the chart, time spent during the visit, and time spent after the visit and documentation. Patient was informed and verbally consented to the use of an ambient scribe for clinic note documentation during this visit. Orders: Orders Lipid Panel Today E78.00 - Pure hypercholesterolemia, unspecified Vitamin B12 and Folate Today Z13.21 - Encounter for screening for nutritional disorder AMB Hemoglobin A1c Today Z13.9 - Encounter for screening, unspecified Vitamin D 25-OH Total Today Z13.21 - Encounter for screening for nutritional disorder Medications: New metformin 500 mg PO BID 180 tabs 0RF 90 days cephalexin 500 mg PO QID 20 caps 0RF 5 days Refilled pantoprazole 40 mg PO BID 180 tabs 3RF 90 days K25.0 - Acute gastric ulcer with hemorrhage triamcinolone acetonide 0.5% 1 appl topical BID 15 grams 0RF L30.9 - Dermatitis, unspecified
--- OUTSIDE RECORDS SUMMARY | 2025-05-09 12:27 | XMS_ITS | Encounter Summary ---
Author Organization [facility] Address [address] [place] [id number] Phone Care Team Providers Care Health And Wellness Sales Consultant Name Role Phone Juan Escoto MD Primary Care Provider [phone] Encounter Details Date Type Department Care Team (Late st Contact Info) Description 06/16/2022 Procedure Pass [facility] [address] [place] [address] Social History Tobacco Use Types Packs/Day Years Used Date Smoking Tobacco: Former Cigarettes Q uit: 01/10/2020 Smokeless Tobacco: Never Comments Unknown Sex and Gender Information Value Date Recorded Sex Assigned at Female 02/12/2023 1:52 PM EDT Legal Sex Female 9:49 PM EDT Gender Identity Female 02/12/2023 1:52 PM EDT Sexual Orientation Straight 02/12/2023 1: 52 PM EDT documented as of this encounter Plan of Treatment Upcoming Encounters Date Type Department Care Team (Late st Contact Info) Description 05/20/2025 9:30 AM EDT Office Visit [facility] [address] [place] [address] [address]rd Floor, [address] [place] [address] Hermila Kaufman, JOHNNIE 22 [facility], [address] [address] 06/13/2025 9:20 AM EDT Office Visit [facility] [address] [place] [address] [place] [address] Yashira Cordova PA-C [address] [place] [address] 07/02/2025 9:40 AM EDT Office Visit [facility] [address] [place] [address] Renetta Monique MD, MPH [address] [place] [address], [address] [place] [address] 09/17/2025 10:40 AM EST Office Visit [facility] [address] [place] [address] Yashira Cordova PA-C [address] [place] [address] 11/05/2025 11:00 AM EST Nutrition [facility] [address] [place] [address] Sunitha Almazan LDN [address] [place] [address] 12/17/2025 10:20 AM EDT Office Visit [facility] [address] [place] [address] Marifer Garay MD [address] [place] [address] documented as of this encounter Visit Diagnoses Not on filedocumented in this encounter Care Teams Health And Wellness Sales Consultant Relationship Specialty Start Date End Date Juan Escoto MD [address] [place] [address] Drive [address] [place] [phone] PCP - General Internal Medicine 06/16/22 documented as of this encounter Additional Source Comments The information contained in this document represents components of the legal health record. It is not the complete legal health record.[facility]
--- OUTSIDE RECORDS SUMMARY | 2025-05-09 12:27 | XMS_ITS | Encounter Summary ---
Author Organization [facility] Address [address] [place] [address] Phone Care Team Providers Care Coffin Maker Name Role Phone Juan Escoto MD Primary Care Provider [phone] Encounter Details Date Type Department Care Team (Late st Contact Info) Description 07/18/2023 Procedure Pass [facility], Ct Scan - [address] [address] Social History Tobacco Use Types Packs/Day Years [...] PM EDT documented as of this encounter Functional Status * Calculated C-SSRS Risk Score (Lifetime/Recent) Answer Date of Assessment Author No Risk Indicated 07/18/2023 5:14 PM Rocio Davison RN * [place] Suicide Severity Rating Scale (Screener/Recent Self-Report) Question Answer Date of Assessment Author 1. Wish to be (Past 1 Month) No 07/18/2023 5:14 PM Rocio Davison RN 2. Non-Specific Active Suici jessica Thoughts (Past 1 Month) No 07/18/2023 5:14 PM Reji Davison RN 6. Suicidal Behavior (Lifetime) No 5:14 PM Rocio Davison RN documented as of this encounter Plan of Treatment Upcoming Encounters Date Type Department Care Team (Late st Contact Info) Description 05/20/2025 9:30 AM EDT Office Visit [facility] [address] [place] [address] [address]rd Floor, [address] [place] [address] Hermila Kaufman, JOHNNIE [address] [place] [address], [address] [address] 06/13/2025 9:20 AM EDT Office Visit [facility] [address] [place] [address] [place] [address] Yashira Cordova PA-C [address] [place] [address] 07/02/2025 9:40 AM EDT Office Visit [facility] [address] [place] [address] [place] [address] Renetta Monique MD, MPH 22 [facility], [address] [place] [address] 09/17/2025 10:40 AM EST Office Visit [facility] [address] [place] [address] Yashira Cordova PA-C [address] [place] [address] 11/05/2025 11:00 AM EST Nutrition [facility] [address] [place] [address] Sunitha Almazan LDN [address] [place] [address] 12/17/2025 10:20 AM EDT Office Visit [facility] [address] [place] [address] Marifer Garay MD [address] [place] [address] documented as of this encounter Visit Diagnoses Not on filedocumented in this encounter Care Teams Coffin Maker Relationship Specialty Start Date End Date Juan Escoto MD [address] [place] [address] Drive [address] [place] [phone] PCP - General Internal Medicine 06/16/22 documented as of this encounter Additional Source Comments The information contained in this document represents components of the legal health record. It is not the complete legal health record.[facility]
--- OUTSIDE RECORDS SUMMARY | 2025-05-09 12:27 | XMS_ITS | Encounter Summary ---
Author Organization [facility] Address [address] [place] [phone] Phone Care Team Providers Care Weed Thinner Name Role Phone Juan Escoto MD Primary Care Provider [phone] Encounter Details Date Type Department Care Team (Late st Contact Info) Description 07/18/2023 Procedure [facility], Ct Scan - [address] [address] Social History Tobacco Use Types Packs/Day Years [...] 07/18/2023 5:14 PM Rocio Davison RN * Moody Suicide Severity Rating Scale (Screener/Recent Self-Report) Question [...] Description 05/20/2025 9:30 AM EDT Office Visit [facility] [address] [place] [address] [address]rd Floor, [address] [place] [id number] Hermila Kaufman, JOHNNIE [address] [place] [address], [address] [address] 06/13/2025 9:20 AM EDT Office Visit [facility] [address] [place] [address] [place] [address] Yashira Cordova PA-C [address] [place] [address] 07/02/2025 9:40 AM EDT Office Visit [facility] [address] [place] [address] [place] [address] Renetta Monique MD, MPH [address] [facility], [address] [place] [address] 09/17/2025 10:40 AM EST Office Visit [facility] [address] [place] [address] Yashira Cordova PA-C [address] [place] [address] 11/05/2025 11:00 AM EST Nutrition [facility] [address] [place] [address] Sunitha Almazan LDN [address] [place] [address] 12/17/2025 10:20 AM EDT Office Visit [facility] [address] [place] [address] Mariefr Garay MD [address] [place] [phone] documented as of this encounter Visit Diagnoses Not on filedocumented in this encounter Care Teams Weed Thinner Relationship Specialty Start Date End Date Juan Escoto MD [address] [place] [address] Drive [address] [place] [id number] PCP - General Internal Medicine 06/16/22 documented as of this encounter Additional Source Comments The information contained in this document represents components of the legal health record. It is not the complete legal health record.[facility]
--- OUTSIDE RECORDS SUMMARY | 2025-05-09 12:27 | XMS_ITS | Clinical Summary ---
Author Organization [facility] Address [address] [place] [phone] Phone Care Team Providers Care Poultry Boner Name Role Phone Juan Escoto MD Primary Care Provider [phone] Allergies Active Allergy Reactions Criticality Noted Date Comments Alprazolam Swelling 05/23/2023 Amlodipine Swelling 05/23/2023 Codeine 01/09/2021 Roflumilast Nausea and/or Vomiting 05/23/2023 Etanercept 05/23/2023 Adalimumab 05/23/2023 Hydrochlorothiazide Hives 05/23/2023 Leflunomide Myalgia 04/02/2024 Other Rash Low 01/08/2014 Tegaderm. Tegaderm. Biologics medications Simvastatin 05/23/2023 Fluticasone Propion-Salmeterol 05/23/2023 Medications losartan (COZAAR) 100 MG tablet Take 100 mg by mouth daily. 05/13/20 22 Active pantoprazole (PROTONIX) 40 MG tablet Take 40 mg by mouth 2 (two) times a day. 05/24/20 22 Active hydrALAZINE (APRESOLINE) 25 MG tablet Take 25 mg by mouth 2 (two) times a day. Active gabapentin (NEURONTIN) 300 MG capsule Take 300 mg by mouth 3 (three) times a day. Active metoprolol tartrate (LOPRESSOR) 25 MG tablet Take 25 mg by mouth 2 (two) times a day. 06/03/20 22 Active melatonin 10 mg Tab Take 10 mg by mouth daily. Active rosuvastatin (CRESTOR) 40 MG tablet Take 40 mg by mouth daily. 06/03/20 22 Active albuterol 90 mcg/actuation inhaler Inhale 2 puffs into the lungs every 6 (six) hours as needed. Active ascorbic acid, vitamin C, (VITAMIN C) 500 mg Chew Take 500 mg by mouth daily. Active cholecalciferol, vitamin D3, 25 mcg (1,000 unit) capsule Take 1,000 Units by mouth daily. Active DULoxetine (CYMBALTA) 60 MG capsule Take 120 mg by mouth daily. Active ferrous sulfate 325 mg (65 mg assin[place] and gros ventre tribes iron) tablet Take 325 mg by mouth 2 (two) times a week. Active diphenhydrAMINE (BENADRYL) 50 MG tablet Take 50 mg by mouth every 6 (six) hours as needed for itching. Active acetaminophen (TYLENOL) 650 MG CR tablet Take 650 mg by mouth every 8 (eight) hours as needed. 2 tablets every 8 hrs Active metFORMIN (GLUCOPHAGE) 1000 MG tablet 1,000 mg 2 (two) times a day with meals. 06/24/20 22 Active multivit-mineral- iron-lutein Tab Take by mouth. Active L.acid/L.casei/B. bif/B.sophia/FOS (PROBIOTIC BLEND ORAL) Take by mouth. Activ e aspirin 81 MG EC tablet Take 81 mg by mouth daily. Active traMADoL (ULTRAM) 50 mg tablet 25 mg nightly at bedtime. 12/15/19 24 Active BD INSULIN PEN NEEDLE UF SHORT 31 gauge x 01/24 Ndle 1 each. 03/11/20 24 Active blood-glucose meter,continuous (DEXCOM G7 MARINE PIPEFITTER HELPER) MiscIndications:T ype 2 diabetes mellitus with diabetic polyneuropathy, with long-term current use of insulin by Miscellaneous route as needed. 1 each 04/02/20 24 Active NOVOLOG FLEXPEN U-100 INSULIN 100 unit/mL (3 mL) flexpen 10-20 units 1-3 times daily 04/02/20 24 Active blood-glucose sensor (DEXCOM G7 SENSOR) Ju by Miscellaneous route. Active furosemide (LASIX) 20 MG tabletIndications :Chronic diastolic (congestive) heart failure Take 3 tablets (60 mg total) by mouth 2 (two) times a day. 30 mg BID 540 tablet 3 06/26/20 24 Active TRELEGY ELLIPTA 100-62.5-25 mcg inhalation powderIndications :Simple chronic bronchitis,Shortn ess of breath,Former smoker INHALE ONE PUFF INTO LUNGS DAILY 60 each 11 11/04/19 25 Active semaglutide (OZEMPIC) 1 mg/dose (4 mg/3 mL) subcutaneous injection penIndications:Ty pe 2 diabetes mellitus with diabetic polyneuropathy, with long-term current use of insulin INJECT 1MG UNDER THE SKIN EVERY 7 DAYS DIRECTED 3 mL 3 12/21/19 25 Active COSENTYX 150 mg/mL subcutaneous injection syringeIndication s:Psoriatic arthritis INJECT 1 SYRINGE UNDER THE SKIN EVERY 4 WEEKS 1 mL 3 03/11/20 25 Active DEXCOM G7 SENSOR DeviIndications:T ype 2 diabetes mellitus with diabetic polyneuropathy, with long-term current use of insulin APPLY ONE SENSOR EVERY 10 DAYS 3 each 03/17/20 25 Active levothyroxine (SYNTHROID, LEVOTHROID) 125 MCG tabletIndications :Postoperative hypothyroidism 1 tablet, orally, six days/week, skip 1 day/week, or as directed 78 tablet 1 05/05/20 25 Active insulin glargine U-300 (TOUJEO MAX U-300 SOLOSTAR) 300 unit/mL (3 mL) subcutaneous injection penIndications:Ty pe 2 diabetes mellitus with peripheral neuropathy Inject 78 Units under the skin daily. 90 mL 1 05/08/20 25 Active levothyroxine (SYNTHROID, LEVOTHROID) 137 MCG tablet Take 137 mcg by mouth as directed. TAKE ONE TAB BY MOUTH SIX DAYS A WEEK AND SKIP THE SEVENTH DAY 05/01/20 22 025 Discontin ued(Dose adjustmen t) insulin glargine U-300 (TOUJEO MAX U-300 SOLOSTAR) 300 unit/mL (3 mL) subcutaneous injection penIndications:Ty pe 2 diabetes mellitus with peripheral neuropathy Inject 78 Units under the skin daily. 90 mL 1 03/12/20 25 025 Discontin ued(Reord er) Active Problems Problem Noted Date Diagnosed Date High risk medication use 11/11/2024 Overview (11/11/2024): Patient reports h/o false pos PPD / TB testing Assessment & Plan (11/11/2024 3:49 PM EST): Baseline labs and CXR prior to possible biologic agent; written information on secukinumab and risankizumab provided for patient review today. Hyperalgesia 11/11/2024 Assessment & Plan (11/11/2024 3:50 PM EST): Proximal left tibia, possible l-spine origin but plain film ordered to r/o localized bony pathology rat exterminator current use of insulin 07/31/2024 Assessment & Plan (07/31/2024 9:09 AM EST): Will lower toujeo dosing to help prevent over night hypoglycemia Long-term (current) use of i njectable non-insulin antidiabetic drugs 07/31/2024 Assessment & Plan (07/31/2024 9:09 AM EST): Will maintain ozempic dosing rat exterminator current use of oral hypoglycemic drug 07/31/2024 Assessment & Plan (07/31/2024 9:09 AM EST): Will maintain metformin dosing Right rotator cuff tendinitis 01/30/2024 Assessment & Plan (11/11/2024 3:48 PM EST): Symptomatic benefit following 01/2024 steroid injection waned after backstroke with her grandson; baseline plain film ordered. Will repeat injection on next f/u pending x-ray findings and clinical course. Assessment & Plan (01/30/2024 4:48 PM EDT): Steroid injection today as detailed in procedure note Psoriatic arthritis 10/19/2023 Overview (11/11/2024): Co-morbid OA and peripheral neuropathy Onset of pustular psoriasis in her 30s Failed methotrexate Etanercept trial resulted in worsening of psoriasis Adalimumab trial effective for joint pain but resulted in severe generalized psoriasis Leflunomide trial spring / summer 2023 - not tolerated due to LE myalgias and mild LFT elevation Plain films 10/2023 FINDINGS/IMPRESSION: Right hand: Possible erosions in the third MCP joints. Moderate degenerative changes of the first CMC joint. Nonspecific foci of soft tissue calcification about the second PIP joint and third MCP joint. No acute fracture. Left hand: No discrete erosions. Nonspecific foci of the articular calcification about the first IP joint and third DIP joint. No acute fracture. Assessment & Plan (11/11/2024 3:47 PM EST): Active disease with respect to both skin and joints; risk of further evolution of secondary OA. Reviewed general tx options with patient today, both biologic and non-biologic. After discussion, she is amenable to trial of non-TNF biologic e.g. secukinumab or risankizumab. Assessment & Plan (01/30/2024 4:50 PM EDT): Patient understandably prefers to avoid further biologics. She is amenable to trial of leflunomide. She will request recent labs for my review prior to leflunomide start. We discussed that there are relatively few non-biologic tx options; these include leflunomide, hydroxychloroquine, apremilast, and sulfasalazine. High burden of co-morbid non-inflammatory joint pain in context of polyarticular OA and peripheral neuropathy. Assessment & Plan (10/19/2023 11:11 AM EST): No current clear pattern of inflammatory joint pain or joint amenable to diagnostic arthrocentesis today. Will obtain plain films of hands and feet bl. D/w patient and her daughter that biologics other than anti-TNF agents could be considered, but are riskier in context of co-morbid medical conditions, specifically CAD hx, insulin-dependent DM, and O2-dependent COPD. Would avoid tofacitinib given entire clinical picture. Would favor IV over SC to permit wt-based dosing. Discussed leflunomide as a potential option; ideally would have complete healing of RLE wound prior to leflunomide start. Written information on psoriatic arthritis and leflunomide provided for patient review today. Psoriasis 10/19/2023 Polyarthralgia 10/19/2023 Assessment & Plan (10/19/2023 11:12 AM EST): Ddx includes neuropathic pain and polyarticular OA; note no acutely swollen joint and no pattern s/o inflammatory arthritis. Coronary artery calcification seen on CAT scan 0 02/13/2023 Assessment & Plan (02/13/2023 1:42 PM EDT): Patient had the CT scan which showed severe coronary artery calcification. Patient has symptoms of shortness of breath which could be mostly due to COPD and chronic diastolic heart failure but we will do a dobutamine stress test make sure there is no angina equivalent and benefits of dobutamine stress echo including arrhythmias were explained to patient and she agreed Class 3 severe obesity due t o excess calories with serious comorbidity and body mass index (BMI) of 45.0 to 49.9 in adult 11/10/2022 Assessment & Plan (11/10/2022 3:08 PM EST): Risk factor for endometrial cancer Former smoker 10/20/2022 Assessment & Plan (10/20/2022 11:27 AM EST): Recommend lung cancer screening CT. Patient is agreeable to this. Postmenopausal bleeding 10/18/2022 Assessment & Plan (10/18/2022 1:58 PM EST): We reviewed episode of vaginal bleeding X 1-2 days two months ago, possible reasons and rationale for further evaluation as precaution given risk factors for endometrial cancer. Will schedule u/s followed by MD visit/EMB if indicated. Kari agrees, strongly prefers female provider and getting as much information as possible with next visit. Type 2 diabetes mellitus wit h hyperglycemia, with long-term current use of insulin 09/02/2022 Dyspnea 06/16/2022 Assessment & Plan (01/19/2023 3:22 PM EDT): Patient does have some evidence of pulmonary hypertension on the CT. Last echocardiogram was reported as no pulmonary hypertension. However I do not see any mention of a tricuspid regurgitation jet. I wonder if that was presumptive statement all whether or not they were really able to calculate the RVSP. I do not know whether or not will be helpful to have a right heart cath to accurately measure her pulmonary pressures. She probably has a component of diastolic heart failure. Will defer to her tracer powder blender Dr. Horner who she will be seeing on the . If she does have a right heart cath I wonder if she would be a good candidate for CardioMEMS device. Assessment & Plan (06/16/2022 11:42 AM EDT): She has history of dyspnea for a long time lately she said her dyspnea has been getting a bit worse its not think that she needs to go to the emergency room. She suddenly feels it at rest or on exertion is using her oxygen and her inhalers. Has no additional edema in her feet she has no PND she is already on a diuretic will order a NT pro BNP and echocardiogram for LV function assessment make sure she is not in decompensated heart failure Chronic diastolic (congestive) heart failure 02/2022 Assessment & Plan (06/16/2022 11:44 AM EDT): She was being followed by outside tracer powder blender every 3 months for echocardiography in 2020 revealed normal systolic function shortness of breath will get a NT pro BNP and repeat the echocardiogram. Benign essential hypertension 06/16/2022 Assessment & Plan (03/12/2025 5:04 PM EDT): Appears well controlled. Assessment & Plan (06/16/2022 11:45 AM EDT): Her blood pressure is well controlled 130/70 she will continue her present regimen with losartan and metoprolol and furosemide she is also on hydralazine she is not complaining of any side effects. Hyperlipidemia LDL goal <70 06/16/2022 Assessment & Plan (04/02/2024 1:16 PM EDT): Controlled. LDL 31 mg/dL continue rosuvastatin 40 mg daily. Assessment & Plan (01/02/2024 1:39 PM EDT): Controlled. LDL 31 mg/dL. Continue rosuvastatin 40 mg. Assessment & Plan (10/02/2023 3:13 PM EST): Controlled. LDL 31 mg/dL continue rosuvastatin 40 mg Assessment & Plan (06/19/2023 3:03 PM EDT): Controlled. LDL 31 mg/dL continue rosuvastatin 40 mg no changes required. Assessment & Plan (03/08/2023 4:17 PM EDT): Controlled. LDL 31 mg/dL I will continue rosuvastatin 40 mg. Assessment & Plan (09/02/2022 12:21 PM EST): On 11/30/2021 LDL was 87 mg/dL she needs to be less than 70 mg/dL. She is currently on rosuvastatin 40 mg. She states that she had other lipid panels done in June but I do not have those results. In the meantime she should continue rosuvastatin 40 mg I requested a repeat lipid panel. She may need ezetimibe if her LDL is not less than 70 mg/dL. Assessment & Plan (06/16/2022 11:46 AM EDT): History of hyperlipidemia being treated with rosuvastatin. She will have follow- up with PCP with lipid profile and LFTs. COPD (chronic obstructive pulmonary disease) 02/2022 Assessment & Plan (01/19/2023 3:20 PM EDT): Continue with prednisone 5 mg daily. Continue with the Trelegy. Patient had a severe reaction to Daliresp. Will not resume. Assessment & Plan (10/20/2022 11:26 AM EST): Recommend continue O2. Recommend dropping the prednisone down to 7.5 mg daily. Would change Spiriva to Trelegy inhaler. I will also add Daliresp to her regimen as she has 3-4 exacerbations requiring azithromycin a year. We will try to obtain previous pulmonary function test. We will hold off on any further pulmonary rehab for now. Did recommend consistency with exercise. Assessment & Plan (06/16/2022 11:47 AM EDT): She has advanced COPD and she is on prednisone 10 mg daily with multiple inhalers. Is also on oxygen. Being followed by commercial solar sales consultant. History of bleeding peptic ulcer 06/16/2022 Assessment & Plan (06/16/2022 11:48 AM EDT): Reviewed her hospital record which showed Bleeding peptic ulcer I put it and it made my diagnosis just to remind myself that we will be very careful with giving anticoagulation in case if she ever needs it. Type 2 diabetes mellitus with peripheral neuropa thy Assessment & Plan (03/12/2025 5:05 PM EDT): Control appears quite good. Some lows fasting, advised to lower dose of basal insulin. Will do labs. To call if hasn't heard from us within 1-2 weeks. Continue to work on eating healthy & keeping active. To call or send in BG with problems with glycemic control. Up to date with [facility]o. Foot & nail care good. Assessment & Plan (11/11/2024 8:24 AM EST): Control continues to improve based upon the patient's Dexcom G7 download. No frequent or severe hypoglycemia. She has an occasional low, she is not sure of the cause. She will correct and then is fine. Discussed increasing the ozempic to 1 mg a week to help with the post prandial spikes. Will increase her ozempic to 1 mg, she will lower her glargine to 80 units when she starts the higher dose of ozempic. She will keep an eye on her novolog dosing but understands will need less when using the higher dose of ozempic. Continue to work on eating healthy and being active. To call or message with any issues managing her glucose levels. Up to date with [facility] Labs to be done next week with PCP Assessment & Plan (07/31/2024 9:08 AM EST): Control is reasonable based upon the patient's dexcom G7 download. She is still having a low of over night lows even since the lowering of her insulins. She will correct with milk or cereal and this is fine. Reviewed how to treat and prevent hypoglycemia. Will lower her insulin further to help prevent the lows. Continue to work on eating healthy and trying to be active. To call or message with any issues managing her glucose levels. Up to date with [facility]. Labs were done with PCP Assessment & Plan (04/02/2024 1:31 PM EDT): Uncontrolled. Glucose levels average 188 mg/dL I have increased the Toujeo from 80 to 100 units. Continue Humalog the same 20 units with meals. I have added Ozempic 0.25 mg for the first 4 weeks and then increase to 0.5 mg thereafter if tolerating. She has no contraindications such as pancreatitis or medullary thyroid carcinoma. I did explain that could be associated with nausea but it does get better. It can also be associated with constipation diarrhea or vomiting. If she vomits she is probably not can to be able to tolerate this medication. She should repeat hemoglobin A1c and other lab work fasting prior to the follow-up visit. Assessment & Plan (01/02/2024 1:37 PM EDT): Fair control. GMI 7.2% but only 65% in range. She is having postprandial hyperglycemia I advised her to increase lispro to 20 units with each cup of coffee which is like a meal. Also 20 units for lunch and 20 units for dinner. Continue Toujeo 80. Return for follow-up in 3 months repeat hemoglobin A1c prior to the visit. Assessment & Plan (10/02/2023 3:12 PM EST): Uncontrolled. I think one of the issues is that she forgets to take the insulin sometimes and when she remembers that she may take it late after the fact which can result in hypoglycemia postprandially if we are talking about NovoLog to fast acting insulin. As for the basal insulin if she forgets to take the evening dose then it can upset everything the following day. I checked the EMR and apparently Toujeo which is a long-acting insulin is preferred so she can take 80 units of Toujeo in the morning and this will help with glycemic control and the forgetfulness she will have to bother doing an evening dose. But she will have to still administer NovoLog before the meal not after the fact. I will give her a follow-up appointment in 3 months. Assessment & Plan (06/19/2023 3:02 PM EDT): Fair control. Hemoglobin A1c has gone up to 7.3%. She is spiking a little better after breakfast and lunch and occasionally at dinner. I asked her to increase the NovoLog to 17 units with each meal just continue the Basaglar the same and repeat hemoglobin A1c prior to the follow-up visit in 3 months. Assessment & Plan (03/08/2023 4:17 PM EDT): Uncontrolled. Her hemoglobin A1c is 6.9% but is falsely low due to anemia. Her CGM shows that she is only 66% in range and she needs to be at 70% in range for good glycemic control. The average glucose is 158 mg/dL and usually if she does not do poorly is set up in the middle of the night because she tends to snack with ice cream and usually has 2 cups of ice cream which is 72 g this is the equivalent of 1 meal and if she has that she needs to administer 15 units of insulin. Further other snacks like to 20 g of ezequiel crackers she probably should administer 10 units of NovoLog. She has Fritos an undisclosed amount and I will say to administer 10 units for this as well. Patient return for follow-up in 3 months because she is technically not controlled. Assessment & Plan (09/02/2022 12:17 PM EST): Uncontrolled. Unfortunately it was difficult to determine what her glycemic levels are because we cannot download the Dexcom CGM. She does not have all the passwords to her phones. And I cannot tell what target ranges she has selected. I do not know how much of her glucose levels are in target range. During the visit her glucose level was low down to 52 mg/dL she was treated with 16 g of glucose tablets and her glucose levels increased to 62 mg/dL. So she was getting an additional 4-hour glucose tablets or 16 g of glucose so that she can make it home safely. At this point I am not going to make any changes to her regimen. But it does appear that she is having hypoglycemia. She states that this does not normally occur because she is mostly home and so if she sees a trend down on glucose levels she will just eat. At this point I really need to get the CGM information in order to be able to help her. Some not making any changes.The patient has current severe hypoglycemia. There is significant concern hypoglycemic seizures which can be potentially fatal. I reemphasized to the patient that the use of insulin is high risk therapy that requires intensive monitoring for toxic effects (hypoglycemia, metabolic decompensation) due to the narrow therapeutic index of the medication and other factors (such as age, acute renal insufficiency, variable appetite and use of steroids) therefore close monitoring of blood sugar with regular review is paramount in the safe use of this medication. She will return for follow-up in 3 months Muscle weakness Assessment & Plan (03/12/2025 5:06 PM EDT): ? Related to weight loss/GLP1 vs other. Advised increase protein intake, keep physically active, ideally w/ some strength training. Advised to address w/ PCP/rheumatology as well. Will check labs. Postoperative hypothyroidism Assessment & Plan (03/12/2025 5:07 PM EDT): Given weight loss, will check TFTs & adjust rx as appropriate. Encounters Date Type Department Care Team Description 05/08/2025 Refill [facility] [address] [place] [address] [place] [address] Pebbles Montilla MA 05/05/2025 Orders Only [facility] [address] [place] [id number] Marifer Garay MD Postoperative hypothyroidism (Primary Dx) 04/29/2025 2:00 PM EDT Nutrition [facility] [address] [place] [address] [place] [address] Sunitha Almazan LDN Type 2 diabetes mellitus with diabetic polyneuropathy, with long-term current use of insulin (Primary Dx) 04/29/2025 1:47 PM EDT - 04/29/2025 11:59 PM EDT Hospital Encounter [facility] [address] [place] [id number] Marifer Garay MD Discharge Disposition: Home or Self Care 03/17/2025 Refill [facility] [address] [place] [address] [place] [id number] Raffi [place], Medication Refill 03/12/2025 11:40 AM EDT Office Visit [facility] [address] [place] [address] Marifer Garay MD Type 2 diabetes mellitus with peripheral neuropathy (Primary Dx); Postoperative hypothyroidism; Long-term (current) use of injectable non-insulin antidiabetic drugs; long-term current use of oral hypoglycemic drug; rat exterminator current use of insulin; Benign essential hypertension; Muscle weakness 03/10/2025 Refill [facility] [address] [place] [address] Renetta Monique MD, MPH Medication Refill 03/10/[address] [address] Katy Gutierrez 03/03/2025 Telephone [facility] [address] [place] [address] Renetta Monique MD, MPH Medication Refill from Last 3 Months Immunizations Immunization Administration Dates Next Due Influenza Quadrivalent Prese rvative Free IM 07/07/2022,06/16/2021,06/19/2020,06/18,06/14/2018 Influenza Quadrivalent w/ Pr eservative IM 06/22/2017,05/27/2016 Pneumococcal polysaccharide PPSV23 12/21/2015 Tdap 06/17/2016 Zoster recombinant 09/19/2022,06/24/2022 Family History Medical History Relation Comments Cancer Father Hyperlipidemia Father Cancer Mother Hypertension Mother Pacemaker Mother Relation Status Comments Father prostate cancer, skin cancer Mother cancer age 40s - ? uterine or ovarian; pt will clarify Social History Tobacco Use Types Packs/Day Years Used Date Smoking Tobacco: Former Cigarettes Q uit: 01/10/2020 Passive Smoke Exposure: Never Smokeless Tobacco: Never Tobacco Cessation:Counseling Given: Not Answered Alcohol Use Standard Drinks/Week Comments Not Currently [...] Orientation Straight 02/12/2023 1: 52 PM EDT Last Filed Vital Signs Vital Sign Reading Time Taken Comments Blood Pressure 120/70 03/12/2025 11:40 AM EDT Pulse 67 03/12/2025 11:40 AM EDT Temperature 36.4 C (97.6 F) 01/02/2024 1:20 PM EDT Respiratory Rate 18 07/26/2023 8:29 PM EST Oxygen Saturation 95% 03/12/2025 11:40 AM EDT Inhaled Oxygen Concentration - - Weight 100.7 kg (222 lb) 03/12/2025 11:40 AM EDT Height 158 cm (5' 2.21 ) 03/12/2025 11:40 AM EDT Body Mass Index 40.34 03/12/2025 11:40 AM EDT Plan of Treatment Upcoming Encounters Date Type Department Care Team (Late st Contact Info) Description 05/20/2025 9:30 AM EDT Office Visit [facility] [address] [place] [address] 3rd Floor, [address] [place] [address] Hermila Kaufman, [facility] 22 [facility], [address] [place] [address] 06/13/2025 9:20 AM EDT Office Visit [facility] [address] [place] [address] Yashira Cordova PA-C [address] [place] [address] 07/02/2025 9:40 AM EDT Office Visit [facility] [address] [place] [address] Renetta Monique MD, MPH [address] [place] [address], [address] [place] [address] 09/17/2025 10:40 AM EST Office Visit [facility] [address] [place] [address] Yashira Cordova PA-C [address] [place] [address] 11/05/2025 11:00 AM EST Nutrition [facility] [address] [place] [address] Sunitha Almazan LDN [address] [place] [address] 12/17/2025 10:20 AM EDT Office Visit [facility] [address] [place] [address] Marifer Garay MD [address] [place] [address] Health Maintenance Due Date Last Done Comments DEPRESSION SCREENING 1972 SMOKING Hx and SMOKELESS TOBACCO SCREENING 1973 HIV ONE-TIME SCREENING (18-65 YEARS) 1978 MAMMOGRAM 2000 COLOGUARD 2005 COLONOSCOPY 2005 COLORECTAL CANCER SCREENING 2005 FIT TEST 2005 FOBT 2005 SIGMOIDOSCOPY 2005 VIRTUAL COLONOSCOPY 2005 PNEUMOCOCCAL VACCINES (50+ years) (2 of 2 - PCV) 12/20/2016 12/21/2015 DIABETIC EYE EXAM 09/02/2022 COVID-19 VACCINE ( season) 2024 06/17/2023, 06/15/2022, 08/02/2021, Additional history exists OSTEOPOROSIS SCREENING INITIAL (ONE-TIME) 2025 INFLUENZA VACCINE (#1) 2025 , 06/17/2023, 07/07/2022, Additional history exists BLOOD PRESSURE 09/12/2025 03/12/2025 HEMOGLOBIN A1C 10/30/2025 04/29/2025, 07/2 11/2023, 01/02/2024, Additional history exists CREATININE LEVEL 04/29/2026 04/29/2025, 02/2025, 06/04/2024, Additional history exists POTASSIUM LEVEL 04/29/2026 04/29/2025, 01/0 02/2025, 06/04/2024, Additional history exists TSH LEVEL 04/29/2026 04/29/2025 Adult Td,Tdap Booster 06/17/2026 06/17/2016 ZOSTER VACCINES Completed 09/19/2022, 06/24/2022 RSV VACCINE Completed 07/08/2023 HEPATITIS C SCREENING Completed 11/11/2024 HEPATITIS A VACCINES Aged Out No long er eligible based on patient's age to complete this topic HIB VACCINES Aged Out No longer eligi ble based on patient's age to complete this topic MENINGOCOCCAL VACCINES (ACWY) Aged Out No longer eligible based on patient's age to complete this topic MENINGOCOCCAL VACCINES (B) Aged Out N o longer eligible based on patient's age to complete this topic Medical Devices Not on file Procedures Procedure Name Priority Date/Time Associated Diagnosis Comments MICROALBUMIN/CREATININE RATIO, RANDOM URINE Routine 04/29/2025 2:01 PM EDT Type 2 diabetes mellitus with peripheral neuropathy FREE T3 Routine 04/29/2025 1:53 PM EDT FREE T4 Routine 04/29/2025 1:53 PM EDT ASPARTATE AMINOTRANSFERASE (AST) Routine 04/29/2025 1:53 PM EDT Type 2 diabetes mellitus with peripheral neuropathy HEMOGLOBIN A1C Routine 04/29/2025 1:53 PM EDT Type 2 diabetes mellitus with peripheral neuropathy TSH WITH REFLEX Routine 04/29/2025 1:53 PM EDT Type 2 diabetes mellitus with peripheral neuropathy Postoperative hypothyroidism ALANINE AMINOTRANSFERASE (ALT) Routine 04/29/2025 1:53 PM EDT Type 2 diabetes mellitus with peripheral neuropathy BASIC METABOLIC PANEL Routine 04/29/2025 1:53 PM EDT Type 2 diabetes mellitus with peripheral neuropathy VITAMIN B12 Routine 04/29/2025 1:53 PM EDT Type 2 diabetes mellitus with peripheral neuropathy HEPATITIS C ANTIBODY, QUALITATIVE Routine 11/11/2024 3:38 PM EST High risk medication use from Last 3 Months or Most Recently Relevant to Health Maintenance Results * Microalbumin/creatinine ratio, random urine (04/29/2025 2:01 PM EDT) URINE MICROALBUMIN 1.3 0 - 2.3 mg/dL [facility] URINE CREATININE 112 mg/dL [facility] MICROALB/CRE RATIO 11.6 0 - 20 mg/g Cre [facility] Urine (Urine) 04/29/2025 2:0 1 PM EDT 04/29/2025 2:02 PM EDT us Marifer Garay MD URINE ORDERABLES Final Result [facility] [address] [place] [address] * (ABNORMAL) TSH with reflex (04/29/2025 1:53 PM EDT) TSH 0.14(L) 0.27 - 4.20 uIU/mL [facility] Blood 04/29/2025 1:53 PM EDT 04/29/2025 1:58 PM EDT Marifer aGray MD LAB BLOOD ORDERABLES F inal Result [address] [address] * Free T3 (04/29/2025 1:53 PM EDT) FREE T3 2.8 2.0 - 4.4 pg/mL [facility] 04/29/2025 1:53 PM EDT 04/29/2025 1:58 PM EDT Marifer Garay MD LAB BLOOD ORDERABLES F inal Result Performing Organization Address [facility]/ZIP Co de Phone Number [address] [address] * Alanine aminotransferase (ALT) (04/29/2025 1:53 PM EDT) ALT 26 0 - 40 U/L [facility] Blood 04/29/2025 1:53 PM EDT 04/29/2025 1:58 PM EDT Marifer Garay MD LAB BLOOD ORDERABLES F inal Result Performing Organization Address City/[facility]/ZIP Co de Phone Number [address] [address] * Aspartate aminotransferase (AST) (04/29/2025 1:53 PM EDT) AST 34 0 - 37 U/L [facility] Blood 04/29/2025 1:53 PM EDT 04/29/2025 1:58 PM EDT Result Lázaro Garay MD LAB BLOOD ORDERABLES F inal Result Performing Organization Address [facility] Co de Phone Number [address] [address] * Free T4 (04/29/2025 1:53 PM EDT) FREE T4 1.3 0.9 - 1.7 ng/dL [facility] 04/29/2025 1:53 PM EDT 04/29/2025 1:58 PM EDT us Marifer Garay MD LAB BLOOD ORDERABLES F inal Result Performing Organization Address [facility] Co de Phone Number [address] [address] * Hemoglobin A1c (04/29/2025 1:53 PM EDT) HEMOGLOBIN A1C 5.6 4.3 - 5.8 % [facility] Blood 04/29/2025 1:53 PM EDT 04/29/2025 1:58 PM EDT Result Lázaro Garay MD LAB BLOOD ORDERABLES F inal Result Performing Organization Address [facility] Co de Phone Number [address] [address] * (ABNORMAL) Vitamin B12 (04/29/2025 1:53 PM EDT) VITAMIN B12 >2000(H) 232 - 1245 pg/mL [facility] Blood 04/29/2025 1:53 PM EDT 04/29/2025 1:58 PM EDT us Marifer Garay MD LAB BLOOD ORDERABLES F inal Result Performing Organization Address City/[facility] Co de Phone Number [address] [address] * (ABNORMAL) Basic metabolic panel (04/29/2025 1:53 PM EDT) SODIUM 138 133 - 146 mmol/L [facility] CHLORIDE 99 96 - 108 mmol/L [facility] POTASSIUM 4.9 3.3 - 5.1 mmol/L [facility] CO2 29 21 - 35 mmol/L [facility] BUN 32(H) 6 - 19 mg/dL [facility] CREATININE 1.70(H) 0.5 - 1.5 mg/dL [facility] GLUCOSE 147(H) 70 - 99 mg/dL [facility] CALCIUM 9.4 8.4 - 10.3 mg/dL [facility] EGFR 33(L) >59 mL/min/1.7 3m2 [facility] Comment:Estimated glomerular filtration rate calculated using the CKD-EPI refit equation. ANION GAP 15 10 - 20 mmol/L [facility] Blood 04/29/2025 1:53 PM EDT 04/29/2025 1:58 PM EDT us Marifer Garay MD LAB BLOOD ORDERABLES F inal Result Performing Organization Address [facility] Co de Phone Number [address] [address] * Hepatitis C antibody, qualitative (11/11/2024 3:38 PM EST) Pathologist [facility] HCV NON-REACTIV E NON-REACTI VE [facility] Blood 11/11/2024 3:38 PM EST 11/11/2024 3:40 PM EST us Renetta Monique MD, MPH LAB BLOOD ORDERABLES Fin al Result Performing Organization Address [facility] Co de Phone Number [address] [address] from Last 3 Months or Most Recently Relevant to Health Maintenance Insurance BLUE CROSS OUT OF STATE PPO BLUE CROSS OUT OF STATE PPO BLUE CROSS OUT OF STATE PPO BLUE CROSS OUT OF STATE PPO BLUE CROSS OUT OF STATE PPO BLUE CROSS OUT OF STATE PPO BLUE CROSS OUT OF STATE PPO BLUE CROSS OUT OF STATE PPO BLUE CROSS OUT OF STATE PPO Care Teams Poultry Boner Relationship Specialty Start Date End Date Juan Escoto MD [address] [place] [phone] PCP - General Internal Medicine 06/16/22 Additional Source Comments The information contained in this document represents components of the legal health record. It is not the complete legal health record.[facility]
--- OUTSIDE RECORDS SUMMARY | 2025-05-09 12:27 | XMS_ITS | Encounter Summary ---
Author Organization [facility] Address [address] [place] [address] Phone Care Team Providers Care Independent Living Instructor Name Role Phone Juan Escoto MD Primary Care Provider [phone] Encounter Details Date Type Department Care Team (Late st Contact Info) Description 05/05/2025 Orders Only [facility] Endocrinology [address] [phone] Marifer Garay MD [address] [place] [address] [phone] [email or web address] Postoperative hypothyroidism (Primary Dx) Social History Tobacco Use Types [...] Description 05/20/2025 9:30 AM EDT Office Visit [facility] [address] [place] [address] 3rd Floor, [address] [place] [address] Hermila Kaufman, JOHNNIE [address] [place] [address], [address] [address] 06/13/2025 9:20 AM EDT Office Visit [facility] [address] [place] [address] [place] [address] Yashira Cordova PA-C [address] [place] [address] 07/02/2025 9:40 AM EDT Office Visit [facility] Rheumatology [address] [place] [address] Renetta Monique MD, MPH [address] [place] [address], [address] [address] 09/17/2025 10:40 AM EST Office Visit [facility] [address] [place] [address] [place] [address] Yashira Cordova PA-C [address] [place] [address] 11/05/2025 11:00 AM EST [facility] [address] [place] [address] Sunitha Almazan LDN [address] [place] [address] 12/17/2025 10:20 AM EDT Office Visit [facility] [address] [place] [address] Marifer Garay MD [address] [place] [address] documented as of this encounter Visit Diagnoses Diagnosis Postoperative hypothyroidism- Primary Postsurgical hypothyroidism documented in this encounter Care Teams Independent Living Instructor Relationship Specialty Start Date End Date Jevon, Juan Finney MD [address] [place] [address] [address] [place] [phone] PCP - General Internal Medicine 06/16/22 documented as of this encounter Additional Source Comments The information contained in this document represents components of the legal health record. It is not the complete legal health record.[facility]
--- OUTSIDE RECORDS SUMMARY | 2025-05-09 12:27 | XMS_ITS | Encounter Summary ---
Author Organization [facility] Address [address] [place] [address] Phone Care Team Providers Care Frame Tender Name Role Phone Juan Escoto MD Primary Care Provider [phone] Encounter Details Date Type Department Care Team ([facility] st Contact Info) Description 03/10/2025 Telephone y prime [facility] [address] [place] [address] [email or web address] Social History Tobacco Use Types Packs/Day Years [...] Description 05/20/2025 9:30 AM EDT Office Visit [facility] [address] [place] [address] 3rd Floor, [address] [place] [address] Hermila Kaufman, JOHNNIE [address] [place] [address] 06/13/2025 9:20 AM EDT Office Visit [facility] [address] [place] [address] [place] [address] Yashira Cordova PA-C [address] [place] [address] 07/02/2025 9:40 AM EDT Office Visit [facility] Rheumatology [address] [place] [address] Renetta Monique MD, MPH [address] [place] [address], [address] [place] [address] 09/17/2025 10:40 AM EST Office Visit [facility] [address] [place] [address] Yashira Cordova PA-C [address] [place] [address] 11/05/2025 11:00 AM EST Nutrition [facility] [address] [place] [address] Sunitha Almazan LDN [address] [place] [address] 12/17/2025 10:20 AM EDT Office Visit [facility] [address] [place] [address] Marifer Garay MD [address] [place] [address] documented as of this encounter Visit Diagnoses Not on filedocumented in this encounter Care Teams Frame Tender Relationship Specialty Start Date End Date Juan Escoto MD [address] [place] [address] Drive [address] [place] [phone] PCP - General Internal Medicine 06/16/22 documented as of this encounter Additional Source Comments The information contained in this document represents components of the legal health record. It is not the complete legal health record.[facility]
--- OUTSIDE RECORDS SUMMARY | 2025-05-09 12:27 | XMS_ITS | Encounter Summary ---
Author Organization [facility] Address [address] [place] [address] Phone Care Team Providers Care Element Setter Name Role Phone Juan Escoto MD Primary Care Provider [phone] Encounter Details Date Type Department Care Team (Late st Contact Info) Description 05/08/2025 Refill [facility] [address] [place] [address] Pebbles [place], [place] [address] [email or web address] Social History Tobacco Use Types Packs/Day Years [...] PM EDT documented as of this encounter Progress Notes * Pebbles Montilla [place] - 05/08/2025 4:18 PM EDT Rx Care Gap Status - Instructions for Clinical Staff (prescriber discretion applies): > Mismatch review guide > N/a - No action needed Visit Info Last visit: 03/12/2025 Marifer Garay MD - Endocrinology [facility] > Requested f/u: Not specified Upcoming visit: 06/13/2025 Yashira Cordova PA-C - Endocrinology [facility] ACTIONS TAKEN BY Pebbles Montilla [place] - Criteria met. Diabetes Rx Protocol (on Diabetes Registry) - insulin glargine,hum.rec.anlog Criteria met; renew for up to 12 months. Visit in the past 14 months: Yes Clinical criteria: - BMP within past year: Yes - A1c within past 6 months: Yes - Lipid panel within past year: Yes (LDL 36 on 09/16/2024) - Urine microalbumin within past year or on NED/ARB: Yes Lab Results Component Value Date SODIUM 138 04/29/2025 POTASSIUM 4.9 04/29/2025 CHLORIDE 99 04/29/2025 CO2 29 04/29/2025 BUN 32 (H) 04/29/2025 CREATININE 1.70 (H) 04/29/2025 EGFR 33 (L) 04/29/2025 Lab Results Component Value Date CREATININE 1.70 (H) 04/29/2025 CREATININE 1.60 (H) 09/16/2024 CREATININE 1.30 06/04/2024 EGFR 33 (L) 04/29/2025 EGFR 36 (L) 09/16/2024 EGFR 46 (L) 06/04/2024 Lab Results Component Value Date HEMOGLOBIN A1C 5.6 04/29/2025 Hemoglobin A1c 7.6 (*) 04/02/2024 MICROALB/CRE RATIO 11.6 04/29/2025 URINE MICROALBUMIN 1.3 04/29/2025 Lab Results Component Value Date LDL 36 (L) 09/16/2024 HDL 45 09/16/2024 CARDIAC RISK RATIO 2.7 (L) 09/16/2024 TRIGLYCERIDES 197 (H) 09/16/2024 CHOLESTEROL 120 09/16/2024 documented in this encounter Plan of Treatment Upcoming Encounters Date Type Department Care Team (Late st Contact Info) Description 05/20/2025 9:30 AM EDT Office Visit [facility] [address] [place] [address] 3rd Floor, [address] [place] [address] Hermila Kaufman, JOHNNIE [address] [place] [address], [facility] [address] [place] [address] 06/13/2025 9:20 AM EDT Office Visit [facility] [address] [place] [address] [place] [address] Yashira Cordova PA-C [address] [place] [address] 07/02/2025 9:40 AM EDT Office Visit [facility] Rheumatology [address] [place] [address] [place] [address] Renetta Monique MD, MPH [address] [place] [address], [facility] [address] [place] [address] 09/17/2025 10:40 AM EST Office Visit [facility] [address] [place] [address] Yashira Cordova PA-C [address] [place] [address] 11/05/2025 11:00 AM EST Nutrition [facility] [address] [place] [address] Sunitha Almazan LDN [address] [address] 12/17/2025 10:20 AM EDT Office Visit [facility] [address] [place] [address] Marifer Garay MD [address] [place] [address] documented as of this encounter Visit Diagnoses Diagnosis Type 2 diabetes mellitus with peripheral neuropathy documented in this encounter Care Teams Element Setter Relationship Specialty Start Date End Date Juan Escoto MD [address] [place] [address] [address] [place] [phone] PCP - General Internal Medicine 06/16/22 documented as of this encounter Additional Source Comments The information contained in this document represents components of the legal health record. It is not the complete legal health record.[facility]
--- OUTSIDE RECORDS SUMMARY | 2025-05-09 12:27 | XMS_ITS | Encounter Summary ---
Author Organization [facility] Address [address] [place] [address] Phone Care Team Providers Care Supervisor Industrial Arts Education Name Role Phone Juan Escoto MD Primary Care Provider [phone] Encounter Details Date Type Department Care Team (Late st Contact Info) Description 01/02/2024 Procedure Pass Echo Lab Narend[address] [place] [address] Social History Tobacco Use Types Packs/Day Years [...] Description 05/20/2025 9:30 AM EDT Office Visit [facility] [address] [place] [address] 3rd Floor, [address] [place] [address] Hermila Kaufman DNP [address] [place] [address], [facility] [address] [place] [address] 06/13/2025 9:20 AM EDT Office Visit [facility] [address] [place] [address] Yashira Cordova PA-C [address] [place] [address] 07/02/2025 9:40 AM EDT Office Visit [facility] Rheumatology [address] [place] [address] [place] [address] Renetta Monique MD, MPH [address] [place] [address], [facility] [address] [place] [address] 09/17/2025 10:40 AM EST Office Visit [facility] [address] [place] [address] Yashira Cordova PA-C [address] [place] [address] 11/05/2025 11:00 AM EST Nutrition [facility] [address] [place] [address] Sunitha Almazan LDN [address] [place] [address] 12/17/2025 10:20 AM EDT Office Visit [facility] [address] [place] [address] [place] [address] Marifer Garay MD [address] [place] [address] documented as of this encounter Visit Diagnoses Not on filedocumented in this encounter Care Teams Supervisor Industrial Arts Education Relationship Specialty Start Date End Date Juan Escoto MD [address] [place] [address] [place] [phone] PCP - General Internal Medicine 06/16/22 documented as of this encounter Additional Source Comments The information contained in this document represents components of the legal health record. It is not the complete legal health record.[facility]
--- OUTSIDE RECORDS SUMMARY | 2025-05-09 12:27 | XMS_ITS | Clinical Summary ---
Author Organization [facility] Address [address] [facility] [address] [place] [address] Phone Care Team Providers Care Muck Boss Name Role Phone Juan Escoto MD Primary Care Provider [phone] Allergies Active Allergy Reactions Criticality Noted Date [...] 1 (one) time each day Active Tiotropium [place] Monohydrate 2.5 MCG/ACT aerosol solution Inhale 5 [...] Visual Foot Exam 03/28/2022 Influenza Vaccine (#1) 2025 Hepatitis B Vaccine Aged Out No longe r eligible based on patient's age to complete this topic Care Teams Muck Boss Relationship Specialty Start Date End Date Juan Escoto MD [facility] [address] [place] PCP - General Internal Medicine 01/26/22
--- OUTSIDE RECORDS SUMMARY | 2025-05-09 12:27 | XMS_ITS | Encounter Summary ---
Author Organization [facility] Address [address] [place] [address] Phone Care Team Providers Care Delivery Driver/Customer Service Name Role Phone Juan Escoto MD Primary Care Provider [phone] Encounter Details Date Type Department Care Team (Late st Contact Info) Description 06/14/2023 Ancillary Orders Non-Invasive Cardiology [address] [place] [address] Imtiaz Horner MD 22 [facility], [address] [place] [address] [email or web address] Social History Tobacco Use Types Packs/Day Years [...] with a working camera? Not on file Comments No Sex and Gender Information Value [...] Description 05/20/2025 9:30 AM EDT Office Visit [facility] [address] [place] [address] 3rd Floor, [address] [place] [address] Hermila Kaufman, JOHNNIE 22 [facility], [address] [place] [address] 06/13/2025 9:20 AM EDT Office Visit [facility] [address] [place] [address] Yashira Cordova PA-C [address] [place] [address] 07/02/2025 9:40 AM EDT Office Visit [facility] Rheumatology [address] [place] [address] Renetta Monique MD, MPH [address] [place] [address], [facility] [address] [place] [address] 09/17/2025 10:40 AM EST Office Visit [facility] [address] [place] [address] [place] [address] Yashira Cordova PA-C [address] [place] [address] 11/05/2025 11:00 AM EST Nutrition [facility] [address] [place] [address] Sunitha Almazan LDN 22 [facility], 1st [place] [address] 12/17/2025 10:20 AM EDT Office Visit [facility] [address] Marifer Garay MD [address] [place] [address] [email or web address] documented as of this encounter Visit Diagnoses Not on filedocumented in this encounter Care Teams Delivery Driver/Customer Service Relationship Specialty Start Date End Date Juan Escoto MD [address] [place] [address] [place] [phone] PCP - General Internal Medicine 06/16/22 documented as of this encounter Additional Source Comments The information contained in this document represents components of the legal health record. It is not the complete legal health record.[facility]
--- OUTSIDE RECORDS SUMMARY | 2025-05-09 12:27 | XMS_ITS | Encounter Summary ---
Author Organization [facility] Address [address] [place] [address] [place] [address] Phone Care Team Providers Care Medical Billing Clerk Name Role Phone Juan Escoto MD Primary Care Provider Encounter Details Date Type Department Care Team (Late st Contact Info) Description 06/14/2023 Ancillary Orders [facility] [address] [place] [address] 3rd Floor, [address] [place] [address] Imtiaz Horner MD [address] [place] [address], [address] [place] [address] [email or web address] Social History Tobacco Use Types Packs/Day Years [...] Description 05/20/2025 9:30 AM EDT Office Visit [facility] [address] [place] [address] 3rd Floor, [address] [place] [address] Hermila Kaufman, JOHNNIE 22 [facility], [address] [place] [address] 06/13/2025 9:20 AM EDT Office Visit [facility] [address] [place] [address] Yashira Cordova PA-C [address] [place] [address] 07/02/2025 9:40 AM EDT Office Visit [facility] [address] [place] [address] Renetta Monique MD, MPH [address] [place] [address], [facility] [address] [place] [address] 09/17/2025 10:40 AM EST Office Visit [facility] [address] [place] [address] [place] [address] Yashira Cordova PA-C [address] [place] [address] 11/05/2025 11:00 AM EST Nutrition [facility] [address] [place] [address] Sunitha Almazan, ZHANNA 22 [facility], 1st [place] [address] 12/17/2025 10:20 AM EDT Office Visit [facility] [address] [place] [address] Marifer Garay MD [address] [place] [address] documented as of this encounter Visit Diagnoses Not on filedocumented in this encounter Care Teams Medical Billing Clerk Relationship Specialty Start Date End Date Juan Escoto MD [address] [place] [address] [place] [phone] PCP - General Internal Medicine 06/16/22 documented as of this encounter Additional Source Comments The information contained in this document represents components of the legal health record. It is not the complete legal health record.[facility]
--- OUTSIDE RECORDS SUMMARY | 2025-05-09 12:27 | XMS_ITS | Clinical Summary ---
Author Organization [facility] Address [address] [place] [address] Care Team Providers Care Twisting Frame Changer Name Role Phone Unavailable Primary Care Provider [...] 0 01/18/2021 Active Insulin Pen Needle (Pen [place]) 33G X 4 MM MISC 1 each [...] 86 01/18/2021 11:45 AM EDT Temperature 37.1 C (98.7 F) 01/18/2021 11:45 AM EDT Respiratory Rate 16 01/18/2021 11:45 AM EDT [...] 2010 Shingrix-Zoster Vaccine (1 of 2) 2010 Fall Risk Assessment 2025 Osteoporosis Screening (DEXA Scan) 2025 Pneumococcal Vaccine (1 of 1 - PCV) 2025 Influenza Vaccine (#1) 2025 RSV Adult > 60+ Yrs or [...] this topic Medical Devices Explanted Type Area Box Toe Buffer Device Identifier Shelf Expiration Date Model / Serial / Lot Catheter Gold Probe 3.7mm 210cm 10fr 25ga Bipol Standard - [id number] - [id number] Explanted:Qty: 1 on 01/14/2021 at [facility] and [facility] [employer] JOSE [id number] 01/30/2021 [id number] / / [id number] Description:Not an implant Advance Directives For more information, please contact: [phone] Latest Code Status on File Code Status Date Activated Date Inactivated Comments Full Code 01/09/2021 9:56 PM 01/18/2021 8:21 PM This c ode status was ascertained in the following way: per documentation from prior hospital .
--- OUTSIDE RECORDS SUMMARY | 2025-05-09 12:27 | XMS_ITS | Encounter Summary ---
Author Organization [facility] Address [address] [place] [address] Care Team Providers Care Grinder Hand Name Role Phone Unavailable Primary Care Provider [...]
--- OUTSIDE RECORDS SUMMARY | 2025-05-09 12:27 | XMS_ITS | Clinical Summary ---
Author Organization [facility] Address [address] [place] [address] Phone Care Team Providers Care Skip Load Driver Name Role Phone Juan Escoto MD Primary Care Provider [phone] Allergies Active Allergy Reactions Criticality Noted Date Comments Adalimumab 2021 Codeine 01/09/2021 Makes Patient loopy Etanercept 2021 Medications insulin lispro (HumaLOG) 100 unit/mL injection Inject [...] each by Not Applicable route. 1 Active pantoprazole (PROTONIX) 40 mg EC tablet Take 1 tablet (40 mg total) by mouth 2 (two) times a day before meals. 180 each 3 5 02/10/20 26 Active Active Problems Problem Noted Date Diagnosed Date Shortness of breath 11/17/2023 Obesity 11/17/2023 Mixed hyperlipidemia 09/01/2021 Overview (11/17/2023): Last Assessment & Plan: Patient's PCP has recently switched her from atorvastatin to rosuvastatin. Goal LDL ideally <70 given her diabetes and underlying vascular disease. NSTEMI (non-ST elevated myoc ardial infarction) ([facility] V24, [facility] V28) 06/02/2021 Overview (11/17/2023): Demand mediated in [...] 02/25/2021 COPD (chronic obstructive pu lmonary disease) ([facility] V24, 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 V24, [facility] V28) 02/11/2021 Psoriatic arthritis ([facility] V24, [facility] V28) 0 02/11/2021 Osteoarthritis 02/11/2021 Hypothyroidism 02/11/2021 [...] 01/09/2021 Overview (11/17/2023): due to hemorrhagic shock Encounters Date Type Department Care Team Description 04/09/2025 9:40 AM EDT Office Visit [facility] [place] [address] [place] [address] Neena Gutierrez NP History of gastric ulcer (Primary Dx); Colonoscopy refused from Last 3 Months Surgical History Surgery Date Site/Laterality Comments SECTION PROCEDURE: HISTORICAL DELIVERY; COMMENT: x 2 CAROTID ENDARTERECTOMY 01/2021 Left PROCEDURE: HISTORICAL CAROTID ENDART OTHER SURGICAL HISTORY PROCEDURE: HISTORICAL SUBTOTAL THYROIDECTOMY ESOPHAGOGASTRODUODENOSCOPY PROCEDURE: [place] EGD TRANSORAL BIOPSY SINGLE/MULTIPLE; COMMENT: X2 at [facility] ESOPHAGOGASTRODUODENOSCOPY 04/02/2021 PROCEDURE: [place] ESOPHAGOGASTRODUODENOSCOPY TRANSORAL DIAGNOSTIC; COMMENT: complete resolution of previous gastric ulcer Medical History Medical History Date Comments H/O carotid stenosis DX:H/O yepez tid stenosis Thrombosis of arm, left 01/2021 DX:Throm bosis of arm, left COPD (chronic obstructive pu lmonary disease) ([facility] V24, [facility] V28) DX:COPD (chronic o bstructive pulmonary disease) ([facility]) HTN (hypertension) DX:HTN (hyper tension) Hypothyroidism DX:Hypothyroidis m Gastric ulcer with hemorrhage 01/09/2021 DX :Gastric ulcer with hemorrhage Psoriatic arthritis ([facility] V24, [facility] V28) DX:Psoriatic arthritis (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 V24, [facility] V28) DX:DM type 2 wit h diabetic peripheral neuropathy (HCC) Redness and swelling of upper arm DX:Redness and swelling of upper arm Expressive aphasia DX:Expressive aphasia Acute blood loss anemia DX:Acute blood loss anemia NSTEMI (non-ST elevated myoc ardial infarction) (CMS/HCC V24, CMS/HCC V28) DX:NSTEMI (non-ST elevated m yocardial infarction) ([facility]) Esophageal reflux DX:Esophageal reflux Cervical spondylosis without [...] Sign Reading Time Taken Comments Blood Pressure 100/50 04/09/2025 9:42 AM EDT Pulse 60 04/09/2025 9:42 AM EDT Temperature - - Respiratory Rate - - Oxygen Saturation 96% 04/09/2025 9:42 AM EDT Inhaled Oxygen Concentration - - Weight 101 kg (222 lb) 04/09/2025 9:42 AM EDT Height 157.5 cm (5' 2 ) 04/09/2025 9:42 AM EDT Body Mass Index 40.6 04/09/2025 9:42 AM EDT Plan of Treatment Health Maintenance Due Date Last Done Comments Breast Cancer Screening 1960 Diabetes: Annual Foot Exam 1970 Diabetes: Annual Retina Eye Exam 1970 Cervical Cancer Screening: Pap Smear 1981 Pneumococcal Vaccine: 50+ Years (2 of 2 - PCV) 12/20/2016 12/21/2015 Cholesterol Screening (Lipid Panel) 08/20/2022 Colorectal Cancer Screening: Colonoscopy 08/20/2022 Osteoporosis Screening (Bone Density Screening) 08/20/2022 Social Influencers of Health Screening 08/20/2022 Diabetes: Annual Urine Albumin-Creatinine Ratio (uACR) 01/20/2024 01/19/2023 COVID-19 Vaccine ( season) 2024 06/17/2023, 06/15/2022, 08/02/2021, Additional history exists Depression Screening 09/11/2024 Diabetes: Blood Sugar Control Test (HGBA1C) 10/03/2024 04/02/2024, 01/09/2021 Falls Risk Assessment 2025 Influenza Vaccine (#1) 2025 , 06/17/2023, 07/07/2022, Additional history exists Diabetes: Annual GFR (Glomerular Filtration Rate) 06/04/2025 06/04/2024, 03/05/2024, 01/30/2024, Additional history exists Hypertension/CHF/CAD Annual BMP Blood Test 06/04/2025 06/04/2024, 03/05/2024, 01/30/2024, Additional history exists DTaP,Tdap,and Td Vaccines (2 - Td or Tdap) 06/17/2026 06/17/2016 Zoster Vaccines Completed 09/19/2022, 06/24/2022 RSV Immunization Adult Patients Completed 07/08/2023 Hepatitis C Screening Completed 11/11/2024 HIB Vaccines Aged Out No longer eligi [...] on patient's age to complete this topic Insurance MEDICARE [facility] Advance Directives Documents on File Type Date Recorded Patient Admissions Supervisor Expl anation Health Care Decision (hx) 02/08/2021 [...] (hx) 09/29/2016 AD ANDRES DIRECTIVE Care Teams Skip Load Driver Relationship Specialty Start Date End Date Juan Escoto MD [address] [place] [address] [address] [facility] [place] [address] PCP - General Internal Medicine 01/12/21
--- OUTSIDE RECORDS SUMMARY | 2025-05-09 12:27 | XMS_ITS | Encounter Summary ---
Author Organization [facility] Address [address] [place] [address] Phone Care Team Providers Care Revenue Officer Name Role Phone Juan Escoto MD Primary Care Provider [phone] Encounter Details Date Type Department Care Team (Late st Contact Info) Description 10/19/2023 Ancillary Orders [facility] [address] [place] [address] Renetta Monique MD, MPH 22 [facility], [address] [place] [address] [email or web address] Psoriasis (Primary Dx); Polyarthralgia Social History Tobacco Use Types Packs/Day Years [...] Description 05/20/2025 9:30 AM EDT Office Visit [facility] [address] [place] [address] 3rd Floor, [address] [place] [address] Hermila Kaufman, JOHNNIE [address] [place] [address], [address] [address] 06/13/2025 9:20 AM EDT Office Visit [facility] [address] [place] [address] Yashira Cordova PA-C [address] [place] [address] 07/02/2025 9:40 AM EDT Office Visit [facility] Rhe[facility] [address] [place] [address] Renetta Monique MD, MPH [address] [place] [address], [address] [address] 09/17/2025 10:40 AM EST Office Visit [facility] [address] [place] [address] [place] [address] 11/05/2025 11:00 AM EST Nutrition [facility] [address] [place] [address] Sunitha Almazan LDN 22 [facility], [address] [place] [address] 12/17/2025 10:20 AM EDT Office Visit [facility] [address] [place] [address] Marifer Garay MD [address] [place] [address] documented as of this encounter Results * XR FOOT 3 OR MORE VIEWS (LEFT) (10/19/2023 11:31 AM EST) Anatomical Region Laterality Modality Foot Left Computed Radiogr aphy 10/21/2023 10:4 3 AM EST Impressions 10/21/2023 10:47 AM EST FINDINGS/IMPRESSION: Right hand: Possible erosions in the third MCP joints. Moderate degenerative changes of the first CMC joint. Nonspecific foci of soft tissue calcification about the second PIP joint and third MCP joint. No acute fracture. Left hand: No discrete erosions. Nonspecific foci of the articular calcification about the first IP joint and third DIP joint. No acute fracture. Right foot: Mild degenerative changes in the midfoot. Prominent Achilles enthesophyte. No definite erosions. No acute fracture. Left foot: Appearance of the fifth IP joint is most compatible with mild degenerative changes. No definite erosions. Achilles enthesopathy. Plantar calcaneal spur. No acute fracture. Narrative 10/21/2023 10:47 AM EST XR HAND 3 OR MORE VIEWS (BILATERAL), XR FOOT 3 OR MORE VIEWS (LEFT), XR FOOT 3 OR MORE VIEWS (RIGHT) Referring clinician's provided indication for this examination in Epic: Pain; psoriasis, ? Psoriatic arthritis COMPARISON: Procedure Note Cas Mendosa MD - 10/21/2023 XR HAND 3 OR MORE VIEWS (BILATERAL), XR FOOT 3 OR MORE VIEWS (LEFT), XRFOOT 3 OR MORE VIEWS (RIGHT) Referring clinician's provided indication for this examination in Epic:Pain; psoriasis, ? Psoriatic arthritis COMPARISON: IMPRESSION: FINDINGS/IMPRESSION: Right hand: Possible erosions in the third MCP joints. Moderatedegenerative changes of the first CMC joint. Nonspecific foci of softtissue calcification about the second PIP joint and third MCP joint. Noacute fracture. Left hand: No discrete erosions. Nonspecific foci of the articularcalcification about the first IP joint and third DIP joint. No acutefracture. Right foot: Mild degenerative changes in the midfoot. Prominent Achillesenthesophyte. No definite erosions. No acute fracture. Left foot: Appearance of the fifth IP joint is most compatible with milddegenerative changes. No definite erosions. Achilles enthesopathy. Plantarcalcaneal spur. No acute fracture. Renetta Monique MD, MPH IMG XR LOWER EXTREMITY F inal Result documented in this encounter Visit Diagnoses Diagnosis Psoriasis Other psoriasis Polyarthralgia Pain in joint, multiple sites Psoriasis- Primary Other psoriasis Polyarthralgia Pain in joint, multiple sites documented in this encounter Care Teams Revenue Officer Relationship Specialty Start Date End Date Juan Escoto MD [address] [place] [address] Drive [address] [place] [address] PCP - General Internal Medicine 06/16/22 documented as of this encounter Additional Source Comments The information contained in this document represents components of the legal health record. It is not the complete legal health record.[facility]
--- OUTSIDE RECORDS SUMMARY | 2025-05-09 12:27 | XMS_ITS | Encounter Summary ---
Author Organization [facility] Address [address] [place] [address] [place] [address] Phone Care Team Providers Care Dimension Stone Quarry Supervisor Name Role Phone Juan Escoto MD Primary Care Provider [phone] Encounter Details Date Type Department Care Team (Late st Contact Info) Description 10/20/2022 Procedure [facility], Ct Scan - [address] [address] Social History Tobacco Use Types Packs/Day Years Used Date Smoking Tobacco: Former Cigarettes Q uit: 01/10/2020 Passive Smoke Exposure: Never Smokeless Tobacco: Never Alcohol Use Standard Drinks/Week Comments Not Currently 0 (1 standard drink = 0.6 oz pur e alcohol) Comments No Sex and Gender Information Value [...] 05/20/2025 9:30 AM EDT Office Visit [facility] [address] [place] [address] 3rd Floor, [address] [place] [address] Hermila Kaufman, JOHNNIE 22 [facility], [address] [address] 06/13/2025 9:20 AM EDT Office Visit [facility] [address] [place] [address] Yashira Cordova PA-C [address] [place] [address] 07/02/2025 9:40 AM EDT Office Visit [facility] [address] [place] [address] Renetta Monique MD, MPH 22 [facility], [address] [place] [address] 09/17/2025 10:40 AM EST Office Visit [facility] [address] [place] [address] Yashira Cordova PA-C [address] [place] [address] 11/05/2025 11:00 AM EST Nutrition [facility] [address] [place] [address] Sunitha Almazan LDN [address] [place] [address] 12/17/2025 10:20 AM EDT Office Visit [facility] [address] [place] [address] Marifer Garay MD [address] [place] [address] documented as of this encounter Visit Diagnoses Not on filedocumented in this encounter Care Teams Dimension Stone Quarry Supervisor Relationship Specialty Start Date End Date Juan Escoto MD [address] [place] [address] Drive [address] [place] [address] PCP - General Internal Medicine 06/16/22 documented as of this encounter Additional Source Comments The information contained in this document represents components of the legal health record. It is not the complete legal health record.[facility]
--- OUTSIDE RECORDS SUMMARY | 2025-05-09 12:27 | XMS_ITS | Encounter Summary ---
Author Organization [facility] Address [address] [place] [address] [place] [address] Phone Care Team Providers Care Accounts Officer Name Role Phone Juan Escoto MD Primary Care Provider [phone] Encounter Details Date Type Department Care Team (Late st Contact Info) Description 11/01/2022 Procedure Pass [facility] [address] [place], [place] [id number] Social History Tobacco Use Types Packs/Day Years [...] Description 05/20/2025 9:30 AM EDT Office Visit [facility] [address] [place] [address] 3rd Floor, [address] [place], [place] [id number] Hermila Kaufman, JOHNNIE 22 [facility], [address] [place] [address] 06/13/2025 9:20 AM EDT Office Visit [facility] [address] [place] [address] [place] [address] Yashira Cordova PA-C [address] [place] [address] 07/02/2025 9:40 AM EDT Office Visit [facility] Rheumat[facility] [address] [place] [address] Renetta Monique MD, MPH 22 [facility], [address] [place] [address] 09/17/2025 10:40 AM EST Office Visit [facility] [address] [place] [address] Yashira Cordova PA-C [address] [place] [address] 11/05/2025 11:00 AM EST Nutrition [facility] [address] [place] [address] Sunitha Almazan LDN [address] [place] [address] 12/17/2025 10:20 AM EDT Office Visit [facility] [address] [place] [address] Marifer Garay MD [address] [place] [address] [address] [place] [address] documented as of this encounter Visit Diagnoses Not on filedocumented in this encounter Care Teams Accounts Officer Relationship Specialty Start Date End Date Juan Escoto MD [address] [place] [address] Drive [address] [place] [address] PCP - General Internal Medicine 06/16/22 documented as of this encounter Additional Source Comments The information contained in this document represents components of the legal health record. It is not the complete legal health record.[facility]
--- OUTSIDE RECORDS SUMMARY | 2025-05-09 12:27 | XMS_ITS | Encounter Summary ---
Author Organization Formerly [facility] Address [address] [place] [address] Phone Care Team Providers Care Shear Grinder Operator Helper Name Role Phone Juan Escoto MD Primary Care Provider [phone] Reason for Visit * Reason Comments Medication Refill Encounter Details Date Type Department Care Team (Late st Contact Info) Description 03/10/2025 Refill [facility] Rheumatology [address] [place] [address] Renetta Monique MD, MPH 22 [facility], [address] [place] [address] [email or web address] Medication Refill Social History Tobacco Use Types Packs/Day Years [...] as of this encounter Progress Notes * Rozina Preston MA - 03/11/2025 9:49 AM EDT At least one Rx below has no protocol and needs review. Rx Care Gap Status - Instructions for Clinical Staff (prescriber discretion applies): n/a Visit Info Last visit: 11/11/2024 Renetta Monique MD, MPH - Rheumatology [facility] > Requested f/u: Return for next available . Upcoming visit: 07/02/2025 Renetta Monique MD, MPH - Rheumatology [facility] ACTIONS TAKEN BY Rozina Preston MA - No action needed by clinical staff Rx(s) without protocol Renewal is at prescriber discretion. - secukinumab Medication Refill Last office visit: 11/11/2024 Next office visit: 07/02/2025 Last CBC w/diff Lab Results Component Value Date WBC 7.45 03/05/2024 RBC 4.11 03/05/2024 HGB 11.9 03/05/2024 HCT 37.0 03/05/2024 PLT 216 03/05/2024 MCV 90.0 03/05/2024 MCH 29.0 03/05/2024 MCHC 32.2 03/05/2024 RDW 13.2 03/05/2024 MVP 8.8 03/05/2024 DIFMET Auto 03/05/2024 NEUT 77.9 (H) 03/05/2024 LYMP 11.8 (L) 03/05/2024 MON 8.2 03/05/2024 EOSP 1.5 03/05/2024 ANEU 5.81 03/05/2024 ALYMP 0.88 (L) 03/05/2024 AMONS 0.61 03/05/2024 AEOSN 0.11 03/05/2024 ABASOP 0.02 03/05/2024 IMMGRAN 0.02 03/05/2024 Last CMP Lab Results Component Value Date NA 142 09/16/2024 K 4.9 09/16/2024 CL 101 09/16/2024 CO2 31 09/16/2024 BUN 29 (H) 09/16/2024 CRE 1.60 (H) 09/16/2024 GLU 113 (H) 09/16/2024 ALB 4.1 09/16/2024 TP 6.6 09/16/2024 CA 9.9 09/16/2024 ALKP 86 09/16/2024 TBILI <0.2 09/16/2024 SGOT 31 09/16/2024 SGPT 23 09/16/2024 GLOB 2.5 09/16/2024 GFR 36 (L) 09/16/2024 ANION 15 09/16/2024 Last CRP No results found for: CRP , CRPT , HSCRP Last ESR No results found for: ESR documented in this encounter Plan of Treatment Upcoming Encounters Date Type Department Care Team (Late st Contact Info) Description 05/20/2025 9:30 AM EDT Office Visit [facility] [address], [address] [place] [address] Hermila Kaufman, JOHNNIE 22 [facility], [address] [address] 06/13/2025 9:20 AM EDT Office Visit [facility] [place] [address] Yashira Cordova PA-C 22 [place] [address] 07/02/2025 9:40 AM EDT Office Visit [facility] Rheumatology [address] [place] [address] Renetta Monique MD, MPH 22 [facility], [address] [place] [address] 09/17/2025 10:40 AM EST Office Visit [facility] [address] [place] [address] Yashira Cordova PA-C [address] [place] [address] 11/05/2025 11:00 AM EST Nutrition [facility] [address] [place] [address] Sunitha Almazan LDN [address] [place] [address] 12/17/2025 10:20 AM EDT Office Visit [facility] [address] [place] [address] Marifer Garay MD [address] [place] [address] documented as of this encounter Visit Diagnoses Diagnosis Psoriatic arthritis Psoriatic arthropathy documented in this encounter Care Teams Shear Grinder Operator Helper Relationship Specialty Start Date End Date Juan Escoto MD [address] [place] [address] [address] [place] [phone] PCP - General Internal Medicine 06/16/22 documented as of this encounter Additional Source Comments The information contained in this document represents components of the legal health record. It is not the complete legal health record.[facility]
== END 2025-05-09 12:26 | disposition home or self-care (01) ==
LOC: HO.HMCH 11:27
PROVIDERS: PCP Internal Medicine
DX: I10 Essential (primary) hypertension (principal); I48.91 Unspecified atrial fibrillation; E11.65 Type 2 diabetes mellitus with hyperglycemia; Z79.4 Long term (current) use of insulin; J43.1 Panlobular emphysema; I25.10 Atherosclerotic heart disease of native coronary artery without angina pectoris; E78.00 Pure hypercholesterolemia, unspecified; L30.9 Dermatitis, unspecified

== ENCOUNTER → 2025-05-09 11:26 | Outpatient (BNVA) | payer BC, SELFPAY | PROVIDERS: PCP Internal Medicine | DX: E11.9 Type 2 diabetes mellitus without complications (principal); I48.91 Unspecified atrial fibrillation; E78.00 Pure hypercholesterolemia, unspecified; J44.9 Chronic obstructive pulmonary disease, unspecified; E03.9 Hypothyroidism, unspecified; I10 Essential (primary) hypertension; I25.10 Atherosclerotic heart disease of native coronary artery without angina pectoris; F41.1 Generalized anxiety disorder; E11.65 Type 2 diabetes mellitus with hyperglycemia; J43.1 Panlobular emphysema; L30.9 Dermatitis, unspecified; Z79.4 Long term (current) use of insulin; Z86.73 Personal history of transient ischemic attack (TIA), and cerebral infarction without residual deficits; K25.0 Acute gastric ulcer with hemorrhage | CPT/HCPCS: 83036; 96127 ==

== ENCOUNTER 2025-07-07 10:58 | Outpatient (REF) | payer BC, SELFPAY ==
--- OUTSIDE RECORDS SUMMARY | 2025-07-02 09:40 | XMS_ITS | Encounter Summary ---
Author Organization [facility] Address [address] [place] [address] [place] [address] Phone Care Team Providers Care Toolroom Helper Name Role Phone Juan Escoto MD Primary Care Provider [phone] Reason for Visit * Reason Comments Neck Pain Right side, travels to shoulders on both sides, 03/20 pain Encounter Details Date Type Department Care Team (Late st Contact Info) Description 07/02/2025 9:40 AM EDT Office Visit [facility] Rheumatology 22 [place] [address] Renetta Monique MD, MPH 22 [facility], [address] [place] [address] [email or web address] Psoriatic arthritis (Primary Dx); Chronic neck pain; Long-term current use of secukinumab Social History Tobacco Use Types Packs/Day Years [...] PM EDT documented as of this encounter Last Filed Vital Signs Vital Sign Reading Time Taken Comments Blood Pressure 118/60 07/02/2025 9:33 AM EDT Pulse 76 07/02/2025 9:33 AM EDT Temperature - - Respiratory Rate - - Oxygen Saturation 96% 07/02/2025 9:33 AM EDT Inhaled Oxygen Concentration - - Weight 99.3 kg (219 lb) 07/02/2025 9:33 AM EDT w ith shoes Height 158 cm (5' 2.21 ) 07/02/2025 9:33 AM EDT Body Mass Index 39.79 07/02/2025 9:33 AM EDT documented in this encounter Patient Instructions * Patient Instructions* Renetta Monique MD, MPH - 07/02/2025 9:40 AM EDT Neck x-ray at [facility] when you are able I do not suspect trigeminal neuralgia at this time I may refer you to a family specialist Trial double your cosentyx dose starting next month; I have sent new rx I would not expect Cosentyx to decrease pain from regular osteo arthritis (in your neck or shoulders) or pain that is neuropathic IF the double dose is clearly inadequate we will need to discuss other options Labs any time in the next few months. Fasting not required. If you prefer to have labs / x-rays at a non-[facility] location, pls request printed orders at check-out window. I ask that you contact my office AFTER you have these studies completed to make sure I have recd results documented in this encounter Progress Notes * Renetta Monique MD, MPH - 07/02/2025 9:40 AM EDT Patient: Kari Galvan : 1960 Date: 07/02/2025 Time: 5:32 PM CC: f/u psoriatic arthritis on secukinumab 150 mg q4 wks -----> 300 mg q4 wks Interval Hx: most recent secukinumab dose early Jun. She c/o terrible neck pain - not sure if onset was prior or subsequent to secukinumab start. She localizes neck pain to right side; denies radiation distal to her right shoulder girdle. She has less severe pain of her left shoulder. She endorses pill dysphagia but otherwise denies dysphagia. Denies change in longstanding numbness of bl fingers since onset of neck pain. Otherwise denies stiff / painful / swollen joints. She is applying a home medical marijuana concoction to the right side of her neck, shoulder girdle, and low back. There is a very small patch of psoriasis overlying her left patellar tendon; + improving psoriasiform change bl palms. She endorses swelling of right 3rd PIP. AM stiffness 60-90 minutes, no change since secukinumab start. She describes pain of her hands and feet bl that is present in the AM for at least 1 hour. Past Medical History: Diagnosis Date Chronic obstructive pulmonary disease Closed left ankle fracture Essential (primary) hypertension Former smoker H/O paroxysmal supraventricular tachycardia High cholesterol Hypothyroidism Neuropathy NSTEMI (non-ST elevated myocardial infarction) Osteoarthritis Psoriasis Psoriatic arthritis Type 2 diabetes mellitus without complications Past Surgical History: Procedure Laterality Date ANKLE FRACTURE SURGERY Left APPENDECTOMY CARDIAC ELECTROPHYSIOLOGY STUDY AND ABLATION CAROTID STENT CATARACT EXTRACTION, BILATERAL SECTION CHOLECYSTECTOMY Eye Surgery 1964 PARATHYROIDECTOMY SHOULDER SURGERY Left 1994 Throat Surgery for persistent hoarseness THYROIDECTOMY WRIST FRACTURE SURGERY Left 1966 Current Outpatient Medications Medication Sig Dispense Refill Last Dispense acetaminophen (TYLENOL) 650 MG CR tablet Take 650 mg by mouth every 8 (eight) hours as needed. 2 tablets every 8 hrs Unknown (patient-reported) albuterol 90 mcg/actuation inhaler Inhale 2 puffs into the lungs every 6 (six) hours as needed. Unknown (patient-reported) ascorbic acid, vitamin C, (VITAMIN C) 500 mg Chew Take 500 mg by mouth daily. Unknown (patient-reported) aspirin 81 MG EC tablet Take 81 mg by mouth daily. Unknown (patient-reported) BD INSULIN PEN NEEDLE UF SHORT 31 gauge x 5/16 Ndle 1 each. Unknown (patient-reported) blood-glucose meter,continuous (DEXCOM G7 HUMAN RESOURCES TRAINEE) Misc by Miscellaneous route as needed. 1 each 0Unknown (outside pharmacy) cholecalciferol, vitamin D3, 25 mcg (1,000 unit) capsule Take 1,000 Units by mouth daily. Unknown (patient-reported) DEXCOM G7 SENSOR Ju APPLY ONE SENSOR EVERY 10 DAYS 3 each 11 Unknown (outside pharmacy) diphenhydrAMINE (BENADRYL) 50 MG tablet Take 50 mg by mouth every 6 (six) hours as needed for itching. (Patient taking differently: Take 50 mg by mouth daily.) Unknown (patient-reported) DULoxetine (CYMBALTA) 60 MG capsule Take 120 mg by mouth daily. Unknown (patient-reported) ferrous sulfate 325 mg (65 mg [place] iron) tablet Take 325 mg by mouth 2 (two) times a week. Unknown (patient-reported) furosemide (LASIX) 20 MG tablet TAKE THREE TABLETS BY MOUTH TWICE A DAY 540 tablet 3 Unknown (outside pharmacy) gabapentin (NEURONTIN) 300 MG capsule Take 300 mg by mouth 3 (three) times a day. Unknown (patient-reported) hydrALAZINE (APRESOLINE) 25 MG tablet Take 25 mg by mouth 2 (two) times a day. Unknown (patient-reported) insulin glargine U-300 (TOUJEO MAX U-300 SOLOSTAR) 300 unit/mL (3 mL) subcutaneous injection pen Inject 56-68 Units under the skin daily. Unknown (no pharmacy) L.acid/L.casei/B.bif/B.sophia/FOS (PROBIOTIC BLEND ORAL) Take by mouth. Unknown (patient-reported) levothyroxine (SYNTHROID, LEVOTHROID) 125 MCG tablet 1 tablet, orally, six days/week, skip 1 day/week, or as directed 78 tablet 1 Unknown (outside pharmacy) losartan (COZAAR) 100 MG tablet Take 100 mg by mouth daily. Unknown (patient-reported) melatonin 10 mg Tab Take 10 mg by mouth daily. Unknown (patient-reported) metFORMIN (GLUCOPHAGE) 1000 MG tablet 1,000 mg 2 (two) times a day with meals. Unknown (patient-reported) metoprolol tartrate (LOPRESSOR) 25 MG tablet Take 25 mg by mouth 2 (two) times a day. Unknown (patient-reported) deqzzcbi-qijgztw-junm-lutein Tab Take by mouth. Unknown (patient-reported) NOVOLOG FLEXPEN U-100 INSULIN 100 unit/mL (3 mL) flexpen 10-20 units 1-3 times daily Unknown (patient-reported) pantoprazole (PROTONIX) 40 MG tablet Take 40 mg by mouth 2 (two) times a day. (Patient taking differently: Take 40 mg by mouth daily.) Unknown (patient-reported) rosuvastatin (CRESTOR) 40 MG tablet Take 40 mg by mouth daily. Unknown (patient-reported) semaglutide (OZEMPIC) 2 mg/dose (8 mg/3 mL) subcutaneous injection pen Inject 2 mg under the skin every 7 days. 3 mL 5 Unknown (outside pharmacy) traMADoL (ULTRAM) 50 mg tablet 25 mg nightly at bedtime. Unknown (patient-reported) TRELEGY ELLIPTA 100-62.5-25 mcg inhalation powder INHALE ONE PUFF INTO LUNGS DAILY 60 each 11 Unknown (outside pharmacy) triamcinolone acetonide 0.5 % cream Unknown (patient-reported) secukinumab (COSENTYX) 150 mg/mL subcutaneous injection syringe Inject 2 mL (300 mg total) under the skin every 28 days. 2 mL 2 Unknown (outside pharmacy) No current facility-administered medications for this visit. Social History: lives with ; daughter and daughter's family live upstairs (most recent grandson Tadeo born 01/2024); disabled secondary to bleeding ulcer 01/2020; previously worked as director of [employer] for [employer]; denies more than very occasional alcohol ROS: see HPI Physical Exam: BP 118/60 (BP Location: Right arm, Patient Position: Sitting, Cuff Size: Large) Pulse 76 Ht 158cm (5' 2.21 ) Wt 99.3 kg (219 lb) Comment: with shoes SpO2 96% BMI 39.79 kg/m?? gen: chronically ill-appearing but in NAD, pleasant and cooperative, unassisted gait Lungs: CTAB CV: radial pulses 2+ bl, regular C-spine painful and restricted range of motion throughout, franklyn flexion and extension MSK: B/l shoulders, elbows, wrists examined B/l 1st CMCs, MCPs, PIPs, DIPs examined B/l hips, knees, ankles examined B/l 1st-5th MTPs examined All joints full range of motion, nl alignment, no swollen or tender joints except as noted below Restricted range of motion R > L shoulders throughout, franklyn int rotation right shoulder Diffuse tenderness to palpation of most small joints of bl hands and L > R feet Swollen joints: right 2nd and 3rd and left 2nd and 5th PIPs; restricted flexion of those fingers with fisting otherwise preserved bl hands There is pain of R > L greater trochanters with passive range of motion bl hips Prominent left 2nd hammer toe; no Achilles enthesitis or dactylitis neuro: CN 2-12 grossly intact; intervention teacher strength 4-/5 right 4/5 left but compromised by pain skin: typical psoriasiform plaque overlying left elbow left dorsal foot left patellar tendon; eczematous changes bl palms; no nail pitting but there is dystrophic change of bl thumb nails psych: appropriate mood and affect Labs and imaging reviewed: Lab Results Component Value Date WBC 7.45 03/05/2024 RBC 4.11 03/05/2024 HGB 11.9 03/05/2024 HCT 37.0 03/05/2024 PLT 216 03/05/2024 MCV 90.0 03/05/2024 MCH 29.0 03/05/2024 MCHC 32.2 03/05/2024 RDW 13.2 03/05/2024 MVP 8.8 03/05/2024 Lab Results Component Value Date NA 138 04/29/2025 K 4.9 04/29/2025 CL 99 04/29/2025 CO2 29 04/29/2025 BUN 32 (H) 04/29/2025 CRE 1.70 (H) 04/29/2025 GLU 147 (H) 04/29/2025 ALB 4.1 09/16/2024 TP 6.6 09/16/2024 CA 9.4 04/29/2025 ALKP 86 09/16/2024 TBILI <0.2 09/16/2024 SGOT 34 04/29/2025 SGPT 26 04/29/2025 GLOB 2.5 09/16/2024 GFR 33 (L) 04/29/2025 ANION 15 04/29/2025 Assessment and Plan Problem List Items Addressed This Visit Psoriatic arthritis Overview Co-morbid OA and peripheral neuropathy Onset of [...] of the articular calcification about the first IPjoint and third DIP joint. No acute fracture. Secukinumab 11/2024 to current Current Assessment & Plan Persistently active disease, compliant with secukinumab 150 mg monthly for approximately 7 months. There has been no significant benefit with respect to either active skin disease or joint pain, though certainly clinical picture is complicated by comorbid osteoarthritis and neuropathic pain (on gabapentin. Patient is amenable to trial of increased secukinumab dose to 300 mg monthly. Unfortunatelyher age, as well as comorbid cardiovascular and pulmonary disease, make her relatively high risk for Brandon inhibitors. Favor avoidance of abatacept in the context of COPD. However, an alternative anti-IL-17 or anti-IL 23 agent is a reasonable alternative if she has persistently active disease on full secukinumab dose. Relevant Medications secukinumab (COSENTYX) 150 mg/mL subcutaneous injection syringe Patient reports h/o false pos PPD / TB testing Chronic neck pain Current Assessment & Plan Psoriatic arthritis is relatively unlikely to directly affect the cervical spine and therefore change in her DMARD regimen, is unlikely to mitigate cervicalgia. ? C-spine pain driving recent development of pill dysphagia, but reassuringly, there is no pattern of dysphagia to liquids or solids. Baseline plain film given severity of neck stiffness. Discussed with patient that she is likely ultimately better served by formal spine evaluation pending plain film findings. Discussed but deferred to cyclobenzaprine given her age and chronicity of pain. Relevant Orders XR Cervical Spine Long-term current use of secukinumab Overview Quant TB neg 11/2024 Relevant Orders CBC and differential Comprehensive metabolic panel Follow-up: Return for 3-4 months . documented in this encounter Miscellaneous Notes * Assessment & Plan Note - Renetta Monique MD, MPH - 07/02/2025 5:31 PM EDT Associated Problem(s): Chronic neck pain Psoriatic arthritis is relatively unlikely to directly affect the cervical spine and therefore change in her DMARD regimen, is unlikely to mitigate cervicalgia. ? C-spine pain driving recent development of pill dysphagia, but reassuringly, there is no pattern of dysphagia to liquids or solids. Baseline plain film given severity of neck stiffness. Discussed with patient that she is likely ultimately better served by formal spine evaluation pending plain film findings. Discussed but deferred to cyclobenzaprine given her age and chronicity of pain. * Assessment & Plan Note - Renetta Monique MD, MPH - 07/02/2025 5:27 PM EDT Associated Problem(s): Psoriatic arthritis Persistently active disease, compliant with secukinumab 150 mg monthly for approximately 7 months. There has been no significant benefit with respect to either active skin disease or joint pain, though certainly clinical picture is complicated by comorbid osteoarthritis and neuropathic pain (on gabapentin. Patient is amenable to trial of increased secukinumab dose to 300 mg monthly. Unfortunatelyher age, as well as comorbid cardiovascular and pulmonary disease, make her relatively high risk for Brandon inhibitors. Favor avoidance of abatacept in the context of COPD. However, an alternative anti-IL-17 or anti-IL 23 agent is a reasonable alternative if she has persistently active disease on full secukinumab dose. documented in this encounter Plan of Treatment Upcoming Encounters Date Type Department Care Team (Late st Contact Info) Description 09/17/2025 10:40 AM EST Office Visit [facility] [address] [place] [address] [place] [address] Yashira Cordova PA-C [address] [place] [address] 10/01/2025 9:40 AM EST Office Visit [facility] Rheumatology [address] [place] [address] Renetta Monique MD, MPH [address] [place] [address] 203 [place] [address] 11/05/2025 11:00 AM EST Nutrition [facility] [address] [place] [address] Sunitha Almazan, KENNEYN [address] [place] [address] 11/18/2025 10:00 AM EDT Office Visit [facility] [address] [place] [address], [address] [address] Hermila Kaufman, DNP [address] [place] [address] 12/17/2025 10:20 AM EDT Office Visit [facility] [address] [place] [address] [place] [address] Marifer Garay MD [address] [place] [phone] [email or web address] Scheduled Orders Name Type Priority Associated Diagnoses Orde r Schedule XR Cervical Spine Imaging Routine Chronic neck pain Expected: 07/02/2025, Expires: 07/02/2026 CBC and differential Lab Routine Long-term current use of secukinumab Expected: 07/02/2025, Expires: 07/02/2026 Comprehensive metabolic panel Lab Routine Long-term current use of secukinumab Expected: 07/02/2025, Expires: 12/31/2025 documented as of this encounter Visit Diagnoses Diagnosis Psoriatic arthritis- Primary Psoriatic arthropathy Chronic neck pain Cervicalgia Long-term current use of secukinumab documented in this encounter Care Teams Toolroom Helper Relationship Specialty Start Date End Date Juan Escoto MD [address] [place] [address] [address] [place] [phone] PCP - General Internal Medicine 06/16/22 documented as of this encounter Additional Source Comments The information contained in this document represents components of the legal health record. It is not the complete legal health record.[facility]
--- NOTE | ~2025-07-07 | XR_ITS ---
EXAMINATION: XR CERVICAL SPINE CLINICAL INFORMATION: CHRONIC NECK PAIN COMPARISON: None available. TECHNIQUE: 3 views of the cervical spine were obtained. FINDINGS: Cervical spine is visualized from C1-C6 level. Nonspecific prevertebral soft tissue prominence. Predens space is maintained. Mild anterolisthesis of C4 on C5. Vertebral body heights are maintained. No evidence of acute fracture. Disc spaces are maintained. Chronic appearing small ossification, anterior to the C2-3 disc space. Multilevel facet degeneration. Multiple radiodense flory projected over the soft tissue. Lung apices are clear. XR/XR cervical spine 3V IMPRESSION: Cervical spine visualized from C1-C6 level. Nonspecific prevertebral soft tissue prominence. No radiographic evidence of acute osseous findings. Cervical spondylosis as above. Electronically signed by: Nhan Benson MD 07/07/2025 11:54 AM EDT
[2025-07-07 13:15] LABS: MANUAL DIFF FLAG NO
[2025-07-07 13:36] LABS: Hematocrit 40.3 % (37.0-47.0); Hemoglobin 12.7 g/dl (12.0-16.0); Imm Gran Abs Auto 0.02 X10*3/uL (0.00-0.03); Imm Gran Pct Auto 0.3 % (0.0-0.4); Lymphocytes Absolute Auto 1.1 X10*3/uL (1.2-4.9); Mean Corpuscular HGB Conc 31.5 g/dl (31.0-35.0); Mean Corpuscular Hemoglobin 29.2 pg (27.0-33.0); Mean Corpuscular Volume 92.6 fL (80.0-98.0); NRBC Abs Auto 0.000 X10*3/uL (0.0-0.012); NRBC Pct Auto 0.0 /100WBC (0.0-0.2); Platelet Count 233 X10*3/uL (160-400); Red Blood Count 4.35 X10*6/uL (4.20-5.50); White Blood Count 5.8 X10*3/uL (4.8-10.8)
--- OUTSIDE RECORDS SUMMARY | 2025-07-07 13:46 | XMS_ITS | Encounter Summary ---
Author Organization [facility] Address [address] [place] [address] Phone Care Team Providers Care Trust Manager Name Role Phone Juan Escoto MD Primary Care Provider [phone] Encounter Details Date Type Department Care Team (Late st Contact Info) Description 10/20/2022 Procedure [facility], Ct Scan - [address] [address] Social History Tobacco Use Types Packs/Day Years [...] AM EST Office Visit [facility] [address] [place] [address] Yashira Cordova PA-C 22 [place] [address] 10/01/2025 9:40 AM EST Office Visit [facility] Rheumatology [address] [place] [address] Renetta Monique MD, MPH 22 [facility], [address] [place] [address] 11/05/2025 11:00 AM EST Nutrition [facility] [address] [place] [address] Sunitha Almazan, LDN 22 [facility], 1st [place] [address] 11/18/2025 10:00 AM EDT Office Visit [facility] 22 [facility] [address] [facility], [address] [place] [address] Hermila Kaufman, JOHNNIE 22 [facility], [address] [place] [address] 12/17/2025 10:20 AM EDT Office Visit [facility] [address] [place] [address] Marifer Garay MD [address] [place] [address] [address] [place] [address] documented as of this encounter Visit Diagnoses Not on filedocumented in this encounter Care Teams Trust Manager Relationship Specialty Start Date End Date Jevon, Juan Finney MD [address] [place] [address] [address] [place] [phone] PCP - General Internal Medicine 06/16/22 documented as of this encounter Additional Source Comments The information contained in this document represents components of the legal health record. It is not the complete legal health record.[facility]
--- OUTSIDE RECORDS SUMMARY | 2025-07-07 13:46 | XMS_ITS | Clinical Summary ---
Author Organization [facility] Address [address] [place] [address] Care Team Providers Care Enterprise Manager Name Role Phone Unavailable Primary Care Provider [...] 0 01/18/2021 Active Insulin Pen Needle (Pen [place]) 33G X 4 MM MISC 1 each [...] this topic Medical Devices Explanted Type Area Tile Erector Device Identifier Shelf Expiration Date Model / Serial / Lot Catheter Gold Probe 3.7mm 210cm 10fr 25ga Bipol Standard - [id number] - [id number] Explanted:Qty: 1 on 01/14/2021 at [facility] and [facility] [employer] JOSE [id number] 01/30/2021 [id number] / / [id number] Description:Not an implant Advance Directives For more information, please contact: [phone] Latest Code Status on File Code Status Date Activated Date Inactivated Comments Full Code 01/09/2021 9:56 PM 01/18/2021 8:21 PM This c ode status was ascertained in the following way: per documentation from prior hospital .
--- OUTSIDE RECORDS SUMMARY | 2025-07-07 13:46 | XMS_ITS | Patient Health Record ---
Author Organization [facility] Jose Daniel Address [address] [facility] [place] [address] Care Team Providers Care Document Coordinator Name Role Phone JevonLynmary Primary Care Provider Onofre Taylor Unavailable [phone] Reason For Referral No Information Medications Medication SIG (Take, Route, Frequency, Duration) Notes Start Date End Date Status Betamethasone Dipropionate 0.05 % as directed Externally Activ e Januvia 100 MG 1 tablet Orally Once a day; Duration: 30 day(s) Active Gabapentin 600 MG 1 tablet Orally Thre e times a day; Duration: 30 day(s) Active Cymbalta 20 MG 1 capsule Orally Twi ce a day; Duration: 30 day(s) Active Apidra 100 UNIT/ML as directed Injection Active Levemir 100 UNIT/ML as directed Subcutaneous 09/1109/11/1900 Active glyBURIDE 5 MG 1 tablet Orally Once a day; Duration: 30 day(s) Active Extra-Depth Diabetic Shoes with 3 Pair Custom heat-molded multi-density innersoles . 1pair shoes/3sets inserts . .; Duration: 1 year 11/11/2011 Active Aspirin 81 MG 1 tablet Orally Once a day; Duration: 30 day(s) Active Albuterol as directed Active Advair Diskus 100-50 MCG/DOSE 1 puff Inhalation every 12 hrs Active Synthroid 200 MCG 0.5 tablet every mor alta on an empty stomach Orally Once a day; Duration: 30 day(s) Active Hydrolatum as directed Externally 09/11/190009/11 Active Vitamin D-3 5000 UNIT as directed Orally Active ambien as directed Active metFORMIN HCl 850 MG 1 tablet with a norberto l Orally Once a day; Duration: 30 day(s) Active Womens Multi Vitamin & Mineral as directed Orally Active Social History Alcohol Screen Question Answer Notes Did you have a drink containing alcohol in the p ast year? No Points 0 Interpretation Negative Problems Problem Type SNOMED Code ICD Code Onset Dates Problem Status W/U Status Risk Notes Problem Dermatitis (111895781) Dermatitis (692.9) Active confirmed Problem Neurologic disorder associated with type II diabetes mellitus (839316326) Diabetic - NIDDM/Neuropath y (250.60) Active confirmed Problem Hammer toe (765288554) Hammer toe (735.4) Active confirmed Problem Neuralgia - Neuritis (729.2) Active confirmed Plan Of Treatment No Information Insurance Providers Payer Name Payer Address Payer Phone Subscriber Number Group Number Insured Name Patient Relationship to Insured Coverage Start Date Coverage End Date [facility] [address] [place] [address] [id number] Kari Galvan Self - patient is the insured Medical (General) History Medical History History ICD Code Arthritis back, hip, knee pain depression diabetic chicken pox neuropathy thyroid disorder Surgical History Surgery Date(Month/Year) eye surgery wrist surgery 1967 section cholecystectomy 1985 appendectomy 1985 shoulder surgery 2002 thyroidectomy 2005 parathyroidectomy 2005
--- OUTSIDE RECORDS SUMMARY | 2025-07-07 13:46 | XMS_ITS | Encounter Summary ---
Author Organization [facility] Address [address] [place] [address] Phone Care Team Providers Care School Laboratory Technician Name Role Phone Juan Escoto MD Primary Care Provider [phone] Encounter Details Date Type Department Care Team (Late st Contact Info) Description 06/16/2022 Procedure Pass Echo Lab [address] [place] [address] Social History Tobacco Use Types Packs/Day Years [...] 10:40 AM EST Office Visit [facility] [place] [address] Yashira Cordova PA-C [address] [place] [address] 10/01/2025 9:40 AM EST Office Visit [facility] [place] [address] Renetta Monique MD, MPH [address] [place] [address], [address] [place] [address] 11/05/2025 11:00 AM EST Nutrition [facility] [address] [place] [address] Sunitha Almazan, LDN [address] [facility], 1st [place] [address] 11/18/2025 10:00 AM EDT Office Visit [facility] [address] [place] [address] [address] [facility], [address] [place] [address] Hermila Kaufman, JOHNNIE [address] [facility] [address] [place] [address] 12/17/2025 10:20 AM EDT Office Visit [facility] [address] [place] [address] Marifer Garay MD [address] [place] [address] [address] [place] [address] documented as of this encounter Visit Diagnoses Not on filedocumented in this encounter Care Teams School Laboratory Technician Relationship Specialty Start Date End Date Juan Escoto MD [address] [place] [address] [address] [place] [phone] PCP - General Internal Medicine 06/16/22 documented as of this encounter Additional Source Comments The information contained in this document represents components of the legal health record. It is not the complete legal health record.[facility]
--- OUTSIDE RECORDS SUMMARY | 2025-07-07 13:46 | XMS_ITS | Patient Health Record ---
Author Organization [facility] Address [address] [place] [address] Care Team Providers Care Chief Juvenile Probation Officer Name Role Phone Parisa FERNANDEZ, Vannessa Primary Care Provider Unavailab Guy Osman Unavailable [phone] [place] FERNANDEZ, [place] Unavailable Unavailable Reason For Referral No Information Medications Medication SIG (Take, Route, Fr equency, Duration) Notes Start Date End Date Status Humira Pen Active Sleep Aid Active Advair HFA Active HumaLOG Active Folic Acid Active Vitamin B12 Active Diovan Active Vitamin A Active Multivitamin Active Vitamin D3 Active Synthroid Active ProAir HFA Active Ginkgo Biloba Active Aspir-81 Active Leflunomide Active Lantus Active metFORMIN HCl Active Lyrica Active Gabapentin Active MoviPrep 100 GM as directed Orally a s directed; Duration: 1 dose 06/27/2013 Active Problems Problem Type SNOMED Code ICD Code Onset Dates Problem Status W/U Status Risk Notes Problem Esophageal reflux (516581526) Esophageal reflux (530.81) Active confirmed Problem Colon cancer screening (357916466) Colon cancer screening (V76.51) Active confirmed Problem Barium swallow abnormal (668205150) Abnormal barium swallow (793.4) Active confirmed Plan Of Treatment Future Test Test Name Order Date COLONOSCOPY 06/27/2013 Insurance Providers Payer Name Payer Address Payer Phone Subscriber Number Group Number Insured Name Patient Relationship to Insured Coverage Start Date Coverage End Date [facility] [address] [facility] [phone] [id number] COLT CORONADO Self - patient is the insured Medical (General) History Medical History History ICD Code IDDM COPD HTN Psoriatic arthritis-she was started on Humira in June of 2013 by her ukrainian folk arts instructor Hypothyroidism Denies HI,CVA,renal disease Neuropathy-feet and hands upper endoscopy in February 013 was negative for any significant esophagitis, hiatal hernia, nor Cadena's esophagus Surgical History Surgery Date(Month/Year) Eye surgeries Broken left wrist Broken ankle 2 C-sections Cholecystectomy Appendix Left shoulder surgery Thyroid and 1 parathyroid removed Cyst from lower back
--- OUTSIDE RECORDS SUMMARY | 2025-07-07 13:46 | XMS_ITS | Encounter Summary ---
Author Organization [facility] Address [address] [place] [address] Phone Care Team Providers Care Artist Blacksmith Name Role Phone Juan Escoto MD Primary Care Provider [phone] Encounter Details Date Type Department Care Team ([facility] st Contact Info) Description 03/10/2025 Telephone [facility] [address] [place] [address] [email or web address] Social History Tobacco Use Types Packs/Day Years [...] AM EST Office Visit [facility] [address] [place] [address] [place] [address] Yashira Cordova PA-C [address] [place] [address] 10/01/2025 9:40 AM EST Office Visit [facility] [address] [place] [address] Renetta Monique MD, MPH [address] [place] [address], [address] [place] [address] 11/05/2025 11:00 AM EST Nutrition [facility] [address] [place] [address] [place] [address] Sunitha Almazan, ZHANNA [address] [facility], 1st [place] [address] 11/18/2025 10:00 AM EDT Office Visit [facility] [address] [place] [address] [address] Floor, [address] [place] [address] Hermila Kaufman, JOHNNIE [address] [facility], [address] [place] [address] 12/17/2025 10:20 AM EDT Office Visit [place] [address] Marifer Garay MD [address] [place] [phone] [email or web address] documented as of this encounter Visit Diagnoses Not on filedocumented in this encounter Care Teams Artist Blacksmith Relationship Specialty Start Date End Date Juan Escoto MD [address] [place] [address] [address] [place] [phone] PCP - General Internal Medicine 06/16/22 documented as of this encounter Additional Source Comments The information contained in this document represents components of the legal health record. It is not the complete legal health record.[facility]
--- OUTSIDE RECORDS SUMMARY | 2025-07-07 13:46 | XMS_ITS | Encounter Summary ---
Author Organization [facility] Address [address] [place] [address] Care Team Providers Care Fuse Maker Name Role Phone Unavailable Primary Care Provider [...]
--- OUTSIDE RECORDS SUMMARY | 2025-07-07 13:46 | XMS_ITS | Clinical Summary ---
Author Organization [facility] Address [address] [place] [address] Phone Care Team Providers Care Hand Marker Name Role Phone Juan Escoto MD Primary Care Provider [phone] Allergies Active Allergy Reactions Criticality Noted Date Comments Alprazolam Swelling 05/23/2023 Amlodipine Swelling 05/23/2023 Codeine 01/09/2021 Roflumilast Nausea and/or Vomiting 05/23/2023 Etanercept 05/23/2023 Adalimumab 05/23/2023 Hydrochlorothiazide Hives 05/23/2023 Leflunomide Myalgia 04/02/2024 Other Rash Low 01/08/2014 Tegaderm. Tegaderm. Biologics medications Simvastatin 05/23/2023 Fluticasone Propion-Salmeterol 05/23/2023 Medications losartan (COZAAR) 100 MG tablet Take 100 mg by mouth daily. Active pantoprazole (PROTONIX) 40 MG tablet Take 40 mg by mouth 2 (two) times a day. Active hydrALAZINE (APRESOLINE) 25 MG tablet Take 25 mg by mouth 2 (two) times a day. Active gabapentin (NEURONTIN) 300 MG capsule Take 300 mg by mouth 3 (three) times a day. Active metoprolol tartrate (LOPRESSOR) 25 MG tablet Take 25 mg by mouth 2 (two) times a day. Active melatonin 10 mg Tab Take 10 mg by mouth daily. Active rosuvastatin (CRESTOR) 40 MG tablet Take 40 mg by mouth daily. Active albuterol 90 mcg/actuation inhaler Inhale 2 [...] Active ferrous sulfate 325 mg (65 mg modoc iron) tablet Take 325 mg by mouth [...] 2 (two) times a day with meals. Active multivit-mineral- iron-lutein Tab Take by mouth. Active L.acid/L.casei/B. bif/B.sophia/FOS (PROBIOTIC BLEND ORAL) Take by mouth. Activ e aspirin 81 MG EC tablet Take 81 mg by mouth daily. Active traMADoL (ULTRAM) 50 mg tablet 25 mg nightly at bedtime. 024 Active BD INSULIN PEN NEEDLE UF SHORT 31 gauge x 5/16 Ndle 1 each. 024 Active blood-glucose meter,continuous (DEXCOM G7 POPCORN MACHINE OPERATOR) MiscIndications:T ype 2 diabetes mellitus with diabetic polyneuropathy, with long-term current use of insulin by Miscellaneous route as needed. 1 each 024 Active NOVOLOG FLEXPEN U-100 INSULIN 100 unit/mL (3 mL) flexpen 10-20 units 1-3 times daily Active TRELEGY ELLIPTA 100-62.5-25 mcg inhalation powderIndications :Simple chronic bronchitis,Shortn ess of breath,Former smoker INHALE ONE PUFF INTO LUNGS DAILY 60 each 11 025 Active DEXCOM G7 SENSOR DeviIndications:T ype 2 diabetes mellitus with diabetic polyneuropathy, with long-term current use of insulin APPLY ONE SENSOR EVERY 10 DAYS 3 each 11 Active levothyroxine (SYNTHROID, LEVOTHROID) 125 MCG tabletIndications :Postoperative hypothyroidism 1 tablet, orally, six days/week, skip 1 day/week, or as directed 78 tablet 1 Active triamcinolone acetonide 0.5 % cream Active semaglutide (OZEMPIC) 2 mg/dose (8 mg/3 mL) subcutaneous injection penIndications:Ty pe 2 diabetes mellitus with peripheral neuropathy Inject 2 mg under the skin every 7 days. 3 mL 5 Active insulin glargine U-300 (TOUJEO MAX U-300 SOLOSTAR) 300 unit/mL (3 mL) subcutaneous injection penIndications:Ty pe 2 diabetes mellitus with peripheral neuropathy Inject 56-68 Units under the skin daily. Active furosemide (LASIX) 20 MG tabletIndications :Chronic diastolic (congestive) heart failure TAKE THREE TABLETS BY MOUTH TWICE A DAY 540 tablet 3 Active secukinumab (COSENTYX) 150 mg/mL subcutaneous injection syringeIndication s:Psoriatic arthritis Inject 2 mL (300 mg total) under the skin every 28 days. 2 mL 2 Active blood-glucose sensor (DEXCOM G7 SENSOR) Ju by Miscellaneous route. 2024 Discontinued furosemide (LASIX) 20 MG tabletIndications :Chronic diastolic (congestive) heart failure Take 3 tablets (60 mg total) by mouth 2 (two) times a day. 30 mg BID 540 tablet 3 024 2024 Discontinued COSENTYX 150 mg/mL subcutaneous injection syringeIndication s:Psoriatic arthritis INJECT 1 SYRINGE UNDER THE SKIN EVERY 4 WEEKS 1 mL 3 025 2024 Discontinued(R eorder) insulin glargine U-300 (TOUJEO MAX U-300 SOLOSTAR) 300 unit/mL (3 mL) subcutaneous injection penIndications:Ty pe 2 diabetes mellitus with peripheral neuropathy Inject 78 Units under the skin daily. 90 mL 1 025 2024 Discontinued(D ose adjustment) OZEMPIC 1 mg/dose (4 mg/3 mL) subcutaneous injection penIndications:Ty pe 2 diabetes mellitus with diabetic polyneuropathy, with long-term current use of insulin INJECT 1MG UNDER THE SKIN EVERY 7 DAYS DIRECTED 3 mL 3 025 2024 Discontinued Active Problems Problem Noted Date Diagnosed Date Chronic neck pain 07/02/2025 Assessment & Plan (07/02/2025 5:31 PM EDT): Psoriatic arthritis is relatively unlikely to directly affect the cervical spine and therefore change in her DMARD regimen, is unlikely to mitigate cervicalgia. ? C- spine pain driving recent development of pill dysphagia, but reassuringly, there is no pattern of dysphagia to liquids or solids. Baseline plain film given severity of neck stiffness. Discussed with patient that she is likely ultimately better served by formal spine evaluation pending plain film findings. Discussed but deferred to cyclobenzaprine given her age and chronicity of pain. Paroxysmal atrial fibrillation 05/20/2025 Assessment & Plan (05/20/2025 10:30 AM EDT): She been diagnosed with paroxysmal atrial fibrillation. She refuses to take anticoagulation due to a GI bleed. Her CHADS2 Vascor is a 4. Has bled is 2. She was seen by Dr. Rdz for a consultation for Watchman device placement however she declined this at this time. She is now ready to have the Watchman device placed and we will get this set up for her. Hyperalgesia 11/11/2024 Assessment & Plan (11/11/2024 3:50 PM EST): Proximal left tibia, possible l-spine origin but plain film ordered to r/o localized bony pathology Long-term current use of secukinumab 11/11/2024 Overview (07/02/2025): Quant TB neg 11/2024 Assessment & Plan (07/02/2025 5:28 PM EDT): >>ASSESSMENT AND PLAN FOR HIGH RISK MEDICATION USE WRITTEN ON 11/11/2024 3:49 PM BY KRISHAN GALLARDO MD, MPH Baseline labs and CXR prior to possible biologic agent; written information on secukinumab and risankizumab provided for patient review today. salvage determiner current use of insulin 07/31/2024 Assessment & Plan (07/31/2024 9:09 AM EST): Will lower toujeo dosing to help prevent over night hypoglycemia Long-term (current) use of i njectable non-insulin antidiabetic drugs 07/31/2024 Assessment & Plan (07/31/2024 9:09 AM EST): Will maintain ozempic dosing [facility] current use of oral hypoglycemic drug 07/31/2024 [...] in procedure note Psoriatic arthritis 10/19/2023 Overview (07/02/2025): Co-morbid OA and peripheral neuropathy Onset of [...] No acute fracture. Secukinumab 11/2024 to current Assessment & Plan (07/02/2025 5:32 PM EDT): Persistently active disease, compliant with secukinumab 150 mg monthly for approximately 7 months. There has been no significant benefit with respect to either active skin disease or joint pain, though certainly clinical picture is complicated by comorbid osteoarthritis and neuropathic pain (on gabapentin. Patient is amenable to trial of increased secukinumab dose to 300 mg monthly. Unfortunately her age, as well as comorbid cardiovascular and pulmonary disease, make her relatively high risk for Brandon inhibitors. Favor avoidance of abatacept in the context of COPD. However, an alternative anti-IL-17 or anti-IL 23 agent is a reasonable alternative if she has persistently active disease on full secukinumab dose. Assessment & Plan (11/11/2024 3:47 PM EST): [...] CAT scan 0 02/13/2023 Assessment & Plan (05/20/2025 10:29 AM EDT): Asymptomatic at this time. Continue optimize cardiac risk factors. SBP goal less than 130/80. LDL goal less than 55 mg/dL. Continue current medication regimen without change. Assessment & Plan (02/13/2023 1:42 PM EDT): [...] diastolic heart failure. Will defer to her public speaking teacher Dr. Horner who she will be seeing [...] (congestive) heart failure 02/2022 Assessment & Plan (05/20/2025 10:28 AM EDT): Euvolemic on exam today. Assessment & Plan (06/16/2022 11:44 AM EDT): She was being followed by outside public speaking teacher every 3 months for echocardiography in 2020 revealed normal systolic function shortness of breath will get a NT pro BNP and repeat the echocardiogram. Benign essential hypertension 06/16/2022 Assessment & Plan (05/20/2025 10:29 AM EDT): Blood pressure pretty well-controlled today 126/60. She will continue on hydralazine 25 mg twice daily, furosemide 60 mg twice daily, losartan 100 mg daily, Toprol 25 mg twice daily. Assessment & Plan (03/12/2025 5:04 PM EDT): [...] Is also on oxygen. Being followed by special machine stitcher. History of bleeding peptic ulcer 06/16/2022 Assessment & Plan (06/16/2022 11:48 AM EDT): Reviewed her hospital record which showed Bleeding peptic ulcer I put it and it made my diagnosis just to remind myself that we will be very careful with giving anticoagulation in case if she ever needs it. Type 2 diabetes mellitus with peripheral neuropa thy Assessment & Plan (06/19/2025 11:09 AM EDT): Control is very good based upon the patient's Dexcom G7 download. No frequent or severe hypoglycemia. She is having lows in the morning that she is needing to correct with cereal. Will lower her toujeo as above to help prevent the lows. Will increase her ozempic to 2 mg weekly and see if we can continue to further lessen her insulin usage to prevent the lows. Continue to work on eating healthy and being active. To call or message with any issues managing her glucose levels. Up to date with opho. Labs ordered Assessment & Plan (03/12/2025 5:05 PM EDT): Control appears quite good. Some lows fasting, advised to lower dose of basal insulin. Will do labs. To call if hasn't heard from us within 1-2 weeks. Continue to work on eating healthy & keeping active. To call or send in BG with problems with glycemic control. Up to date with ophtho. Foot & nail care good. Assessment & [...] her glucose levels. Up to date with [facility]. Labs were done with PCP Assessment & [...] check labs. Postoperative hypothyroidism Assessment & Plan (06/19/2025 11:07 AM EDT): Will check levels to determine if medication adjustments are needed Assessment & Plan (03/12/2025 5:07 PM EDT): Given weight loss, will check TFTs & adjust rx as appropriate. Encounters Date Type Department Care Team Description 07/04/2025 Documentation [facility] [address] [place] [address] Narendra Perez, [facility] 07/02/2025 9:40 AM EDT Office Visit [facility] Rheumatology [address] [place] [address] [place] [address] Krishan Gallardo MD, MPH Psoriatic arthritis (Primary Dx); Chronic neck pain; Long-term current use of secukinumab 06/26/2025 Telephone [facility] [address] [place] [address] [place] [address] Pebbles [place] 06/15/2025 Refill [facility] [address] [place] [address] [address]rd Floor, [address] [place] [address] Hermila Kaufman DNP Medication Refill 06/13/2025 9:20 AM EDT Office Visit [facility] [address] [place] [address] [place] [address] Yashira Cordova PA-C Type 2 diabetes mellitus with peripheral neuropathy (Primary Dx); Postoperative hypothyroidism 05/29/2025 Refill [facility] [address] [place] [address] [place] [address] Yashira Cordova PA-C Medication Refill 05/20/2025 9:30 AM EDT Office Visit [facility] [address] [place] [address] [address] Floor, [address] [place] [address] Hermila Kaufman DNP Paroxysmal atrial fibrillation (Primary Dx); Chronic diastolic (congestive) heart failure; Benign essential hypertension; Coronary artery calcification seen on CAT scan 05/08/2025 Refill [facility] [address] [place] [address] Pebbles [place] 05/05/2025 Orders Only [facility] [place] [address] [place] [address] Marifer Garay MD Postoperative hypothyroidism (Primary Dx) 04/29/2025 2:00 PM EDT Nutrition [facility] [address] [place] [address] Sunitha Almazan LDN Type 2 diabetes mellitus with diabetic polyneuropathy, with long-term current use of insulin (Primary Dx) 04/29/2025 1:47 PM EDT - 04/29/2025 11:59 PM EDT Hospital Encounter [facility] [address] [place] [address] Marifer Garay MD Discharge Disposition: Home or Self Care from Last 3 Months Immunizations Immunization Administration [...] Pulse 76 07/02/2025 9:33 AM EDT Temperature 36.4 C (97.6 F) 01/02/2024 1:20 PM EDT Respiratory Rate 18 07/26/2023 8:29 PM EST Oxygen Saturation 96% 07/02/2025 9:33 AM EDT Inhaled Oxygen Concentration - - Weight 99.3 kg (219 lb) 07/02/2025 9:33 AM EDT w ith shoes Height 158 cm (5' 2.21 ) 07/02/2025 9:33 AM EDT Body Mass Index 39.79 07/02/2025 9:33 AM EDT Plan of Treatment Upcoming Encounters Date Type Department Care Team (Late st Contact Info) Description 09/17/2025 10:40 AM EST Office Visit [facility] [address] [place] [address] Yashira Cordova PA-C [address] [place] [address] 10/01/2025 9:40 AM EST Office Visit [facility] [address] [place] [address] Krishan Gallardo MD, MPH [address] [place] [address], [address] [place] [address] 11/05/2025 11:00 AM EST Nutrition [facility] [address] [place] [address] Sunitha Almazan, ZHANNA [address] [place] [address], [address] [place] [address] 11/18/2025 10:00 AM EDT Office Visit [facility] [address] [place] [address], [address] [address] Hermila Kaufman, JOHNNIE [address] [place] [address] 12/17/2025 10:20 AM EDT Office Visit [facility] [address] [place] [address] [place] [address] Marifer Garay MD [address] [place] [address] Health Maintenance Due Date Last Done Comments DEPRESSION SCREENING 1972 SMOKING Hx and SMOKELESS TOBACCO SCREENING 1973 HIV ONE-TIME SCREENING (18-65 YEARS) 1978 MAMMOGRAM 2000 COLOGUARD 2005 COLONOSCOPY 2005 COLORECTAL CANCER SCREENING 2005 FIT TEST 2005 FOBT 2005 SIGMOIDOSCOPY 2005 VIRTUAL COLONOSCOPY 2005 PNEUMOCOCCAL VACCINES (50+ years) (2 of 2 - PCV) 12/20/2016 12/21/2015 DIABETIC EYE EXAM 09/02/2022 OSTEOPOROSIS SCREENING INITIAL (ONE-TIME) 2025 INFLUENZA VACCINE (#1) 2025 , 06/17/2023, 07/07/2022, Additional history exists COVID-19 VACCINE ( season) 2025 06/17/2023, 06/15/2022, 08/02/2021, Additional history exists HEMOGLOBIN A1C 10/30/2025 04/29/2025, 072 11/2023, 01/02/2024, Additional history exists BLOOD PRESSURE 12/31/2025 07/02/2025 CREATININE LEVEL 04/29/2026 04/29/2025, 02/2025, 06/04/2024, Additional [...] URINE MICROALBUMIN 1.3 0 - 2.3 mg/dL [facility] URINE CREATININE 112 mg/dL [facility] MICROALB/CRE RATIO 11.6 0 - 20 mg/g Cre [facility] Urine (Urine) 04/29/2025 2:0 1 PM EDT 04/29/2025 2:02 PM EDT us Marifer Garay MD URINE ORDERABLES Final Result [facility] [address] [place] [address] * (ABNORMAL) TSH with reflex (04/29/2025 1:53 PM EDT) TSH 0.14(L) 0.27 - 4.20 uIU/mL [facility] Blood 04/29/2025 1:53 PM EDT 04/29/2025 1:58 PM EDT us Marifer Garay MD LAB BLOOD ORDERABLES F inal Result Performing Organization Address City/[facility]/ZIP Co de Phone Number [address] [address] * Free T3 (04/29/2025 1:53 PM EDT) FREE T3 2.8 2.0 - 4.4 pg/mL [facility] 04/29/2025 1:53 PM EDT 04/29/2025 1:58 PM EDT us Marifer Garay MD LAB BLOOD ORDERABLES F inal Result Performing Organization Address [facility]/ZIP Co de Phone Number [address] [address] * Alanine aminotransferase (ALT) (04/29/2025 1:53 PM EDT) ALT 26 0 - 40 U/L [facility] Blood 04/29/2025 1:53 PM EDT 04/29/2025 1:58 PM EDT us Marifer Garay MD LAB BLOOD ORDERABLES F inal Result Performing Organization Address [facility]/ZIP Co de Phone Number [address] [address] * Aspartate aminotransferase (AST) (04/29/2025 1:53 PM EDT) AST 34 0 - 37 U/L [facility] Blood 04/29/2025 1:53 PM EDT 04/29/2025 1:58 PM EDT Result Lázaro Garay MD LAB BLOOD ORDERABLES F inal Result Performing Organization Address City/[facility]/ZIP Co de Phone Number [address] [address] * Free T4 (04/29/2025 1:53 PM EDT) FREE T4 1.3 0.9 - 1.7 ng/dL [facility] 04/29/2025 1:53 PM EDT 04/29/2025 1:58 PM EDT Result Lázaro Garay MD LAB BLOOD ORDERABLES F inal Result Performing Organization Address [facility] Co de Phone Number [address] [address] * Hemoglobin A1c (04/29/2025 1:53 PM EDT) HEMOGLOBIN A1C 5.6 4.3 - 5.8 % [facility] Blood 04/29/2025 1:53 PM EDT 04/29/2025 1:58 PM EDT Result Lázaro Garay MD LAB BLOOD ORDERABLES F inal Result Performing Organization Address City/[facility]/ZIP Co de Phone Number [address] [address] * (ABNORMAL) Vitamin B12 (04/29/2025 1:53 PM EDT) VITAMIN B12 >2000(H) 232 - 1245 pg/mL [facility] Blood 04/29/2025 1:53 PM EDT 04/29/2025 1:58 PM EDT us Marifer Garay MD LAB BLOOD ORDERABLES F inal Result Performing Organization Address City/[facility]/ZIP Co de Phone Number [address] [place] [address] * (ABNORMAL) Basic metabolic panel (04/29/2025 1:53 PM EDT) SODIUM 138 133 - 146 mmol/L [facility] CHLORIDE 99 96 - 108 mmol/L [facility] POTASSIUM 4.9 3.3 - 5.1 mmol/L [facility] CO2 29 21 - 35 mmol/L [facility] BUN 32(H) 6 - 19 mg/dL [facility] CREATININE 1.70(H) 0.5 - 1.5 mg/dL [facility] GLUCOSE 147(H) 70 - 99 mg/dL [facility] CALCIUM 9.4 8.4 - 10.3 mg/dL [facility] EGFR 33(L) >59 mL/min/1.7 3m2 [facility] Comment:Estimated glomerular filtration rate calculated using the CKD-EPI refit equation. ANION GAP 15 10 - 20 mmol/L [facility] Blood 04/29/2025 1:53 PM EDT 04/29/2025 1:58 PM EDT us Marifer Garay MD LAB BLOOD ORDERABLES F inal Result Performing Organization Address [facility]/ZIP Co de Phone Number [address] [address] * Hepatitis C antibody, qualitative (11/11/2024 3:38 PM EST) HCV NON-REACTIV E NON-REACTI VE [facility] Blood 11/11/2024 3:38 PM EST 11/11/2024 3:40 PM EST us Krishan Gallardo MD, MPH LAB BLOOD ORDERABLES Fin al Result Performing Organization Address [facility]/ZIP Co de Phone Number [address] [address] from Last 3 Months or Most Recently [...] CROSS OUT OF STATE PPO Care Teams Hand Marker Relationship Specialty Start Date End Date Juan Escoto MD [address] [place] [phone] PCP - General Internal Medicine 06/16/22 Additional Source Comments The information contained in this document represents components of the legal health record. It is not the complete legal health record.[facility]
--- OUTSIDE RECORDS SUMMARY | 2025-07-07 13:47 | XMS_ITS | Encounter Summary ---
Author Organization [facility] Address [address] [place] [address] [place] [address] Phone Care Team Providers Care Sports Specialist Name Role Phone Juan Escoto MD Primary Care Provider [phone] Encounter Details Date Type Department Care Team (Late st Contact Info) Description 06/14/2023 Ancillary Orders [facility] [address] [place] [address] [address]rd Floor, [address] [place] [address] Imtiaz Horner MD [address] [place] [address], [address] [place] [address] [email or web address] Social History Tobacco Use Types Packs/Day [...] 10:40 AM EST Office Visit [facility] [address] [place] [address] [place] [address] Yashira Cordova PA-C [address] [place] [address] 10/01/2025 9:40 AM EST Office Visit [facility] [address] [place] [address] [place] [address] Renetta Monique MD, MPH [address] [place] [address] 11/05/2025 11:00 AM EST Nutrition [facility] [address] [place] [address] Sunitha Almazan LDN [address] [place] [address] 11/18/2025 10:00 AM EDT Office Visit [facility] [address] [place] [address], [address] [address] Hermila Kaufman, JOHNNIE [address] [place] [address] 12/17/2025 10:20 AM EDT Office Visit [facility] [address] [place] [address] [place] [address] Marifer Garay MD [address] [place] [address] [email or web address] documented as of this encounter Visit Diagnoses Not on filedocumented in this encounter Care Teams Sports Specialist Relationship Specialty Start Date End Date Juan Escoto MD [address] [place] [address] [address] [place] [address] PCP - General Internal Medicine 06/16/22 documented as of this encounter Additional Source Comments The information contained in this document represents components of the legal health record. It is not the complete legal health record.[facility]
--- OUTSIDE RECORDS SUMMARY | 2025-07-07 13:47 | XMS_ITS | Encounter Summary ---
Author Organization [facility] Address [address] [place] [address] Phone Care Team Providers Care College Physics Instructor Name Role Phone Juan Escoto MD Primary Care Provider [phone] Encounter Details Date Type Department Care Team (Late st Contact Info) Description 10/19/2023 Ancillary Orders [facility] Rheumatology [address] [place] [address] Renetta Monique MD, MPH 22 [facility], [address] [place] [address] [email or web address] Psoriasis (Primary Dx); Polyarthralgia Social History Tobacco [...] 10:40 AM EST Office Visit [facility] [address] [place] [address] [place] [address] Yashira Cordova PA-C [address] [place] [address] 10/01/2025 9:40 AM EST Office Visit [facility] Rheumatology [address] [place] [address] [place] [address] Renetta Monique MD, MPH [address] [place] [address], [address] [place] [address] 11/05/2025 11:00 AM EST Nutrition [facility] [address] [place] [address] Sunitha Almaazn LDN [address] [place] [address], 1st [place] [address] 11/18/2025 10:00 AM EDT Office Visit [facility] [address] [place] [address] 3rd Floor, [address] [place] [address] Hermila Kaufman DNP 22 [facility], [address] [place] [address] [email or web address] 12/17/2025 10:20 AM EDT Office Visit [facility] [address] [place] [address] Marifer Garay MD [address] [place] [address] 3rd [place] [address] [email or web address] documented as of this encounter Results * [...] Achilles enthesopathy. Plantarcalcaneal spur. No acute fracture. us Renetta Monique MD, MPH IMG XR LOWER EXTREMITY F inal Result documented in this encounter Visit Diagnoses Diagnosis Psoriasis Other psoriasis Polyarthralgia Pain in joint, multiple sites Psoriasis- Primary Other psoriasis Polyarthralgia Pain in joint, multiple sites documented in this encounter Care Teams College Physics Instructor Relationship Specialty Start Date End Date Juan Escoto MD [address] [place] [address] PCP - General Internal Medicine 06/16/22 documented as of this encounter Additional Source Comments The information contained in this document represents components of the legal health record. It is not the complete legal health record.[facility]
--- OUTSIDE RECORDS SUMMARY | 2025-07-07 13:47 | XMS_ITS | Encounter Summary ---
Author Organization [facility] Address [address] [place] [address] Phone Care Team Providers Care Supervisor Rides Name Role Phone Juan Escoto MD Primary Care Provider [phone] Encounter Details Date Type Department Care Team (Late st Contact Info) Description 01/02/2024 Procedure Pass [facility] [address]rendra[address] [place] [address] Social History Tobacco Use Types Packs/Day Years [...] 10:40 AM EST Office Visit [facility] [address] [place] [address] [place] [address] Yashira Cordova PA-C [address] [place] [address] 10/01/2025 9:40 AM EST Office Visit [facility] Rheumatology [address] [place] [address] Renetta Monique MD, MPH [address] [place] [address], [facility] 203 [place] [address] 11/05/2025 11:00 AM EST Nutrition [facility] [address] [place] [address] [place] [address] Sunitha Almazan, ZHANNA [address] [place] [address], 1st [place] [address] 11/18/2025 10:00 AM EDT Office Visit [facility] [address] [place] [address] 3rd Floor, [address] [place] [address] Hermila Kaufman, JOHNNIE [address] [place] [address], [address] [address] 12/17/2025 10:20 AM EDT Office Visit [facility] 22 [place] [address] Marifer Garay MD [address] [place] [address] [email or web address] documented as of this encounter Visit Diagnoses Not on filedocumented in this encounter Care Teams Supervisor Rides Relationship Specialty Start Date End Date Jevon, Juan Finney MD [address] [place] [address] [place] [phone] PCP - General Internal Medicine 06/16/22 documented as of this encounter Additional Source Comments The information contained in this document represents components of the legal health record. It is not the complete legal health record.[facility]
--- OUTSIDE RECORDS SUMMARY | 2025-07-07 13:47 | XMS_ITS | Encounter Summary ---
Author Organization [facility] Address [address] [place] [address] Phone Care Team Providers Care Manager Economic Name Role Phone Juan Escoto MD Primary Care Provider [phone] Encounter Details Date Type Department Care Team (Late st Contact Info) Description 11/01/2022 Procedure Pass Echo Lab [address] [place] [address] Social History Tobacco Use Types Packs/Day Years [...] AM EST Office Visit [facility] [address] [place] [address] Yashira Cordova PA-C 22 [place] [address] 10/01/2025 9:40 AM EST Office Visit [facility] [place] [address] Renetta Monique MD, MPH 22 [facility], [address] [place] [address] 11/05/2025 11:00 AM EST Nutrition [facility] 22 [place] [address] Sunitha Almazan, LDN 22 [facility], 1st [place] [address] 11/18/2025 10:00 AM EDT Office Visit [facility] 22 [facility] 3rd Floor, [address] [place] [address] Hermila Kaufman, JOHNNIE [address] [place] [address], [address] [place] [address] 12/17/2025 10:20 AM EDT Office Visit [facility] [address] [place] [address] Marifer Garay MD [address] [place] [address] 3rd [place] [address] documented as of this encounter Visit Diagnoses Not on filedocumented in this encounter Care Teams Manager Economic Relationship Specialty Start Date End Date Juan Escoto MD [address] [place] [address] [address] [place] [phone] PCP - General Internal Medicine 06/16/22 documented as of this encounter Additional Source Comments The information contained in this document represents components of the legal health record. It is not the complete legal health record.[facility]
--- OUTSIDE RECORDS SUMMARY | 2025-07-07 13:47 | XMS_ITS | Clinical Summary ---
Author Organization [facility] Address [address] [facility] [address] 0 [place] [address] Phone Care Team Providers Care Social Sciences Chair Name Role Phone Juan Escoto MD Primary Care Provider [phone] Allergies Active Allergy Reactions Criticality Noted Date [...] 1 (one) time each day Active Tiotropium [place] Monohydrate 2.5 MCG/ACT aerosol solution Inhale 5 [...] age to complete this topic Care Teams Social Sciences Chair Relationship Specialty Start Date End Date Juan Escoto MD [facility] [address] [place] PCP - General Internal Medicine 01/26/22
--- OUTSIDE RECORDS SUMMARY | 2025-07-07 13:47 | XMS_ITS | Encounter Summary ---
Author Organization [facility] Address [address] [place] [address] Phone Care Team Providers Care Twx Operator Name Role Phone Juan Escoto MD Primary Care Provider [phone] Encounter Details Date Type Department Care Team (Late st Contact Info) Description 07/18/2023 Procedure Pass [facility], Ct Scan - [address] [address] Social History Tobacco Use Types Packs/Day Years [...] 07/18/2023 5:14 PM Rocio Davison RN * [place] Suicide Severity Rating Scale (Screener/Recent Self-Report) Question [...] 10:40 AM EST Office Visit [facility] [address] [place] [address] Yashira Cordova PA-C [address] [place] [address] 10/01/2025 9:40 AM EST Office Visit [facility] Rheumatology [address] [place] [address] [place] [address] Renetta Monique MD, MPH [address] [place] [address], [facility] 203 [place] [address] 11/05/2025 11:00 AM EST Nutrition [facility] [address] [place] [address] [place] [address] Sunitha Almazan, KENNEYN 22 [facility], 1st [place] [address] 11/18/2025 10:00 AM EDT Office Visit [facility] [address], [address] [place] [address] Hermila Kaufman, JOHNNIE 22 [facility], [address] [address] 12/17/2025 10:20 AM EDT Office Visit [facility] 22 [place] [address] Marifer Garay MD [address] [place] [address] documented as of this encounter Visit Diagnoses Not on filedocumented in this encounter Care Teams Twx Operator Relationship Specialty Start Date End Date Juan Escoto MD [address] [place] [address] Drive [address] [place] [phone] PCP - General Internal Medicine 06/16/22 documented as of this encounter Additional Source Comments The information contained in this document represents components of the legal health record. It is not the complete legal health record.[facility]
--- OUTSIDE RECORDS SUMMARY | 2025-07-07 13:47 | XMS_ITS | Clinical Summary ---
Author Organization [facility] Address 175 [place] [address] Phone Care Team Providers Care Senior Architectural Designer Name Role Phone Juan Escoto MD Primary Care Provider [phone] Allergies Active Allergy Reactions Criticality Noted Date [...] disease. 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 ([facility] V24, [facility] V28) 02/11/2021 Psoriatic arthritis ([facility] V24, [facility] V28) 0 02/11/2021 Osteoarthritis 02/11/2021 [...] 9:40 AM EDT Office Visit [facility] [place] [address] [place] [address] Neena Gutierrez NP History of gastric ulcer (Primary Dx); Colonoscopy refused from Last 3 Months Surgical History Surgery Date Site/Laterality Comments SECTION PROCEDURE: HISTORICAL DELIVERY; COMMENT: x 2 CAROTID ENDARTERECTOMY 01/2021 Left PROCEDURE: HISTORICAL CAROTID ENDART OTHER SURGICAL HISTORY PROCEDURE: HISTORICAL SUBTOTAL THYROIDECTOMY ESOPHAGOGASTRODUODENOSCOPY PROCEDURE: [place] EGD TRANSORAL BIOPSY SINGLE/MULTIPLE; COMMENT: X2 at [facility] ESOPHAGOGASTRODUODENOSCOPY 04/02/2021 PROCEDURE: [place] ESOPHAGOGASTRODUODENOSCOPY TRANSORAL DIAGNOSTIC; COMMENT: complete resolution of previous gastric ulcer Medical History Medical History Date Comments H/O carotid stenosis DX:H/O yepez tid stenosis Thrombosis of arm, left 01/2021 DX:Throm bosis of arm, left COPD (chronic obstructive pu lmonary disease) ([facility] V24, [facility] V28) DX:COPD (chronic o bstructive pulmonary disease) ([facility]) HTN (hypertension) DX:HTN (hyper tension) Hypothyroidism DX:Hypothyroidis m Gastric ulcer with hemorrhage 01/09/2021 DX :Gastric ulcer with hemorrhage Psoriatic arthritis ([facility] V24, [facility] V28) DX:Psoriatic arthritis ([facility]) History of non-ST elevation myocardial infarction (NSTEMI) 01/2021 DX:History of non-ST el evation myocardial infarction (NSTEMI); COMMENT: due to hemorrhagic shock 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 ([facility] V24, [facility] V28) DX:DM type 2 wit h diabetic peripheral neuropathy (HCC) Redness and swelling of upper arm DX:Redness and swelling of upper arm Expressive aphasia DX:Expressive aphasia Acute blood loss anemia DX:Acute blood loss anemia NSTEMI (non-ST elevated myoc ardial infarction) (CMS/HCC V24, CMS/HCC V28) DX:NSTEMI (non-ST elevated m yocardial infarction) ([facility]) Esophageal reflux DX:Esophageal reflux Cervical [...] Last Done Comments Breast Cancer Screening 1960 Colorectal Cancer Screening: Colonoscopy 1960 Diabetes: Annual Foot Exam 1970 Diabetes: Annual Retina Eye Exam 1970 Cervical Cancer Screening: Pap Smear 1981 Pneumococcal Vaccine: 50+ Years (2 of 2 - PCV) 12/20/2016 12/21/2015 Cholesterol Screening (Lipid Panel) 08/20/2022 Osteoporosis Screening (Bone Density Screening) 08/20/2022 Social Influencers of Health Screening 08/20/2022 Diabetes: Annual Urine Albumin-Creatinine Ratio (uACR) 01/20/2024 01/19/2023 Depression Screening 09/11/2024 Diabetes: Blood Sugar Control Test (HGBA1C) 10/03/2024 04/02/2024, 01/09/2021 Falls Risk Assessment 2025 COVID-19 Vaccine ( season) 2025 06/17/2023, 06/15/2022, 08/02/2021, Additional history exists Influenza Vaccine (#1) 2025 , 06/17/2023, 07/07/2022, [...] age to complete this topic Insurance MEDICARE [facility] Advance Directives Documents on File Type Date Recorded Patient Clock And Watch Hands Dipper Expl anation Health Care Decision (hx) 02/08/2021 [...] (hx) 09/29/2016 AD ANDRES DIRECTIVE Care Teams Senior Architectural Designer Relationship Specialty Start Date End Date Juan Escoto MD [address] [place] [address] [address] [facility] [place] [address] PCP - General Internal Medicine 01/12/21
--- OUTSIDE RECORDS SUMMARY | 2025-07-07 13:47 | XMS_ITS | Encounter Summary ---
Author Organization [facility] Address [address] [place] [address] Phone Care Team Providers Care Pharmacist Apprentice Name Role Phone Juan Escoto MD Primary Care Provider [phone] Encounter Details Date Type Department Care Team (Late st Contact Info) Description 07/04/2025 Documentation [facility] [address] [place] [address] [address] [address] [email or web address] Social History Tobacco Use Types Packs/Day Years [...] as of this encounter Progress Notes * Brodie Schneider - 07/04/2025 10:31 AM EDT [facility] Prior Authorization Approval Medication/Formulation/Frequency: Cosentyx 150mg/ml (300mg) PFS - 300mg sq every 28 days Status: Change dose or frequency Insurance Plan/Phone number: Eunice Reference Number/Graphic Designer Name (if applicable): [id number] Approval Dates: 07/03/25 - 07/03/26 Patient Notified Via:[facility] [place] Please refer to medication order for dispensing pharmacy information Please call with additional questions: [facility] documented in this encounter Plan of Treatment Upcoming Encounters Date Type Department Care Team (Late st Contact Info) Description 09/17/2025 10:40 AM EST Office Visit [facility] [address] [place] [address] Yashira Cordova PA-C [address] [place] [address] 10/01/2025 9:40 AM EST Office Visit [facility] Rheumatology [address] [place] [address] Renetta Monique MD, MPH [address] [place] [address], [address] [place] [address] 11/05/2025 11:00 AM EST Nutrition [facility] Diabetes Center [address] [place] [address] Sunitha Almazan, LDN 22 [facility], 1st [place] [address] 11/18/2025 10:00 AM EDT Office Visit [facility] [address] [place] [address] 3rd Floor, [address] [place] [address] Hermila Kaufman, JOHNNIE [address] [place] [address] [address] [place] [address] 12/17/2025 10:20 AM EDT Office Visit [facility] 22 [place] [address] Marifer Garay MD [address] [place] [address] 3rd [place] [address] documented as of this encounter Visit Diagnoses Not on filedocumented in this encounter Care Teams Pharmacist Apprentice Relationship Specialty Start Date End Date Juan Escoto MD [address] [place] [address] Drive [address] [place] [phone] PCP - General Internal Medicine 06/16/22 documented as of this encounter Additional Source Comments The information contained in this document represents components of the legal health record. It is not the complete legal health record.[facility]
--- OUTSIDE RECORDS SUMMARY | 2025-07-07 13:47 | XMS_ITS | Encounter Summary ---
Author Organization [facility] Address [address] [place] [address] Phone Care Team Providers Care Genetic Counsellor Name Role Phone Juan Escoto MD Primary Care Provider [phone] Encounter Details Date Type Department Care Team (Late st Contact Info) Description 07/18/2023 Procedure Pass [facility], Ct Scan - [address] [address] Social History Tobacco Use Types Packs/Day Years [...] 07/18/2023 5:14 PM Rocio Davison RN * [place] Suicide Severity Rating Scale (Screener/Recent Self-Report) Question Answer Date of Assessment Author 1. Wish to be (Past 1 Month) No 07/18/2023 5:14 PM Roico Davison RN 2. Non-Specific Active Suici jessica Thoughts (Past 1 Month) No 07/18/2023 5:14 PM Reji Davison RN 6. Suicidal Behavior (Lifetime) No 5:14 PM Rocio Davison RN documented as of this encounter Plan of Treatment Upcoming Encounters Date Type Department Care Team (Late st Contact Info) Description 09/17/2025 10:40 AM EST Office Visit [facility] [address] [place] [address] Yashira Cordova PA-C [address] [place] [address] 10/01/2025 9:40 AM EST Office Visit [facility] Rheumatology [address] [place] [address] [place] [address] Renetta Monique MD, MPH [address] [place] [address], [facility] 203 [place] [address] 11/05/2025 11:00 AM EST Nutrition [facility] [address] [place] [address] [place] [address] Sunitha Almazan, KENNEYN 22 [facility], 1st [place] [address] 11/18/2025 10:00 AM EDT Office Visit [facility] [address], [address] [place] [address] Hermila Kaufman, JOHNNIE 22 [facility], [address] [address] 12/17/2025 10:20 AM EDT Office Visit [facility] 22 [place] [address] Marifer Garay MD [address] [place] [address] documented as of this encounter Visit Diagnoses Not on filedocumented in this encounter Care Teams Genetic Counsellor Relationship Specialty Start Date End Date Juan Escoto MD [address] [place] [address] Drive [address] [place] [phone] PCP - General Internal Medicine 06/16/22 documented as of this encounter Additional Source Comments The information contained in this document represents components of the legal health record. It is not the complete legal health record.[facility]
--- OUTSIDE RECORDS SUMMARY | 2025-07-07 13:47 | XMS_ITS | Encounter Summary ---
Author Organization [facility] Address [address] [place] [address] Phone Care Team Providers Care Fig Caprifier Name Role Phone Juan Escoto MD Primary Care Provider [phone] Encounter Details Date Type Department Care Team (Late st Contact Info) Description 06/14/2023 Ancillary Orders Non-Invasive Cardiology 30 [place] [address] Imtiaz Horner MD 22 [facility], [address] [place] [address] [email or web address] Social History Tobacco Use Types Packs/Day Years [...] AM EST Office Visit [facility] [address] [place] [address] Yashira Cordova PA-C [address] [place] [address] 10/01/2025 9:40 AM EST Office Visit [facility] Rheumatology [address] [place] [address] Renetta Monique MD, MPH [address] [place] [address] 11/05/2025 11:00 AM EST Nutrition [facility] 22 [place] [address] Sunitha Almazan, ZHANNA [address] [place] [address] 11/18/2025 10:00 AM EDT Office Visit [facility] [address] [place] [address], [address] [address] Hermila Kaufman, JOHNNIE [address] [place] [address] 12/17/2025 10:20 AM EDT Office Visit [facility] [address] [place] [address] [place] [address] Marifer Garay MD [address] [place] [address] documented as of this encounter Visit Diagnoses Not on filedocumented in this encounter Care Teams Fig Caprifier Relationship Specialty Start Date End Date Juan Escoto MD [address] [facility] [address] [place] [phone] PCP - General Internal Medicine 06/16/22 documented as of this encounter Additional Source Comments The information contained in this document represents components of the legal health record. It is not the complete legal health record.[facility]
[2025-07-07 13:50] LABS: Alanine Aminotransferase 39 U/L (0-31); Albumin Level 4.3 g/dL (3.5-5.0); Alkaline Phosphatase 82 U/L (39-117); Anion Gap 13 (12-20); Aspartate Amino Transferase 36 U/L (5-31); Blood Urea Nitrogen 38 mg/dL (9-16); Calcium 9.5 mg/dL (8.4-10.2); Carbon Dioxide 30 mmol/L (22-29); Chloride 99 mmol/L (96-108); Estimated Glomerular Filt Rate 23; Potassium 4.6 mmol/L (3.3-5.1); Sodium 137 mmol/L (135-145); Total Protein 6.8 g/dL (6.5-8.0)
[2025-07-07 14:10] LABS: Cholesterol 106 mg/dL (<200); HDL Cholesterol 41 mg/dL (>40); Triglycerides 178 mg/dL (<150)
[2025-07-07 14:29] LABS: Folate 13.6 ng/mL (> or = 4.0); Vitamin B12 1706 pg/mL (200-900)
== END 2025-07-07 10:59 | disposition home or self-care (01) ==
LOC: HO.HMGCX 10:58
PROVIDERS: PCP Internal Medicine; Visit Provider Internal Medicine Rheumatology
DX: Z13.21 Encounter for screening for nutritional disorder (principal); E78.00 Pure hypercholesterolemia, unspecified; M54.2 Cervicalgia; G89.29 Other chronic pain; Z79.620 Long term (current) use of immunosuppressive biologic
CPT/HCPCS: 36415; 72040; 80053; 80061; 82306; 82607; 82746; 85025

== ENCOUNTER → 2025-07-07 11:30 | Outpatient (BNV) | payer BC, SELFPAY | PROVIDERS: PCP Internal Medicine; Visit Provider Radiology Diagnostic Ultrasound | DX: M47.812 Spondylosis without myelopathy or radiculopathy, cervical region (principal) | CPT/HCPCS: 72040 ==

== ENCOUNTER 2025-08-01 12:59 | Outpatient (AMB) | payer BC, SELFPAY ==
[2025-08-01 13:02] VITALS: BP 114/60; PULSE 79; TEMP 36.1; O2SAT 93; BMI 40.5
--- NOTE | 2025-08-01 13:02 | MHC.PC.OV ---
Vital Signs 08/01/25 13:02 Height 5 ft 1 in Weight 214 lb 6 oz BMI 40.5 BP 114/60 Blood Pressure Location Lt brachial Position Sitting Pulse 79 Pulse Source Pulse Oximeter Temp 97.0 F Temp Source Temporal Artery Scan Pulse Oximetry (%) 93 Oxygen Delivery Method Room Air Intake Visit Reasons: COPD exacerbation Allergies adalimumab (Humira) Allergy (Unknown, Verified 08/01/25 13:02) Unknown alprazolam Allergy (Unknown, Verified 08/01/25 13:02) swelling amlodipine Allergy (Unknown, Verified 08/01/25 13:02) swelling etanercept (Enbrel) Allergy (Unknown, Verified 08/01/25 13:02) Unknown fluticasone (From Wixela Inhub) Allergy (Unknown, Verified 08/01/25 13:02) Unknown hydrochlorothiazide Allergy (Unknown, Verified 08/01/25 13:02) hives salmeterol (From Wixela Inhub) Allergy (Unknown, Verified 08/01/25 13:02) Unknown simvastatin Allergy (Unknown, Verified 08/01/25 13:02) Unknown codeine Adverse Reaction (Intermediate, Verified 08/01/25 13:02) Nausea and Vomiting roflumilast (From Daliresp) Adverse Reaction (Intermediate, Verified 08/01/25 13:02) Nausea Medication List - Last Reconciled 08/01/25 by Juan Escoto MD acetaminophen ER (Tylenol Arthritis Pain) 1,300 mg PO TID albuterol sulfate 2.5 mg (3 mL) inhalation Q4-6H PRN albuterol sulfate 90 mcg/actuation 2 puffs inhalation Q6H PRN ascorbate calcium (vitamin C) 500 mg PO DAILY aspirin (Adult Low Dose Aspirin) 81 mg PO DAILY blood-glucose sensor (The New Daily G6 Sensor device) USE DIRECTED. blood-glucose transmitter (The New Daily G6 Transmitter device) USE DIRECTED blood-glucose,juice scaleman,cont (The New Daily G6 Rag Sorter) As directed cholecalciferol (vitamin D3) 25 mcg PO DAILY duloxetine 120 mg (2 x 60 mg) PO DAILY 30 days zstidyrmfrh-ktsialiml-xanijcpz 200-62.5-25 mcg (Trelegy Ellipta) 1 inh inhalation DAILY furosemide 60 mg PO BID gabapentin 300 mg PO Q8H 90 days hydralazine 25 mg PO BID insulin aspart U-100 (Novolog FlexPen U-100 Insulin aspart) 17 units subcut TID levothyroxine 125 mcg PO DAILY losartan 100 mg PO DAILY 90 days magnesium aspart,citrate,oxide 400 mg PO .QD melatonin 10 mg PO BEDTIME metformin 500 mg PO BID 90 days metoprolol tartrate 25 mg PO BID 90 days miconazole nitrate 2% (Zeasorb AF) 1 appl topical DAILY pantoprazole 40 mg PO QPM pen needle, diabetic (BD Ultra-Fine Short Pen Needle) As directed inject using insulin 5 x a day rosuvastatin 40 mg PO DAILY 90 days secukinumab (Cosentyx UnoReady Pen) 300 mg subcut Q4W semaglutide (Ozempic) 1 mg subcut QWEEK sennosides-docusate sodium 8.6-50 mg (Senna-S) 1 tab-cap PO BEDTIME tramadol 50 mg PO DAILY triamcinolone acetonide 0.5% 1 appl topical BID vitamin B complex 1 tab PO Q OTHER DAY Tobacco use date assessed: 08/01/25 Fall risk assessment: No Falls in past year Last assessed Fall Risk: 08/01/25 Dental Screening Dental Screen Date: 08/01/25 Did you have a dental visit in the last 12 months?: Yes Did you have a dental problem in the last 6 months where you did not have access to dental care?: No Was dental information given to patient?: Patient has dentist HPI COPD exacerbation HPI Details planning watchmans device. coughing, nose dripping and sore throat since 07/14/2025, this time greenish secretions, sob, HPI Comments History of Present Illness Details History of Present Illness The patient is a 65-year-old individual presenting for an acute problem and management of multiple chronic conditions. The patient has a history of morbid obesity, diabetes mellitus, hypercholesterolemia, COPD, hypothyroidism, hypertension, gastric ulcer, and generalized anxiety disorder. Past medical history is also significant for coronary artery disease and a cerebrovascular accident with associated right arm venous thrombosis and left carotid stenosis, for which the patient is status post endarterectomy. The patient has known osteoporosis, with the last bone density scan performed in July 2022, and chronic kidney disease. In terms of health maintenance, the patient's mammogram is up to date, but the last colonoscopy was in 2013. Recent laboratory work from July 07 showed a normal blood count and electrolytes. Renal function revealed a creatinine of 2.19, and the patient has known proteinuria. The hemoglobin A1c was 5.9, liver function tests were mildly elevated, LDL was 30, and triglycerides were 178. Vitamin D and folic acid levels were adequate. Health Maintenance - Mammogram: Up to date. - Colonoscopy: Last performed in 2013. - Bone density scan: Last performed in July 2022. Social History Results - Labs from July 07: - Complete Blood Count: Normal. - Electrolytes: Normal. - Renal Function: Creatinine 2.19. - Hemoglobin A1c: 5.9. - Liver Function Tests: Mildly elevated. - Lipid Panel: LDL 30, Triglycerides 178. - Vitamin D: Good. - Folic Acid: Good. - Urinalysis: Proteinuria present. [facility] Medical History (Updated 08/01/25 @ 13:28 by Juan Escoto MD) Atrial fibrillation Cellulitis of right leg Open wound, lower leg SOB (shortness of breath) Upper GI hemorrhage Closed left ankle fracture Psoriatic arthritis History of paroxysmal supraventricular tachycardia Tobacco abuse Osteoarthritis Hypertension Diabetic nephropathy Psoriasis Diabetic neuropathy Hypothyroid Obesity COPD (chronic obstructive pulmonary disease) Hypercholesterolemia Type 2 diabetes mellitus with hyperglycemia Surgical History History of carotid angioplasty H/O cardiac radiofrequency ablation History of cataract surgery History of throat surgery History of parathyroidectomy History of thyroidectomy History of ankle surgery H/O left wrist surgery History of eye surgery History of appendectomy History of cholecystectomy History of section Family History Father Prostate cancer Mother Ovarian cancer Paternal Grandmother Breast cancer Social History Household Members: Spouse Household Members Other:: Elmer Housing: House Do you presently have visiting nurse or other home services: No Alcohol intake: never Patient Tobacco Use Status: Former Tobacco user Tobacco use type: Cigarette Years Smoked: 48 e-Cigarette/Vaping Use: Never Used Second Hand Smoke Exposure: Yes Substance Use Type: Marijuana service: No Current occupational status: disabled Cognitive needs: Yes (using portable oxygen) Hearing needs: No Vision needs: Yes (Glasses) Questionnaire PHQ-9 Over the last 2 weeks, how often have you been bothered by any of the following problems? 1. Little interest or pleasure in doing things: not at all 2. Feeling down, depressed, or hopeless: not at all 3. Trouble falling or staying asleep, or sleeping too much: not at all 4. Feeling tired or having little energy: not at all 5. Poor appetite or overeating: not at all 6. Feeling bad about yourself - or that you are a failure or have let yourself or your family down: not at all 7. Trouble concentrating on things, such as reading the newspaper or watching television: not at all 8. Moving or speaking so slowly that other people could have noticed. Or the opposite - being so fidgety or restless that you have been moving around a lot more than usual: not at all 9. Thoughts that you would be better off or of hurting yourself in some way: not at all Total score: 0 Depression Screening Interpretation: Negative Depression Screening Done: Yes Source: Developed by Drs. Guy Gibson, Rupali Carroll, Trey Hughes and colleagues, with an educational milton from [employer]. Thrive Questionnaire Date Thrive assessed: 02/14/25 I am a: Patient What is your living situation today?: I have a steady place to live Within the past 12 months, did the food you bought not last and you didn't have the money to get more?: Never true Within the past 12 months, did you worry whether your food would run out before you got money to buy more?: Never true Do you have trouble paying for medicines?: No Do you have trouble getting transportation to medical appointments?: No Do you have trouble paying your heating and electricity bill?: No Do you have trouble taking care of your child, family member or friend?: No Do you have trouble with day-to-day activities such as bathing, preparing meals, shopping, managing finances, etc.?: I choose not to answer this question Are you currently unemployed and looking for a job?: No Are you interested in more education?: No Please select the resources that you would like help with: None Currently or been in a relationship where the following occur: No concerns reported THRIVE Score: 0 AUDIT C Alcohol Use Questionnaire (AUDIT-C) 1. How often do you have a drink containing alcohol?: Never 3. How often do you have six or more drinks on one occasion?: Never Total Score: 0 PATITO-7 AMB Questionnaire PATITO-7 Date PATITO - 7 assessed: 05/09/25 Feeling nervous, anxious, or on edge: 2 = More than half the days Not being able to stop or control worryin = Not at all Worrying too much about different things: 0 = Not at all Trouble relaxin = Several days Being so restless that it is hard to sit still: 0 = Not at all Becoming easily annoyed or irritable: 1 = Several days Feeling afraid as if something awful might happen: 3 = Nearly every day Total PATITO-7 score (0-4 normal; 5-9 mild; 10-14 moderate; 15-21 severe): 7 Source: Developed by Drs. Guy Gibson, Rupali Carroll, Trey Hughes and colleagues, with an educational milton from [employer]. Review of Systems Narrative Review of Systems Physical exam (Primary Care) Vital Signs: Last Vital Signs Temp 97.0 F 08/01/25 13:02 Pulse 79 08/01/25 13:02 BP 114/60 08/01/25 13:02 Pulse Ox 93 08/01/25 13:02 Oxygen Delivery Method Room Air 08/01/25 13:02 BMI result Body Mass Index 40.5 Tobacco/Smoking Status: Tobacco use Status Tobacco use date assessed 08/01/25 08/01/25 13:10 Patient Tobacco Use Status Former Tobacco user 08/01/25 13:10 Tobacco use type Cigarette 08/01/25 13:10 e-Cigarette/Vaping Use Never Used 08/01/25 13:10 PHQ-9: PHQ-9 Score PHQ-9: Total score 0 08/01/25 13:27 Depression Screening Interpretation: Negative Thrive Assessment: Date of Thrive Assessment Date Thrive assessed 02/14/25 08/01/25 13:10 Currently or been in a relationship where the following occur: No concerns reported Narrative Physical Exam Const General: alert; No acute distress Eyes Conjunctivae: conjunctivae normal Resp Other: Decreased breath sounds with rhonchi noted bilaterally Cardio Rate: regular rate Rhythm: regular rhythm GI Inspection: Yes normal to inspection Extrem General: Yes normal to inspection and No edema Results AMB Hemoglobin A1c AMB Hemoglobin A1c 5.9 % Last Edit by Libby Posadas CMA on 08/01/25 13:18 Results Reviewed Results Reviewed: Laboratory Last Values Hgb A1c (Clinic) 5.9 % (4.0-6.0) 08/01/25 13:17 Coding Level of Care Code Complex visit Add On G2211 Diagnoses Type 2 diabetes mellitus with hyperglycemia, with long-term current use of insulin E11.65; Z79.4 Diabetes mellitus chcf insulin use: with intermodal owner operator truck driver use Hypercholesterolemia E78.00 Atrial fibrillation I48.91 Coronary artery disease I25.10 Essential hypertension I10 Hypertension type: essential hypertension Generalized anxiety disorder F41.1 CKD (chronic kidney disease) N18.9 Cerebrovascular accident (CVA) due to occlusion of cerebral artery I63.50 CVA mechanism: occlusion Precerebral and cerebral artery: unspecified cerebral artery Panlobular emphysema J43.1 COPD type: emphysema Emphysema type: panlobular COPD exacerbation J44.1 Assessment & Plan Assessment & Plan (1) Type 2 diabetes mellitus with hyperglycemia: Comment: [facility] 05/2023 Code(s): E11.65 - Type 2 diabetes mellitus with hyperglycemia Category: Medical Qualifiers: Diabetes mellitus intermodal owner operator truck driver insulin use: with chcf use Qualified Code(s): E11.65 - Type 2 diabetes mellitus with hyperglycemia; Z79.4 - halfway (current) use of insulin Plan: Decrease the amount of carbohydrate intake, pasta, bread, rice and potatoes are all sugar and that is aside from all the sweet stuff, remember that fruits are good but they are Sweet also. Hemoglobin A1c goal of less than 6.5. Patient on NovoLog metformin semaglutide (2) Hypercholesterolemia: Comment: January 2023 Code(s): E78.00 - Pure hypercholesterolemia, unspecified Category: Medical Plan: also rosuvastatin 40 mg once a day (3) Atrial fibrillation: Code(s): I48.91 - Unspecified atrial fibrillation Category: Medical Plan: Patient not on anticoagulation as the patient had GI bleeding. Patient is going to follow up with Cardiology (4) Coronary artery disease: Comment: January 2021 Code(s): I25.10 - Atherosclerotic heart disease of [place] coronary artery without angina pectoris Category: Medical Plan: Control the cholesterol, weight, blood pressure, diabetes continue with aspirin 81 mg once a day (5) Hypertension: Code(s): I10 - Essential (primary) hypertension Category: Medical Qualifiers: Hypertension type: essential hypertension Qualified Code(s): I10 - Essential (primary) hypertension Plan: Continue with blood pressure medication. Decrease salt intake and exercise metoprolol 25 mg twice a day losartan 100 mg once a day hydralazine 25 mg twice a day (6) Generalized anxiety disorder: Code(s): F41.1 - Generalized anxiety disorder Category: Medical Plan: Continue present medication (7) CKD (chronic kidney disease): Code(s): N18.9 - Chronic kidney disease, unspecified Category: Medical Plan: Keep well hydrated and follow-up with Nephrology (8) CVA (cerebral vascular accident): Comment: Expressive aphasia January 2021 Code(s): I63.9 - Cerebral infarction, unspecified Category: Medical Qualifiers: CVA mechanism: occlusion Precerebral and cerebral artery: unspecified cerebral artery Qualified Code(s): I63.50 - Cerebral infarction due to unspecified occlusion or stenosis of unspecified cerebral artery Plan: Control the cholesterol, weight, blood pressure, diabetes (9) COPD (chronic obstructive pulmonary disease): Code(s): J44.9 - Chronic obstructive pulmonary disease, unspecified Category: Medical Qualifiers: COPD type: emphysema Emphysema type: panlobular Qualified Code(s): J43.1 - Panlobular emphysema Plan: Patient on albuterol inhaler and Trelegy (10) COPD exacerbation: Code(s): J44.1 - Chronic obstructive pulmonary disease with (acute) exacerbation Category: Medical Plan Plan Patient was informed and verbally consented to the use of an ambient scribe for clinic note documentation during this visit. 1. Diabetes Mellitus The patient's hemoglobin A1c is 5.9, with a goal of less than 6.5. The plan is to continue the current regimen of metformin, semaglutide, and NovoLog. 2. Hypercholesterolemia The plan is to continue rosuvastatin 40 mg once a day. 3. Coronary Artery Disease The patient is not on anticoagulation. The plan is to continue aspirin 81 mg once a day for secondary prevention. 4. Hypertension The plan is to continue the current medications, which include metoprolol 25 mg twice a day, losartan 100 mg once a day, and hydralazine 25 mg twice a day. 5. Chronic Kidney Disease The plan includes maintaining good hydration and following up with nephrology. 6. Chronic Obstructive Pulmonary Disease The plan is to continue the albuterol inhaler. Discussion Notes Patient Instructions - Continue taking all your current medications as prescribed for diabetes, cholesterol, blood pressure, heart health, and breathing. - Please make sure to drink plenty of water to help your kidneys. - Keep your follow-up appointment with the kidney specialist (nephrology). - You are due for a colonoscopy for colon cancer screening. Please schedule this procedure. Orders: Orders AMB Hemoglobin A1c Today Juan Escoto MD Z13.9 - Encounter for screening, unspecified Referrals Nephrology Referral Juan Escoto MD N18.9 - Chronic kidney disease, unspecified Medications: New prednisone 4 tabs QD x 2 days then 3 tabs QD x 2 days then 2 tabs Qd x 2 days then 1 tab QD x 2 days PO daily; 20 tabs 0RF Juan Escoto MD J44.1 - Chronic obstructive pulmonary disease with (acute) exacerbation, J45.909 - Unspecified asthma, uncomplicated azithromycin (Zithromax) For 250 mg dose pack: take 500 mg today (day 1), then 250 mg for 4 days (days 2-5) PO 6 tabs 0RF Juan Escoto MD J44.1 - Chronic obstructive pulmonary disease with (acute) exacerbation Changed From pantoprazole 40 mg PO BID 90 days 180 tabs 3RF K25.0 - Acute gastric ulcer with hemorrhage To pantoprazole 40 mg PO QPM K25.0 - Acute gastric ulcer with hemorrhage Tess Chang PA-C Discontinued metformin Discontinued Reason: Doctor's Order 500 mg PO BID 90 days 180 tabs 0RF
--- OUTSIDE RECORDS SUMMARY | 2025-08-01 13:21 | XMS_ITS | Encounter Summary ---
Author Organization [facility] Address [address] [place] [phone] Phone Care Team Providers Care Welder Apprentice Arc Name Role Phone Juan Escoto MD Primary Care Provider [phone] Encounter Details Date Type Department Care Team (Late st Contact Info) Description 06/16/2022 Procedure Pass Echo [facility] [address] [place] [address] Social History Tobacco Use Types Packs/Day Years [...] 10:40 AM EST Office Visit [facility] [address] Yashira Cordova PA-C [address] [place] [address] 10/01/2025 9:40 AM EST Office Visit [facility] [place] [address] Renetta Monique MD, MPH [address] [place] [address], [address] [place] [address] 11/05/2025 11:00 AM EST Nutrition [facility] [address] [place] [address] Sunitha Almazan, LDN 22 [facility], 1st [place] [address] 11/18/2025 10:00 AM EDT Office Visit [facility] [address] [place] [address] 3rd [facility], [address] [place] [address] Hermila Kaufman, JOHNNIE 22 [facility] [address] [place] [address] 12/17/2025 10:20 AM EDT Office Visit [facility] [address] [place] [address] Marifer Garay MD [address] [place] [address] [address] [place] [address] documented as of this encounter Visit Diagnoses Not on filedocumented in this encounter Care Teams Welder Apprentice Arc Relationship Specialty Start Date End Date Juan Escoto MD [address] [place] [address] [address] [place] [phone] PCP - General Internal Medicine 06/16/22 documented as of this encounter Additional Source Comments The information contained in this document represents components of the legal health record. It is not the complete legal health record.[facility]
--- OUTSIDE RECORDS SUMMARY | 2025-08-01 13:21 | XMS_ITS | Encounter Summary ---
Author Organization [facility] Address [address] [place] [phone] Phone Care Team Providers Care Veneer Drier Tailer Name Role Phone Juan Escoto MD Primary Care Provider Encounter Details Date Type Department Care Team (Late st Contact Info) Description 10/20/2022 Procedure Pass [facility], Ct Scan - [address] [address] Social History Tobacco Use Types Packs/Day Years [...] AM EST Office Visit [facility] [address] [place] [address] Yashira Cordova PA-C [address] [place] [address] 10/01/2025 9:40 AM EST Office Visit [facility] Rheumatology [address] [place] [address] Renetta Monique MD, MPH 22 [facility], [address] [place] [address] 11/05/2025 11:00 AM EST Nutrition [facility] [address] [place] [address] Sunitha Almazan, LDN [address] [facility], 1st [place] [address] 11/18/2025 10:00 AM EDT Office Visit [facility] [address] [facility] 3rd [facility], [address] [place] [address] Hermila Kaufman, JOHNNIE [address] [facility], [address] [place] [address] 12/17/2025 10:20 AM EDT Office Visit [facility] [address] [place] [address] Marifer Garay MD [address] [place] [address] [address] [place] [address] documented as of this encounter Visit Diagnoses Not on filedocumented in this encounter Care Teams Veneer Drier Tailer Relationship Specialty Start Date End Date Jevon, Juan Finney MD [address] [place] [address] Drive [address] [place] [phone] PCP - General Internal Medicine 06/16/22 documented as of this encounter Additional Source Comments The information contained in this document represents components of the legal health record. It is not the complete legal health record.[facility]
--- OUTSIDE RECORDS SUMMARY | 2025-08-01 13:21 | XMS_ITS | Encounter Summary ---
Author Organization [facility] Address [address] [place] [address] Phone Care Team Providers Care Kitchen Manager Name Role Phone Juan Escoto MD Primary Care Provider [phone] Encounter Details Date Type Department Care Team ([facility] st Contact Info) Description 03/10/2025 Telephone [facility] [address] [place] [address] Katy [email or web address] Social History Tobacco Use Types Packs/Day Years [...] 10:40 AM EST Office Visit [facility] [address] [place] [address] [place] [address] Yashira Cordova PA-C [address] [place] [address] 10/01/2025 9:40 AM EST Office Visit [facility] Rheumatology [address] [place] [address] Reentta Monique MD, MPH [address] [place] [address], [address] [place] [address] 11/05/2025 11:00 AM EST Nutrition [facility] Diabetes Center [address] [place] [address] [place] [address] Sunitha Almazan, ZHANNA 22 [facility], 1st [place] [address] 11/18/2025 10:00 AM EDT Office Visit [facility] [address] [place] [address] 3rd Floor, [address] [place] [address] Hermila Kaufman, JOHNNIE 22 [facility], [address] [place] [address] 12/17/2025 10:20 AM EDT Office Visit [facility] [address] Marifer Garay MD [address] [place] [phone] [email or web address] documented as of this encounter Visit Diagnoses Not on filedocumented in this encounter Care Teams Kitchen Manager Relationship Specialty Start Date End Date Juan Escoto MD [address] [place] [address] [address] [place] [phone] PCP - General Internal Medicine 06/16/22 documented as of this encounter Additional Source Comments The information contained in this document represents components of the legal health record. It is not the complete legal health record.[facility]
--- OUTSIDE RECORDS SUMMARY | 2025-08-01 13:21 | XMS_ITS | Clinical Summary ---
Author Organization [facility] Address [address] [place] [address] Phone Care Team Providers Care Patient Service Specialist Name Role Phone Juan Escoto MD Primary Care Provider [phone] Allergies Active Allergy Reactions Criticality Noted Date [...] (two) times a day with meals. 06/24/20 Active lyeilvti-ftopqpa-m anju-lutein Tab Take by mouth. Active L.acid/L.casei/B.b if/B.sophia/FOS (PROBIOTIC BLEND ORAL) Take by mouth. Activ e aspirin 81 MG EC tablet Take 81 mg by mouth daily. Active traMADoL (ULTRAM) 50 mg tablet 25 mg nightly at bedtime. 12/15/19 24 Active BD INSULIN PEN NEEDLE UF SHORT 31 gauge x 5/16 Ndle 1 each. 03/11/20 24 Active blood-glucose meter,continuous (DEXCOM G7 AMUSEMENT PARK ENTERTAINER) MiscIndications:Ty pe 2 diabetes mellitus with diabetic polyneuropathy, with long-term current use of insulin by Miscellaneous route as needed. 1 each 04/02/20 24 Active NOVOLOG FLEXPEN U-100 INSULIN 100 unit/mL (3 mL) flexpen 10-20 units 1-3 times daily 04/02/20 24 Active TRELEGY ELLIPTA 100-62.5-25 mcg inhalation powderIndications: Simple chronic bronchitis,Shortne ss of breath,Former smoker INHALE ONE PUFF INTO LUNGS DAILY 60 each 11 11/04/19 25 Active DEXCOM G7 SENSOR DeviIndications:Ty pe 2 diabetes mellitus with diabetic polyneuropathy, with long-term current use of insulin APPLY ONE SENSOR EVERY 10 DAYS 3 each 11 03/17/20 25 Active levothyroxine (SYNTHROID, LEVOTHROID) 125 MCG tabletIndications: Postoperative hypothyroidism 1 tablet, orally, six days/week, skip 1 day/week, or as directed 78 tablet 1 05/05/20 25 Active triamcinolone acetonide 0.5 % cream 05/18/20 Active semaglutide (OZEMPIC) 2 mg/dose (8 mg/3 mL) subcutaneous injection penIndications:Typ e 2 diabetes mellitus with peripheral neuropathy Inject 2 mg under the skin every 7 days. 3 mL 5 06/13/20 25 Active insulin glargine U-300 (TOUJEO MAX U-300 SOLOSTAR) 300 unit/mL (3 mL) subcutaneous injection penIndications:Typ e 2 diabetes mellitus with peripheral neuropathy Inject 56-68 Units under the skin daily. 06/13/20 25 Active furosemide (LASIX) 20 MG tabletIndications: Chronic diastolic (congestive) heart failure TAKE THREE TABLETS BY MOUTH TWICE A DAY 540 tablet 3 06/17/20 25 Active secukinumab (COSENTYX) 150 mg/mL subcutaneous injection syringeIndications :Psoriatic arthritis Inject 2 mL (300 mg total) under the skin every 28 days. 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 Will defer to her etymology teacher Dr. Horner who she will be [...] EDT): She was being followed by outside etymology teacher every 3 months for echocardiography in [...] Is also on oxygen. Being followed by environmental conservation officer. History of bleeding peptic ulcer 06/16/2022 Assessment [...] her glucose levels. Up to date with [employer]. Labs ordered Assessment & Plan (03/12/2025 5:05 PM EDT): Control appears quite good. Some lows fasting, advised to lower dose of basal insulin. Will do labs. To call if hasn't heard from us within 1-2 weeks. Continue to work on eating healthy & keeping active. To call or send in BG with problems with glycemic control. Up to date with [employer]. Foot & nail care good. Assessment & [...] her glucose levels. Up to date with [employer]. Labs to be done next week with [...] her glucose levels. Up to date with ophtho. Labs were done with PCP Assessment & [...] Encounters Date Type Department Care Team Description 07/08/2025 Orders Only [facility] Rheumatology [address] [place] [address] Greer Montgomery MA Long-term current use of secukinumab 07/07/2025 Orders Only [facility] Rheumatology [address] [place] [address] Greer Montgomery [place] Chronic neck pain 07/04/2025 Documentation [facility] [address] [place] [address] Narendra Perez, [facility] 07/02/2025 9:40 AM EDT Office Visit [facility] Rheumatology [address] [place] [address] [place] [address] Krishan Gallardo MD, MPH Psoriatic arthritis (Primary Dx); Chronic neck pain; Long-term current use of secukinumab 06/26/2025 Telephone [facility] [address] [place] [address] [place] [address] Pebbles Montilla MA 06/15/2025 Refill [facility] [address] [place] [address] 3rd Floor, [address] [place] [address] Hermila Kaufman DNP Medication Refill 06/13/2025 9:20 AM EDT Office Visit [facility] [address] [place] [address] [place] [address] Yashira Cordova PA-C Type 2 diabetes mellitus with peripheral neuropathy (Primary Dx); Postoperative hypothyroidism 05/29/2025 Refill [facility] [address] [place] [address] [place] [address] Yashira Cordova PA-C Medication Refill 05/20/2025 9:30 AM EDT Office Visit [facility] [address] [place] [address] 3rd Floor, [address] [place] [address] Hermila Kaufman DNP Paroxysmal atrial fibrillation (Primary Dx); Chronic diastolic (congestive) heart failure; Benign essential hypertension; Coronary artery calcification seen on CAT scan 05/08/2025 Refill [facility] [address] [place] [address] [place] [address] Pebbles Montilla MA 05/05/2025 Orders Only [facility] Endocrinology [address] [place] [address] Marifer Garay MD Postoperative hypothyroidism (Primary Dx) from Last 3 Months Immunizations Immunization Administration [...] 07/18/2023 Are you denied basic needs s [facility] as food, clothing, or medical care? No [...] 10:40 AM EST Office Visit [facility] [address] [place] [address] [place] [address] Yashira Cordova PA-C [address] [place] [address] 10/01/2025 9:40 AM EST Office Visit [facility] Rheumatology [address] [place] [address] [place] [address] Krishan Gallardo MD, MPH 22 [facility] [address] [place] [address] 11/05/2025 11:00 AM EST Nutrition [facility] [address] [place] [address] [place] [address] Sunitha Almazan LDN [address] [place] [address], 1st [place] [address] 11/18/2025 10:00 AM EDT Office Visit [facility] [address] [place] [address] 3rd Floor, [address] [place] [address] Hermila Kaufman, JOHNNIE [address] [place] [address] [address] [place] [address] [email or web address] 12/17/2025 10:20 AM EDT Office Visit [facility] [address] [place] [address] Marifer Garay MD [address] [place] [address] 3rd [place] [address] [email or web address] Health Maintenance Due Date Last Done Comments [...] Additional history exists BLOOD PRESSURE 12/31/2025 07/02/2025 POTASSIUM LEVEL 04/29/2026 04/29/2025, 010 02/2025, 06/04/2024, Additional history exists TSH LEVEL 04/29/2026 04/29/2025 Adult Td,Tdap Booster 06/17/2026 06/17/2016 CREATININE LEVEL 07/07/2026 07/07/2025, , 09/16/2024, Additional history exists ZOSTER VACCINES Completed 09/19/2022, 06/24/2022 RSV VACCINE Completed 07/08/2023 HEPATITIS C SCREENING Completed 11/11/2024 , 11/11/2024, 11/11/2024 HEPATITIS A VACCINES Aged Out No [...] Procedure Name Priority Date/Time Associated Diagnosis Comments XR CERVICAL SPINE Routine 07/07/2025 2:1 0 PM EDT Chronic neck pain COMPREHENSIVE METABOLIC PANEL (CMP) Routine 07/07/2025 11:56 AM EDT Long-term current use of secukinumab CBC AND DIFFERENTIAL Routine 07/07/2025 11:56 AM EDT Long-term current use of secukinumab HEMOGLOBIN A1C Routine 04/29/2025 1:53 PM EDT Type 2 diabetes mellitus with peripheral neuropathy TSH WITH REFLEX Routine 04/29/2025 1:53 PM EDT Type 2 diabetes mellitus with peripheral neuropathy Postoperative hypothyroidism BASIC METABOLIC PANEL (BMP) Routine 04/29/2025 1:53 PM EDT Type 2 diabetes mellitus with peripheral neuropathy HEPATITIS C ANTIBODY, QUALITATIVE Routine 11/11/2024 3:38 PM EST High risk medication use from Last 3 Months or Most Recently Relevant to Health Maintenance Results * XR Cervical Spine (07/07/2025 2:10 PM EDT) Anatomical Region Laterality Modality C-spine XR Diagnostic us Krishan Gallardo MD, MPH IMG XR SPINE Final Re sult * Comprehensive metabolic panel (07/07/2025 11:56 AM EDT) Blood Krishan Gallardo MD, MPH LAB BLOOD BKR ORDERABLES Final Result Performing Organization Address City/[facility]/ZIP Co de Phone Number EXTERNAL NON-INTERFACED REF LAB * CBC and differential (07/07/2025 11:56 AM EDT) Blood Krishan Gallardo MD, MPH LAB BLOOD BKR ORDERABLES Final Result Performing Organization Address [facility] de Phone Number EXTERNAL NON-INTERFACED REF LAB * (ABNORMAL) TSH with reflex (04/29/2025 1:53 PM EDT) Pathologist [facility] TSH 0.14(L) 0.27 - 4.20 uIU/mL [facility] Blood 04/29/2025 1:53 PM EDT 04/29/2025 1:58 PM EDT Marifer Garay MD LAB BLOOD BKR ORDERABL ES Final Result Performing Organization Address [facility] de Phone Number [address] [address] * Hemoglobin A1c (04/29/2025 1:53 PM EDT) HEMOGLOBIN A1C 5.6 4.3 - 5.8 % [facility] Blood 04/29/2025 1:53 PM EDT 04/29/2025 1:58 PM EDT Marifer Garay MD LAB BLOOD BKR ORDERABL ES Final Result Performing Organization Address [facility] Co de Phone Number [address] [address] * (ABNORMAL) Basic metabolic panel (04/29/2025 1:53 PM EDT) SODIUM 138 133 - 146 mmol/L [facility] CHLORIDE 99 96 - 108 mmol/L [facility] POTASSIUM 4.9 3.3 - 5.1 mmol/L [facility] CO2 29 21 - 35 mmol/L [facility] BUN 32(H) 6 - 19 mg/dL [facility] CREATININE 1.70(H) 0.5 - 1.5 mg/dL [facility] GLUCOSE 147(H) 70 - 99 mg/dL [facility] CALCIUM 9.4 8.4 - 10.3 mg/dL [facility] EGFR 33(L) >59 mL/min/1.7 3m2 [facility] Comment:Estimated glomerular filtration rate calculated using the CKD-EPI refit equation. ANION GAP 15 10 - 20 mmol/L [facility] Blood 04/29/2025 1:53 PM EDT 04/29/2025 1:58 PM EDT Marifer Garay MD LAB BLOOD BKR ORDERABL ES Final Result Performing Organization Address [facility]/ZIP Co de Phone Number [address] [address] * Hepatitis C antibody, qualitative (11/11/2024 3:38 PM EST) HCV NON-REACTIV E NON-REACTI VE [facility] Blood 11/11/2024 3:38 PM EST 11/11/2024 3:40 PM EST Krishan Gallardo MD, MPH LAB BLOOD BKR ORDERABLES Final Result Performing Organization Address City/[facility]/ZIP Co de Phone Number [address] [phone] from Last 3 Months or Most Recently Relevant to Health Maintenance Insurance [facility] OUT STATE PPO BLUE CROSS OUT OF STATE PPO BLUE CROSS OUT OF STATE PPO BLUE CROSS OUT OF STATE PPO BLUE CROSS OUT OF STATE PPO BLUE CROSS OUT OF STATE PPO BLUE CROSS OUT OF STATE PPO BLUE CROSS OUT OF STATE PPO BLUE CROSS OUT OF STATE PPO Care Teams Patient Service Specialist Relationship Specialty Start Date End Date Juan Escoto MD [address] [place] [address] PCP - General Internal Medicine 06/16/22 Additional Source Comments The information contained in this document represents components of the legal health record. It is not the complete legal health record.[facility]
--- OUTSIDE RECORDS SUMMARY | 2025-08-01 13:22 | XMS_ITS | Encounter Summary ---
Author Organization [facility] Address [address] [place] [address] Phone Care Team Providers Care Oven Tender Bagels Name Role Phone Juan Escoto MD Primary Care Provider [phone] Encounter Details Date Type Department Care Team (Late st Contact Info) Description 06/14/2023 Ancillary Orders Non-Invasive Cardiology [address] [place] [address] Imtiaz Horner MD 22 [facility], [address] [place] [address] [email or web address] Social History Tobacco Use [...] AM EST Office Visit [facility] [address] [place] [address] Yashira Cordova PA-C [address] [place] [address] 10/01/2025 9:40 AM EST Office Visit [facility] Rheumatology [address] [place] [address] Renetta Monique MD, MPH [address] [place] [address] 11/05/2025 11:00 AM EST Nutrition [facility] [address] [place] [address] Sunitha Almazan, ZHANNA [address] [place] [address] 11/18/2025 10:00 AM EDT Office Visit [facility] [address] [place] [address], [address] [address] Hermila Kaufman, JOHNNIE [address] [place] [address] 12/17/2025 10:20 AM EDT Office Visit [facility] [address] [place] [address] [place] [address] Marifer Garay MD [address] [place] [address] documented as of this encounter Visit Diagnoses Not on filedocumented in this encounter Care Teams Oven Tender Bagels Relationship Specialty Start Date End Date Juan Escoto MD [address] [place] [phone] PCP - General Internal Medicine 06/16/22 documented as of this encounter Additional Source Comments The information contained in this document represents components of the legal health record. It is not the complete legal health record.[facility]
--- OUTSIDE RECORDS SUMMARY | 2025-08-01 13:22 | XMS_ITS | Clinical Summary ---
Author Organization [facility] Address [address] [place] [address] Care Team Providers Care Rice Drier Name Role Phone Unavailable Primary Care Provider [...] 0 01/18/2021 Active Insulin Pen Needle (Pen [place]) 33G X 4 MM MISC 1 each [...] this topic Medical Devices Explanted Type Area Linen Attendant Device Identifier Shelf Expiration Date Model / Serial / Lot Catheter Gold Probe 3.7mm 210cm 10fr 25ga Bipol Standard - [id number] - [id number] Explanted:Qty: 1 on [facility]14[facility]20[facility] [place] [facility] [employer] JOSE [id number] 01/30/2021 [id number] / / [id number] Description:Not an implant Advance Directives For more information, please contact: [phone] Latest Code Status on File Code Status Date Activated Date Inactivated Comments Full Code 01/09/2021 9:56 PM 01/18/2021 8:21 PM This c ode status was ascertained in the following way: per documentation from prior hospital .
--- OUTSIDE RECORDS SUMMARY | 2025-08-01 13:22 | XMS_ITS | Encounter Summary ---
Author Organization [facility] Address [address] [place] [address] Phone Care Team Providers Care E Learning Developer Name Role Phone Juan Escoto MD Primary Care Provider [phone] Encounter Details Date Type Department Care Team (Late st Contact Info) Description 07/08/2025 Orders Only [facility] Rheumatology [address] [place], [place] [id number] Greer [place] 22 [place] [address] [email or web address] Long-term current use of secukinumab Social History [...] 10:40 AM EST Office Visit [facility] [address] [place] [address] [place] [address] Yashira Cordova PA-C [address] [place] [address] 10/01/2025 9:40 AM EST Office Visit [facility] Rheumatology [address] [place] [address] [place] [address] Renetta Monique MD, MPH [address] [place] [address], [address] [place] [address] 11/05/2025 11:00 AM EST Nutrition [facility] [address] [place] [address] [place] [address] Sunitha Almazan LDN 22 [facility], 1st [place] [address] 11/18/2025 10:00 AM EDT Office Visit [facility] [address] [place] [address] [address]rd Floor, [address] [place] [address] Hermila Kaufman, JOHNNIE [address] [place] [address], [address] [place] [address] 12/17/2025 10:20 AM EDT Office Visit [facility] [place] [address] Marifer Garay MD [address] [address] documented as of this encounter Procedures Procedure Name Priority Date/Time Associated Diagnosis Comments COMPREHENSIVE METABOLIC PANEL (CMP) Routine 07/07/2025 11:56 AM EDT Long-term current use of secukinumab CBC AND DIFFERENTIAL Routine 07/07/2025 11:56 AM EDT Long-term current use of secukinumab documented in this encounter Results * Comprehensive metabolic panel (07/07/2025 11:56 AM EDT) Blood Renetta Monique MD, MPH LAB BLOOD BKR ORDERABLES Final Result Performing Organization Address City/[facility]/ZIP Co de Phone Number EXTERNAL NON-INTERFACED REF LAB * CBC and differential (07/07/2025 11:56 AM EDT) Blood Renetta Monique MD, MPH LAB BLOOD BKR ORDERABLES Final Result Performing Organization Address City/[facility]/ZIP Co de Phone Number EXTERNAL NON-INTERFACED REF LAB documented in this encounter Visit Diagnoses Diagnosis Long-term current use of secukinumab documented in this encounter Care Teams E Learning Developer Relationship Specialty Start Date End Date Jevon, Juan Finney MD [address] [place] [address] Drive [address] [place] [phone] PCP - General Internal Medicine 06/16/22 documented as of this encounter Additional Source Comments The information contained in this document represents components of the legal health record. It is not the complete legal health record.[facility]
--- OUTSIDE RECORDS SUMMARY | 2025-08-01 13:22 | XMS_ITS | Encounter Summary ---
Author Organization [facility] Address [address] [place] [address] Phone Care Team Providers Care Comic Book Writer Name Role Phone Juan Escoto MD Primary Care Provider [phone] Encounter Details Date Type Department Care Team (Late st Contact Info) Description 10/19/2023 Ancillary Orders [facility] Rheumatology [address] [place] [address] Renetta Monique MD, MPH 22 [facility], [address] [place] [address] [email or web address] Psoriasis (Primary Dx); Polyarthralgia Social History Tobacco [...] 10:40 AM EST Office Visit [facility] [address] [place] [address] [place] [address] Yashira Cordova PA-C [address] [place] [address] 10/01/2025 9:40 AM EST Office Visit [facility] Rheumatology [address] [place] [address] [place] [address] Renetta Monique MD, MPH [address] [place] [address], [address] [place] [address] 11/05/2025 11:00 AM EST Nutrition [facility] [address] [place] [address] Sunitha Almazan LDN [address] [place] [address], 1st [place] [address] 11/18/2025 10:00 AM EDT Office Visit [facility] [address] [place] [address] 3rd Floor, [address] [place] [address] Hermila Kaufman DNP 22 [facility], [address] [place] [address] 12/17/2025 10:20 AM EDT Office Visit [facility] [address] [place] [address] Marifer Garay MD [address] [place] [address] 3[address] [place] [address] [email or web address] documented as of this encounter Results * [...] sites documented in this encounter Care Teams Comic Book Writer Relationship Specialty Start Date End Date Juan Escoto MD [address] [place] [address] PCP - General Internal Medicine 06/16/22 documented as of this encounter Additional Source Comments The information contained in this document represents components of the legal health record. It is not the complete legal health record.[facility]
--- OUTSIDE RECORDS SUMMARY | 2025-08-01 13:22 | XMS_ITS | Encounter Summary ---
Author Organization [facility] Address [address] [place] [address] Phone Care Team Providers Care Application Support Technician Name Role Phone Juan Escoto MD Primary Care Provider [phone] Encounter Details Date Type Department Care Team (Late st Contact Info) Description 11/01/2022 Procedure Pass Echo Lab [address] [place] [address] Social History Tobacco Use Types Packs/Day Years [...] AM EST Office Visit [facility] [address] [place] [address] Yashira Cordova PA-C [address] [place] [address] 10/01/2025 9:40 AM EST Office Visit [facility] [place] [address] Renetta Monique MD, MPH [address] [facility], [address] [place] [address] 11/05/2025 11:00 AM EST Nutrition [facility] 22 [place] [address] Sunitha Almazan, LDN [facility], 1st [place] [address] 11/18/2025 10:00 AM EDT Office Visit [facility] [address] [facility] 3rd Floor, [address] [place] [address] Hermila Kaufman, JOHNNIE [address] [place] [address], [address] [place] [address] 12/17/2025 10:20 AM EDT Office Visit [facility] [address] [place] [address] Marifer Garay MD [address] [place] [address] [address] [place] [address] documented as of this encounter Visit Diagnoses Not on filedocumented in this encounter Care Teams Application Support Technician Relationship Specialty Start Date End Date Juan Escoto MD [address] [place] [address] [address] [place] [phone] PCP - General Internal Medicine 06/16/22 documented as of this encounter Additional Source Comments The information contained in this document represents components of the legal health record. It is not the complete legal health record.[facility]
--- OUTSIDE RECORDS SUMMARY | 2025-08-01 13:22 | XMS_ITS | Clinical Summary ---
Author Organization [facility] Address [address] [facility] [address] [place] [address] Phone Care Team Providers Care Manager Transport Name Role Phone Juan Escoto MD Primary Care Provider [phone] Allergies Active Allergy Reactions Criticality Noted Date [...] 1 (one) time each day Active Tiotropium [place] Monohydrate 2.5 MCG/ACT aerosol solution Inhale 5 [...] age to complete this topic Care Teams Manager Transport Relationship Specialty Start Date End Date Juan Escoto MD [facility] [place] [address] [place] PCP - General Internal Medicine 01/26/22
--- OUTSIDE RECORDS SUMMARY | 2025-08-01 13:22 | XMS_ITS | Encounter Summary ---
Author Organization [facility] Address [address] [place] [address] Care Team Providers Care Flow Machine Operator Name Role Phone Unavailable Primary [...]
--- OUTSIDE RECORDS SUMMARY | 2025-08-01 13:22 | XMS_ITS | Encounter Summary ---
Author Organization [facility] Address [address] [place] [address] Phone Care Team Providers Care Teachers' Aide Name Role Phone Juan Escoto MD Primary Care Provider [phone] Encounter Details Date Type Department Care Team (Late st Contact Info) Description 07/18/2023 Procedure Pass [facility], Ct Scan - [address] [address] Social History Tobacco Use Types Packs/Day Years [...] 07/18/2023 5:14 PM Rocio Davison RN * [place] Suicide Severity Rating Scale (Screener/Recent Self-Report) Question [...] 10:40 AM EST Office Visit [facility] [address] [place] [address] Yashira Cordova PA-C [address] [place] [address] 10/01/2025 9:40 AM EST Office Visit [facility] Rheumatology [address] [place] [address] [place] [address] Renetta Monique MD, MPH [address] [place] [address], [facility] 203 [place] [address] 11/05/2025 11:00 AM EST Nutrition [facility] Diabetes Center [address] [place] [address] [place] [address] Sunitha Almazan, KENNEYN 22 [facility], 1st [place] [address] 11/18/2025 10:00 AM EDT Office Visit [facility] [address], [address] [place] [address] Hermila Kaufman, JOHNNIE 22 [facility], [address] [address] 12/17/2025 10:20 AM EDT Office Visit [facility] 22 [place] [address] Marifer Garay MD [address] [place] [address] documented as of this encounter Visit Diagnoses Not on filedocumented in this encounter Care Teams Teachers' Aide Relationship Specialty Start Date End Date Juan Escoto MD [address] [place] [address] Drive [address] [place] [phone] PCP - General Internal Medicine 06/16/22 documented as of this encounter Additional Source Comments The information contained in this document represents components of the legal health record. It is not the complete legal health record.[facility]
--- OUTSIDE RECORDS SUMMARY | 2025-08-01 13:22 | XMS_ITS | Encounter Summary ---
Author Organization [facility] Address [address] [place] [address] Phone Care Team Providers Care Auricular Detoxification Specialist Name Role Phone Juan Escoto MD Primary Care Provider [phone] Encounter Details Date Type Department Care Team (Late st Contact Info) Description 01/02/2024 Procedure Pass [facility] [address] [place] [address] Social History Tobacco Use Types Packs/Day Years [...] 10:40 AM EST Office Visit [facility] [address] [place] [address] [place] [address] Yashira Cordova PA-C [address] [place] [address] 10/01/2025 9:40 AM EST Office Visit [facility] Rheumatology [address] [place] [address] Renetta Monique MD, MPH [address] [place] [address], [facility] 203 [place] [address] 11/05/2025 11:00 AM EST Nutrition [facility] Diabetes Center [address] [place] [address] [place] [address] Sunitha Almazan, ZHANNA [address] [place] [address], 1st [place] [address] 11/18/2025 10:00 AM EDT Office Visit [facility] [address] [place] [address] 3rd Floor, [address] [place] [address] Hermila Kaufman, JOHNNIE [address] [place] [address], [address] [address] 12/17/2025 10:20 AM EDT Office Visit [facility] 22 [place] [address] Marifer Garay MD [address] [place] [address] [email or web address] documented as of this encounter Visit Diagnoses Not on filedocumented in this encounter Care Teams Auricular Detoxification Specialist Relationship Specialty Start Date End Date Jevon, Juan Finney MD [address] [place] [address] [place] [phone] PCP - General Internal Medicine 06/16/22 documented as of this encounter Additional Source Comments The information contained in this document represents components of the legal health record. It is not the complete legal health record.[facility]
--- OUTSIDE RECORDS SUMMARY | 2025-08-01 13:22 | XMS_ITS | Encounter Summary ---
Author Organization [facility] Address [address] [place] [address] [place] [address] Phone Care Team Providers Care Matching Machine Operator Name Role Phone Juan Escoto MD Primary Care Provider [phone] Encounter Details Date Type Department Care Team (Late st Contact Info) Description 06/14/2023 Ancillary Orders [facility] [address] [place] [address] 3rd Floor, [address] [place] [address] Imtiaz Horner MD [address] [place] [address], [address] [place] [address] [email or web address] Social History Tobacco Use Types Packs/Day [...] 10:40 AM EST Office Visit [facility] [address] [place] [address] [place] [address] Yashira Cordova PA-C [address] [place] [address] 10/01/2025 9:40 AM EST Office Visit [facility] Rheumatology [address] [place] [address] [place] [address] Renetta Monique MD, MPH [address] [place] [address] 11/05/2025 11:00 AM EST Nutrition [facility] [address] [place] [address] Sunitha Almazan LDN [address] [place] [address] 11/18/2025 10:00 AM EDT Office Visit [facility] [address] [place] [address], [address] [address] Hermila Kaufman, JOHNNIE [address] [place] [address] 12/17/2025 10:20 AM EDT Office Visit [facility] [address] [place] [address] [place] [address] Marifer Garay MD [address] [place] [address] [email or web address] documented as of this encounter Visit Diagnoses Not on filedocumented in this encounter Care Teams Matching Machine Operator Relationship Specialty Start Date End Date Juan Escoto MD [address] [place] [address] [address] [place] [address] PCP - General Internal Medicine 06/16/22 documented as of this encounter Additional Source Comments The information contained in this document represents components of the legal health record. It is not the complete legal health record.[facility]
--- OUTSIDE RECORDS SUMMARY | 2025-08-01 13:22 | XMS_ITS | Encounter Summary ---
Author Organization [facility] Address [address] [place] [address] Phone Care Team Providers Care Residential Framing Carpenter Name Role Phone Juan Escoto MD Primary Care Provider [phone] Encounter Details Date Type Department Care Team (Late st Contact Info) Description 07/07/2025 Orders Only [facility] Rheumatology 22 [place], [place] [phone] [place] [address] [email or web address] Chronic neck pain Social History Tobacco Use Types Packs/Day Years [...] AM EST Office Visit [facility] [address] [place] [address] Yashira Cordova PA-C [address] [place] [address] 10/01/2025 9:40 AM EST Office Visit [facility] Rheumatology [address] [place] [address] [place] [address] Renetta Monique MD, MPH [address] [place] [address], [address] [place] [address] 11/05/2025 11:00 AM EST Nutrition [facility] Diabetes Center [address] [place] [address] Sunitha Almazan LDN 22 [facility], 1st [place] [address] 11/18/2025 10:00 AM EDT Office Visit [facility] [address] [place] [address] 3rd Floor, [address] [place] [address] Hermila Kaufman, JOHNNIE 22 [facility], [address] [place] [address] 12/17/2025 10:20 AM EDT Office Visit [facility] [address] [place] [address] [place] [address] Marifer Garay MD [address] [place] [address] documented as of this encounter Procedures Procedure Name Priority Date/Time Associated Diagnosis Comments XR CERVICAL SPINE Routine 07/07/2025 2:10 PM EDT Chronic neck pain documented in this encounter Results * XR Cervical Spine (07/07/2025 2:10 PM EDT) Anatomical Region Laterality Modality C-spine XR Diagnostic us Renetta Monique MD, MPH IMG XR SPINE Final Re sult documented in this encounter Visit Diagnoses Diagnosis Chronic neck pain Cervicalgia documented in this encounter Care Teams Residential Framing Carpenter Relationship Specialty Start Date End Date Po, Juan Finney MD [address] [place] [phone] PCP - General Internal Medicine 06/16/22 documented as of this encounter Additional Source Comments The information contained in this document represents components of the legal health record. It is not the complete legal health record.[facility]
--- OUTSIDE RECORDS SUMMARY | 2025-08-01 13:22 | XMS_ITS | Patient Health Record ---
Author Organization [facility] Address [address] [place] [address] Care Team Providers Care Stock Analyst Name Role Phone Parisa FERNANDEZ, Vannessa Primary Care Provider Unavailab Guy Osman Unavailable [phone] [place] FERNANDEZ, [place] Unavailable Unavailable Reason For [...] Lyrica Active Gabapentin Active MoviPrep 100 GM Solution Reconstituted as directed Orally as directed; Duration: 1 dose 06/27/2013 Active Social History Social History Additional Details Category Social Info Options Details Miscellaneous: Marital status: Occupation: Director of [employer] at [employer] Notes: Smoker--1 ppd; no sig alcoho l Smoker--1 ppd; no sig alcoho l Problems Problem Type SNOMED Code ICD Code Onset Dates Problem Status W/U Status Risk Notes Problem Esophageal reflux (040594655) Esophageal reflux (530.81) Active confirmed Problem Colon cancer screening (569082133) Colon cancer screening (V76.51) Active confirmed Problem Barium swallow abnormal (863148228) Abnormal barium swallow (793.4) Active confirmed Plan Of Treatment Future Test Test Name Order Date COLONOSCOPY 06/27/2013 Insurance Providers Payer Name Payer Address Payer Phone Subscriber Number Group Number Insured Name Patient Relationship to Insured Coverage Start Date Coverage End Date [facility] [address] [facility] [place], [place] [phone] [id number] COLT CORONADO Self - patient is the insured Medical (General) History Medical History History ICD Code IDDM COPD HTN Psoriatic arthritis-she was started on Humira in June of 2013 by her varnish blender Hypothyroidism Denies UT,CVA,renal disease Neuropathy-feet and hands upper endoscopy in February 013 was negative for any significant esophagitis, hiatal hernia, nor Cadena's esophagus Surgical History Surgery Date(Month/Year) Eye surgeries Broken left wrist Broken ankle 2 C-sections Cholecystectomy Appendix Left shoulder surgery Thyroid and 1 parathyroid removed Cyst from lower back
--- OUTSIDE RECORDS SUMMARY | 2025-08-01 13:22 | XMS_ITS | Clinical Summary ---
Author Organization [facility] Address [address] [place] [address] Phone Care Team Providers Care Music Orchestrator Name Role Phone Juan Escoto MD Primary Care Provider [phone] Allergies Active Allergy Reactions Criticality Noted Date [...] elevated myoc ardial infarction) ([facility] V24, [facility] V28) 06/02/2021 Overview (11/17/2023): Demand mediated [...] obstructive pu lmonary disease) ([facility] V24, [facility] V28) 02/11/2021 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 ([facility] V24, [facility] V28) 02/11/2021 Psoriatic arthritis ([facility] V24, [facility] V28) 0 02/11/2021 Osteoarthritis 02/11/2021 Hypothyroidism [...] HISTORY PROCEDURE: HISTORICAL SUBTOTAL THYROIDECTOMY ESOPHAGOGASTRODUODENOSCOPY PROCEDURE: OK EGD TRANSORAL BIOPSY SINGLE/MULTIPLE; COMMENT: X2 at [place] in [place] ESOPHAGOGASTRODUODENOSCOPY 04/02/2021 PROCEDURE: OK ESOPHAGOGASTRODUODENOSCOPY TRANSORAL DIAGNOSTIC; COMMENT: complete resolution of previous gastric ulcer Medical History Medical History Date Comments H/O carotid stenosis DX:H/O yepez tid stenosis Thrombosis of arm, left 01/2021 DX:Throm bosis of arm, left COPD (chronic obstructive pu lmonary disease) ([facility] V24, [facility] V28) DX:COPD (chronic o bstructive pulmonary disease) ([facility]) HTN (hypertension) DX:HTN (hyper tension) Hypothyroidism DX:Hypothyroidis m Gastric ulcer with hemorrhage 01/09/2021 DX :Gastric ulcer with hemorrhage Psoriatic arthritis ([facility] V24, [facility] V28) DX:Psoriatic arthritis ([facility]) History of non-ST elevation myocardial infarction (NSTEMI) 01/2021 DX:History of non-ST el evation myocardial infarction (NSTEMI); COMMENT: due to hemorrhagic shock 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 ([facility]/HCC V24, [facility] V28) DX:DM type 2 wit h diabetic peripheral neuropathy (HCC) Redness and swelling of upper arm DX:Redness and swelling of upper arm Expressive aphasia DX:Expressive aphasia Acute blood loss anemia DX:Acute blood loss anemia NSTEMI (non-ST elevated myoc ardial infarction) (CMS/HCC V24, [facility]/HCC V28) DX:NSTEMI (non-ST elevated m yocardial infarction) (HCC) Esophageal reflux DX:Esophageal reflux Cervical spondylosis without [...] Years Used Date Smoking Tobacco: Former Cigarettes 0 Q uit: 01/09/2021 Smokeless Tobacco: Never Alcohol [...] age to complete this topic Insurance MEDICARE [facility] [[email or web address]] Advance Directives Documents on File Type Date Recorded Patient Collection Support Specialist Expl anation Health Care Decision (hx) 02/08/2021 [...] (hx) 09/29/2016 AD ANDRES DIRECTIVE Care Teams Music Orchestrator Relationship Specialty Start Date End Date Juan Escoto MD [address] [place] [address] [address] [facility] [place] [address] PCP - General Internal Medicine 01/12/21
--- OUTSIDE RECORDS SUMMARY | 2025-08-01 13:22 | XMS_ITS | Patient Health Record ---
Author Organization [facility] Daniel Address [address] [facility] [place] [address] Care Team Providers Care Photoengraving Machine Operator/Tender Name Role Phone JevonLynmary Primary Care Provider Onofre Taylor Unavailable [phone] Reason For Referral No Information Medications Medication [...] Status W/U Status Risk Notes Problem Dermatitis (588472594) Dermatitis (692.9) Active confirmed Problem Neurologic disorder associated with type II diabetes mellitus (386875871) Diabetic - NIDDM/Neuropath y (250.60) Active confirmed Problem Hammer toe (105024012) Hammer toe (735.4) Active confirmed Problem Neuralgia - Neuritis (729.2) Active confirmed Plan Of Treatment No Information Insurance Providers Payer Name Payer Address Payer Phone Subscriber Number Group Number Insured Name Patient Relationship to Insured Coverage Start Date Coverage End Date [facility] [address] [place] [address] [id number] Kari Galvan Self - patient is the insured Medical (General) History Medical History History ICD Code Arthritis back, hip, knee pain depression diabetic chicken pox neuropathy thyroid disorder Surgical History Surgery Date(Month/Year) eye surgery wrist surgery 1967 section cholecystectomy 1985 appendectomy 1985 shoulder surgery 2002 thyroidectomy 2005 parathyroidectomy 2005
--- OUTSIDE RECORDS SUMMARY | 2025-08-01 13:22 | XMS_ITS | Encounter Summary ---
Author Organization [facility] Address [address] [place] [address] Phone Care Team Providers Care Soda Worker Name Role Phone Juan Escoto MD Primary Care Provider [phone] Encounter Details Date Type Department Care Team (Late st Contact Info) Description 07/18/2023 Procedure Pass [facility], Ct Scan - [address] [address] Social History Tobacco Use Types Packs/Day Years [...] 07/18/2023 5:14 PM Rocio Davison RN * [place] Suicide Severity Rating Scale (Screener/Recent Self-Report) Question [...] 10:40 AM EST Office Visit [facility] [address] [place] [address] Yashira Cordova PA-C [address] [place] [address] 10/01/2025 9:40 AM EST Office Visit [facility] Rheumatology [address] [place] [address] [place] [address] Renetta Monique MD, MPH [address] [place] [address], [facility] 203 [place] [address] 11/05/2025 11:00 AM EST Nutrition [facility] Diabetes Center [address] [place] [address] [place] [address] Sunitha Almazan, KENNEYN 22 [facility], 1st [place] [address] 11/18/2025 10:00 AM EDT Office Visit [facility] [address], [address] [place] [address] Hermila Kaufman, JOHNNIE 22 [facility], [address] [address] 12/17/2025 10:20 AM EDT Office Visit [facility] 22 [place] [address] Marifer Garay MD [address] [place] [address] documented as of this encounter Visit Diagnoses Not on filedocumented in this encounter Care Teams Soda Worker Relationship Specialty Start Date End Date Juan Escoto MD [address] [place] [address] Drive [address] [place] [phone] PCP - General Internal Medicine 06/16/22 documented as of this encounter Additional Source Comments The information contained in this document represents components of the legal health record. It is not the complete legal health record.[facility]
== END 2025-08-01 13:43 | disposition home or self-care (01) ==
LOC: HO.HMCH 13:00
PROVIDERS: PCP Internal Medicine; Visit Provider Internal Medicine
DX: E11.65 Type 2 diabetes mellitus with hyperglycemia (principal); Z79.4 Long term (current) use of insulin; E78.00 Pure hypercholesterolemia, unspecified; I48.91 Unspecified atrial fibrillation; I25.10 Atherosclerotic heart disease of native coronary artery without angina pectoris; I12.9 Hypertensive chronic kidney disease with stage 1 through stage 4 chronic kidney disease, or unspecified chronic kidney disease; F41.1 Generalized anxiety disorder; N18.9 Chronic kidney disease, unspecified; I63.50 Cerebral infarction due to unspecified occlusion or stenosis of unspecified cerebral artery; J43.1 Panlobular emphysema; J44.1 Chronic obstructive pulmonary disease with (acute) exacerbation; Z13.9 Encounter for screening, unspecified

== ENCOUNTER → 2025-08-01 12:59 | Outpatient (BNVA) | payer BC, SELFPAY | PROVIDERS: PCP Internal Medicine; Visit Provider Internal Medicine | DX: E11.65 Type 2 diabetes mellitus with hyperglycemia (principal); E11.22 Type 2 diabetes mellitus with diabetic chronic kidney disease; N18.9 Chronic kidney disease, unspecified; E78.00 Pure hypercholesterolemia, unspecified; I48.91 Unspecified atrial fibrillation; I25.10 Atherosclerotic heart disease of native coronary artery without angina pectoris; F41.1 Generalized anxiety disorder; J43.1 Panlobular emphysema; J44.1 Chronic obstructive pulmonary disease with (acute) exacerbation; K25.3 Acute gastric ulcer without hemorrhage or perforation; E66.01 Morbid (severe) obesity due to excess calories; Z79.4 Long term (current) use of insulin; Z79.899 Other long term (current) drug therapy; Z87.891 Personal history of nicotine dependence; Z86.73 Personal history of transient ischemic attack (TIA), and cerebral infarction without residual deficits; Z13.31 Encounter for screening for depression; Z86.718 Personal history of other venous thrombosis and embolism; Z98.62 Peripheral vascular angioplasty status | CPT/HCPCS: 83036; 96127 ==

== ENCOUNTER 2025-09-01 12:58 | Outpatient (AMB) | payer BC, SELFPAY ==
[2025-09-01 13:11] VITALS: BP 110/52; PULSE 68; O2SAT 96; BMI 42.0
--- NOTE | 2025-09-01 13:11 | A.OFFPC_ITS ---
Vital Signs 09/01/25 13:11 Height 5 ft 1 in Weight 222 lb 4 oz BMI 42.0 BP 110/52 L Blood Pressure Location Lt brachial Position Sitting Pulse 68 Pulse Source Pulse Oximeter Pulse Oximetry (%) 96 Oxygen Delivery Method Room Air Intake Visit Reasons: f/u HTN w/ Po Tool Repairer Required: No Accompanied by: Self / Same As Patient Allergies adalimumab (Humira) Allergy (Unknown, Verified 09/01/25 13:12) Unknown alprazolam Allergy (Unknown, Verified 09/01/25 13:12) swelling amlodipine Allergy (Unknown, Verified 09/01/25 13:12) swelling etanercept (Enbrel) Allergy (Unknown, Verified 09/01/25 13:12) Unknown fluticasone (From Wix[facility] Inhub) Allergy (Unknown, Verified 09/01/25 13:12) Unknown hydrochlorothiazide Allergy (Unknown, Verified 09/01/25 13:12) hives salmeterol (From [employer]ela Inhub) Allergy (Unknown, Verified 09/01/25 13:12) Unknown simvastatin Allergy (Unknown, Verified 09/01/25 13:12) Unknown codeine Adverse Reaction (Intermediate, Verified 09/01/25 13:12) Nausea and Vomiting roflumilast (From Daliresp) Adverse Reaction (Intermediate, Verified 09/01/25 13:12) Nausea Medication List - Last Reconciled 09/01/25 by Juan Escoto MD acetaminophen ER (Tylenol Arthritis Pain) 1,300 mg PO TID albuterol sulfate 2.5 mg (3 mL) inhalation Q4-6H PRN albuterol sulfate 90 mcg/actuation 2 puffs inhalation Q6H PRN ascorbate calcium (vitamin C) 500 mg PO DAILY aspirin (Adult Low Dose Aspirin) 81 mg PO DAILY azithromycin (Zithromax) For 250 mg dose pack: take 500 mg today (day 1), then 250 mg for 4 days (days 2-5) PO blood-glucose sensor ([employer] G6 Sensor device) USE DIRECTED. blood-glucose transmitter ([employer] G6 Transmitter device) USE DIRECTED blood-glucose,red cross worker,cont ([employer] G6 Crawler Dragline Operator) As directed cholecalciferol (vitamin D3) 25 mcg PO DAILY duloxetine 120 mg (2 x 60 mg) PO DAILY 30 days nlkiixoldnf-htnpsqvsz-eihdaidf 200-62.5-25 mcg (Trelegy Ellipta) 1 inh inhalation DAILY furosemide 60 mg PO BID gabapentin 300 mg PO Q8H 90 days hydralazine 25 mg PO BID insulin aspart U-100 (Novolog FlexPen U-100 Insulin aspart) 17 units subcut TID levothyroxine 125 mcg PO DAILY losartan 100 mg PO DAILY 90 days magnesium aspart,citrate,oxide 400 mg PO .QD melatonin 10 mg PO BEDTIME metoprolol tartrate 25 mg PO BID 90 days miconazole nitrate 2% (Zeasorb AF) 1 appl topical DAILY pantoprazole 40 mg PO QPM pen needle, diabetic (BD Ultra-Fine Short Pen Needle) As directed inject using insulin 5 x a day prednisone 4 tabs QD x 2 days then 3 tabs QD x 2 days then 2 tabs Qd x 2 days then 1 tab QD x 2 days PO daily; rosuvastatin 40 mg PO DAILY 90 days secukinumab (Cosentyx UnoReady Pen) 300 mg subcut Q4W semaglutide (Ozempic) 1 mg subcut QWEEK sennosides-docusate sodium 8.6-50 mg (Senna-S) 1 tab-cap PO BEDTIME tramadol 50 mg PO DAILY triamcinolone acetonide 0.5% 1 appl topical BID vitamin B complex 1 tab PO Q OTHER DAY Tobacco use date assessed: 09/01/25 Fall risk assessment: No Falls in past year Last assessed Fall Risk: 09/01/25 Dental Screening Dental Screen Date: 09/01/25 Did you have a dental visit in the last 12 months?: Yes Did you have a dental problem in the last 6 months where you did not have access to dental care?: No Was dental information given to patient?: Patient has dentist HPI f/u HTN w/ Po HPI Details 65-year-old morbidly obese female with u ncontrolled diabetes mellitus history of hypertension hypercholesterolemia COPD hypothyroid history of gastric ulcer left carotid stenosis CVA history STEMI coronary artery disease generalized anxiety disorder chronic kidney disease coming in for follow-up. Patient was last seen in July 2025. Patient's mammogram is up-to-date bone density is due and colonoscopy is due. HPI Comments History of Present Illness Details History of Present Illness Health Maintenance Social History Results [facility] Medical History (Updated 09/01/25 @ 19:21 by Juan Escoto MD) Atrial fibrillation Cellulitis of right leg Open wound, lower leg SOB (shortness of breath) Upper GI hemorrhage Closed left ankle fracture Psoriatic arthritis History of paroxysmal supraventricular tachycardia Tobacco abuse Osteoarthritis Hypertension Diabetic nephropathy Psoriasis Diabetic neuropathy Hypothyroid Obesity COPD (chronic obstructive pulmonary disease) Hypercholesterolemia Type 2 diabetes mellitus with hyperglycemia Surgical History History of carotid angioplasty H/O cardiac radiofrequency ablation History of cataract surgery History of throat surgery History of parathyroidectomy History of thyroidectomy History of ankle surgery H/O left wrist surgery History of eye surgery History of appendectomy History of cholecystectomy History of section Family History Father Prostate cancer Mother Ovarian cancer Paternal Grandmother Breast cancer Social History Household Members: Spouse Household Members Other:: [facility] Housing: House Do you presently have visiting nurse or other home services: No Alcohol intake: never Patient Tobacco Use Status: Former Tobacco user Tobacco use type: Cigarette Years Smoked: 48 e-Cigarette/Vaping Use: Never Used Second Hand Smoke Exposure: Yes Substance Use Type: Marijuana service: No Current occupational status: disabled Cognitive needs: Yes (using portable oxygen) Hearing needs: No Vision needs: Yes (Glasses) Questionnaire PHQ-9 Over the last 2 weeks, how often have you been bothered by any of the following problems? 1. Little interest or pleasure in doing things: not at all 2. Feeling down, depressed, or hopeless: several days 3. Trouble falling or staying asleep, or sleeping too much: several days 4. Feeling tired or having little energy: several days 5. Poor appetite or overeating: not at all 6. Feeling bad about yourself - or that you are a failure or have let yourself or your family down: not at all 7. Trouble concentrating on things, such as reading the newspaper or watching television: not at all 8. Moving or speaking so slowly that other people could have noticed. Or the opposite - being so fidgety or restless that you have been moving around a lot more than usual: not at all 9. Thoughts that you would be better off or of hurting yourself in some way: not at all Total score: 3 Source: Developed by Drs. Guy Gibson, Trey Johnson and colleagues, with an educational milton from [employer]. Thrive Questionnaire Date Thrive assessed: 09/01/25 I am a: Patient What is your living situation today?: I have a steady place to live Within the past 12 months, did the food you bought not last and you didn't have the money to get more?: Never true Within the past 12 months, did you worry whether your food would run out before you got money to buy more?: Never true Do you have trouble paying for medicines?: No Do you have trouble getting transportation to medical appointments?: No Do you have trouble paying your heating and electricity bill?: No Do you have trouble taking care of your child, family member or friend?: No Do you have trouble with day-to-day activities such as bathing, preparing meals, shopping, managing finances, etc.?: I choose not to answer this question Are you currently unemployed and looking for a job?: No Are you interested in more education?: No Please select the resources that you would like help with: None Currently or been in a relationship where the following occur: No concerns repo rted THRIVE Score: 0 AUDIT C Alcohol Use Questionnaire (AUDIT-C) 1. How often do you have a drink containing alcohol?: Never 3. How often do you have six or more drinks on one occasion?: Never Total Score: 0 PATITO-7 AMB Questionnaire PATITO-7 Date PATITO - 7 assessed: 09/01/25 Feeling nervous, anxious, or on edge: 2 = More than half the days Not being able to stop or control worryin = Not at all Worrying too much about different things: 0 = Not at all Trouble relaxin = Several days Being so restless that it is hard to sit still: 0 = Not at all Becoming easily annoyed or irritable: 1 = Several days Feeling afraid as if something awful might happen: 3 = Nearly every day Total PATITO-7 score (0-4 normal; 5-9 mild; 10-14 moderate; 15-21 severe): 7 Source: Developed by Rupali Yun Kurt Kroenke and colleagues, with an educational milton from [employer]. Review of Systems Narrative Review of Systems Physical exam (Primary Care) Vital Signs: Last Vital Signs Pulse 68 09/01/25 13:11 BP 110/52 L 09/01/25 13:11 Pulse Ox 96 09/01/25 13:11 Oxygen Delivery Method Room Air 09/01/25 13:11 BMI result Body Mass Index 42.0 Tobacco/Smoking Status: Tobacco use Status Tobacco use date assessed 09/01/25 09/01/25 13:18 Patient Tobacco Use Status Former Tobacco user 09/01/25 13:18 Tobacco use type Cigarette 09/01/25 13:18 e-Cigarette/Vaping Use Never Used 09/01/25 13:18 PHQ-9: PHQ-9 Score PHQ-9: Total score 3 09/01/25 19:19 Thrive Assessment: Date of Thrive Assessment Date Thrive assessed 09/01/25 09/01/25 13:18 Currently or been in a relationship where the following occur: No concerns reported Narrative Physical Exam General: Cooperative, healthy appearing, comfortable, no acute distress and well developed Orientation: Patient oriented x3 Limitations: No limitations Head: Normal to inspection Ears: Hearing grossly normal bilaterally Nose: Normal external nose present Face and sinus: Normal facial exam Eyes: Appearance normal, both eyes and all related structures Neck: Normal visual inspection and Yes full ROM Respiratory: Normal respiratory effort and able to speak in complete sentences. Clear to auscultation bilaterally Cardiovascular: Regular rate and rhythm. Normal S1 and S2 GI: Normal to inspection. Soft to palpation and nontender Skin: No rashes or lesions noted Neuro: Patient oriented x3 Extremities: Normal to inspection Const General: alert; No acute distress Eyes Conjunctivae: conjunctivae normal Resp Auscultation: clear to auscultation bilaterally Cardio Rate: regular rate Rhythm: regular rhythm GI Inspection: Yes normal to inspection Extrem General: Yes normal to inspection and No edema Immunizations pneumoc 20-daisha conj-dip cr(PF) 0.5 mL IM syringe Performing Provider: Juan Escoto MD Performing Location: [facility] Administered by: Tereza Fischer LPN on 09/01/25 14:06 Dose Route Admin Location Dispensed Lot Number Expiration Date [facility] Clinician 0.5 mL IM Right Deltoid 0.5 mL [id number] 10/11/26 [facility] [employer] Total Dispensed Waste 0.5 mL 0 % VIS Given Date VIS Provided VIS Publication Date 09/01/25 Single Vaccine 25 Eligibility Eligibility Date Funding Source Not [facility] Eligible 09/01/25 Private Coding Level of Care Code Est Pt Level 4 (01295) Add On Problem Visit Only Diagnoses Type 2 diabetes mellitus with hyperglycemia, with long-term current use of insulin E11.65; Z79.4 Diabetes mellitus tank terminal gauger insulin use: with tank terminal gauger use Acquired hypothyroidism E03.9 Hypothyroidism type: acquired Morbid obesity E66.01 Coronary artery disease involving [place] coronary artery of [place] heart without angina pectoris I25.10 Associated angina: without angina Coronary Disease-Associated Artery/Lesion type: [place] artery [place] vs. transplanted heart: [place] heart Essential hypertension I10 Hypertension type: essential hypertension Hypercholesterolemia E78.00 Generalized anxiety disorder F41.1 Colon cancer screening Z12.11 Stage 4 chronic kidney disease N18.4 Chronic kidney disease stage: stage 4 (GFR 15-29) Panlobular emphysema J43.1 COPD type: emphysema Emphysema type: panlobular Assessment & Plan Assessment & Plan (1) Type 2 diabetes mellitus with hyperglycemia: Comment: [facility] 05/2023 Code(s): E11.65 - Type 2 diabetes mellitus with hyperglycemia Category: Medical Qualifiers: Diabetes mellitus penitentiary insulin use: with tank terminal gauger use Qualified Code(s): E11.65 - Type 2 diabetes mellitus with hyperglycemia; Z79.4 - [facility] (current) use of insulin Plan: Decrease the amount of carbohydrate intake, pasta, bread, rice and potatoes are all sugar and that is aside from all the sweet stuff, remember that fruits are good but they are Sweet also. Hemoglobin A1c goal of less than 6.5. Patient is on NovoLog Ozempic (2) Hypothyroid: Code(s): E03.9 - Hypothyroidism, unspecified Category: Medical Qualifiers: Hypothyroidism type: acquired Qualified Code(s): E03.9 - Hypothyroidism, unspecified Plan: Continue with thyroid medication but requires blood work (3) Morbid obesity: Code(s): E66.01 - Morbid (severe) obesity due to excess calories Category: Medical Plan: Diet and exercise (4) Coronary artery disease: Comment: January 2021 Code(s): I25.10 - Atherosclerotic heart disease of [place] coronary artery without angina pectoris Category: Medical Qualifiers: Associated angina: without angina Coronary Disease-Associated Artery/Lesion type: [place] artery [place] vs. transplanted heart: [place] heart Qualified Code(s): I25.10 - Atherosclerotic heart disease of [place] coronary artery without angina pectoris Plan: Control the cholesterol, weight, blood pressure, diabetes continue with aspirin 81 mg once a day (5) Hypertension: Code(s): I10 - Essential (primary) hypertension Category: Medical Qualifiers: Hypertension type: essential hypertension Qualified Code(s): I10 - Essential (primary) hypertension Plan: Continue with blood pressure medication. Decrease salt intake and exercise patient is on hydralazine 25 mg twice a day losartan 100 mg once a day metoprolol 25 mg once a day (6) Hypercholesterolemia: Comment: January 2023 Code(s): E78.00 - Pure hypercholesterolemia, unspecified Category: Medical Plan: Avoid fried foods, chicken skin, eggs, butter margarine, pastries and meat. Be it pork or beef they have a lot of cholesterol LDL goal of less than 70 and triglyceride of less than 150 on rosuvastatin 40 mg once a day (7) Generalized anxiety disorder: Code(s): F41.1 - Generalized anxiety disorder Category: Medical Plan: Continue with present medications (8) Colon cancer screening: Code(s): Z12.11 - Encounter for screening for malignant neoplasm of colon Category: Medical Plan: Patient is reminded about colonoscopy (9) CKD (chronic kidney disease): Code(s): N18.9 - Chronic kidney disease, unspecified Category: Medical Qualifiers: Chronic kidney disease stage: stage 4 (GFR 15-29) Qualified Code(s): N18.4 - Chronic kidney disease, stage 4 (severe) Plan: Keep well hydrated avoid NSAIDs (10) COPD (chronic obstructive pulmonary disease): Code(s): J44.9 - Chronic obstructive pulmonary disease, unspecified Category: Medical Qualifiers: COPD type: emphysema Emphysema type: panlobular Qualified Code(s): J43.1 - Panlobular emphysema Plan: On albuterol inhaler and Trelegy Plan Plan Patient was informed and verbally consented to the use of an ambient scribe for clinic note documentation during this visit. Discussion Notes Patient Instructions Orders: Orders Complete Blood Count Auto Diff Today E11.65 - Type 2 diabetes mellitus with hyperglycemia, Z79.4 - [facility] (current) use of insulin Hemoglobin A1c Today E11.65 - Type 2 diabetes mellitus with hyperglycemia, Z79.4 - MCC (current) use of insulin Free T4 (Free Thyroxine) Today E11.65 - Type 2 diabetes mellitus with hyperg lycemia, Z79.4 - [facility] (current) use of insulin IRON PROFILE Today E11.65 - Type 2 diabetes mellitus with hyperglycemia, Z79.4 - terminal carman (current) use of insulin Thyroid Stimulating Hormone Today E11.65 - Type 2 diabetes mellitus with hyperglycemia, Z79.4 - terminal carman (current) use of insulin Vitamin D 25-OH Total Today E11.65 - Type 2 diabetes mellitus with hyperglycemia, Z79.4 - MCC (current) use of insulin Pneumococcal 20 Immunization Today Z23 - Encounter for immunization Comprehensive Met. Panel Today E11.65 - Type 2 diabetes mellitus with hyperglycemia, Z79.4 - terminal carman (current) use of insulin Ferritin Today E11.65 - Type 2 diabetes mellitus with hyperglycemia, Z79.4 - [facility] (current) use of insulin Lipid Panel Today E11.65 - Type 2 diabetes mellitus with hyperglycemia, E78.00 - Pure hypercholesterolemia, unspecified, Z79.4 - MCC (current) use of insulin Creatinine Urine Today E11.65 - Type 2 diabetes mellitus with hyperglycemia, Z79.4 - MCC (current) use of insulin Reticulocyte Count Today E11.65 - Type 2 diabetes mellitus with hyperglycemia, Z79.4 - MCC (current) use of insulin Vitamin B12 and Folate Today E11.65 - Type 2 diabetes mellitus with hyperglycemia, Z79.4 - terminal carman (current) use of insulin Microalbumin, Random (w Creat) Today E11.65 - Type 2 diabetes mellitus with hyperglycemia, Z79.4 - terminal carman (current) use of insulin UA CC w/rflx Micro + Cult Today E11.65 - Type 2 diabetes mellitus with hypergl ycemia, R30.0 - Dysuria, Z79.4 - MCC (current) use of insulin Magnesium Today E11.65 - Type 2 diabetes mellitus with hyperglycemia, Z79.4 - terminal carman (current) use of insulin Medications: New insulin glargine U-300 conc (Toujeo Max U-300 SoloStar) 84 units (0.28 mL) cruz bcut DAILY 6 mL 0RF E11.65 - Type 2 diabetes mellitus with hyperglycemia, Z79.4 - MCC (current) use of insulin semaglutide (Ozempic) 2 mg (0.75 mL) subcut QWEEK 3 mL 0RF E11.65 - Type 2 diabetes mellitus with hyperglycemia, Z79.4 - terminal carman (current) use of insulin Discontinued azithromycin (Zithromax) Discontinued Reason: Patient Completed Course For 250 mg dose pack: take 500 mg today (day 1), then 250 mg for 4 days (days 2-5) PO 6 tabs 0RF J44.1 - Chronic obstructive pulmonary disease with (acute) exacerbation
--- OUTSIDE RECORDS SUMMARY | 2025-09-01 16:13 | XMS_ITS | Clinical Summary ---
Author Organization [facility] Address [address] [place] [address] Phone Care Team Providers Care Hematology Supervisor Name Role Phone Juan Escoto MD Primary Care Provider [phone] Allergies Active Allergy Reactions Criticality Noted Date [...] Active ferrous sulfate 325 mg (65 mg miccosukee iron) tablet Take 325 mg by mouth [...] times a day with meals. 06/24/20 Active rrwbfkng-vkfcbuf-l anju-lutein Tab Take by mouth. Active L.acid/L.casei/B.b if/B.sophia/FOS (PROBIOTIC BLEND ORAL) Take by mouth. Activ e aspirin 81 MG EC tablet Take 81 mg by mouth daily. Active traMADoL (ULTRAM) 50 mg tablet 25 mg nightly at bedtime. 12/15/19 24 Active BD INSULIN PEN NEEDLE UF SHORT 31 gauge x 5/16 Ndle 1 each. 03/11/20 24 Active blood-glucose meter,continuous (DEXCOM G7 ROAD TRAFFIC CONTROLLER) MiscIndications:Ty pe 2 diabetes mellitus with diabetic [...] and risankizumab provided for patient review today. adjunct faculty for medical terminology current use of insulin 07/31/2024 Assessment & Plan (07/31/2024 9:09 AM EST): Will lower toujeo dosing to help prevent over night hypoglycemia Long-term (current) use of i njectable non-insulin antidiabetic drugs 07/31/2024 Assessment & Plan (07/31/2024 9:09 AM EST): Will maintain ozempic dosing FDC current use of oral hypoglycemic drug 07/31/2024 [...] diastolic heart failure. Will defer to her director of patient financial services Dr. Horner who she will be seeing [...] EDT): She was being followed by outside director of patient financial services every 3 months for echocardiography in 2020 [...] Is also on oxygen. Being followed by manager of corporate. History of bleeding peptic ulcer 06/16/2022 Assessment [...] her glucose levels. Up to date with [facility]. Labs ordered Assessment & Plan (03/12/2025 5:05 PM EDT): Control appears quite good. Some lows fasting, advised to lower dose of basal insulin. Will do labs. To call if hasn't heard from us within 1-2 weeks. Continue to work on eating healthy & keeping active. To call or send in BG with problems with glycemic control. Up to date with [facility]. Foot & nail care good. Assessment & [...] her glucose levels. Up to date with [employer]. Labs to be done next week with [...] Department Care Team Description 07/08/2025 Orders Only [facility] Rheumatology Clinic [address] [place] [address] [place] Long-term current use of secukinumab 07/07/2025 Orders Only [facility] [address] [place] [address] [place] Chronic neck pain 07/04/2025 Documentation [facility] [address] [place] [address] Narendra Perez [facility], [facility] 07/02/2025 9:40 AM EDT Office Visit [facility] Rheumatology Clinic [address] [place] [address] Krishan Gallardo MD, MPH Psoriatic arthritis (Primary Dx); Chronic neck pain; Long-term current use of secukinumab 06/26/2025 Telephone [facility] Endocrinology [facility] [address] [place] [address] Pebbles Montilla [place] 06/15/2025 Refill [facility] [address] Floor, [address] [place] [address] Hermila Kaufman DNP Medication Refill 06/13/2025 9:20 AM EDT Office Visit [facility] Endocrinology Clinic [address] [place] [address] Yashira Cordova PA-C Type 2 diabetes mellitus with peripheral neuropathy (Primary Dx); Postoperative hypothyroidism from Last 3 Months Immunizations Immunization Administration [...] Description 09/17/2025 10:40 AM EST Office Visit [facility] Endocrinology Clinic [address] [place] [address] [place] [address] Yashira Cordova PA-C [address] [place] [address] 10/01/2025 9:40 AM EST Office Visit [facility] Rheumatology [address] [place] [address] Krishan Gallardo MD, MPH [address] [place] [address], [address] [place] [address] 11/05/2025 11:00 AM EST Nutrition [facility] Diabetes [address] [place] [address] Sunitha Almazan, ZHANNA [address] [place] [address], 1st [place] [address] 11/18/2025 10:00 AM EDT Office Visit [facility] [address] [place] [address], [address] [place] [address] Hermila Kaufman, JOHNNIE [address] [place] [address], [address] [address] 12/17/2025 10:20 AM EDT Office Visit [facility] Endocrinology Clinic [address] [place] [address] [place] [address] Marifer Garay MD [address] [place] [address] [address] [place] [address] Health Maintenance Due Date Last Done Comments [...] PRESSURE 12/31/2025 07/02/2025 POTASSIUM LEVEL 04/29/2026 04/29/2025, 01/0 02/2025, 06/04/2024, [...] metabolic panel (07/07/2025 11:56 AM EDT) Blood us Krishan Gallardo MD, MPH LAB BLOOD BKR ORDERABLES Final Result EXTERNAL NON-INTERFACED REF LAB * CBC and differential (07/07/2025 11:56 AM EDT) Blood us Krishan Gallardo MD, MPH LAB BLOOD BKR ORDERABLES Final Result EXTERNAL NON-INTERFACED REF LAB * (ABNORMAL) TSH with reflex (04/29/2025 1:53 PM EDT) TSH 0.14(L) 0.27 - 4.20 uIU/mL [facility] Blood 04/29/2025 1:53 PM EDT 04/29/2025 1:58 PM EDT us Marifer Garay MD LAB BLOOD BKR ORDERABL ES Final Result [address] [address] * Hemoglobin A1c (04/29/2025 1:53 PM EDT) HEMOGLOBIN A1C 5.6 4.3 - 5.8 % [facility] Blood 04/29/2025 1:53 PM EDT 04/29/2025 1:58 PM EDT us Marifer Garay MD LAB BLOOD BKR ORDERABL ES Final Result Performing Organization Address City/[facility] Co de Phone Number [address] [address] * (ABNORMAL) Basic metabolic panel (04/29/2025 1:53 PM EDT) SODIUM 138 133 - 146 mmol/L [facility] CHLORIDE 99 96 - 108 mmol/L [facility] POTASSIUM 4.9 3.3 - 5.1 mmol/L [facility] CO2 29 21 - 35 mmol/L [facility] BUN 32(H) 6 - 19 mg/dL [facility] CREATININE 1.70(H) 0.5 - 1.5 mg/dL [facility] GLUCOSE 147(H) 70 - 99 mg/dL [facility] CALCIUM 9.4 8.4 - 10.3 mg/dL [facility] EGFR 33(L) >59 mL/min/1.7 3m2 [facility] Comment:Estimated glomerular filtration rate calculated using the CKD-EPI refit equation. ANION GAP 15 10 - 20 mmol/L [facility] Blood 04/29/2025 1:53 PM EDT 04/29/2025 1:58 PM EDT Result Lázaro Garay MD LAB BLOOD BKR ORDERABL ES Final Result [address] [address] * Hepatitis C antibody, qualitative (11/11/2024 3:38 PM EST) HCV NON-REACTIV E NON-REACTI VE [facility] Blood 11/11/2024 3:38 PM EST 11/11/2024 3:40 PM EST us Krishan Gallardo MD, MPH LAB BLOOD BKR ORDERABLES Final Result Performing Organization Address [facility] Co de Phone Number [address] [address] from Last 3 Months or Most Recently Relevant to Health Maintenance Insurance [facility] PPO BLUE CROSS OUT OF STATE PPO BLUE CROSS OUT OF STATE PPO BLUE CROSS OUT OF STATE PPO BLUE CROSS OUT OF STATE PPO BLUE CROSS OUT OF STATE PPO BLUE CROSS OUT OF STATE PPO BLUE CROSS OUT STATE PPO Care Teams Hematology Supervisor Relationship Specialty Start Date End Date Juan Escoto MD [address] [place] [phone] PCP - General Internal Medicine 06/16/22 Additional Source Comments The information contained in this document represents components of the legal health record. It is not the complete legal health record.[facility]
--- OUTSIDE RECORDS SUMMARY | 2025-09-01 16:13 | XMS_ITS | Encounter Summary ---
Author Organization [facility] Address [address] [place] [address] Phone Care Team Providers Care Chassis Driver Name Role Phone Juan Escoto MD Primary Care Provider [phone] Encounter Details Date Type Department Care Team ([facility] st Contact Info) Description 03/10/2025 Telephone [facility] Primary Care Clinic [address] [place] [address] [email or web address] Social History Tobacco Use Types Packs/Day Years [...] Description 09/17/2025 10:40 AM EST Office Visit [facility] Endocrinology Clinic [address] [place] [address] [place] [address] Yashira Cordova PA-C [address] [place] [address] 10/01/2025 9:40 AM EST Office Visit [facility] Rheumatology Clinic [address] [place] [address] [place] [address] Renetta Monique MD, MPH [address] [place] [address], [address] [place] [address] 11/05/2025 11:00 AM EST Nutrition [facility] Diabetes Clinic [address] [place] [address] [place] [address] Sunitha Almazan, ZHANNA [address] [place] [address], 1st [place] [address] 11/18/2025 10:00 AM EDT Office Visit [facility] [address] [place] [address] 3rd Floor, [address] [place] [address] Hermila Kaufman, JOHNNIE [address] [facility], [address] [place] [address] 12/17/2025 10:20 AM EDT Office Visit [facility] Endocrinology Clinic [address] [place] [address] Marifer Garay MD [address] [place] [address] documented as of this encounter Visit Diagnoses Not on filedocumented in this encounter Care Teams Chassis Driver Relationship Specialty Start Date End Date Juan Escoto MD [address] [place] [address] [place] [phone] PCP - General Internal Medicine 06/16/22 documented as of this encounter Additional Source Comments The information contained in this document represents components of the legal health record. It is not the complete legal health record.[facility]
--- OUTSIDE RECORDS SUMMARY | 2025-09-01 16:13 | XMS_ITS | Encounter Summary ---
Author Organization [facility] Address [address] [place] [address] Phone Care Team Providers Care Machining Supervisor Name Role Phone Juan Escoto MD Primary Care Provider [phone] Encounter Details Date Type Department Care Team (Late st Contact Info) Description 06/16/2022 Procedure Pass [facility] [address] [place] [address] Social History Tobacco Use Types Packs/Day Years [...] Description 09/17/2025 10:40 AM EST Office Visit [facility] Endocrinology Clinic [address] [place] [address] Yashira Cordova PA-C 22 [place] [address] 10/01/2025 9:40 AM EST Office Visit [facility] Rheumatology Clinic [address] [place] [address] Renetta Monique MD, MPH [address] [facility], [address] [place] [address] 11/05/2025 11:[address] [facility] Diabetes [facility] [address] [place] [address] Sunitha Almazan, ZHANNA [address] [facility], 1st [place] [address] 11/18/2025 10:00 AM EDT Office Visit [facility] [address] [place] [address] 3rd Floor, [address] [place] [address] Hermila Kaufman, JOHNNIE [address] [facility], [address] [place] [address] 12/17/2025 10:20 AM EDT Office Visit [facility] Endocrinology Clinic [address] [place] [address] Marifer Garay MD [address] [place] [address] documented as of this encounter Visit Diagnoses Not on filedocumented in this encounter Care Teams Machining Supervisor Relationship Specialty Start Date End Date Juan Escoto MD [address] [place] [address] [address] [place] [phone] PCP - General Internal Medicine 06/16/22 documented as of this encounter Additional Source Comments The information contained in this document represents components of the legal health record. It is not the complete legal health record.[facility]
--- OUTSIDE RECORDS SUMMARY | 2025-09-01 16:13 | XMS_ITS | Clinical Summary ---
Author Organization [facility] Prior to 02/08/[address] [place] [address] Care Team Providers Care Infantry Assaultman Name Role Phone Unavailable Primary Care Provider [...] 0 01/18/2021 Active Insulin Pen Needle (Pen [place]) 33G X 4 MM MISC 1 each [...] this topic Medical Devices Explanted Type Area Social Sciences Department Chair Device Identifier Shelf Expiration Date Model / Serial / Lot Catheter Gold Probe 3.7mm 210cm 10fr 25ga Bipol Standard - [id number] - [id number] Explanted:Qty: 1 on [place]/14/2021 [place] [facility] [employer] [facility] [id number] 01/30/2021 [id number] / / [id number] Description:Not an implant Advance Directives For more information, please contact: [phone] Latest Code Status on File Code Status Date Activated Date Inactivated Comments Full Code 01/09/2021 9:56 PM 01/18/2021 8:21 PM This c ode status was ascertained in the following way: per documentation from prior hospital .
--- OUTSIDE RECORDS SUMMARY | 2025-09-01 16:13 | XMS_ITS | Encounter Summary ---
Author Organization [facility] Address [address] [place] [address] Phone Care Team Providers Care Teacher Of Family And Consumer Science Name Role Phone Juan Escoto MD Primary Care Provider Encounter Details Date Type Department Care Team (Late st Contact Info) Description 10/20/2022 Procedure Pass [facility] [place], Ct Scan - [address] [address] Social History Tobacco Use Types Packs/Day Years [...] Description 09/17/2025 10:40 AM EST Office Visit [facility] Endocrinology Clinic [address] [place] [address] Yashira Cordova PA-C 22 [place] [address] 10/01/2025 9:40 AM EST Office Visit [facility] Rheumatology Clinic 22 [place] [address] Renetta Monique MD, MPH [address] [facility], [address] [place] [address] 11/05/2025 11:00 AM EST Nutrition [facility] Diabetes [address] [address] Sunitha Almazan, KENNEYN [address] [place] [address], 1st [place] [address] 11/18/2025 10:00 AM EDT Office Visit [facility] [address] [place] [address] [address]rd [facility], [address] [place] [address] Hermila Kaufman, JOHNNIE [address] [place] [address], [address] [place] [address] 12/17/2025 10:20 AM EDT Office Visit [facility] Endocrinology Clinic [address] [place] [address] Marifer Garay MD [address] [place] [address] documented as of this encounter Visit Diagnoses Not on filedocumented in this encounter Care Teams Teacher Of Family And Consumer Science Relationship Specialty Start Date End Date Jevon, Juan Finney MD [address] [place] [address] [address] [place] [phone] PCP - General Internal Medicine 06/16/22 documented as of this encounter Additional Source Comments The information contained in this document represents components of the legal health record. It is not the complete legal health record.[facility]
--- OUTSIDE RECORDS SUMMARY | 2025-09-01 16:14 | XMS_ITS | Patient Health Record ---
Author Organization [facility] Address [address] [place] [address] Care Team Providers Care Progress Man Name Role Phone Parisa FERNANDEZ, Vannessa Primary Care Provider Unavailab Guy Osman Unavailable [phone] [place] FERNANDEZ, [place] Unavailable Unavailable Reason For [...] Details Miscellaneous: Marital status: Occupation: Director of [employer] at [employer] Notes: Smoker--1 ppd; no sig alcoho l Smoker--1 ppd; no sig alcoho l Problems Problem Type SNOMED Code ICD Code Onset Dates Problem Status W/U Status Risk Notes Problem Esophageal reflux (182380701) Esophageal reflux (530.81) Active confirmed Problem Colon cancer screening (138542781) Colon cancer screening (V76.51) Active confirmed Problem Barium swallow abnormal (715713035) Abnormal barium swallow (793.4) Active confirmed Plan Of Treatment Future Test Test Name Order Date COLONOSCOPY 06/27/2013 Insurance Providers Payer Name Payer Address Payer Phone Subscriber Number Group Number Insured Name Patient Relationship to Insured Coverage Start Date Coverage End Date [facility] [address] [facility] [place] [place] [phone] [id number] COLT CORONADO Self - patient is the insured Medical (General) History Medical History History ICD Code IDDM COPD HTN Psoriatic arthritis-she was started on Humira in June of 2013 by her clerk entry level Hypothyroidism Denies SC,CVA,renal disease Neuropathy-feet and hands upper endoscopy in February 013 was negative for any significant esophagitis, hiatal hernia, nor Caedna's esophagus Surgical History Surgery Date(Month/Year) Eye surgeries Broken left wrist Broken ankle 2 C-sections Cholecystectomy Appendix Left shoulder surgery Thyroid and 1 parathyroid removed Cyst from lower back
--- OUTSIDE RECORDS SUMMARY | 2025-09-01 16:14 | XMS_ITS | Clinical Summary ---
Author Organization [facility] Address [address] [place] [address] Care Team Providers Care Corporate Account Executive Name Role Phone Vannessa Mccauley Primary Care Provider [phone] Allergies Active Allergy Reactions Criticality Noted Date Comments No Known Drug Allergies Other (See Comments) Other Rash 01/08/2014 Tegaderm. Medications oxyCODONE (ROXICODONE) 5 MG immediate release tablet TAKE 1 TO 2 TABLETS EVERY 6 HOURS NEEDED FOR PAIN. 01/23/20 14 Active aspirin 75 MG chewable tablet CHEW AND SWALLOW 1 TABLET DAILY. 01/09/20 14 Active DIOVAN 160 mg tablet TAKE 1 TABLET DAILY. 01/09/20 14 Active gabapentin (NEURONTIN) 600 MG tablet TAKE 1 TABLET AT BEDTIME. 01/09/20 14 Active glyburide (DIABETA) 5 MG tablet TAKE 1 TABLET DAILY. 01/09/20 14 Active LANTUS 100 unit/mL injection INJECT SUBCUTANEOUSLY DIRECTED. 01/09/20 14 Active metformin (GLUCOPHAGE) 850 MG tablet TAKE 1 TABLET DAILY. 01/09/20 14 Active MULTIPLE VITAMIN tablet TAKE 1 TABLET DAILY. 01/09/20 14 Active albuterol (VENTOLIN) 90 mcg/actuation inhaler INHALE 1-2 PUFFS EVERY 4-6 HOURS NEEDED AND DIRECTED. 01/09/20 14 Active triamcinolone (KENALOG) 0.1 % lotion APPLY SPARINGLY AND MASSAGE IN TWICE DAILY. 01/09/20 14 Active Text: Ginkgo Biloba Extract 120 MG Oral Capsule TAKE DIRECTED. 01/09/20 14 Active Text: HumaLOG SOLN USE DIRECTED. 01/09/20 14 Active Text: Levothyroxine Sodium TABS TAKE 1 TABLET DAILY. 01/09/20 14 Active Text: Lyrica 50 MG Oral Capsule TAKE 1 CAPSULE TWICE DAILY. 01/09/20 14 Active Text: NightTime CAPS TAKE 1 CAPSULE AT BEDTIME NEEDED. 01/09/20 14 Active Text: Vitamin B-12 TABS TAKE 1 TABLET DAILY. 01/09/20 14 Active Text: Vitamin C TABS TAKE 1 TABLET DAILY. 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 Chronic obstructive pulmonary disease 01/08/2014 Overview (11/10/2014): Chronic Obstructive Pulmonary Disease Psoriasis 01/08/2014 Overview (11/10/2014): Psoriasis 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 (12/06/2014): Text: Vocal Cord Leukoplakia Family History Medical History Relation Comments Diabetes Daughter Diabetes Mellitu s Prostate cancer Father Prostate Cancer Other Mother Prediabetes Ovarian cancer Mother Ovarian Cancer Relation Status Comments Daughter Father Mother Social History Tobacco Use Types Packs/Day Years Used Date Smoking Tobacco: Never Assessed Comments Unknown Sex and Gender Information Value Date Recorded Sex Assigned at Not on file Legal Sex Female 4:40 PM EST Gender Identity Not on file Sexual Orientation Not on file Last Filed Vital Signs Vital Sign Reading Time Taken Comments Blood Pressure 121/73 01/08/2014 11:47 AM EDT Pulse 82 01/08/2014 11:47 AM EDT Temperature 37.3 C (99.2 F) 01/08/2014 11:47 AM EDT Respiratory Rate 18 01/08/2014 11:47 AM EDT Oxygen Saturation 97% 01/08/2014 11:47 AM EDT Inhaled Oxygen Concentration - - Weight 110 kg (242 lb 8.1 oz) 01/08/2014 11:47 A M EDT Height 161.3 cm (5' 3.5 ) 01/08/2014 11:47 AM ED T Body Mass Index 42.28 01/08/2014 11:47 AM EDT Plan of Treatment Not on file Care Teams Corporate Account Executive Relationship Specialty Start Date End Date Vannessa Mccauley PCP - General 07/21/14
--- OUTSIDE RECORDS SUMMARY | 2025-09-01 16:14 | XMS_ITS | Clinical Summary ---
Author Organization [facility] Address [address] [facility] [address] [place] [address] Phone Care Team Providers Care Client Engagement Manager Name Role Phone Juan Escoto MD Primary Care Provider [phone] Allergies Active Allergy Reactions Criticality Noted Date [...] 1 (one) time each day Active Tiotropium [place] Monohydrate 2.5 MCG/ACT aerosol solution Inhale 5 [...] age to complete this topic Care Teams Client Engagement Manager Relationship Specialty Start Date End Date Juan Escoto MD [facility] [address] [place] PCP - General Internal Medicine 01/26/22
--- OUTSIDE RECORDS SUMMARY | 2025-09-01 16:14 | XMS_ITS | Patient Health Record ---
Author Organization [facility] Daniel Address [address] [facility] [place] [address] Care Team Providers Care Drain Tiler Name Role Phone JevonLynmary Primary Care Provider Onofre Taylor Unavailable [phone] Reason For Referral No Information Medications Medication [...] Status W/U Status Risk Notes Problem Dermatitis (394735236) Dermatitis (692.9) Active confirmed Problem Neurologic disorder associated with type II diabetes mellitus (115614310) Diabetic - NIDDM/Neuropath y (250.60) Active confirmed Problem Hammer toe (337370606) Hammer toe (735.4) Active confirmed Problem Neuralgia - Neuritis (729.2) Active confirmed Plan Of Treatment No Information Insurance Providers Payer Name Payer Address Payer Phone Subscriber Number Group Number Insured Name Patient Relationship to Insured Coverage Start Date Coverage End Date [facility] [address] [place] [address] [id number] Kari Galvan Self - patient is the insured Medical (General) History Medical History History ICD Code Arthritis back, hip, knee pain depression diabetic chicken pox neuropathy thyroid disorder Surgical History Surgery Date(Month/Year) eye surgery wrist surgery 1967 section cholecystectomy 1985 appendectomy 1985 shoulder surgery 2002 thyroidectomy 2005 parathyroidectomy 2005
--- OUTSIDE RECORDS SUMMARY | 2025-09-01 16:14 | XMS_ITS | Encounter Summary ---
Author Organization [facility] Prior to 02/08/[address] [place] [address] Care Team Providers Care Gate Shear Operator Name Role Phone Unavailable Primary Care [...]
--- OUTSIDE RECORDS SUMMARY | 2025-09-01 16:14 | XMS_ITS | Encounter Summary ---
Author Organization [facility] Address [address] [place] [address] [place] [address] Phone Care Team Providers Care Cement Crusher Operator Name Role Phone Juan Escoto MD Primary Care Provider [phone] Encounter Details Date Type Department Care Team (Late st Contact Info) Description 06/14/2023 Ancillary Orders [facility] [address] [facility] 3rd Floor, [address] [place] [address] Imtiaz Horner MD, PhD [address] [place] [address] [email or web address] Social History Tobacco Use Types Packs/Day [...] 09/17/2025 10:40 AM EST Office Visit [facility] Endocrinology [address] [place] [address] Yashira Cordova PA-C [address] [place] [address] 10/01/2025 9:40 AM EST Office Visit [facility] Rheumatology [address] [place] [address] Renetta Monique MD, MPH [address] [place] [address] 11/05/2025 11:00 AM EST Nutrition [facility] [address] [place] [address] Sunitha Almazan LDN [address] [place] [address] 11/18/2025 10:00 AM EDT Office Visit [facility] [address] [place] [address], [address] [address] Hermila Kaufman, JOHNNIE [address] [place] [address] 12/17/2025 10:20 AM EDT Office Visit [facility] Endocrinology Clinic [address] [place] [address] [place] [address] Marifer Garay MD [address] [place] [address] [email or web address] documented as of this encounter Visit Diagnoses Not on filedocumented in this encounter Care Teams Cement Crusher Operator Relationship Specialty Start Date End Date Juan Escoto MD [address] [place] [address] [address] [place] [phone] PCP - General Internal Medicine 06/16/22 documented as of this encounter Additional Source Comments The information contained in this document represents components of the legal health record. It is not the complete legal health record.[facility]
--- OUTSIDE RECORDS SUMMARY | 2025-09-01 16:14 | XMS_ITS | Encounter Summary ---
Author Organization Tracy Catalino Ericka [facility] Address [address] [place] [address] Care Team Providers Care Senior Software Engineer Name Role Phone Vannessa Mccauley Primary Care Provider [phone] Encounter Details Date Type Department Care Team (Late st Contact Info) Description 01/08/2014 Clinical Conversion Encounter General Internal Medicine- [facility] General Internal Medicine [address] [place] [address] Gaviota Monique PA [address] [place] [address] Social History Tobacco Use Types Packs/Day Years Used Date Smoking Tobacco: Never Assessed Comments Unknown Sex and Gender Information Value Date Recorded Sex Assigned at Not on file Legal Sex Female 4:40 PM EST Gender Identity Not on file Sexual Orientation Not on file documented as of this encounter Progress Notes * LUIS A Parekh - 11/06/2014 5:37 AM EST [id number],[place]. History of Present Illness This 53 year old female is seen in consultation at the request of Dr. Santiago for medical evaluation prior to planned microsuspension laryngoscopy with biopsy scheduled for 01/22/2014. Ms. Galvan complains of change in voice. She states she has had increasing voice change for over one year. Over this time she's had exacerbation of her psoriatic arthritis and psoriasis. She has been on multiple medications including methotrexate, oral steroids, and Humira. Interestingly, the patient's voice normalized briefly after the Humira, but the patient had to stop this drug as it was increasing her psoriasis. She was evaluated by Dr. Santiago and the above noted procedure was advised. Ms. Galvan wishes to proceed with the recommended procedure. 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 Surgical History History of Appendectomy History of Section History of Cholecystectomy History of Eye Surgery History of Parathyroid Surgery History of Shoulder Surgery Left History of Thyroid Surgery Total Thyroidectomy History of Treatment Of The Right Ankle History of Wrist Surgery Left Current Meds Aspirin 81 MG Oral Tablet Chewable; CHEW AND SWALLOW 1 TABLET DAILY; Therapy: (Recorded:08Jan2014) to Diovan 160 MG Oral Tablet; TAKE 1 TABLET DAILY; Therapy: (Recorded:08Jan2014) to Gabapentin 600 MG Oral Tablet; TAKE 1 TABLET AT BEDTIME; Therapy: (Recorded:08Jan2014) to Ginkgo Biloba Extract 120 MG Oral Capsule; TAKE DIRECTED; Therapy: (Recorded:08Jan2014) to GlyBURIDE 5 MG Oral Tablet; TAKE 1 TABLET DAILY; Therapy: (Recorded:08Jan2014) to HumaLOG SOLN; USE DIRECTED; Therapy: (Recorded:08Jan2014) to Lantus 100 UNIT/ML Subcutaneous Solution; INJECT SUBCUTANEOUSLY DIRECTED; Therapy: (Recorded:08Jan2014) to Levothyroxine Sodium TABS; TAKE 1 TABLET DAILY; Therapy: (Recorded:[id number]) to Lyrica 50 MG Oral Capsule; TAKE 1 CAPSULE TWICE DAILY; Therapy: (Recorded:81Ori2011) to MetFORMIN HCl 850 MG Oral Tablet; TAKE 1 TABLET DAILY; Therapy: (Recorded:[id number]) to Multiple Vitamin TABS; TAKE 1 TABLET DAILY; Therapy: (Recorded:[id number]) to NightTime CAPS; TAKE 1 CAPSULE AT BEDTIME NEEDED; Therapy: (Recorded:[id number]) to ProAir HFA 108 (90 Base) MCG/ACT Inhalation Aerosol Solution; INHALE 1-2 PUFFS EVERY 4-6 HOURS NEEDED AND DIRECTED; Therapy: (Recorded:08Jan2014) to Triamcinolone Acetonide 0.1 % External Lotion; APPLY SPARINGLY AND MASSAGE IN TWICE DAILY; Therapy: 08Jan2014 to Vitamin B-12 TABS; TAKE 1 TABLET DAILY; Therapy: (Recorded:08Jan2014) to Vitamin C TABS; TAKE 1 TABLET DAILY; Therapy: (Recorded:08Jan2014) to Allergies No Known Drug Allergies Tegaderm Social History Being A Social Drinker Being Sedentary V69.0 Current Smoker 305.1 She started smoking at the age of 13. She smokes one pack per day. Marital History - Currently She has 2 children. Occupation: She works in [employer]. Family History Daughter's history of Diabetes Mellitus V18.0 Maternal history of Ovarian Cancer V16.41 Maternal history of Prediabetes Paternal history of Prostate Cancer V16.42 Review of Systems Constitutional: negative, no fever and no chills. Eyes: negative. ENT: as noted in HPI. Cardiovascular: negative, no chest pain and no palpitations. Respiratory: negative, no cough and no shortness of breath during exertion. Gastrointestinal: negative, no heartburn, no vomiting and no diarrhea. Genitourinary: negative. Musculoskeletal: negative. Integumentary: negative. Neurological: negative. Psychiatric: negative. Endocrine: negative. Hematologic/Lymphatic: negative. Vitals [facility] Vitals Data Includes: Last 24 Hours 08Jan2014 11:47AM Systolic: 121 Diastolic: 73 Heart Rate: 82 BMI Calculated: 42.44 BSA Calculated: 2.11 Height: 5 ft 3.5 in Weight: 242 lb 8.06 oz Height Source: Actual Height Weight Source: Actual Weight Respiration: 18 O2 Saturation: 97 Temperature: 99.2 F Physical Exam Constitutional General appearance: Normal. Eyes Conjunctiva and lids: Normal. Pupils and irises: Normal. Ears, Nose, Mouth, and Throat External inspection of ears and nose: Normal. Otoscopic examination: Normal. Oropharynx: Normal. Pulmonary Respiratory effort: Normal. Auscultation of lungs: Normal. Cardiovascular Palpation of heart: Normal. Auscultation of heart: Normal. Abdomen Abdomen: Normal. Lymphatic Palpation of lymph nodes in neck: Normal. Psychiatric Orientation to person, place, and time: Normal. Mood and affect: Normal. Results/Data All Results Data Includes: Last 6 Weeks 08Jan2014 11:51AM CBC WBC: 8.15 K/uL Reference Range 4.4-11.3 RBC: 5.01 M/uL Reference Range 4.20-5.50 Hemoglobin: 14.7 G/DL Reference Range 12.0-16.0 Hematocrit: 45.1 % Reference Range 37.0-47.0 MCV: 90 FL Reference Range 80-96 Platelet Count: 252 K/uL Reference Range 150-450 RDW: 14.1 % Abnormal High Reference Range 11.5-13.4 Basic Metabolic Profile, Plasma Sodium: 138 MMOL/L Reference Range 135-146 Potassium, Plasma: 4.6 MMOL/L Reference Range 3.4-5.2 Chloride: 100 MMOL/L Reference Range 98-110 Total CO2: 31 MMOL/L Reference Range 24-32 Anion Gap: 7 MMOL/L Reference Range 2-15 BUN: 11 MG/DL Reference Range 6-21 Creatinine, Blood: 0.8 MG/DL Reference Range 0.5-1.1 Glucose, Plasma: 213 MG/DL Abnormal High Reference Range 70-100 Hours PC: FASTING HR Calcium: 10.1 MG/DL Reference Range 8.4-10.4 GFR -Amer: >60 ML/MIN Reference Range >60 GFR Non -Argentine: >60 ML/MIN Reference Range >60 09Dec2013 12:17PM Electrocardiography (Inp/OP) Electrocardiography (Inp/OP): ATTENDING/SUPERVISING PROVIDER: ALEXANDRE NAYAK MDNormrakan sinus rhythmLow voltage, precordial leadsNo previous ECG available for comparison Assessment 1. Visit For: Preoperative Exam V72.84 2. Female Stress Incontinence 625.6 3. Psoriasis 696.1 4. 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 Voice Disturbance 784.40 8. Chronic Obstructive Pulmonary Disease 496 9. Diabetes Mellitus 250.00 10. Postsurgical Hypothyroidism 244.0 11. Paroxysmal Atrial Tachycardia 427.0 12. Osteoarthritis 715.90 Plan Preoperative status. Patient denies chest pain or PLAZA. She states she can walk up 2 flights of stairs without chest pain. She is an acceptable risk for planned procedure. No further testing required. She was instructed to hold glyburide, humalog, and metformin the morning of surgery and to only take 75% regular dose of Lantus the evening before surgery. She was advised to avoid vitamin and herbal supplements 7 days prior to surgery and stop aspirin 14 days prior to surgery. Signatures Electronically signed by : LUIS A ANGELA; Jan 08 2014 12:54PM (Author) documented in this encounter Plan of Treatment Not on file documented as of this encounter Visit Diagnoses Not on filedocumented in this encounter Care Teams Senior Software Engineer Relationship Specialty Start Date End Date Vannessa Mccauley PCP - General 07/21/14 documented as of this encounter
--- OUTSIDE RECORDS SUMMARY | 2025-09-01 16:14 | XMS_ITS | Encounter Summary ---
Author Organization [facility] Address [address] [place] [address] Phone Care Team Providers Care Air Deodorizer Servicer Name Role Phone Juan Escoto MD Primary Care Provider [phone] Encounter Details Date Type Department Care Team (Late st Contact Info) Description 01/02/2024 Procedure Pass [facility] [address] [place] [address] Social History Tobacco Use Types Packs/Day Years [...] Description 09/17/2025 10:40 AM EST Office Visit [facility] Endocrinology Clinic [address] [place] [address] Yashira Cordova PA-C [address] [place] [address] 10/01/2025 9:40 AM EST Office Visit [facility] Rheumatology Clinic [address] [place] [address] [place] [address] Renetta Monique MD, MPH [address] [place] [address], [address] [place] [address] 11/05/2025 11:00 AM EST Nutrition [facility] Diabetes [facility] [address] [place] [address] Sunitha Almazan, ZHANNA [address] [place] [address], 1[address] [place] [address] 11/18/2025 10:00 AM EDT Office Visit [facility] [address] [place] [address] 3rd Floor, [address] [place] [address] Hermila Kaufman, JOHNNIE [address] [place] [address], [facility] [address] [place] [address] 12/17/2025 10:20 AM EDT Office Visit [facility] Endocrinology Clinic [address] [place] [address] Marifer Garay MD [address] [place] [address] [email or web address] documented as of this encounter Visit Diagnoses Not on filedocumented in this encounter Care Teams Air Deodorizer Servicer Relationship Specialty Start Date End Date Juan Escoto MD [address] [place] [address] [place] [phone] PCP - General Internal Medicine 06/16/22 documented as of this encounter Additional Source Comments The information contained in this document represents components of the legal health record. It is not the complete legal health record.[facility]
--- OUTSIDE RECORDS SUMMARY | 2025-09-01 16:14 | XMS_ITS | Encounter Summary ---
Author Organization [facility] Address [address] [place] [address] Phone Care Team Providers Care Pathological Technician Name Role Phone Juan Escoto MD Primary Care Provider [phone] Encounter Details Date Type Department Care Team (Late st Contact Info) Description 07/18/2023 Procedure Pass [facility], Ct Scan - [address] [address] Social History Tobacco Use Types Packs/Day Years [...] Description 09/17/2025 10:40 AM EST Office Visit [facility] Endocrinology Clinic [address] [place] [address] Yashira Cordova PA-C [address] [place] [address] 10/01/2025 9:40 AM EST Office Visit [facility] Rheumat[facility] [address] [place] [address] Renetta Monique MD, MPH [address] [place] [address], [address] [place] [address] 11/05/2025 11:00 AM EST Nutrition [facility] [address] [place] [address] Sunitha Almazan, ZHANNA [address] [place] [address], 1st [place] [address] 11/18/2025 10:00 AM EDT Office Visit [facility] [address] [place] [address] 3rd Floor, [address] [place] [address] Hermila Kaufman, JOHNNIE [address] [place] [address], [facility] [address] [place] [address] 12/17/2025 10:20 AM EDT Office Visit [facility] Endocrinology Clinic [address] [place] [address] Marifer Garay MD [address] [place] [address] documented as of this encounter Visit Diagnoses Not on filedocumented in this encounter Care Teams Pathological Technician Relationship Specialty Start Date End Date Juan Escoto MD [address] [place] [address] Drive [address] [place] [phone] PCP - General Internal Medicine 06/16/22 documented as of this encounter Additional Source Comments The information contained in this document represents components of the legal health record. It is not the complete legal health record.[facility]
--- OUTSIDE RECORDS SUMMARY | 2025-09-01 16:14 | XMS_ITS | Clinical Summary ---
Author Organization [facility] Address [address] [place] [address] Phone Care Team Providers Care Anthropometrist Name Role Phone Juan Escoto MD Primary Care Provider [phone] Allergies Active Allergy Reactions Criticality Noted Date [...] EGD TRANSORAL BIOPSY SINGLE/MULTIPLE; COMMENT: X2 at [facility] ESOPHAGOGASTRODUODENOSCOPY 04/02/2021 PROCEDURE: NM ESOPHAGOGASTRODUODENOSCOPY TRANSORAL DIAGNOSTIC; COMMENT: complete resolution of previous gastric ulcer Medical History Medical History Date Comments H/O carotid stenosis DX:H/O yepez tid stenosis Thrombosis of arm, left 01/2021 DX:Throm bosis of arm, left COPD (chronic obstructive pu lmonary disease) ([facility] V24, [facility] V28) DX:COPD (chronic o bstructive pulmonary disease) ([facility]) HTN (hypertension) DX:HTN (hyper tension) Hypothyroidism DX:Hypothyroidis m Gastric ulcer with hemorrhage 01/09/2021 DX :Gastric ulcer with hemorrhage Psoriatic arthritis ([facility] V24, [facility] V28) DX:Psoriatic arthritis ([facility]) History of non-ST elevation myocardial infarction (NSTEMI) 01/2021 DX:History of non-ST el evation myocardial infarction (NSTEMI); COMMENT: due to hemorrhagic shock 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 ([facility] V24, [facility] V28) DX:DM type 2 wit h diabetic peripheral neuropathy (HCC) Redness and swelling of upper arm DX:Redness and swelling of upper arm Expressive aphasia DX:Expressive aphasia Acute blood loss anemia DX:Acute blood loss anemia NSTEMI (non-ST elevated myoc ardial infarction) ([facility] V24, [facility] V28) DX:NSTEMI (non-ST elevated m [...] age to complete this topic Insurance MEDICARE [place] Advance Directives Documents on File Type Date Recorded Patient Receptionist Nurse Expl anation Health Care Decision (hx) 02/08/2021 [...] (hx) 09/29/2016 AD ANDRES DIRECTIVE Care Teams Anthropometrist Relationship Specialty Start Date End Date Juan Escoto MD [address] [place] [address] Ramila [address] [facility] [place] [address] PCP - General Internal Medicine 01/12/21
--- OUTSIDE RECORDS SUMMARY | 2025-09-01 16:14 | XMS_ITS | Encounter Summary ---
Author Organization [facility] Address [address] [place] [address] Care Team Providers Care Stoner Hand Name Role Phone Vannessa Mccauley Primary Care Provider [phone] Encounter Details Date Type Department Care Team (Late st Contact Info) Description 11/21/2013 Clinical Conversion Encounter [facility] Division of otolaryngology - [facility] [address] [place] [address] Daniel Novoa MD [address] [place] [address] Social History Tobacco Use Types Packs/Day Years Used Date Smoking Tobacco: Never Assessed Comments Unknown Sex and Gender Information Value Date Recorded Sex Assigned at Not on file Legal Sex Female 4:40 PM EST Gender Identity Not on file Sexual Orientation Not on file documented as of this encounter Progress Notes * Daniel Novoa MD - 11/05/2014 10:02 PM EST [id number] [place]. History of Present Illness The patient is a 53-year-old female whom I was asked to see by Dr. Mccauley for complaints of a voice change. The patient has had increasing voice change for over one year. Over this time she's had exacerbation of her psoriatic arthritis and psoriasis. She has been on multiple medications including methotrexate, oral steroids, and Humira. Interestingly, the patient's voice normalized briefly after the Humira, but the patient had to stop this drug as it was increasing her psoriasis. She complained specifically of a coarse scratchy sound voice, vocal fatigue, and difficulty speaking loudly. Her symptoms came on quickly, and have remained relatively constant. Active Problems Psoriatic arthritis, psoriasis, diabetes, COPD, and neuropathy Past Medical History Arthritis, cataract, hypertension, and thyroid problems Family History Prostate and ovarian cancer Social History Current Some Day Smoker 305.1 The patient smokes one pack of cigarettes per day and has done so for 40 years. She has no plans in quitting. She does not use alcohol beverages. She does drink 3 cups of coffee per day. She is employed and uses her voice approximately 7 hours per day. Current Meds Amoxicillin 500 MG Oral Tablet; Therapy: (Recorded:21Nov2013) to Aspirin 81 MG Oral Tablet Chewable; Therapy: (Recorded:21Nov2013) to Diovan 160 MG Oral Tablet; Therapy: (Recorded:21Nov2013) to Gabapentin 600 MG Oral Tablet; Therapy: (Recorded:21Nov2013) to Ginkgo Biloba Extract 120 MG Oral Capsule; Therapy: (Recorded:21Nov2013) to GlyBURIDE 5 MG Oral Tablet; Therapy: (Recorded:21Nov2013) to HumaLOG SOLN; Therapy: (Recorded:21Nov2013) to Lantus 100 UNIT/ML Subcutaneous Solution; Therapy: (Recorded:21Nov2013) to Levothyroxine Sodium TABS; Therapy: (Recorded:21Nov2013) to Lyrica 50 MG Oral Capsule; Therapy: (Recorded:21Nov2013) to MetFORMIN HCl 850 MG Oral Tablet; Therapy: (Recorded:21Nov2013) to Mometasone Furoate 0.1 % External Ointment; Therapy: (Recorded:21Nov2013) to Multiple Vitamin TABS; Therapy: (Recorded:21Nov2013) to NightTime CAPS; Therapy: (Recorded:21Nov2013) to ProAir HFA 108 (90 Base) MCG/ACT Inhalation Aerosol Solution; Therapy: (Recorded:21Nov2013) to Vitamin B-12 TABS; Therapy: (Recorded:21Nov2013) to Vitamin C TABS; Therapy: (Recorded:21Nov2013) to Allergies No Known Drug Allergies Review of Systems For full details of the review of systems please refer to the medical history questionnaire which I reviewed and placed in the patient's chart. Vitals Ericka Vitals Data Includes: Current Encounter 21Nov2013 11:33AM Pain Score 5 Pain Site feet and hands MD Notified of Pain Score Greater Than 3 Yes Allergy Status Reviewed Yes Safe at Home Yes Physical Exam General: well-developed, well-nourished, pleasant patient in no apparent distress Head and face: normocephalic, atraumatic, there are no salivary gland masses. Cranial nerve 7 is intact bilaterally. Eyes: extraocular muscles are intact. Pupils are equal round and reactive to light. Ears: There are no external ear lesions or masses. Tympanic membranes are pearly and mobile bilaterally. Hearing thresholds are grossly normal. Nose: Septum is midline. There is no mucopurulent drainage, turbinate hypertrophy, or nasal polyposis. Oral cavity oropharynx: There are no lesions or masses in the oral cavity or oropharynx. Teeth and gums are unremarkable. Palatal elevation is symmetric. Larynx: bilateral true vocal folds are mobile. There were no lesions or masses in the larynx or hypopharynx. Neck: there are no masses in the patient's neck. There are no thyroid masses. Lymphatic: There is no cervical or postauricular adenopathy. Respiratory: There are no upper airway obstructive breath sounds. Voice is extremely hoarse. Cardiovascular: The heart is regular and carotid pulsations are strong. Neurologic/psychiatric: Cranial nerves II through XII are intact. Mood and affect are normal. Assessment 1. Voice Disturbance 784.40 2. 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 Fluconazole 100 MG Oral Tablet; TAKE 2 TAB(S) ORALLY ON DAY ONE, THEN 1 TAB ORALLY DAILY FOR 20 DAYS; Therapy: 21Nov2013 to (Last Rx:21Nov2013) Requested for: 21Nov2013; Edited The patient is a 53-year-old female with hoarse voice and evidence of fungal laryngitis. I will treat patient with fluconazole for the next 3 weeks. I would like to see her back in 3 weeks to make sure that her voice and laryngeal appearance have improved. I encouraged the patient to refrain from smoking, but do not expect that she will follow this advice. Signatures Electronically signed by : DANIEL NOVOA MD; Nov 21 2013 4:14PM documented in this encounter Procedure Notes * Daniel Novoa MD - 11/05/2014 10:02 PM EST [id number],SHERYL [facility] [place]. Procedure Due to the patient's voice complaints strobovideolaryngoscopy was performed. The scope was passed and the larynx and hypopharynx carefully visualized. Multiple phonatory and breathing tasks were given to assess vocal fold motion, vocal fold mucosal wave, glottic closure, and allow visualization of any pathology. Both halogen and Xenon stroboscopy light were used. Findings: Larynx and hypopharynx: Bilateral true vocal folds were mobile. There were no lesions or masses in the larynx or hypopharynx. There was inflammation and white plaques on the vocal folds bilaterally. There appeared to be a potential ulcerated area on the left vocal fold. Vocal fold vibratory function was reduced bilaterally. Assessment 1. Voice Disturbance 784.40 2. 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 Fluconazole 100 MG Oral Tablet; TAKE 2 TAB(S) ORALLY ON DAY ONE, THEN 1 TAB ORALLY DAILY FOR 20 DAYS; Therapy: 21Nov2013 to (Last Rx:21Nov2013) Requested for: 21Nov2013; Edited The patient is a 53-year-old female with hoarse voice and evidence of fungal laryngitis. I will treat patient with fluconazole for the next 3 weeks. I would like to see her back in 3 weeks to make sure that her voice and laryngeal appearance have improved. I encouraged the patient to refrain from smoking, but do not expect that she will follow this advice. Signatures Electronically signed by : DANIEL NOVOA MD; Nov 21 2013 4:14PM documented in this encounter Plan of Treatment Not on file documented as of this encounter Visit Diagnoses Not on filedocumented in this encounter Care Teams Stoner Hand Relationship Specialty Start Date End Date Vannessa Mccauley PCP - General 07/21/14 documented as of this encounter
--- OUTSIDE RECORDS SUMMARY | 2025-09-01 16:14 | XMS_ITS | Encounter Summary ---
Author Organization [facility] Address [address] [place] [address] Phone Care Team Providers Care Supervisor Packing Name Role Phone Juan Escoto MD Primary Care Provider Encounter Details Date Type Department Care Team (Late st Contact Info) Description 06/14/2023 Ancillary Orders Ruby Quiroga Non-Invasic Cardiology [address] [place] [address] Imtiaz Horner MD, PhD [address] [place] [address] [email or web address] Social History Tobacco Use [...] 09/17/2025 10:40 AM EST Office Visit [facility] Endocrinology [address] [place] [address] Yashira Cordova PA-C [address] [place] [address] 10/01/2025 9:40 AM EST Office Visit [facility] Rheumatology [address] [place] [address] Renetta Monique MD, MPH [address] [place] [address] 11/05/2025 11:00 AM EST Nutrition [facility] Diabetes [address] [address] Sunitha Almazan, ZHANNA [address] [place] [address] 11/18/2025 10:00 AM EDT Office Visit [facility] [address] [place] [address], [address] [address] Hermila Kaufman, JOHNNIE [address] [place] [address] 12/17/2025 10:20 AM EDT Office Visit [facility] Endocrinology Clinic [address] [place] [address] [place] [address] Marifer Graay MD [address] [place] [address] [email or web address] documented as of this encounter Visit Diagnoses Not on filedocumented in this encounter Care Teams Supervisor Packing Relationship Specialty Start Date End Date Juan Escoto MD [address] [place] [address] [address] [place] [phone] PCP - General Internal Medicine 06/16/22 documented as of this encounter Additional Source Comments The information contained in this document represents components of the legal health record. It is not the complete legal health record.[facility]
--- OUTSIDE RECORDS SUMMARY | 2025-09-01 16:14 | XMS_ITS | Encounter Summary ---
Author Organization [facility] Address [address] [place] [address] Phone Care Team Providers Care Indian Nanny Name Role Phone Juan Escoto MD Primary Care Provider [phone] Encounter Details Date Type Department Care Team (Late st Contact Info) Description 11/01/2022 Procedure Pass [facility] [address] [place] [address] Social History Tobacco Use Types Packs/Day Years [...] Description 09/17/2025 10:40 AM EST Office Visit [facility] Endocrinology Clinic [address] [place] [address] Yashira Cordova PA-C [address] [place] [address] 10/01/2025 9:40 AM EST Office Visit [facility] Rheumatology Clinic [address] [place] [address] Renetta Monique MD, MPH [address] [facility], [address] [place] [address] 11/05/2025 11:00 AM EST Nutrition [facility] Diabetes [address] [address] Sunitha Almazan, KENNEYN [address] [facility], 1st [place] [address] 11/18/2025 10:00 AM EDT Office Visit [facility] [address] [place] [address] [address]rd [facility], [address] [place] [address] Hermila Kaufman, JOHNNIE [address] [place] [address], [address] [place] [address] 12/17/2025 10:20 AM EDT Office Visit [facility] Endocrinology Clinic [address] [place] [address] Marifer Garay MD [address] [place] [address] [address] [place] [address] documented as of this encounter Visit Diagnoses Not on filedocumented in this encounter Care Teams Indian Nanny Relationship Specialty Start Date End Date Jevon, Juan Finney MD [address] [place] [address] [address] [place] [phone] PCP - General Internal Medicine 06/16/22 documented as of this encounter Additional Source Comments The information contained in this document represents components of the legal health record. It is not the complete legal health record.[facility]
--- OUTSIDE RECORDS SUMMARY | 2025-09-01 16:14 | XMS_ITS | Encounter Summary ---
Author Organization [facility] Address [address] [place] [address] Phone Care Team Providers Care Insecticide Sprayer Name Role Phone Juan Escoto MD Primary Care Provider [phone] Encounter Details Date Type Department Care Team (Latest Contact Info) Description 10/19/2023 Ancillary Orders [facility] Rheumatology Clinic [address] [place] [address] Renetta Monique MD, MPH [address] [facility], [address] [place] [address] [email or web address] Psoriasis (Primary Dx); Polyarthralgia Social History Tobacco [...] Description 09/17/2025 10:40 AM EST Office Visit [facility] Endocrinology Clinic [address] [place] [address] Yashira Cordova PA-C [address] [place] [address] 10/01/2025 9:40 AM EST Office Visit [facility] Rheumatology Clinic [address] [place] [address] Renetta Monique MD, MPH [address] [place] [address], [address] [place] [address] 11/05/2025 11:00 AM EST Nutrition [facility] Diabetes Clinic [address] [place] [address] [place] [address] Sunitha Almazan LDN [address] [facility], 1st [place] [address] 11/18/2025 10:00 AM EDT Office Visit [facility] [address] [place] [address] [address]rd Floor, [address] [place] [address] Hermila Kaufman, JOHNNIE [address] [facility], [address] [place] [address] 12/17/2025 10:20 AM EDT Office Visit [facility] Endocrinology [facility] [address] [place] [address] Marifer Garay MD [address] [place] [address] [address] [place] [address] [email or web address] documented as of this encounter Results * [...] sites documented in this encounter Care Teams Insecticide Sprayer Relationship Specialty Start Date End Date Jevon, Juan Finney MD [address] [place] [address] [place] [phone] PCP - General Internal Medicine 06/16/22 documented as of this encounter Additional Source Comments The information contained in this document represents components of the legal health record. It is not the complete legal health record.[facility]
--- OUTSIDE RECORDS SUMMARY | 2025-09-01 16:14 | XMS_ITS | Encounter Summary ---
Author Organization [facility] Address [address] [place] [address] Phone Care Team Providers Care Power Supply Engineer Name Role Phone Juan Escoto MD Primary Care Provider [phone] Encounter Details Date Type Department Care Team (Late st Contact Info) Description 07/18/2023 Procedure Pass [facility] Scan - [address] [address] Social History Tobacco Use Types Packs/Day Years [...] Description 09/17/2025 10:40 AM EST Office Visit [facility] Endocrinology Clinic [address] [place] [address] Yashira Cordova PA-C [address] [place] [address] 10/01/2025 9:40 AM EST Office Visit [facility] Rheumatology Clinic [address] [place] [address] Renetta Monique MD, MPH [address] [place] [address], [address] [place] [address] 11/05/2025 11:00 AM EST Nutrition [facility] Diabetes Clinic [address] [place] [address] Sunitha Almazan, ZHANNA [address] [place] [address], 1[address] [place] [address] 11/18/2025 10:00 AM EDT Office Visit [facility] [address] [place] [address] 3rd Floor, [address] [place] [address] Hermila Kaufman, JOHNNIE [address] [place] [address], [facility] [address] [place] [address] 12/17/2025 10:20 AM EDT Office Visit [facility] Endocrinology Clinic [address] [place] [address] Marifer Garay MD [address] [place] [address] documented as of this encounter Visit Diagnoses Not on filedocumented in this encounter Care Teams Power Supply Engineer Relationship Specialty Start Date End Date Juan Escoto MD [address] [place] [address] Drive [address] [place] [phone] PCP - General Internal Medicine 06/16/22 documented as of this encounter Additional Source Comments The information contained in this document represents components of the legal health record. It is not the complete legal health record.[facility]
== END 2025-09-01 14:03 | disposition home or self-care (01) ==
LOC: HO.HMCH 12:59
PROVIDERS: PCP Internal Medicine; Visit Provider Internal Medicine
DX: I12.9 Hypertensive chronic kidney disease with stage 1 through stage 4 chronic kidney disease, or unspecified chronic kidney disease (principal); E11.65 Type 2 diabetes mellitus with hyperglycemia; Z79.4 Long term (current) use of insulin; E66.01 Morbid (severe) obesity due to excess calories; N18.4 Chronic kidney disease, stage 4 (severe); J43.1 Panlobular emphysema; Z68.41 Body mass index [BMI] 40.0-44.9, adult; E03.9 Hypothyroidism, unspecified; I25.10 Atherosclerotic heart disease of native coronary artery without angina pectoris; Z12.11 Encounter for screening for malignant neoplasm of colon; E78.00 Pure hypercholesterolemia, unspecified; F41.1 Generalized anxiety disorder; Z23 Encounter for immunization

== ENCOUNTER → 2025-09-01 12:58 | Outpatient (BNVA) | payer BC, SELFPAY | PROVIDERS: PCP Internal Medicine; Visit Provider Internal Medicine | DX: E11.65 Type 2 diabetes mellitus with hyperglycemia (principal); E11.22 Type 2 diabetes mellitus with diabetic chronic kidney disease; I12.9 Hypertensive chronic kidney disease with stage 1 through stage 4 chronic kidney disease, or unspecified chronic kidney disease; N18.4 Chronic kidney disease, stage 4 (severe); E03.9 Hypothyroidism, unspecified; E66.01 Morbid (severe) obesity due to excess calories; I25.10 Atherosclerotic heart disease of native coronary artery without angina pectoris; E78.00 Pure hypercholesterolemia, unspecified; J43.1 Panlobular emphysema; I25.2 Old myocardial infarction; R30.0 Dysuria; Z12.11 Encounter for screening for malignant neoplasm of colon; Z13.31 Encounter for screening for depression; Z13.39 Encounter for screening examination for other mental health and behavioral disorders; Z79.4 Long term (current) use of insulin; Z86.73 Personal history of transient ischemic attack (TIA), and cerebral infarction without residual deficits; Z87.11 Personal history of peptic ulcer disease; Z98.62 Peripheral vascular angioplasty status; Z23 Encounter for immunization; Z87.891 Personal history of nicotine dependence | CPT/HCPCS: 90471; 90677; 96127 ==